=== PATIENT | male | born 1945 | race Caucasian/White ===

== ENCOUNTER → 2016-06-04 | Outpatient (CLI) | payer OTHER ==
[~2016-06-04] MED LIST: CAL PO; DRIS50002 PO; FILG30VL SC; FURO40TA2 PO; K-TA10TA2 PO; KEFL500C7 PO; MAG PO; MILK140C PO; MULT1TAB8 PO; MULTIVIT PO; NAPR250T2 PO; OXYC15TA76 PO; OXYC1SOL PO; PAIN325T OR; POTA1TAB14 PO; PRAZ1CAP PO; RANI1TAB6 PO; SERT-141 PO; VANC250C2 PO; VIT D 2000 PO; ZINC PO; ZOLO100T PO; centrum PO; milk thistle PO
--- NOTE | 2016-06-04 16:05 | REP ---
MAXILLOFACIAL CT WITHOUT CONTRAST: HISTORY: Chronic sinusitis. Minimal mucosal thickening is present in the left maxillary sinus. The remaining sinuses are clear. The osteomeatal units are patent. The middle and inferior nasal turbinates are partially paradoxical. There is minimal deviation of the nasal septum to the left anteriorly and to the right posteriorly. The cribriform plate and medial bautista of the orbits and optic canals are intact. The carotid canals form a segment of the posterolateral bautista of the sphenoid sinus. IMPRESSION: Sinus mucosal thickening as described above. Signed by Shashank Zapien MD 06/04/2016 04:50 P
== END ==
LOC: M RAD 14:54
PROVIDERS: ATTEND Otolaryngology
DX: J32.4 Chronic pansinusitis (principal); J34.89 Other specified disorders of nose and nasal sinuses

== ENCOUNTER → 2016-06-05 | Outpatient (REF) | payer OTHER ==
[2016-06-05 16:18] LABS: INR 1.37; MEAN CORPUSCULAR HEMOGLOBIN 36.9 pg (27.0-33.0); MEAN CORPUSCULAR HGB CONC 33.2 g/dl (32.0-36.5); MEAN CORPUSCULAR VOLUME 111.1 fl (80.0-96.0); RED CELL DISTRIBUTION WIDTH 20.1 % (11.5-14.5); WHITE BLOOD COUNT 2.5 K/mm3 (4.0-10.0)
[2016-06-05 16:30] LABS: ALBUMIN 2.9 GM/DL (3.2-5.2); ALBUMIN/GLOBULIN RATIO 0.64 (1.00-1.93); BILIRUBIN,TOTAL 0.8 MG/DL (0.2-1.0); CALCIUM LEVEL 8.4 MG/DL (8.8-10.2); CREATININE FOR GFR 1.47 MG/DL (0.70-1.30); POTASSIUM SERUM 3.9 MEQ/L (3.5-5.1); TOTAL PROTEIN 7.4 GM/DL (6.4-8.2)
[2016-06-05 18:29] LABS: ANISOCYTOSIS 2+; BANDS 2 % (< 11); BASOPHILS 1 % (0-4)
[2016-06-08 11:18] LABS: PRETREATED FOLATE FOR RBCFOL 5.2 NG/ML
== END ==
LOC: M SFHCPLAZ 13:28
PROVIDERS: ATTEND Family Medicine
DX: D64.9 Anemia, unspecified (principal); I50.30 Unspecified diastolic (congestive) heart failure

== ENCOUNTER → 2016-06-13 | Outpatient (REF) | payer OTHER ==
[2016-06-13 11:59] LABS: INR 1.42
[2016-06-13 12:29] LABS: ALBUMIN 2.8 GM/DL (3.2-5.2); ALBUMIN/GLOBULIN RATIO 0.64 (1.00-1.93); BILIRUBIN,TOTAL 0.8 MG/DL (0.2-1.0); CALCIUM LEVEL 8.1 MG/DL (8.8-10.2); CREATININE FOR GFR 1.45 MG/DL (0.70-1.30); GLOMERULAR FILTRATION RATE 50.8 (>42); POTASSIUM SERUM 3.8 MEQ/L (3.5-5.1); TOTAL PROTEIN 7.2 GM/DL (6.4-8.2)
[2016-06-13 13:07] LABS: MEAN CORPUSCULAR HEMOGLOBIN 38.2 pg (27.0-33.0); MEAN CORPUSCULAR HGB CONC 34.3 g/dl (32.0-36.5); MEAN CORPUSCULAR VOLUME 111.4 fl (80.0-96.0); RED CELL DISTRIBUTION WIDTH 18.1 % (11.5-14.5); WHITE BLOOD COUNT 2.3 K/mm3 (4.0-10.0)
[2016-06-13 13:36] LABS: BANDS 3 % (< 11); BASOPHILS 2 % (0-4); NUCLEATED RED BLOOD CELL 1 % (0-0); POIKILOCYTOSIS 1+
[2016-06-15 11:21] LABS: PRETREATED FOLATE FOR RBCFOL 5.8 NG/ML
== END ==
LOC: M SFHCPLAZ 10:46
PROVIDERS: ATTEND Family Medicine
DX: I50.30 Unspecified diastolic (congestive) heart failure (principal); D64.9 Anemia, unspecified

== ENCOUNTER → 2016-06-19 | Outpatient (REF) | payer OTHER ==
[2016-06-19 13:50] LABS: DIFF SLIDE NUMBER 198; MEAN CORPUSCULAR HEMOGLOBIN 37.2 pg (27.0-33.0); MEAN CORPUSCULAR HGB CONC 32.4 g/dl (32.0-36.5); MEAN CORPUSCULAR VOLUME 114.8 fl (80.0-96.0); RED CELL DISTRIBUTION WIDTH 19.4 % (11.5-14.5); WHITE BLOOD COUNT 3.5 K/mm3 (4.0-10.0)
[2016-06-19 15:07] LABS: PLATELET COUNT, AUTOMATED 28 k/mm3 (150-450)
[2016-06-19 15:20] LABS: BANDS 2 % (< 11); EOSINOPHILS 1 % (0-5)
[2016-06-19 15:21] LABS: SPHEROCYTES 2+
== END ==
LOC: M SFHCPLAZ 10:59
PROVIDERS: ATTEND Family Medicine
DX: D64.9 Anemia, unspecified (principal)

== ENCOUNTER → 2016-06-26 | Outpatient (REF) | payer OTHER ==
[2016-06-26 13:56] LABS: INR 1.46
[2016-06-26 13:58] LABS: ALBUMIN 2.9 GM/DL (3.2-5.2); ALBUMIN/GLOBULIN RATIO 0.67 (1.00-1.93); BILIRUBIN,TOTAL 0.8 MG/DL (0.2-1.0); CALCIUM LEVEL 8.3 MG/DL (8.8-10.2); CREATININE FOR GFR 1.47 MG/DL (0.70-1.30); POTASSIUM SERUM 3.8 MEQ/L (3.5-5.1); TOTAL PROTEIN 7.2 GM/DL (6.4-8.2)
[2016-06-26 14:35] LABS: MEAN CORPUSCULAR HEMOGLOBIN 37.7 pg (27.0-33.0); MEAN CORPUSCULAR HGB CONC 33.4 g/dl (32.0-36.5); MEAN CORPUSCULAR VOLUME 112.9 fl (80.0-96.0); RED CELL DISTRIBUTION WIDTH 17.7 % (11.5-14.5); WHITE BLOOD COUNT 8.7 K/mm3 (4.0-10.0)
[2016-06-26 15:15] LABS: ANISOCYTOSIS 1+
[2016-06-29 10:30] LABS: PRETREATED FOLATE FOR RBCFOL 6.8 NG/ML
== END ==
LOC: M SFHCPLAZ 10:59
PROVIDERS: ATTEND Family Medicine
DX: D64.9 Anemia, unspecified (principal); I50.30 Unspecified diastolic (congestive) heart failure

== ENCOUNTER → 2016-07-03 | Outpatient (REF) | payer OTHER ==
[~2016-07-03] MED LIST changes: +SERT-138 PO
[2016-07-03 14:13] LABS: MEAN CORPUSCULAR HEMOGLOBIN 38.2 pg (27.0-33.0); MEAN CORPUSCULAR HGB CONC 33.3 g/dl (32.0-36.5); MEAN CORPUSCULAR VOLUME 114.9 fl (80.0-96.0); RED CELL DISTRIBUTION WIDTH 18.1 % (11.5-14.5); WHITE BLOOD COUNT 2.3 K/mm3 (4.0-10.0)
== END ==
LOC: M SFHCPLAZ 11:00
PROVIDERS: ATTEND Family Medicine
DX: D64.9 Anemia, unspecified (principal)

== ENCOUNTER 2016-07-04 11:26 | Outpatient (CLI) | payer OTHER ==
[2016-07-04 11:52] VITALS: BP 162/67
[2016-07-04] MEDS ORDERED: FUROSEMIDE 20 MG/2 ML VIAL (J1940) IV SCH (12:00)
== END 2016-07-04 18:25 | disposition home or self-care (01) ==
LOC: M OPCLI4PR 11:26 → M PED 11:28 → M OPCLI4PR 18:25
PROVIDERS: ATTEND Family Medicine
DX: D64.9 Anemia, unspecified (principal)
CPT/HCPCS: 36415; 36430; 86850; 86900; 86901; 86920; J1940; P9016

== ENCOUNTER → 2016-07-09 | Outpatient (CLI) | payer OTHER ==
[~2016-07-09] VITALS: Ht 177.8 cm; Wt 86.2 kg
[~2016-07-09] MED LIST changes: +LIDOCAINE 2% INJ 100 MG/5 ML SDV (FOR ANES.) As Ordered ONE; +NS 1,000 ML IV SCH; +PROPOFOL 200 MG/20 ML VIAL As Ordered ONE
--- NOTE | 2016-07-09 13:59 | ROOR ---
Patient Name: Ovidio Ott Procedure Date: 07/09/2016 1:38 PM Date of : 1945 Age: 71 Room: [facility] Gender: Male Note Status: Finalized Procedure: Upper GI endoscopy + Banding of Varices Indications: Iron deficiency anemia, Cirrhosis rule out esophageal varices, Follow-up of esophageal varices, For therapy of esophageal varices Providers: Shubham Monsivais MD Referring MD: Maged Negron MD Requesting Provider: Medicines: Monitored Anesthesia Care Complications: No immediate complications. Procedure: Pre-Anesthesia Assessment: - The heart rate, respiratory rate, oxygen saturations, blood pressure, adequacy of pulmonary ventilation, and response to care were monitored throughout the procedure. The Endoscope was introduced through the mouth, and advanced to the second part of duodenum. The upper GI endoscopy was accomplished without difficulty. The patient tolerated the procedure well. Findings: Grade III varices were found in the entire esophagus. They were large in size. Three bands were successfully placed with incomplete eradication of varices. Moderate portal hypertensive gastropathy was found in the entire examined stomach. The exam of the duodenum was otherwise normal. Impression: - Grade III esophageal varices. Incompletely eradicated. Banded. - Portal hypertensive gastropathy. - No specimens collected. - The examination was otherwise normal. Recommendation: - Patient has a contact number available for emergencies. The signs and symptoms of potential delayed complications were discussed with the patient. Return to normal activities tomorrow. Written discharge instructions were provided to the patient. - Discharge patient to home. - Continue present medications. - Return to referring physician. - Return to GI clinic in 2 months. - The findings and recommendations were discussed with the patient's family. Shubham Monsivais MD Shubham Monsivais MD 07/09/2016 1:59:31 PM This report has been signed electronically. Number of Addenda: 0 Note Initiated On: 07/09/2016 1:38 PM Estimated Blood Loss: Estimated blood loss: none.
--- NOTE | 2016-07-09 14:16 | ROOR ---
Patient Name: Ovidio Ott Procedure Date: 07/09/2016 1:37 PM Date of : 1945 Age: 71 Room: [facility] Gender: Male Note Status: Finalized Procedure: Colonoscopy to Cecum Indications: High risk colon cancer surveillance: Personal history of colon cancer Providers: Shubham Monsivais MD Referring MD: Maged Negron MD Requesting Provider: Medicines: Monitored Anesthesia Care Complications: No immediate complications. Procedure: Pre-Anesthesia Assessment: - The heart rate, respiratory rate, oxygen saturations, blood pressure, adequacy of pulmonary ventilation, and response to care were monitored throughout the procedure. The Colonoscope was introduced through the anus and advanced to the cecum, identified by appendiceal orifice and ileocecal valve. The colonoscopy was performed without difficulty. The patient tolerated the procedure well. The quality of the bowel preparation was excellent. Findings: The perianal and digital rectal examinations were normal. Non-bleeding internal hemorrhoids were found during retroflexion. The hemorrhoids were small and Grade I (internal hemorrhoids that do not prolapse). There was evidence of a prior end-to-end colo-colonic anastomosis at 25 cm proximal to the anus. This was patent and was characterized by healthy appearing mucosa. The exam was otherwise without abnormality on direct and retroflexion views. Impression: - Non-bleeding internal hemorrhoids. - Patent end-to-end colo-colonic anastomosis, characterized by healthy appearing mucosa. - The examination was otherwise normal on direct and retroflexion views. - No specimens collected. - The exam was otherwise normal to the cecum. Recommendation: - Patient has a contact number available for emergencies. The signs and symptoms of potential delayed complications were discussed with the patient. Return to normal activities tomorrow. Written discharge instructions were provided to the patient. - High fiber diet. - Discharge patient to home. - Continue present medications. - Repeat colonoscopy in 3 - 5 years for screening purposes. - Return to referring physician. - The findings and recommendations were discussed with the patient's family. Shubham Monsivais MD Shubham Monsivais MD 07/09/2016 2:16:23 PM This report has been signed electronically. Number of Addenda: 0 Note Initiated On: 07/09/2016 1:37 PM Estimated Blood Loss: Estimated blood loss: none.
[2016-07-09 14:45] VITALS: BP 147/67
== END | disposition home or self-care (01) ==
LOC: M OPP 12:07
PROVIDERS: ATTEND Internal Medicine Gastroenterology
DX: Z12.11 Encounter for screening for malignant neoplasm of colon (principal); K64.0 First degree hemorrhoids; Z98.0 Intestinal bypass and anastomosis status; Z85.038 Personal history of other malignant neoplasm of large intestine; D50.9 Iron deficiency anemia, unspecified; K76.6 Portal hypertension; K31.89 Other diseases of stomach and duodenum; K74.60 Unspecified cirrhosis of liver; I85.10 Secondary esophageal varices without bleeding; Z85.05 Personal history of malignant neoplasm of liver; F32.9 Major depressive disorder, single episode, unspecified; D69.6 Thrombocytopenia, unspecified; R12 Heartburn; G47.30 Sleep apnea, unspecified; K92.1 Melena; R06.83 Snoring; M19.90 Unspecified osteoarthritis, unspecified site; M54.2 Cervicalgia; Z79.891 Long term (current) use of opiate analgesic; Z79.899 Other long term (current) drug therapy; Z87.891 Personal history of nicotine dependence; Z08 Encounter for follow-up examination after completed treatment for malignant neoplasm

== ENCOUNTER → 2016-07-11 | Outpatient (REF) | payer OTHER ==
[~2016-07-11] MED LIST changes: -LIDOCAINE 2% INJ 100 MG/5 ML SDV (FOR ANES.) As Ordered ONE; -NS 1,000 ML IV SCH; -PROPOFOL 200 MG/20 ML VIAL As Ordered ONE
[2016-07-11 12:12] LABS: DIFF SLIDE NUMBER 194; MEAN CORPUSCULAR HEMOGLOBIN 36.8 pg (27.0-33.0); MEAN CORPUSCULAR VOLUME 108.1 fl (80.0-96.0); WHITE BLOOD COUNT 4.7 K/mm3 (4.0-10.0)
[2016-07-11 12:16] LABS: PLATELET COUNT, AUTOMATED 30 k/mm3 (150-450)
[2016-07-11 12:37] LABS: ANISOCYTOSIS 2+
== END ==
LOC: M SFHCPLAZ 10:29
PROVIDERS: ATTEND Family Medicine
DX: D64.9 Anemia, unspecified (principal)

== ENCOUNTER 2016-07-12 12:08 | Outpatient (CLI) | payer OTHER ==
[~2016-07-12] VITALS: Ht 177.8 cm; Wt 86.2 kg
[2016-07-12] MEDS ORDERED: FUROSEMIDE 20 MG/2 ML VIAL (J1940) IV ONE (13:00)
== END 2016-07-12 17:20 | disposition home or self-care (01) ==
LOC: M INFU 12:08
PROVIDERS: ATTEND Physician Assistant Medical
DX: D70.9 Neutropenia, unspecified (principal); D64.9 Anemia, unspecified; K72.90 Hepatic failure, unspecified without coma; M19.90 Unspecified osteoarthritis, unspecified site; M54.2 Cervicalgia; Z79.899 Other long term (current) drug therapy; Z87.891 Personal history of nicotine dependence
CPT/HCPCS: 36415; 36430; 86850; 86900; 86901; 86920; J1940; P9016

== ENCOUNTER → 2016-08-21 | Outpatient (REF) | payer OTHER ==
[~2016-08-21] MED LIST changes: -SERT-141 PO; +SERT50TA PO
[2016-08-21 14:14] LABS: INR 1.45
[2016-08-21 14:22] LABS: DIFF SLIDE NUMBER 213; MEAN CORPUSCULAR HEMOGLOBIN 36.3 pg (27.0-33.0); MEAN CORPUSCULAR VOLUME 109.7 fl (80.0-96.0); RED CELL DISTRIBUTION WIDTH 19.8 % (11.5-14.5); WHITE BLOOD COUNT 8.7 K/mm3 (4.0-10.0)
[2016-08-21 14:24] LABS: ALBUMIN 2.9 GM/DL (3.2-5.2); ALBUMIN/GLOBULIN RATIO 0.67 (1.00-1.93); BILIRUBIN,TOTAL 0.8 MG/DL (0.2-1.0); CALCIUM LEVEL 8.1 MG/DL (8.8-10.2); CREATININE FOR GFR 1.5 MG/DL (0.70-1.30); FREE T4 0.62 NG/DL (0.76-1.46); GLOMERULAR FILTRATION RATE 48.8 (>42); MAGNESIUM LEVEL 1.8 MG/DL (1.8-2.4); PERCENT SATURATION 91.1 % (19.7-37.4); POTASSIUM SERUM 3.8 MEQ/L (3.5-5.1); TOTAL PROTEIN 7.2 GM/DL (6.4-8.2)
[2016-08-21 15:13] LABS: PLATELET COUNT, AUTOMATED 25 k/mm3 (150-450)
[2016-08-21 15:20] LABS: BANDS 3 % (< 11)
[2016-08-21 15:21] LABS: ANISOCYTOSIS 2+
== END ==
LOC: M SFHCPLAZ 11:00
PROVIDERS: ATTEND Family Medicine
DX: I50.30 Unspecified diastolic (congestive) heart failure (principal); D63.8 Anemia in other chronic diseases classified elsewhere

== ENCOUNTER → 2016-09-05 | Outpatient (REF) | payer OTHER ==
[2016-09-05 13:22] LABS: REASON FOR REVIEW COMPREHENSIVE REVIEW
[2016-09-05 13:56] LABS: INR 1.49
[2016-09-07 10:06] LABS: HEPATITIS B SURFACE ANTIBODY POSITIVE (POSITIVE)
== END ==
LOC: M LAB REF 12:47
PROVIDERS: ATTEND Internal Medicine Medical Oncology
DX: D69.6 Thrombocytopenia, unspecified (principal)

== ENCOUNTER 2016-10-05 13:03 | Inpatient (IN) | payer MEDICARE, OTHER ==
[~2016-10-05] VITALS: Ht 180.3 cm; Wt 92.2 kg
[~2016-10-05 13:03] MED LIST changes: +KEFL500C17 PO; -KEFL500C7 PO; -NAPR250T2 PO; +NAPR250T4 PO; -OXYC1SOL PO; +OXYC1SOL3 PO
[2016-10-05] MEDS ORDERED: NS 500 ML IV ONE (14:15)
[2016-10-05] MEDS ORDERED: MORPHINE 2 MG/ML 1ML SYRINGE IV PRN (14:15)
[2016-10-05] MEDS ORDERED: ONDANSETRON 4MG/2ML VIAL (J2405) IV ONE (14:15)
--- NOTE | 2016-10-05 14:37 | REP ---
CT ABDOMEN AND PELVIS: CT abdomen and pelvis performed. No IV contrast was administered. Sagittal and coronal reconstruction images are performed. Comparison made with prior study of 02/23/2016. There is diffuse interstitial fibrosis in the visualized lung bases which is unchanged. Liver is unchanged in configuration with scattered internal calcifications. Spleen is enlarged and there are multiple varices in the splenic hilum. Adrenals and pancreas are grossly unremarkable. Kidneys are grossly unremarkable except for a tiny intrarenal stone in the lower pole of the right kidney measuring about 2 mm in diameter. No ureteral stone is seen and there is no hydronephrosis. There is mild atherosclerotic calcification of the abdominal aorta without aneurysm. No definite adenopathy is seen. There is no free air. There is mild free fluid in the pelvis. There is diffuse dilatation of small and large bowel. This may represent generalized ileus. I do not see any definite abrupt zone of transition. No pelvic mass is seen. Urinary bladder is mildly distended and grossly unremarkable. There are degenerative changes of the spine. IMPRESSION: No free air. Diffuse large and small bowel dilatation may represent a generalized ileus. Mild free fluid in the pelvis. Splenomegaly with splenic varices. Tiny intrarenal stone right kidney. No hydronephrosis bilaterally. Signed by Aaron Bahena MD 10/05/2016 08:02 P
[2016-10-05 14:49] LABS: INR 1.61
[2016-10-05 14:53] LABS: ADD MANUAL DIFFER YES; DIFF SLIDE NUMBER 253; MEAN CORPUSCULAR HEMOGLOBIN 41.2 pg (27.0-33.0); MEAN CORPUSCULAR HGB CONC 35.4 g/dl (32.0-36.5); MEAN CORPUSCULAR VOLUME 116.5 fl (80.0-96.0); WHITE BLOOD COUNT 9.9 K/mm3 (4.0-10.0)
[2016-10-05 14:58] LABS: ALBUMIN 2.8 GM/DL (3.2-5.2); ALBUMIN/GLOBULIN RATIO 0.64 (1.00-1.93); BILIRUBIN,DIRECT 0.4 MG/DL (0.0-0.2); BILIRUBIN,TOTAL 1.2 MG/DL (0.2-1.0); CALCIUM LEVEL 8.3 MG/DL (8.8-10.2); CREATININE FOR GFR 1.47 MG/DL (0.70-1.30); POTASSIUM SERUM 3.4 MEQ/L (3.5-5.1); TOTAL PROTEIN 7.2 GM/DL (6.4-8.2)
[2016-10-05 15:17] LABS: PLATELET COUNT, AUTOMATED 28 k/mm3 (150-450)
[2016-10-05] MEDS ORDERED: HYDROmorphone HCL 1 MG/ML SYRINGE (J1170) IV ONE (15:30)
[2016-10-05 15:37] LABS: BANDS 2 % (< 11)
[2016-10-05 15:38] LABS: ANISOCYTOSIS 1+
[2016-10-05] MEDS ORDERED: FLEET OIL RETENTION ENEMA PR PRN (16:45)
[2016-10-05] MEDS ORDERED: PERCOCET 5MG/325MG TAB PO PRN (16:45)
[2016-10-05] MEDS ORDERED: ACETAMINOPHEN TAB 650MG DOSE (2X325MG) PO PRN (16:45)
[2016-10-05] MEDS ORDERED: RANI150T PO (16:52)
[2016-10-05] MEDS ORDERED: SERT-155 PO (16:52)
[2016-10-05] MEDS ORDERED: VITMTA PO (16:52)
[2016-10-05] MEDS ORDERED: MILK140C2 PO (16:52)
[2016-10-05] MEDS ORDERED: DRIS50002 PO (16:52)
[2016-10-05] MEDS ORDERED: OXYC-517 PO (16:52)
[2016-10-05] MEDS ORDERED: LASI40TA PO (16:53)
--- NOTE | 2016-10-05 18:02 | HPE ---
DATE OF ADMISSION: 10/05/2016 PRIMARY CARE PROVIDER: Dr. 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 The patient stated his last bowel movement was 10/01/2016. Since then, he did not have any stool production, and he has been experiencing worsening abdominal pain. He describes the pain as sharp, mainly in the right abdomen with radiation to the left side. He was also noted to have persistent nausea and significant decreased oral intake. On 10/02/2016, the patient started having a temperature of 101.5, the temperature lasting for 1-2 days. Denies any chills. Denies any recent medication changes. Denies any recent lifestyle modifications. When the patient arrived in the emergency room, imaging studies were done. The patient was found to have diffuse large and small bowel dilatation and the hospitalist team was called for admission with a surgery consult. ALLERGIES: No known drug allergies. PAST MEDICAL HISTORY: End-stage liver disease secondary to alcoholic cirrhosis. Hepatocellular carcinoma, status post partial hepatectomy. Pancytopenia. Colon cancer, status post colectomy. History of Clostridium difficile colitis. Grade 2 esophageal varices in 2013. Portal hypertension. History of MRSA cellulitis. History of esophageal reflux disease. Rosacea. Osteoarthritis. PTSD. PAST SURGICAL HISTORY: Cholecystectomy. Colectomy. Partial hepatectomy. Status post embolization and radiation. HOME MEDICATIONS: - Neupogen 300 mcg subcutaneously twice weekly on Saturday and Saturday - Lasix 40 mg by mouth twice a day - multivitamin one tablet by mouth daily - oxycodone 5 mg by mouth every 6 hours as needed - ranitidine one tablet by mouth twice a day as needed for heartburn - sertraline 100 mg by mouth nightly - vitamin D 50,000 units by mouth weekly on Mondays SOCIAL HISTORY: The patient quit smoking since 30 years ago. The patient's last drink was approximately 13-15 years ago. Denied any recreational drug use. The patient is a FULL CODE. REVIEW OF SYSTEMS: GENERAL: The patient had fever previously, no chills. HEENT: No vision change. No auditory changes. CARDIOVASCULAR: No chest pain. No palpitations. RESPIRATORY: No shortness of breath, no cough, no sputum production. GASTROINTESTINAL: Worsening abdominal pain around the right side, radiating to the left abdomen. Pain is sharp, persistent. Last bowel movement was approximately 4-5 days ago. The patient also complains of nausea causing very limited oral intake. MUSCULOSKELETAL: Denies any muscle pain or joint pain. NEUROLOGICAL: No numbness, no tingling. OBJECTIVE: VITAL SIGNS: Temperature 97.5, pulse is 70, respirations 18, blood pressure is 146/66, pulse oximetry is 97% in room air. LABORATORY DATA: WBC 9.9, hemoglobin 9.2, hematocrit 25.9, platelet count is 28. Sodium is 139, potassium is 3.4, chloride 104, carbon dioxide 27, BUN 27, creatinine 1.47, GFR is 50, fasting glucose 114, calcium is 8.3, total bilirubin is 1.2, direct bilirubin is 0.4, AST 42, ALT 30, alkaline phosphatase 116, ammonia level is 21, total protein 7.2, albumin 2.8, amylase 50, lipase 165. PT is 19.2, INR is 1.61. CT of the abdomen and pelvis without contrast showed no free air. Diffuse large and small bowel dilatation, may represent generalized ileus. Mild free fluid in the pelvis. Splenomegaly with splenic varices. Tiny intrarenal stone of the right kidney. No hydronephrosis. ASSESSMENT AND PLAN: 1. Acute worsening abdominal pain. Imaging studies show the patient may have ileus. Surgery is consulted, patient is admitted. Due to the patient's extensive medial history, the patient will initially be admitted to the progressive care unit (PCU). The patient may be downgraded if the patient is stable. At this moment, the patient will be nothing by mouth. Will start a trial of mineral oil enema. The patient had a recent colonoscopy on 07/09/[address] Monsivais. Result showed nonbleeding internal hemorrhoids. There was no significant abnormalities detected. Will continue with conservative medical management. 2. End-stage liver disease secondary to alcoholic cirrhosis. 3. Hepatocellular carcinoma, status post partial hepatectomy. 4. Colon cancer, status post colectomy. 5. Grade 2 esophageal varices. No sign of active bleeding. Continue to monitor hemoglobin and hematocrit. 6. Portal Hypertension. 7. History of MRSA cellulitis. 8. Gastroesophageal reflux disease. 9. Osteoarthritis. 10. Post-traumatic stress disorder. 11. Pancytopenia with severe thrombocytopenia. Today, the patient presented with platelets of 28. The patient's previous platelet count has been reviewed. The patient's platelet count usually runs between 25-40s. Will continue to monitor. 12. Deep vein thrombosis (DVT) prophylaxis. Due to severe thrombocytopenia, no anticoagulation agent will be given, and the patient will be on thromboembolism deterrents (TEDs), sequential compression device. MTDD
[2016-10-05 18:25] VITALS: BP 153/69
[2016-10-05] MEDS: NS 1,000 ML IV SCH (18:36)
[2016-10-05] MEDS ORDERED: MORPHINE 2 MG/ML 1ML SYRINGE IV ONE (18:45)
[2016-10-05 20:03] VITALS: BP 138/65
[2016-10-05] MEDS: MORPHINE 2 MG/ML 1ML SYRINGE IV PRN (22:29)
[2016-10-06] VITALS (7 sets, daily range): BP systolic 129–158; BP diastolic 62–72
[2016-10-06 05:39] LABS: CALCIUM LEVEL 7.9 MG/DL (8.8-10.2); CREATININE FOR GFR 1.4 MG/DL (0.70-1.30); GLOMERULAR FILTRATION RATE 52.9 (>42); POTASSIUM SERUM 3.9 MEQ/L (3.5-5.1)
[2016-10-06 05:40] LABS: MEAN CORPUSCULAR HEMOGLOBIN 40.8 pg (27.0-33.0); MEAN CORPUSCULAR HGB CONC 34.6 g/dl (32.0-36.5); MEAN CORPUSCULAR VOLUME 118.1 fl (80.0-96.0); RED CELL DISTRIBUTION WIDTH 16.5 % (11.5-14.5); WHITE BLOOD COUNT 6.5 K/mm3 (4.0-10.0)
[2016-10-06] MEDS: NS 1,000 ML IV SCH ×2 (05:52→19:45)
[2016-10-06] MEDS: MORPHINE 2 MG/ML 1ML SYRINGE IV PRN ×2 (07:43→21:07)
[2016-10-06] MEDS ORDERED: SERTRALINE HCL 50 MG TAB PO SCH (09:00)
[2016-10-06] MEDS: ALVIMOPAN 12 MG CAPSULE (ENTEREG) PO SCH ×2 (14:56→21:07)
--- NOTE | 2016-10-06 17:21 | ECGEPIP ---
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 Electronically Signed On 10-06-2016 17:21:17 EDT by El Sahu
[2016-10-06] MEDS: OMEPRAZOLE 20 MG CAP PO SCH (17:44)
[2016-10-06] MEDS: SERTRALINE HCL 50 MG TAB PO SCH (21:07)
[2016-10-06] MEDS: traZODone 100 MG TAB PO SCH (21:07)
--- NOTE | 2016-10-07 01:33 | IPNPDOC ---
Subjective Date Seen The patient was seen on 10/06/16. Subjective Chief Complaint/HPI The patient is a 71-year-old male admitted with a reason for visit of ILEUS. Events since last encounter He complains of abdominal discomfort, improved with medication. He has experienced flatus, with some relief of abdominal discomfort, but no BM. Constitutional: Denies: Chills, Fever, Fatigue Skin: Denies: Rash Pulmonary: Denies: Dyspnea, Cough Cardiovascular: Denies: Chest Pain, Palpitations Gastrointestinal: Reports: Abdominal Pain, Denies: Nausea, Vomiting, Diarrhea, Constipation Hematologic: Denies: Bruising, Bleeding Excessively Neurological: Denies: Incoordination, Confusion Psych: Reports: Mood Normal Objective Physical Examination General Exam: Positive: Alert Eye Exam: Positive: Conjunctiva & lids normal Neck Exam: Positive: Supple, Negative: JVD Chest Exam: Positive: Clear to auscultation, Normal air movement Heart Exam: Positive: Rate Normal Telemetry: Positive: No significant arrhythmia Abdomen Exam: Positive: BS Hypoactive, Soft, Negative: Tenderness Skin Exam: Positive: Nl turgor and temperature Assessment /Plan Problems (1) Ileus Status: Acute Problem Text: Transitioned to clear fluids. He has passed flatus, but no BM. Encouraged ambulation. (2) Thrombocytopenia Status: Chronic Problem Text: Chronic severe thrombocytopenia. Will monitor for bleeding, avoid heparin. (3) End stage liver disease Status: Chronic Problem Text: Secondary to alcohol abuse; history of liver and colon cancer. With esophageal varices and portal hypertension. He follows with Dr. Monsivais as an outpatient. (4) CKD (chronic kidney disease), stage II Status: Chronic Problem Text: Will monitor renal function. Plan/VTE VTE Prophylaxis Ordered?: Yes VS, I&O, 24H, Fishbone Vital Signs/I&O Vital Signs Date Time Temp Pulse Resp B/P (MAP) Pulse Ox O2 Delivery O2 Flow Rate FiO2 10/06/16 22:00 99.4 74 18 138/65 (89) 92 Room Air 10/06/16 04:00 2.0 I&O- Last 24 Hours up to 6 AM 10/07/16 06:00 Intake Total 1340 ml Output Total 850 ml Balance 490 ml Laboratory Data 24H LABS Laboratory Tests 2 10/06/16 04:51: Anion Gap 9, Glomerular Filtration Rate 52.9, Blood Urea Nitrogen 27H, Creatinine 1.40H, Sodium Level 142, Potassium Level 3.9, Chloride Level 106, Carbon Dioxide Level 27, Calcium Level 7.9L CBC/BMP Laboratory Tests 10/06/16 04:51 Red Blood Count 2.26 L, Mean Corpuscular Volume 118.1 H, Mean Corpuscular Hemoglobin 40.8 H, Mean Corpuscular Hemoglobin Concent 34.6, Red Cell Distribution Width 16.5 H, Calcium Level 7.9 L LANRE NG DO October 07, 2016 01:33
[2016-10-07 06:00] VITALS: BP 119/58
[2016-10-07] MEDS: NS 1,000 ML IV SCH ×2 (06:25→18:44)
[2016-10-07 06:29] LABS: MEAN CORPUSCULAR HEMOGLOBIN 40.4 pg (27.0-33.0); MEAN CORPUSCULAR HGB CONC 34.5 g/dl (32.0-36.5); MEAN CORPUSCULAR VOLUME 117.1 fl (80.0-96.0); RED CELL DISTRIBUTION WIDTH 16.9 % (11.5-14.5); WHITE BLOOD COUNT 5.8 K/mm3 (4.0-10.0)
[2016-10-07 06:35] LABS: CALCIUM LEVEL 7.8 MG/DL (8.8-10.2); CREATININE FOR GFR 1.32 MG/DL (0.70-1.30); GLOMERULAR FILTRATION RATE 56.6 (>42); POTASSIUM SERUM 3.5 MEQ/L (3.5-5.1)
[2016-10-07] MEDS: ALVIMOPAN 12 MG CAPSULE (ENTEREG) PO SCH ×2 (08:48→21:23)
[2016-10-07] MEDS: OMEPRAZOLE 20 MG CAP PO SCH (08:48)
--- NOTE | 2016-10-07 11:12 | IPNPDOC ---
Subjective General Date/Time Seen The patient was seen on 10/07/16 at 11:04. Subject Chief Complaint/History The patient is a 71-year-old male admitted with a reason for visit of ILEUS. Reports passing flatus spontaneously now but no BMs yet. Feels mildly improved Tolerates clears wants to try solid foods Denies nausea, abdominal discomfort Current Medications Current Medications Current Medications Acetaminophen (Tylenol Tab) 650 mg Q4HP PRN PO MILD PAIN OR FEVER; Start at 16:45; Stop 11/04/16 at 16:44 Alvimopan (Entereg) 12 mg BID PO Last administered on 10/07/16 08:48; Start at 09:00; Stop 10/11/16 at 08:59 Home Med (Med Rec Complete!) ASDIRECTED XX ; Start 10/05/16 at 17:00; Stop 05/12 at 17:00; Status DC Mineral Oil (Fleet Oil Retention Enema) 1 enema DAILYPRN PRN WI CONSTIPATION Last administered on 10/05/16 21:47; Start 10/05/16 at 16:45; Stop 11/04/16 at 16:44 Morphine Sulfate (Morphine Sulfate Inj) 2 mg Q15M PRN IV MODERATE/SEVERE PAIN ( PS 5-10) Last administered on 10/05/16 14:18; Start 10/05/16 at 14:15; Stop at 17:07; Status DC Morphine Sulfate (Morphine Sulfate Inj) 2 mg Q2HP PRN IV BREAKTHROUGH PAIN Last administered on 10/06/16 21:07; Start 10/05/16 at 18:45; Stop 10/12/16 at 18:44 Omeprazole (PriLOSEC) 20 mg DAILY PO Last administered on 10/07/16 08:48; Start 10/06/16 at 09:00; Stop 11/05/16 at 08:59 Oxycodone/ Acetaminophen (Percocet 5mg/ 325mg Tablet) 1 tab Q4HP PRN PO MODERATE PAIN (PS 5-7) Last administered on 10/07/16 08:48; Start 10/05/16 at 16:45; Stop 10/12/16 at 16:44 Sertraline HCl (Zoloft) 50 mg DAILY PO ; Start 10/06/16 at 09:00; Stop 11/05/16 at 08:59; Status Cancel Sertraline HCl (Zoloft) 50 mg QHS PO Last administered on 10/06/16 21:07; Start 10/06/16 at 21:00; Stop 11/05/16 at 20:59 Sodium Chloride 1,000 ml @ 80 mls/hr [id number] IV Last administered on 06:25; Start 10/05/16 at 16:32; Stop 11/04/16 at 16:31 Trazodone HCl (Desyrel) 100 mg QHS PO Last administered on 10/06/16 21:07; Start 10/06/16 at 21:00; Stop 11/05/16 at 20:59 Allergies Coded Allergies: No Known Drug Allergy (Verified Allergy, Unknown, 07/02/16) Objective Physical Examination Examination GENERAL APPEARANCE: Sitting up on a chair, appears comfortable ABDOMEN: Abdomen is round, less distended but still moderately prominent. Hypoactive bowel sounds. Nontender on palpation EXTREMITIES: no edema noted. Vital Signs Vital Signs Date Time Temp Pulse Resp B/P (MAP) Pulse Ox O2 Delivery O2 Flow Rate FiO2 10/07/16 09:18 16 10/07/16 06:00 97.8 64 119/58 (78) 92 Room Air 10/06/16 04:00 2.0 I&Os I&O- Last 24 Hours up to 6 AM 10/07/16 06:00 Intake Total 2537 ml Output Total 1050 ml Balance 1487 ml Laboratory Data Labs 24H Laboratory Tests 2 10/07/16 05:55: Anion Gap 6L, Glomerular Filtration Rate 56.6, Blood Urea Nitrogen 22H, Creatinine 1.32H, Sodium Level 142, Potassium Level 3.5, Chloride Level 109H, Carbon Dioxide Level 27, Calcium Level 7.8L CBC/BMP Laboratory Tests 10/07/16 05:55 Red Blood Count 2.17 L, Mean Corpuscular Volume 117.1 H, Mean Corpuscular Hemoglobin 40.4 H, Mean Corpuscular Hemoglobin Concent 34.5, Red Cell Distribution Width 16.9 H, Calcium Level 7.8 L Impression Ileo colonic ileus I think he is getting better slowly. His abdomen is getting less distended. Will try him on some soft solid food. If not able to tolerate food, would recommend doing gastrograffin enema tomorrow to rule out distal obstruction; though I do not expect any as he has had a recent colonoscopy without any problem Plan / VTE VTE Prophylaxis Ordered?: KO Sosa MD October 07, 2016 11:12
[2016-10-07 14:00] VITALS: BP 146/71
[2016-10-07] MEDS: MORPHINE 2 MG/ML 1ML SYRINGE IV PRN (16:55)
[2016-10-07] MEDS ORDERED: NAPROXEN 250 MG TAB PO ONE (18:30)
[2016-10-07] MEDS: SERTRALINE HCL 50 MG TAB PO SCH (21:23)
[2016-10-07] MEDS: traZODone 100 MG TAB PO SCH (21:24)
--- NOTE | 2016-10-07 21:58 | IPNPDOC ---
Subjective Date Seen The patient was seen on 10/07/16. Subjective Chief Complaint/HPI The patient is a 71-year-old male admitted with a reason for visit of ILEUS. Events since last encounter He admits to flatus, but no BM yet. He still has some abdominal discomfort, though less than yesterday. He tolerated clear liquids, and is interested in eating. Constitutional: Denies: Chills, Fever ENT: Denies: Head Aches Skin: Denies: Rash Pulmonary: Denies: Dyspnea, Cough Cardiovascular: Denies: Chest Pain Gastrointestinal: Reports: Nausea (occasionally), Abdominal Pain, Denies: Vomiting, Diarrhea, Constipation Genitourinary: Denies: Dysuria Objective Physical Examination General Exam: Positive: Alert, Cooperative, No Acute Distress Eye Exam: Positive: Conjunctiva & lids normal Neck Exam: Positive: Supple, Negative: JVD Chest Exam: Positive: Clear to auscultation, Normal air movement Heart Exam: Positive: Rate Normal Telemetry: Positive: No significant arrhythmia Abdomen Exam: Positive: BS Hypoactive, Soft, Negative: Tenderness Extremity Exam: Negative: Edema Skin Exam: Positive: Nl turgor and temperature Assessment /Plan Problems (1) Ileus Status: Acute Problem Text: 10/07 -- Advancing diet as per Dr. Yuen. Flatus, but still no BM. More comfortable than yesterday. Though I didn't appreciate abdominal distention yesterday, upon seeing him today, I think he had some and it improved. He seems to be improving. Transitioned to clear fluids. He has passed flatus, but no BM. Encouraged ambulation. (2) Thrombocytopenia Status: Chronic Problem Text: Chronic severe thrombocytopenia. Will monitor for bleeding, avoid heparin. (3) End stage liver disease Status: Chronic Problem Text: Secondary to alcohol abuse; history of liver and colon cancer. With esophageal varices and portal hypertension. He follows with Dr. Monsivais as an outpatient. (4) CKD (chronic kidney disease), stage II Status: Chronic Problem Text: Will monitor renal function. Plan/VTE VTE Prophylaxis Ordered?: Yes VS, I&O, 24H, Fishbone Vital Signs/I&O Vital Signs Date Time Temp Pulse Resp B/P (MAP) Pulse Ox O2 Delivery O2 Flow Rate FiO2 10/07/16 17:05 18 10/07/16 14:00 98.5 65 146/71 (96) 94 Room Air 10/06/16 04:00 2.0 I&O- Last 24 Hours up to 6 AM 10/07/16 05:59 Intake Total 2777 ml Output Total 850 ml Balance 1927 ml Laboratory Data 24H LABS Laboratory Tests 2 10/07/16 05:55: Anion Gap 6L, Glomerular Filtration Rate 56.6, Blood Urea Nitrogen 22H, Creatinine 1.32H, Sodium Level 142, Potassium Level 3.5, Chloride Level 109H, Carbon Dioxide Level 27, Calcium Level 7.8L CBC/BMP Laboratory Tests 10/07/16 05:55 Red Blood Count 2.17 L, Mean Corpuscular Volume 117.1 H, Mean Corpuscular Hemoglobin 40.4 H, Mean Corpuscular Hemoglobin Concent 34.5, Red Cell Distribution Width 16.9 H, Calcium Level 7.8 L LANRE NG DO October 07, 2016 21:58
[2016-10-07 22:00] VITALS: BP 128/62
[2016-10-08] MEDS: FILGRASTIM 300 MCG/0.5 ML SYRINGE (J1442) SC SCH (00:06)
[2016-10-08 06:00] VITALS: BP 120/56
[2016-10-08] MEDS: NS 1,000 ML IV SCH ×2 (06:39→18:19)
[2016-10-08 06:47] LABS: MEAN CORPUSCULAR HEMOGLOBIN 40.3 pg (27.0-33.0); MEAN CORPUSCULAR HGB CONC 34.1 g/dl (32.0-36.5); MEAN CORPUSCULAR VOLUME 118.1 fl (80.0-96.0); RED CELL DISTRIBUTION WIDTH 16.9 % (11.5-14.5); WHITE BLOOD COUNT 18.4 K/mm3 (4.0-10.0)
[2016-10-08 06:59] LABS: CALCIUM LEVEL 7.5 MG/DL (8.8-10.2); CREATININE FOR GFR 1.29 MG/DL (0.70-1.30); GLOMERULAR FILTRATION RATE 58.1 (>42); POTASSIUM SERUM 3.4 MEQ/L (3.5-5.1)
[2016-10-08] MEDS: OMEPRAZOLE 20 MG CAP PO SCH (10:19)
[2016-10-08] MEDS: ALVIMOPAN 12 MG CAPSULE (ENTEREG) PO SCH ×2 (10:19→22:14)
[2016-10-08] MEDS: oxyCODONE 5MG TAB PO PRN ×2 (10:26→16:26)
--- NOTE | 2016-10-08 12:26 | IPNPDOC ---
Subjective Date Seen The patient was seen on 10/08/16. Subjective Chief Complaint/HPI The patient is a 71-year-old male admitted with a reason for visit of ILEUS. Events since last encounter Patient has been advancing his diet, and ate half a ham sandwich today. However , he states that he had significant abdominal pain with doing so. He continues to not pass any stool and is feeling bloated. His pain is a 6 out of 10. Intensity varies throughout the day. He denies any nausea or vomiting. He notes some passage of gas occasionally, which improves his symptoms. He denies any passage of blood, fevers, chills, or sweats. Constitutional: Denies: Chills, Fever, Malaise Skin: Denies: Rash Pulmonary: Denies: Dyspnea, Cough Cardiovascular: Denies: Chest Pain, Palpitations Gastrointestinal: Reports: Abdominal Pain, Constipation, Denies: Nausea, Vomiting, Diarrhea Genitourinary: Denies: Dysuria, Frequency Other systems 10 point review systems otherwise negative Objective Physical Examination General Exam: Positive: Alert, Cooperative, No Acute Distress Eye Exam: Positive: Conjunctiva & lids normal Neck Exam: Positive: Supple, Negative: JVD Chest Exam: Positive: Clear to auscultation, Normal air movement Heart Exam: Positive: Rate Normal Telemetry: Positive: No significant arrhythmia Abdomen Exam: Positive: BS Hyperactive, Soft, Tenderness (mild diffuse tenderness without guarding or rebound) Extremity Exam: Negative: Edema Skin Exam: Positive: Nl turgor and temperature Psych Exam: Positive: Mental status NL, Mood NL Assessment /Plan Problems (1) Ileus Status: Acute Problem Text: 10/08 Advancing diet as per Dr. Yuen. Flatus, but still no BM. Did not tolerate advancement of diet today and he is quite distended with hyperactive bowel sounds. -Nothing by mouth for procedure -Small bowel follow-through -Follow up surgery recommendations; will likely need to back off on his diet (2) Thrombocytopenia Status: Chronic Problem Text: Chronic, stable, severe thrombocytopenia. No signs or symptoms of active bleeding. Avoid heparin. (3) End stage liver disease Status: Chronic Problem Text: Secondary to alcohol abuse; history of liver and colon cancer. With esophageal varices and portal hypertension. He follows with Dr. Monsivais as an outpatient. (4) CKD (chronic kidney disease), stage II Status: Chronic Problem Text: Creatinine has been stable during hospitalization. Avoiding nephrotoxic agents. Plan/VTE VTE Prophylaxis Ordered?: Yes VTE Exclusion Pharmacological: Bleeding Risk Plan Small bowel follow-through; will likely need to reduce patient back to clears, however will follow-up surgery recommendations VS, I&O, 24H, Fishbone Vital Signs/I&O Vital Signs Date Time Temp Pulse Resp B/P (MAP) Pulse Ox O2 Delivery O2 Flow Rate FiO2 10/08/16 11:20 18 10/08/16 06:00 97.7 60 120/56 (77) 94 Room Air 10/06/16 04:00 2.0 I&O- Last 24 Hours up to 6 AM 10/08/16 06:00 Intake Total 2580 ml Output Total 1000 ml Balance 1580 ml Laboratory Data 24H LABS Laboratory Tests 2 10/08/16 06:27: Anion Gap 8, Glomerular Filtration Rate 58.1, Blood Urea Nitrogen 20H, Creatinine 1.29, Sodium Level 143, Potassium Level 3.4L, Chloride Level 111H, Carbon Dioxide Level 24, Calcium Level 7.5L CBC/BMP Laboratory Tests 10/08/16 06:27 Red Blood Count 2.11 L, Mean Corpuscular Volume 118.1 H, Mean Corpuscular Hemoglobin 40.3 H, Mean Corpuscular Hemoglobin Concent 34.1, Red Cell Distribution Width 16.9 H, Calcium Level 7.5 L SOURAV BACON MD October 08, 2016 12:26
[2016-10-08 14:00] VITALS: BP 131/63
[2016-10-08] MEDS ORDERED: BISACODYL 10 MG SUPP PR PRN (15:45)
[2016-10-08] MEDS: MORPHINE 2 MG/ML 1ML SYRINGE IV PRN (18:20)
[2016-10-08] MEDS: ONDANSETRON 4MG/2ML VIAL (J2405) IV PRN (21:23)
[2016-10-08 22:00] VITALS: BP 149/67
[2016-10-08] MEDS: SERTRALINE HCL 50 MG TAB PO SCH (22:14)
[2016-10-08] MEDS: traZODone 100 MG TAB PO SCH (22:14)
[2016-10-09 06:00] VITALS: BP 153/72
[2016-10-09 08:00] LABS: ANION GAP 7 MEQ/L (8-16); BLOOD UREA NITROGEN 19 MG/DL (7-18); CALCIUM LEVEL 7.6 MG/DL (8.8-10.2); CARBON DIOXIDE LEVEL 24 MEQ/L (21-32); CHLORIDE LEVEL 112 MEQ/L (98-107); CREATININE FOR GFR 1.24 MG/DL (0.70-1.30); GLOMERULAR FILTRATION RATE > 60.0 (>42); GLUCOSE, FASTING 110 MG/DL (83-110); POTASSIUM SERUM 3.6 MEQ/L (3.5-5.1); SODIUM LEVEL 143 MEQ/L (136-145)
[2016-10-09] MEDS: NS 1,000 ML IV SCH ×2 (08:02→20:51)
[2016-10-09 08:32] LABS: MEAN CORPUSCULAR HEMOGLOBIN 39.7 pg (27.0-33.0); MEAN CORPUSCULAR HGB CONC 33.6 g/dl (32.0-36.5); MEAN CORPUSCULAR VOLUME 118.2 fl (80.0-96.0); RED CELL DISTRIBUTION WIDTH 16.8 % (11.5-14.5); WHITE BLOOD COUNT 20.2 K/mm3 (4.0-10.0)
[2016-10-09] MEDS: SUCRALFATE SUSP 1GM/10ML UD PO SCH ×2 (09:00→20:51)
--- NOTE | 2016-10-09 09:40 | IPNPDOC ---
Subjective Date Seen The patient was seen on 10/09/16. Subjective Chief Complaint/HPI The patient is a 71-year-old male admitted with a reason for visit of ILEUS. Events since last encounter Overnight, white count has increased again. Patient reports new watery diarrhea , although this was after administration of Dulcolax suppositories. He indicates that his pain is improved after having the diarrhea. He denies any fevers, cough, or urinary frequency. He is upset that a cause has not been found for his abdominal discomfort. His pain today is 4 out of 10. Constitutional: Denies: Chills, Fever, Malaise Pulmonary: Denies: Dyspnea, Cough Cardiovascular: Denies: Chest Pain, Palpitations, Orthopnea Gastrointestinal: Reports: Abdominal Pain, Diarrhea, Denies: Nausea, Vomiting, Constipation, Melena Genitourinary: Denies: Dysuria Other systems 10 point review systems otherwise negative Objective Physical Examination General Exam: Positive: Alert, Cooperative, No Acute Distress Eye Exam: Positive: Conjunctiva & lids normal Neck Exam: Positive: Supple, Negative: JVD Chest Exam: Positive: Clear to auscultation, Normal air movement Heart Exam: Positive: Rate Normal Telemetry: Positive: No significant arrhythmia Abdomen Exam: Positive: BS Hyperactive, Soft, Negative: Tenderness Extremity Exam: Negative: Edema Skin Exam: Positive: Nl turgor and temperature Psych Exam: Positive: Mental status NL, Mood NL Assessment /Plan Problems (1) Ileus Status: Acute Problem Text: 10/09 Diet reduced yesterday evening due to pain with eating. Leukocytosis again today. Flatus, but still no BM. Did not tolerate advancement of diet today and he is quite distended with hyperactive bowel sounds. Although diarrheal stools may be simply due to rectal suppositories, will check for C. difficile given rising white count. Was initially concerned with labs, however patient's exam today has improved, and his pain has also improved. -Nothing by mouth for procedure -Small bowel follow-through -Follow up surgery recommendations -Follow up small bowel follow-through, barium enema (2) Thrombocytopenia Status: Chronic Problem Text: Chronic, stable, severe thrombocytopenia. No signs or symptoms of active bleeding. Avoid heparin. (3) End stage liver disease Status: Chronic Problem Text: Secondary to alcohol abuse; history of liver and colon cancer. With esophageal varices and portal hypertension. He follows with Dr. Monsivais as an outpatient. (4) CKD (chronic kidney disease), stage II Status: Chronic Problem Text: Creatinine has been stable during hospitalization. Avoiding nephrotoxic agents. Plan/VTE VTE Prophylaxis Ordered?: Yes VTE Exclusion Pharmacological: Bleeding Risk Plan Pending pain resolved and tolerating diet VS, I&O, 24H, Fishbone Vital Signs/I&O Vital Signs Date Time Temp Pulse Resp B/P (MAP) Pulse Ox O2 Delivery O2 Flow Rate FiO2 10/09/16 06:00 99.0 79 16 153/72 (99) 95 Room Air 10/06/16 04:00 2.0 I&O- Last 24 Hours up to 6 AM 10/09/16 06:00 Intake Total 1800 ml Output Total 1350 ml Balance 450 ml Laboratory Data 24H LABS Laboratory Tests 2 10/09/16 07:01: Anion Gap 7L, Glomerular Filtration Rate > 60.0, Blood Urea Nitrogen 19H, Creatinine 1.24, Sodium Level 143, Potassium Level 3.6, Chloride Level 112H, Carbon Dioxide Level 24, Calcium Level 7.6L CBC/BMP Laboratory Tests 10/09/16 07:01 Red Blood Count 1.99 L, Mean Corpuscular Volume 118.2 H, Mean Corpuscular Hemoglobin 39.7 H, Mean Corpuscular Hemoglobin Concent 33.6, Red Cell Distribution Width 16.8 H, Calcium Level 7.6 L SOURAV BACON MD October 09, 2016 09:40
[2016-10-09] MEDS ORDERED: LIQUID POLIBAR PLUS 105% w/v 1900ML BTL As Ordered ONE (11:42)
[2016-10-09] MEDS: ALVIMOPAN 12 MG CAPSULE (ENTEREG) PO SCH ×2 (13:58→20:50)
[2016-10-09] MEDS: metroNIDAZOLE (FLAGYL) 500 MG TAB PO SCH ×2 (13:58→20:51)
[2016-10-09] MEDS: OMEPRAZOLE 20 MG CAP PO SCH (13:58)
[2016-10-09] MEDS: oxyCODONE 5MG TAB PO PRN ×2 (13:58→18:00)
[2016-10-09 14:00] VITALS: BP 150/77
[2016-10-09] MEDS: SERTRALINE HCL 50 MG TAB PO SCH (20:51)
[2016-10-09] MEDS: traZODone 100 MG TAB PO SCH (20:52)
[2016-10-09] MEDS: ONDANSETRON 4MG/2ML VIAL (J2405) IV PRN (21:09)
[2016-10-09 22:00] VITALS: BP 144/63
[2016-10-10] MEDS: metroNIDAZOLE (FLAGYL) 500 MG TAB PO SCH ×3 (06:28→22:25)
[2016-10-10 06:57] LABS: MEAN CORPUSCULAR HEMOGLOBIN 40.6 pg (27.0-33.0); MEAN CORPUSCULAR VOLUME 119.4 fl (80.0-96.0); RED CELL DISTRIBUTION WIDTH 16.8 % (11.5-14.5); WHITE BLOOD COUNT 7.7 K/mm3 (4.0-10.0)
[2016-10-10 07:12] LABS: CALCIUM LEVEL 7.8 MG/DL (8.8-10.2); CREATININE FOR GFR 1.33 MG/DL (0.70-1.30); GLOMERULAR FILTRATION RATE 56.1 (>42); POTASSIUM SERUM 3.6 MEQ/L (3.5-5.1)
--- NOTE | 2016-10-10 08:43 | REP ---
BARIUM ENEMA, SINGLE CONTRAST: The procedure was performed under the direct supervision of Dr. Jiang. The images were reviewed with Dr. Jiang. The population health manager film shows no organomegaly or pathological masses. There are surgical clips noted in the left abdomen as well as bowel sutures in the mid pelvis. There is an ileus pattern with dilated loops of small and large intestine. Liquid barium was instilled into the colon in retrograde flow. There is free flow of contrast to the ascending colon. The anastomosis is seen and there is no evidence of obstruction. The remainder of the colon is grossly normal. IMPRESSION: There is a patent anastomosis without evidence of obstruction. The population health manager film demonstrates an ileus pattern with dilated loops of small and large intestine. 2 minutes of fluoroscopy time was utilized for this procedure. Reviewed by ADELINE Crowley 10/10/2016 03:47 PEdited and Signed by Harjit Jiang MD 10/10/2016 03:56 P
[2016-10-10] MEDS: SUCRALFATE SUSP 1GM/10ML UD PO SCH ×2 (09:31→22:24)
[2016-10-10] MEDS: OMEPRAZOLE 20 MG CAP PO SCH (09:31)
[2016-10-10] MEDS: NS 1,000 ML IV SCH ×2 (09:31→22:26)
[2016-10-10] MEDS: ALVIMOPAN 12 MG CAPSULE (ENTEREG) PO SCH ×2 (09:31→22:25)
--- NOTE | 2016-10-10 12:28 | IPNPDOC ---
Subjective Date Seen The patient was seen on 10/10/16. Subjective Chief Complaint/HPI The patient is a 71-year-old male admitted with a reason for visit of ILEUS. Events since last encounter Failed attempt at advancing diet. no flatus, increased abdominal distention. Mild nausea. no vomiting. Constitutional: Denies: Chills, Fever, Night Sweats Pulmonary: Denies: Dyspnea, Cough Cardiovascular: Denies: Chest Pain, Palpitations, Orthopnea, Paroxysmal Noc. Dyspnea, Lt Headedness Gastrointestinal: Reports: Nausea, Abdominal Pain, Constipation Psych: Reports: Mood Normal, Denies: Depression, Memory Issues Objective Physical Examination General Exam: Positive: Alert, Cooperative, No Acute Distress Eye Exam: Positive: Conjunctiva & lids normal Neck Exam: Positive: Supple, Negative: JVD Chest Exam: Positive: Clear to auscultation, Normal air movement Heart Exam: Positive: Rate Normal Abdomen Exam: Positive: BS Hyperactive, Soft, Negative: Tenderness Extremity Exam: Negative: Edema Skin Exam: Positive: Nl turgor and temperature Psych Exam: Positive: Mental status NL, Mood NL Assessment /Plan Problems (1) Ileus Status: Acute Problem Text: 10/10/2016: place NGT to low intermittent suction. Re-evaluate in am. 10/09 Diet reduced yesterday evening due to pain with eating. Leukocytosis again today. Flatus, but still no BM. Did not tolerate advancement of diet today and he is quite distended with hyperactive bowel sounds. Although diarrheal stools may be simply due to rectal suppositories, will check for C. difficile given rising white count. Was initially concerned with labs, however patient's exam today has improved, and his pain has also improved. -Nothing by mouth for procedure -Small bowel follow-through -Follow up surgery recommendations -Follow up small bowel follow-through, barium enema (2) Thrombocytopenia Status: Chronic Problem Text: Chronic, stable, severe thrombocytopenia. No signs or symptoms of active bleeding. Avoid heparin. (3) End stage liver disease Status: Chronic Problem Text: Secondary to alcohol abuse; history of liver and colon cancer. With esophageal varices and portal hypertension. He follows with Dr. Monsivais as an outpatient. (4) CKD (chronic kidney disease), stage II Status: Chronic Problem Text: Creatinine has been stable during hospitalization. Avoiding nephrotoxic agents. (5) Anemia Status: Acute Problem Text: hemoglobin 7.5. trending down since admission. Plan/VTE VTE Prophylaxis Ordered?: Yes VTE Exclusion Pharmacological: Bleeding Risk Plan Attending note: I saw and evaluated the patient, and agree with plan of care as discussed and documented by Sparkle Warren. Will attempt bowel care to see if this helps resolve. Generally not consistent with ileus, as patient has hyperactive bowel sounds. NG to decompress with bowel rest. Unfortunately, upper GI was not done first, and was not able to be done after barium enema due to residual barium in the bowel. Patient is quite upset about this, however indicated that if he is not resolving we can repeat this at a future date. Jan Bacon MD VS, I&O, 24H, Fishbone Vital Signs/I&O Vital Signs Date Time Temp Pulse Resp B/P (MAP) Pulse Ox O2 Delivery O2 Flow Rate FiO2 10/09/16 22:00 99.7 86 19 144/63 (90) 94 Room Air 10/06/16 04:00 2.0 I&O- Last 24 Hours up to 6 AM 10/10/16 06:00 Intake Total 1800 ml Balance 1800 ml Laboratory Data 24H LABS Laboratory Tests 2 10/10/16 06:29: Anion Gap 7L, Glomerular Filtration Rate 56.1, Blood Urea Nitrogen 18, Creatinine 1.33H, Sodium Level 143, Potassium Level 3.6, Chloride Level 112H, Carbon Dioxide Level 24, Calcium Level 7.8L CBC/BMP Laboratory Tests 10/10/16 06:29 Red Blood Count 1.86 L, Mean Corpuscular Volume 119.4 H, Mean Corpuscular Hemoglobin 40.6 H, Mean Corpuscular Hemoglobin Concent 34.0, Red Cell Distribution Width 16.8 H, Calcium Level 7.8 L Daniela Warren October 10, 2016 12:28 JAN BACON MD October 12, 2016 13:07
--- NOTE | 2016-10-10 13:28 | REP ---
Clinical: Abdominal pain and anemia. Technique: Single supine view of the abdomen and pelvis. Findings: Barium essentially fills the colon consistent with recent barium enema. There is no obvious bowel obstruction. Impression: Barium filled colon secondary to recent barium enema. Findings preclude performing upper GI and small bowel follow-through. Signed by Denilson Perkins MD 10/10/2016 01:19 P
--- NOTE | 2016-10-10 16:15 | REP ---
Portable chest: Single view. History: NG tube placement Comparison study: January 27, 2016. Findings: Nasogastric tube has been passed and is seen entering the left upper quadrant of the abdomen. Mild cardiac enlargement is observed. Pulmonary vasculature is not increased. Impression: Mild cardiomegaly. NG tube enters left upper quadrant of the abdomen. Signed by Harjit Jiang MD 10/10/2016 05:10 P
--- NOTE | 2016-10-10 16:19 | REP ---
KUB: Portable. Single view. History: Check NG tube placement. Findings: A nasogastric tube has been passed and is seen entering the left upper quadrant in the fundus of the stomach. There is barium retained within the colon. Impression: NG tube in the upper stomach. Signed by Harjit Jiang MD 10/10/2016 05:10 P
[2016-10-10 22:00] VITALS: BP 128/55
[2016-10-10] MEDS: traZODone 100 MG TAB PO SCH (22:25)
[2016-10-10] MEDS: SERTRALINE HCL 50 MG TAB PO SCH (22:25)
[2016-10-10] MEDS: FILGRASTIM 300 MCG/0.5 ML SYRINGE (J1442) SC SCH (22:25)
[2016-10-11] MEDS: metroNIDAZOLE (FLAGYL) 500 MG TAB PO SCH ×3 (06:48→21:49)
[2016-10-11 06:56] LABS: MEAN CORPUSCULAR HEMOGLOBIN 40.8 pg (27.0-33.0); MEAN CORPUSCULAR HGB CONC 33.8 g/dl (32.0-36.5); MEAN CORPUSCULAR VOLUME 120.6 fl (80.0-96.0); RED CELL DISTRIBUTION WIDTH 16.2 % (11.5-14.5); WHITE BLOOD COUNT 26.6 K/mm3 (4.0-10.0)
[2016-10-11 07:08] LABS: CALCIUM LEVEL 7.7 MG/DL (8.8-10.2); CREATININE FOR GFR 1.34 MG/DL (0.70-1.30); GLOMERULAR FILTRATION RATE 55.6 (>42); POTASSIUM SERUM 3.4 MEQ/L (3.5-5.1)
[2016-10-11] MEDS: OMEPRAZOLE 20 MG CAP PO SCH (10:23)
[2016-10-11] MEDS: NS 1,000 ML IV SCH ×2 (10:23→23:10)
[2016-10-11] MEDS: SUCRALFATE SUSP 1GM/10ML UD PO SCH ×2 (10:23→21:49)
[2016-10-11] MEDS: oxyCODONE 5MG TAB PO PRN ×2 (10:24→18:25)
[2016-10-11] MEDS: LACTULOSE 20 GM/30 ML SYRUP UD NG SCH ×3 (11:55→23:10)
--- NOTE | 2016-10-11 12:01 | IPNPDOC ---
Subjective Date Seen The patient was seen on 10/11/16. Subjective Chief Complaint/HPI The patient is a 71-year-old male admitted with a reason for visit of ILEUS. Events since last encounter Improvement with NGT placement. Softer abdomen, less pain. + flatus. No BM. General: Denies: ROS Unobtainable, Chills, Night Sweats, Fatigue, Malaise, Normal Appetite, Other Symptoms Cardiovascular: Denies: Chest Pain, Palpitations, Orthopnea, Paroxysmal Noc. Dyspnea, Lt Headedness Gastrointestinal: Reports: Constipation, Other Symptoms (NGT) Genitourinary: Denies: Dysuria, Frequency, Incontinence, Retention Psych: Reports: Mood Normal, Denies: Depression, Memory Issues Objective Physical Examination General Exam: Positive: Alert, Cooperative, No Acute Distress Eye Exam: Positive: Conjunctiva & lids normal Neck Exam: Positive: Supple, Negative: JVD Chest Exam: Positive: Clear to auscultation, Normal air movement Heart Exam: Positive: Rate Normal Abdomen Exam: Positive: Normal bowel sounds, Soft, Other (NGT: bilious drainage in NGT), Negative: Tenderness Extremity Exam: Negative: Edema Skin Exam: Positive: Nl turgor and temperature Psych Exam: Positive: Mental status NL, Mood NL Assessment /Plan Problems (1) Ileus Status: Acute Problem Text: 10/10/2016: place NGT to low intermittent suction. Re-evaluate in am. 10/09 Diet reduced yesterday evening due to pain with eating. Leukocytosis again today. Flatus, but still no BM. Did not tolerate advancement of diet today and he is quite distended with hyperactive bowel sounds. Although diarrheal stools may be simply due to rectal suppositories, will check for C. difficile given rising white count. Was initially concerned with labs, however patient's exam today has improved, and his pain has also improved. -Nothing by mouth for procedure -Small bowel follow-through -Follow up surgery recommendations -Follow up small bowel follow-through, barium enema (2) Thrombocytopenia Status: Chronic Problem Text: Chronic, stable, severe thrombocytopenia. No signs or symptoms of active bleeding. Avoid heparin. (3) End stage liver disease Status: Chronic Problem Text: Secondary to alcohol abuse; history of liver and colon cancer. With esophageal varices and portal hypertension. He follows with Dr. Monsivais as an outpatient. (4) CKD (chronic kidney disease), stage II Status: Chronic Problem Text: Creatinine has been stable during hospitalization. Avoiding nephrotoxic agents. (5) Anemia Status: Acute Problem Text: hemoglobin 7.5. trending down since admission. Plan/VTE VTE Prophylaxis Ordered?: Yes VTE Exclusion Pharmacological: Bleeding Risk VS, I&O, 24H, Fishbone Vital Signs/I&O Vital Signs Date Time Temp Pulse Resp B/P (MAP) Pulse Ox O2 Delivery O2 Flow Rate FiO2 10/11/16 10:54 16 10/10/16 22:00 99.8 78 128/55 (79) 91 Room Air 10/06/16 04:00 2.0 I&O- Last 24 Hours up to 6 AM 10/11/16 06:00 Intake Total 628 ml Output Total 900 ml Balance -272 ml Laboratory Data 24H LABS Laboratory Tests 2 10/11/16 06:25: Anion Gap 10, Glomerular Filtration Rate 55.6, Blood Urea Nitrogen 21H, Creatinine 1.34H, Sodium Level 143, Potassium Level 3.4L, Chloride Level 110H, Carbon Dioxide Level 23, Calcium Level 7.7L CBC/BMP Laboratory Tests 10/10/16 17:51 10/11/16 06:25 Red Blood Count 2.04 L, Mean Corpuscular Volume 120.6 H, Mean Corpuscular Hemoglobin 40.8 H, Mean Corpuscular Hemoglobin Concent 33.8, Red Cell Distribution Width 16.2 H, Calcium Level 7.7 L Daniela WarrenP October 11, 2016 12:01
[2016-10-11] MEDS: KCL 10MEQ IN 100ML SWI (KRUN) 10 MEQ in APPROPRIATE DILUENT 1 EA IV SCH ×4 (13:02→14:35)
[2016-10-11 14:00] VITALS: BP 130/63
[2016-10-11] MEDS: traZODone 100 MG TAB PO SCH (21:49)
[2016-10-11] MEDS: SERTRALINE HCL 50 MG TAB PO SCH (21:50)
[2016-10-11 22:00] VITALS: BP 141/76
[2016-10-12] MEDS: LACTULOSE 20 GM/30 ML SYRUP UD NG SCH ×4 (05:43→23:18)
[2016-10-12] MEDS: metroNIDAZOLE (FLAGYL) 500 MG TAB PO SCH ×3 (05:43→21:47)
[2016-10-12 06:00] VITALS: BP 145/74
[2016-10-12 06:57] LABS: MEAN CORPUSCULAR HEMOGLOBIN 39.5 pg (27.0-33.0); MEAN CORPUSCULAR HGB CONC 32.8 g/dl (32.0-36.5); MEAN CORPUSCULAR VOLUME 120.3 fl (80.0-96.0); RED CELL DISTRIBUTION WIDTH 16.1 % (11.5-14.5); WHITE BLOOD COUNT 16.4 K/mm3 (4.0-10.0)
[2016-10-12 07:03] LABS: CALCIUM LEVEL 7.9 MG/DL (8.8-10.2); CREATININE FOR GFR 1.31 MG/DL (0.70-1.30); GLOMERULAR FILTRATION RATE 57.1 (>42); POTASSIUM SERUM 3.8 MEQ/L (3.5-5.1)
[2016-10-12] MEDS: OMEPRAZOLE 20 MG CAP PO SCH (09:47)
[2016-10-12] MEDS: SUCRALFATE SUSP 1GM/10ML UD PO SCH ×2 (09:47→21:46)
--- NOTE | 2016-10-12 10:40 | IPNPDOC ---
Subjective Date Seen The patient was seen on 10/12/16. Subjective Chief Complaint/HPI The patient is a 71-year-old male admitted with a reason for visit of ILEUS. Events since last encounter Patient states that he feels somewhat better since yesterday. However, continues to have moderate abdominal pain. He is also quite bloated today. He notes that he was able to have several stools after first receiving lactulose, however now isn't passing much. He is not currently passing flatus. He denies any fevers, chills, sweats. He is concerned about a possible parasitic infection , as he reports travel to [place]. Constitutional: Denies: Chills, Fever, Malaise Skin: Denies: Rash Pulmonary: Denies: Dyspnea, Cough Cardiovascular: Denies: Chest Pain, Palpitations Gastrointestinal: Reports: Abdominal Pain, Denies: Nausea, Vomiting, Diarrhea, Constipation Genitourinary: Denies: Dysuria Other systems 10 point review systems otherwise negative Objective Physical Examination General Exam: Positive: Alert, Cooperative, No Acute Distress Eye Exam: Positive: Conjunctiva & lids normal Neck Exam: Positive: Supple, Negative: JVD Chest Exam: Positive: Clear to auscultation, Normal air movement Heart Exam: Positive: Rate Normal Abdomen Exam: Positive: BS Hyperactive, Soft, Tenderness (mild left upper quadrant tenderness without guarding or rebound), Other (NG tube suction off) Extremity Exam: Negative: Edema Skin Exam: Positive: Nl turgor and temperature Psych Exam: Positive: Mental status NL, Mood NL Assessment /Plan Problems (1) Ileus Status: Acute Problem Text: 10/12: Patient's symptoms more consistent with partial SBO and not ileus as previously diagnosed. He continues to be somewhat distended, and is tympanic on exam. Patient receives Neupogen on Wednesdays and Saturdays, which significantly elevates his white count. He reports no fevers. Surgery is following. KUB repeated today, which shows significant dilation of the small bowel without air-fluid levels and possibly stool or blockage within the descending colon. -Nothing by mouth for procedure -Small bowel follow-through -Follow up surgery recommendations (2) Thrombocytopenia Status: Chronic Problem Text: Chronic, stable, severe thrombocytopenia. No signs or symptoms of active bleeding. Avoid heparin. (3) End stage liver disease Status: Chronic Problem Text: Secondary to alcohol abuse; history of liver and colon cancer. With esophageal varices and portal hypertension. He follows with Dr. Monsivais as an outpatient. (4) CKD (chronic kidney disease), stage II Status: Chronic Problem Text: Creatinine has been stable during hospitalization. Avoiding nephrotoxic agents. (5) Anemia Status: Acute Problem Text: hemoglobin 7.4. trending down since admission. No black stools or current signs or symptoms of bleeding. -FOBT Plan/VTE VTE Prophylaxis Ordered?: Yes VTE Exclusion Pharmacological: Bleeding Risk Disposition Pending resolution of partial SBO VS, I&O, 24H, Fishbone Vital Signs/I&O Vital Signs Date Time Temp Pulse Resp B/P (MAP) Pulse Ox O2 Delivery O2 Flow Rate FiO2 10/12/16 06:00 96.2 75 12 145/74 (97) 96 Room Air 10/06/16 04:00 2.0 I&O- Last 24 Hours up to 6 AM 10/12/16 06:00 Intake Total 1920 ml Output Total 250 ml Balance 1670 ml Laboratory Data 24H LABS Laboratory Tests 2 10/12/16 06:21: Anion Gap 5L, Glomerular Filtration Rate 57.1, Blood Urea Nitrogen 22H, Creatinine 1.31H, Sodium Level 144, Potassium Level 3.8, Chloride Level 112H, Carbon Dioxide Level 27, Calcium Level 7.9L CBC/BMP Laboratory Tests 10/12/16 06:21 Red Blood Count 1.88 L, Mean Corpuscular Volume 120.3 H, Mean Corpuscular Hemoglobin 39.5 H, Mean Corpuscular Hemoglobin Concent 32.8, Red Cell Distribution Width 16.1 H, Calcium Level 7.9 L Microbiology Microbiology 10/12/16 Clostridium difficile (PCR) - Final, Complete SOURAV BACON MD October 12, 2016 10:40
[2016-10-12] MEDS: NS 1,000 ML IV SCH ×2 (12:43→23:18)
--- NOTE | 2016-10-12 13:02 | REP ---
Clinical: Abdominal distension and constipation. Technique: Two supine views of the abdomen and pelvis. Findings: Bowel gas pattern is essentially nonspecific and without evidence for obstruction although mild ileus cannot be excluded. Residual barium contrast from prior enema in the rectosigmoid is appreciated. Nasogastric tube identified in seemingly satisfactory position. Evidence for prior cholecystectomy. Skeletal structures intact. Impression: Small amount of residual barium in the rectosigmoid. Relatively nonspecific bowel gas pattern although mild ileus cannot be excluded. Signed by Denilson Perkins MD 10/12/2016 12:53 P
[2016-10-12] MEDS ORDERED: E-Z-GAS II EFFERVESCENT PACKET (SODIUM BICARB./CITRIC ACID/SIMETHICONE) As Ordered ONE (13:43)
[2016-10-12] MEDS ORDERED: E-Z-PAQUE 96% w/w SUSP 176GM BTL As Ordered ONE ×2 (13:43→14:14)
[2016-10-12] MEDS ORDERED: E-Z-HD 98% w/w 340GM SUSP BTL As Ordered ONE (13:44)
--- NOTE | 2016-10-12 16:30 | REP ---
Upper GI, small bowel follow-through study: History: Abdominal distension. Partial small bowel obstruction. Fluoroscopy time for this exam is 34 seconds. Comparison is made with recent abdominal radiographs and CT study as well as barium enema. Findings: KUB today shows NG tube in place and a few loops of air-filled small bowel in the central abdomen. There is some persistent barium in the distal left colon. No colonic dilation. There are mild tertiary contractions to the esophagus. No hiatal hernia is seen. The stomach displays normal rugal folds and a normal mucosal pattern. Pylorus is smooth. Duodenal bulb was fully distensible. C-loop is not widened. Ligament of Treitz is normal in appearance. The jejunal and ileal loops show no evidence of obstructive lesion or point of transition. The distal ileum is opacified at 80 minutes. Spot radiographs show no small-bowel abnormal finding. The cecum is somewhat mobile in the right mid abdomen. Impression: No obstructive lesion seen. Signed by Harjit Jiang MD 10/15/2016 08:33 A
[2016-10-12 16:48] VITALS: BP 150/67
[2016-10-12] MEDS: traZODone 100 MG TAB PO SCH (21:46)
[2016-10-12] MEDS: SERTRALINE HCL 50 MG TAB PO SCH (21:47)
[2016-10-12 22:00] VITALS: BP 158/77
[2016-10-13] MEDS: LACTULOSE 20 GM/30 ML SYRUP UD NG SCH ×5 (05:27→21:56)
[2016-10-13] MEDS: metroNIDAZOLE (FLAGYL) 500 MG TAB PO SCH ×3 (05:27→21:53)
[2016-10-13 06:00] VITALS: BP 112/71
[2016-10-13 09:02] VITALS: BP 140/60
[2016-10-13] MEDS: SUCRALFATE SUSP 1GM/10ML UD PO SCH ×2 (09:14→21:53)
[2016-10-13] MEDS: OMEPRAZOLE 20 MG CAP PO SCH (09:15)
[2016-10-13] MEDS: NS 1,000 ML IV SCH (12:02)
[2016-10-13 13:45] VITALS: BP 132/58
--- NOTE | 2016-10-13 16:48 | IPNPDOC ---
Subjective Date Seen The patient was seen on 10/13/16. Subjective Chief Complaint/HPI The patient is a 71-year-old male admitted with a reason for visit of ILEUS. Objective Physical Examination General Exam: Positive: Alert, Cooperative, No Acute Distress Eye Exam: Positive: Conjunctiva & lids normal Neck Exam: Positive: Supple, Negative: JVD Chest Exam: Positive: Clear to auscultation, Normal air movement Heart Exam: Positive: Rate Normal Abdomen Exam: Positive: BS Hyperactive, Soft, Negative: Tenderness Extremity Exam: Positive: Edema (1-2 mm B PT) Skin Exam: Positive: Nl turgor and temperature Psych Exam: Positive: Mental status NL, Mood NL Assessment /Plan Problems (1) Anemia Status: Chronic Response to Treatment: Worse Problem Text: transfusion-dependent 2 ESLD/CKD/GI loss (10/12 HO +) 10/12 down to 7.3!, not tx nor rechecked-check now (2) SBO (small bowel obstruction) Status: Acute Response to Treatment: Improving Problem Text: favor 2 adhesion 2 previous hepatectomy vs colectomy 10/13 NGT removed/advanced to clears by [facility] 10/12 UGISBFT s obstruction, WBC down to 16.4 (10/11 26.6) (3) Thrombocytopenia Status: Chronic Problem Text: 10/13 at baseline 31K Chronic, stable, severe thrombocytopenia. No signs or symptoms of active bleeding (4) End stage liver disease Status: Chronic Problem Text: no s/s encephalopathy lactulose prn 2 soft BMs qd (5) CKD (chronic kidney disease) stage 3, GFR 30-59 ml/min Status: Chronic Response to Treatment: Stable Problem Text: at baseline cr 1.2-1.3 (6) Diastolic CHF, chronic Status: Chronic Problem Text: HD fur 40 BID 10/13 fur IV x 1 2 mild decomp Plan/VTE VTE Prophylaxis Ordered?: Yes VTE Exclusion Pharmacological: Bleeding Risk VS, I&O, 24H, Fishbone Vital Signs/I&O Vital Signs Date Time Temp Pulse Resp B/P (MAP) Pulse Ox O2 Delivery O2 Flow Rate FiO2 10/13/16 13:45 98.5 66 18 132/58 (82) 95 Room Air I&O- Last 24 Hours up to 6 AM 10/13/16 05:59 Intake Total 457 ml Output Total 0 ml Balance 457 ml Laboratory Data Microbiology Microbiology 10/12/16 Stool Occult Blood (GERBER) - Final, Complete 10/12/16 Clostridium difficile (PCR) - Final, Complete Maged Negron M.D. October 13, 2016 16:48
[2016-10-13 17:37] LABS: ADD MANUAL DIFFER YES; DIFF SLIDE NUMBER 155; MEAN CORPUSCULAR HEMOGLOBIN 39.8 pg (27.0-33.0); MEAN CORPUSCULAR HGB CONC 33.2 g/dl (32.0-36.5); MEAN CORPUSCULAR VOLUME 119.9 fl (80.0-96.0); RED CELL DISTRIBUTION WIDTH 15.9 % (11.5-14.5); WHITE BLOOD COUNT 8.5 K/mm3 (4.0-10.0)
[2016-10-13 17:38] LABS: PLATELET COUNT, AUTOMATED 32 k/mm3 (150-450)
[2016-10-13] MEDS ORDERED: FUROSEMIDE 20 MG/2 ML VIAL (J1940) IV ONE (18:00)
[2016-10-13 18:02] LABS: BANDS 5 % (< 11)
[2016-10-13 18:05] LABS: SCHISTOCYTES 1+; TEAR DROP CELLS 2+
[2016-10-13 18:07] LABS: TOXIC VACUOLATION 1+
[2016-10-13] MEDS: traZODone 100 MG TAB PO SCH (21:53)
[2016-10-13] MEDS: SERTRALINE HCL 50 MG TAB PO SCH (21:53)
[2016-10-13 22:00] VITALS: BP 144/72
[2016-10-14] MEDS: NS 1,000 ML IV SCH (00:03)
[2016-10-14] MEDS: metroNIDAZOLE (FLAGYL) 500 MG TAB PO SCH ×3 (05:06→21:05)
[2016-10-14 06:00] VITALS: BP 136/76
[2016-10-14 06:43] LABS: ADD MANUAL DIFFER YES; DIFF SLIDE NUMBER 78; MEAN CORPUSCULAR HEMOGLOBIN 40.6 pg (27.0-33.0); MEAN CORPUSCULAR HGB CONC 33.5 g/dl (32.0-36.5); MEAN CORPUSCULAR VOLUME 121.3 fl (80.0-96.0); RED CELL DISTRIBUTION WIDTH 15.9 % (11.5-14.5)
[2016-10-14 06:50] LABS: PLATELET COUNT, AUTOMATED 28 k/mm3 (150-450)
[2016-10-14 06:58] LABS: ALBUMIN 2.3 GM/DL (3.2-5.2); ALBUMIN/GLOBULIN RATIO 0.62 (1.00-1.93); BILIRUBIN,TOTAL 0.8 MG/DL (0.2-1.0); CALCIUM LEVEL 7.3 MG/DL (8.8-10.2); CREATININE FOR GFR 1.27 MG/DL (0.70-1.30); GLOMERULAR FILTRATION RATE 59.2 (>42); MAGNESIUM LEVEL 1.6 MG/DL (1.8-2.4); POTASSIUM SERUM 3.5 MEQ/L (3.5-5.1)
[2016-10-14 08:26] LABS: ANISOCYTOSIS 2+; BANDS 6 % (< 11); HYPOCHROMASIA 1+
[2016-10-14 08:27] LABS: POIKILOCYTOSIS 1+; SCHISTOCYTES 1+
[2016-10-14] MEDS: MAGNESIUM OXIDE 400 MG TAB (MAG-OX) PO SCH ×2 (09:00→21:05)
[2016-10-14] MEDS: POTASSIUM CHLORIDE 10 MEQ SR TABLET PO SCH ×2 (09:00→21:05)
[2016-10-14] MEDS: OMEPRAZOLE 20 MG CAP PO SCH (10:06)
[2016-10-14] MEDS: SUCRALFATE SUSP 1GM/10ML UD PO SCH ×2 (10:06→21:04)
[2016-10-14] MEDS: LACTULOSE 20 GM/30 ML SYRUP UD NG SCH ×2 (12:00→17:48)
--- NOTE | 2016-10-14 13:28 | IPNPDOC ---
Subjective Date Seen The patient was seen on 10/14/16. Subjective Chief Complaint/HPI The patient is a 71-year-old male admitted with a reason for visit of ILEUS. Objective Physical Examination General Exam: Positive: Alert, Cooperative, No Acute Distress Eye Exam: Positive: Conjunctiva & lids normal Neck Exam: Positive: Supple, Negative: JVD Chest Exam: Positive: Clear to auscultation, Normal air movement Heart Exam: Positive: Rate Normal Abdomen Exam: Positive: BS Hyperactive, Soft, Negative: Tenderness Extremity Exam: Positive: Edema (1-2 mm B PT) Skin Exam: Positive: Nl turgor and temperature Psych Exam: Positive: Mental status NL, Mood NL Assessment /Plan Problems (1) Anemia Status: Chronic Response to Treatment: Worse Problem Text: transfusion-dependent 2 ESLD/CKD/GI loss (10/12 HO +) 10/14 7.8, but dilutionally low-plan tx if <8 p diuresis (2) SBO (small bowel obstruction) Status: Acute Response to Treatment: Improving Problem Text: vs ileus 10/05 CT AP c dilated small and large bowel s transition zone and 3W precedent diarrhea -probable adhesion 2 previous hepatectomy vs colectomy h/o hepatoma (09/[address] liver) and colon cancer (06/2016 normal colonoscopy-[facility]) 10/14 tolerating regular diet 10/13 NGT removed/advanced to clears by [facility] 10/12 UGISBFT s obstruction, WBC down to 16.4 (10/11 26.6) (3) Thrombocytopenia Status: Chronic Problem Text: 10/13 at baseline 31K Chronic, stable, severe thrombocytopenia. No signs or symptoms of active bleeding (4) End stage liver disease Status: Chronic Problem Text: no s/s encephalopathy lactulose prn 2 soft BMs qd (5) CKD (chronic kidney disease) stage 3, GFR 30-59 ml/min Status: Chronic Response to Treatment: Stable Problem Text: at baseline cr 1.2-1.3 (6) Diastolic CHF, chronic Status: Chronic Problem Text: HD fur 40 BID 10/14 fur 40 IV BID 10/13 fur 20 IV x 1 2 mild decomp s effect Plan/VTE VTE Prophylaxis Ordered?: Yes VTE Exclusion Pharmacological: Bleeding Risk Disposition dc 10/16 vs 10/17 VS, I&O, 24H, Fishbone Vital Signs/I&O Vital Signs Date Time Temp Pulse Resp B/P (MAP) Pulse Ox O2 Delivery O2 Flow Rate FiO2 10/14/16 06:00 98.7 63 18 136/76 (96) 94 Room Air I&O- Last 24 Hours up to 6 AM 10/14/16 05:59 Intake Total 3051 ml Output Total 250 ml Balance 2801 ml Laboratory Data 24H LABS Laboratory Tests 2 10/13/16 17:28: Neutrophils 46, Band Neutrophils 5, Lymphocytes (Manual) 7L, Monocytes (Manual) 33H, Metamyelocytes 4H, Myelocytes 5H, Toxic Vacuolation 1+, Platelet Estimate MARKED DECREASE, Tear Drop Cells 2+, Schistocytes 1+ 10/14/16 05:43: Neutrophils 41, Band Neutrophils 6, Lymphocytes (Manual) 36, Monocytes (Manual) 2, Metamyelocytes 5H, Myelocytes 6H, Platelet Estimate MARKED DECREASE, Schistocytes 1+, Atypical Lymphocytes 4, Hypochromasia 1+, Poikilocytosis 1+, Anisocytosis 2+, Microcytosis , Macrocytosis 2+, Anion Gap 10, Glomerular Filtration Rate 59.2, Blood Urea Nitrogen 16, Creatinine 1.27, Sodium Level 145 , Potassium Level 3.5, Chloride Level 111H, Carbon Dioxide Level 24, Calcium Level 7.3L, Aspartate Amino Transf (AST/SGOT) 34, Alanine Aminotransferase (ALT/ SGPT) 23, Alkaline Phosphatase 108, Total Bilirubin 0.8, Total Protein 6.0L, Albumin 2.3L, Magnesium Level 1.6L, Albumin/Globulin Ratio 0.62L CBC/BMP Laboratory Tests 10/13/16 17:28 Red Blood Count 2.06 L, Mean Corpuscular Volume 119.9 H, Mean Corpuscular Hemoglobin 39.8 H, Mean Corpuscular Hemoglobin Concent 33.2, Red Cell Distribution Width 15.9 H 10/14/16 05:43 Red Blood Count 1.91 L, Mean Corpuscular Volume 121.3 H, Mean Corpuscular Hemoglobin 40.6 H, Mean Corpuscular Hemoglobin Concent 33.5, Red Cell Distribution Width 15.9 H, Calcium Level 7.3 L, Aspartate Amino Transf (AST/SGOT ) 34, Alanine Aminotransferase (ALT/SGPT) 23, Alkaline Phosphatase 108, Total Bilirubin 0.8, Total Protein 6.0 L, Albumin 2.3 L Microbiology Microbiology 5/19/17 Stool Occult Blood (GERBER) - Final, Complete 10/12/16 Clostridium difficile (PCR) - Final, Complete Maged Negron M.D. October 14, 2016 13:28
[2016-10-14 14:00] VITALS: BP 146/68
[2016-10-14] MEDS: FUROSEMIDE 40 MG/4 ML VIAL (J1940) IV SCH ×2 (15:20→21:05)
[2016-10-14] MEDS: SERTRALINE HCL 50 MG TAB PO SCH (21:04)
[2016-10-14] MEDS: traZODone 100 MG TAB PO SCH (21:05)
[2016-10-14 22:00] VITALS: BP 134/69
[2016-10-14] MEDS: FILGRASTIM 300 MCG/0.5 ML SYRINGE (J1442) SC SCH (22:06)
[2016-10-15] MEDS: LACTULOSE 20 GM/30 ML SYRUP UD NG SCH ×4 (05:17→16:58)
[2016-10-15] MEDS: metroNIDAZOLE (FLAGYL) 500 MG TAB PO SCH (05:17)
[2016-10-15 06:00] VITALS: BP 134/63
[2016-10-15 06:52] LABS: ADD MANUAL DIFFER YES; DIFF SLIDE NUMBER 57; MEAN CORPUSCULAR HGB CONC 33.4 g/dl (32.0-36.5); MEAN CORPUSCULAR VOLUME 119.5 fl (80.0-96.0)
[2016-10-15 06:53] LABS: PLATELET COUNT, AUTOMATED 28 k/mm3 (150-450)
[2016-10-15 06:59] LABS: ALBUMIN 2.4 GM/DL (3.2-5.2); ALBUMIN/GLOBULIN RATIO 0.63 (1.00-1.93); CALCIUM LEVEL 7.4 MG/DL (8.8-10.2); CREATININE FOR GFR 1.34 MG/DL (0.70-1.30); GLOMERULAR FILTRATION RATE 55.6 (>42); MAGNESIUM LEVEL 1.3 MG/DL (1.8-2.4); POTASSIUM SERUM 3.1 MEQ/L (3.5-5.1); TOTAL PROTEIN 6.2 GM/DL (6.4-8.2)
[2016-10-15 07:30] LABS: BANDS 4 % (< 11)
[2016-10-15] MEDS: OMEPRAZOLE 20 MG CAP PO SCH (09:12)
[2016-10-15] MEDS: SUCRALFATE SUSP 1GM/10ML UD PO SCH ×2 (09:12→20:00)
[2016-10-15] MEDS: MAGNESIUM OXIDE 400 MG TAB (MAG-OX) PO SCH ×2 (09:12→20:00)
--- NOTE | 2016-10-15 09:49 | IPNPDOC ---
Subjective Date Seen The patient was seen on 10/15/16. Subjective Chief Complaint/HPI The patient is a 71-year-old male admitted with a reason for visit of ILEUS. Events since last encounter Pt this morning reports feeling like he has heartburn in his stomach. He denies pain, bloating. + BM this AM, had a good breakfast without N/V. He reports that he doesn't plan on leaving the hospital until this discomfort is completely resolved. General: Reports: Fatigue (only feels fatigued after walking a few laps around the floor) Constitutional: Denies: Chills, Fever ENT: Denies: Head Aches Pulmonary: Denies: Dyspnea, Cough Cardiovascular: Denies: Chest Pain, Palpitations Gastrointestinal: Denies: Nausea, Vomiting, Diarrhea, Constipation Neurological: Denies: Weakness Psych: Reports: Mood Normal Objective Physical Examination General Exam: Positive: Alert, Cooperative, No Acute Distress Eye Exam: Positive: Conjunctiva & lids normal Neck Exam: Positive: Supple, Negative: JVD Chest Exam: Positive: Clear to auscultation, Normal air movement Heart Exam: Positive: Rate Normal Abdomen Exam: Positive: Normal bowel sounds, Soft, Negative: Tenderness (non tender throughtout) Extremity Exam: Positive: Edema (1 mm pitting edema RLE, none LLE) Skin Exam: Positive: Nl turgor and temperature Psych Exam: Positive: Mental status NL, Mood NL Assessment /Plan Problems (1) SBO (small bowel obstruction) Status: Acute Response to Treatment: Improving Problem Text: h/o hepatoma (09/[address] liver) and colon cancer (06/2016 normal colonoscopy-[facility]). Probable P SBO secondary to adhesions from prior hepatectomy or colectomy. Sometimes now resolving. Tolerating regular diet, passing stools. Continues to have some distention, and mild discomfort. He is concerned that he may become obstructed again. Indicated that if he is tolerating a diet without significant pain with eating passing stools, will plan on discharge tomorrow. - Stop Flagyl -Continue regular diet (2) Thrombocytopenia Status: Chronic Problem Text: Chronic, stable, severe thrombocytopenia. No signs or symptoms of active bleeding (3) End stage liver disease Status: Chronic Problem Text: no signs or symptoms of encephalopathy (4) CKD (chronic kidney disease) stage 3, GFR 30-59 ml/min Status: Chronic Response to Treatment: Stable Problem Text: at baseline cr 1.2-1.3 (5) Diastolic CHF, chronic Status: Chronic Problem Text: Patient now on home Lasix 40 mg po BID, appears to be compensated. (6) Anemia Status: Chronic Response to Treatment: Worse Problem Text: 10/15 -ESLD/CKD/GI loss (10/12 HO +). Hgb remains at 7.8 despite diuresis, will plan to transfuse 1 unit of pRBCs today. -Patient consented for 2 units packed red blood cells (7) Leukocytosis Status: Acute Problem Specific Plan: Monitor Clinically Problem Text: Patient is on Neupogen Wednesdays and Saturdays. White blood cells increased to high 20s after these injections. Plan/VTE VTE Prophylaxis Ordered?: Yes VTE Exclusion Pharmacological: Bleeding Risk Plan Attending note: I saw and evaluated the patient, and agree with the plan of care as discussed and documented by Marsha Nickerson. Flagyl stopped. PSBO seems to be resolving, however patient is still mildly distended today. Throughout patient's course, patient has had HYPERactive bowel sounds, thus excluding ileus. He has had risk factors for partial small bowel obstruction. If tolerating diet, passing stools , and abdominal pain continuing to resolve, we'll plan on discharge tomorrow. Sourav Pickett MD VS, I&O, 24H, [facility] Vital Signs/I&O Vital Signs Date Time Temp Pulse Resp B/P (MAP) Pulse Ox O2 Delivery O2 Flow Rate FiO2 10/15/16 06:00 98.7 68 18 134/63 (86) 94 Room Air I&O- Last 24 Hours up to 6 AM 10/15/16 05:59 Intake Total 2760 ml Output Total 2625 ml Balance 135 ml Laboratory Data 24H LABS Laboratory Tests 2 10/15/16 06:05: Neutrophils 74, Band Neutrophils 4, Lymphocytes (Manual) 5L, Monocytes (Manual) 15H, Myelocytes 1H, Atypical Lymphocytes 1, Platelet Estimate MARKED DECREASE, Macrocytosis 3+, Anion Gap 7L, Glomerular Filtration Rate 55.6, Blood Urea Nitrogen 15, Creatinine 1.34H, Sodium Level 144, Potassium Level 3.1L, Chloride Level 108H, Carbon Dioxide Level 29, Calcium Level 7.4L, Aspartate Amino Transf (AST/SGOT) 39H, Alanine Aminotransferase (ALT/SGPT) 25, Alkaline Phosphatase 114 , Total Bilirubin 1.0, Total Protein 6.2L, Albumin 2.4L, Magnesium Level 1.3L, Albumin/Globulin Ratio 0.63L CBC/BMP Laboratory Tests 10/15/16 06:05 Red Blood Count 1.96 L, Mean Corpuscular Volume 119.5 H, Mean Corpuscular Hemoglobin 40.0 H, Mean Corpuscular Hemoglobin Concent 33.4, Red Cell Distribution Width 16.0 H, Calcium Level 7.4 L, Aspartate Amino Transf (AST/SGOT ) 39 H, Alanine Aminotransferase (ALT/SGPT) 25, Alkaline Phosphatase 114, Total Bilirubin 1.0, Total Protein 6.2 L, Albumin 2.4 L Microbiology Microbiology 10/12/16 Stool Occult Blood (GERBER) - Final, Complete 10/12/16 Clostridium difficile (PCR) - Final, Complete MARSHA NICKERSON PA-C October 15, 2016 09:49 SOURAV PICKETT MD October 15, 2016 17:09
[2016-10-15] MEDS ORDERED: POTASSIUM CHLORIDE 10 MEQ SR TABLET PO ONE (10:00)
[2016-10-15] MEDS: FUROSEMIDE 40 MG TAB PO SCH ×2 (11:37→16:58)
[2016-10-15 14:00] VITALS: BP 128/61
[2016-10-15] MEDS: traZODone 100 MG TAB PO SCH (20:00)
[2016-10-15] MEDS: SERTRALINE HCL 50 MG TAB PO SCH (20:00)
[2016-10-15 22:00] VITALS: BP 152/63
[2016-10-16 06:00] VITALS: BP 142/75
[2016-10-16 07:06] LABS: ALBUMIN 2.3 GM/DL (3.2-5.2); ALBUMIN/GLOBULIN RATIO 0.62 (1.00-1.93); ALKALINE PHOSPHATASE 146 U/L (45-117); ALT/SGPT 23 U/L (12-78); ANION GAP 7 MEQ/L (8-16); AST/SGOT 34 U/L (15-37); BILIRUBIN,TOTAL 1.4 MG/DL (0.2-1.0); BLOOD UREA NITROGEN 13 MG/DL (7-18); CALCIUM LEVEL 7.1 MG/DL (8.8-10.2); CARBON DIOXIDE LEVEL 28 MEQ/L (21-32); CHLORIDE LEVEL 108 MEQ/L (98-107); CREATININE FOR GFR 1.21 MG/DL (0.70-1.30); GLOMERULAR FILTRATION RATE > 60.0 (>42); GLUCOSE, FASTING 94 MG/DL (83-110); SODIUM LEVEL 143 MEQ/L (136-145)
[2016-10-16 07:09] LABS: ADD MANUAL DIFFER YES; DIFF SLIDE NUMBER 53; MEAN CORPUSCULAR HEMOGLOBIN 38.2 pg (27.0-33.0); MEAN CORPUSCULAR HGB CONC 34.3 g/dl (32.0-36.5); MEAN CORPUSCULAR VOLUME 111.5 fl (80.0-96.0); RED CELL DISTRIBUTION WIDTH 21.3 % (11.5-14.5); WHITE BLOOD COUNT 14.6 K/mm3 (4.0-10.0)
[2016-10-16 07:16] LABS: PLATELET COUNT, AUTOMATED 29 k/mm3 (150-450)
[2016-10-16 07:50] LABS: ANISOCYTOSIS 2+; BANDS 1 % (< 11)
[2016-10-16] MEDS: OMEPRAZOLE 20 MG CAP PO SCH (08:42)
[2016-10-16] MEDS: FUROSEMIDE 40 MG TAB PO SCH ×2 (08:42→17:19)
[2016-10-16] MEDS: MAGNESIUM OXIDE 400 MG TAB (MAG-OX) PO SCH (08:42)
[2016-10-16] MEDS: SUCRALFATE SUSP 1GM/10ML UD PO SCH ×2 (08:42→20:21)
--- NOTE | 2016-10-16 08:58 | IPNPDOC ---
Subjective Date Seen The patient was seen on 10/16/16. Subjective Chief Complaint/HPI The patient is a 71-year-old male admitted with a reason for visit of ILEUS. Events since last encounter Still feels bloated and a little crampy. Having loose BMs. Lactulose held yesterday. No n/v. Constitutional: Denies: Chills, Fever Pulmonary: Denies: Dyspnea, Cough Cardiovascular: Denies: Chest Pain, Palpitations Gastrointestinal: Reports: Abdominal Pain, Diarrhea, Denies: Nausea, Vomiting, Constipation Genitourinary: Denies: Dysuria Objective Physical Examination General Exam: Positive: Alert, Cooperative, No Acute Distress Eye Exam: Positive: Conjunctiva & lids normal Neck Exam: Positive: Supple Chest Exam: Positive: Clear to auscultation, Normal air movement, Other (few bibasilar insp creps) Heart Exam: Positive: Rate Normal, Negative: Murmurs Abdomen Exam: Positive: Normal bowel sounds, Soft, Other (protuberant), Negative: Tenderness Extremity Exam: Positive: Edema (1 mm pitting edema RLE, none LLE) Psych Exam: Positive: Mental status NL Assessment /Plan Problems (1) SBO (small bowel obstruction) Status: Acute Response to Treatment: Improving Problem Text: 10/16 - SBO resolved. Tolerating regular diet, passing stools. Continues to have some distention, and mild discomfort. Having diarrhea now. Lactulose held yesterday. Check C. diff h/o hepatoma (09/[address] liver) and colon cancer (06/2016 normal colonoscopy-[facility]). Probable P SBO secondary to adhesions from prior hepatectomy or colectomy. - Stopped Flagyl 10/15 (2) Anemia Status: Chronic Response to Treatment: Worse Problem Text: 10/16 Anemia secondary to ESLD/CKD/GI loss (Hem positive stool ) Hgb improved s/p 2 unist PRBC yesterday. Hgb = 9 Monitor trend (3) Hypokalemia Status: Acute Problem Text: 10/16 -give further potassium po (4) Hypomagnesemia Status: Acute Problem Text: xtop oral mag due to diarrhea. Give Mag run x 1 (5) Thrombocytopenia Status: Chronic Problem Text: Chronic, stable, severe thrombocytopenia. (6) End stage liver disease Status: Chronic Problem Text: no signs or symptoms of encephalopathy - lactulose held secondary to loose BMs (7) CKD (chronic kidney disease) stage 3, GFR 30-59 ml/min Status: Chronic Response to Treatment: Stable Problem Text: at baseline cr 1.2-1.3 (8) Diastolic CHF, chronic Status: Chronic Problem Text: Patient now on home Lasix 40 mg po BID, appears to be compensated. (9) Leukocytosis Status: Acute Problem Specific Plan: Monitor Clinically Problem Text: Patient is on Neupogen Wednesdays and Saturdays. White blood cells increased to high 20s after these injections. Plan/VTE VTE Prophylaxis Ordered?: Yes (TEDS/ SCDs) VTE Exclusion Pharmacological: Bleeding Risk Disposition D/C home 10/17 if GI symptoms improve VS, I&O, 24H, Fishbone Vital Signs/I&O Vital Signs Date Time Temp Pulse Resp B/P (MAP) Pulse Ox O2 Delivery O2 Flow Rate FiO2 10/16/16 06:00 97.8 65 14 142/75 (97) 96 Room Air I&O- Last 24 Hours up to 6 AM 10/16/16 06:00 Intake Total 1440 ml Output Total 900 ml Balance 540 ml Laboratory Data 24H LABS Laboratory Tests 2 10/16/16 06:31: Neutrophils 84H, Band Neutrophils 1, Lymphocytes (Manual) 4L, Monocytes (Manual ) 5, Metamyelocytes 5H, Myelocytes 1H, Platelet Estimate MARKED DECREASE, Anisocytosis 2+, Macrocytosis 3+, Anion Gap 7L, Glomerular Filtration Rate > 60.0, Blood Urea Nitrogen 13, Creatinine 1.21, Sodium Level 143, Potassium Level 3.0L, Chloride Level 108H, Carbon Dioxide Level 28, Calcium Level 7.1L, Aspartate Amino Transf (AST/SGOT) 34, Alanine Aminotransferase (ALT/SGPT) 23, Alkaline Phosphatase 146H, Total Bilirubin 1.4H, Total Protein 6.0L, Albumin 2.3L, Albumin/Globulin Ratio 0.62L CBC/BMP Laboratory Tests 10/16/16 06:31 Red Blood Count 2.36 L, Mean Corpuscular Volume 111.5 #H, Mean Corpuscular Hemoglobin 38.2 H, Mean Corpuscular Hemoglobin Concent 34.3, Red Cell Distribution Width 21.3 H, Calcium Level 7.1 L, Aspartate Amino Transf (AST/SGOT ) 34, Alanine Aminotransferase (ALT/SGPT) 23, Alkaline Phosphatase 146 H, Total Bilirubin 1.4 H, Total Protein 6.0 L, Albumin 2.3 L Microbiology Microbiology 10/12/16 Stool Occult Blood (GERBER) - Final, Complete 10/12/16 Clostridium difficile (PCR) - Final, Complete OLGA KELLY PA-C October 16, 2016 08:58
[2016-10-16] MEDS ORDERED: MAG SULF 1GM/100ML (MAG RUN) 1 GM in APPROPRIATE DILUENT 1 EA IV ONE (09:00)
[2016-10-16] MEDS: POTASSIUM CHLORIDE 10 MEQ SR TABLET PO SCH ×2 (09:51→13:14)
[2016-10-16 14:00] VITALS: BP 125/64
[2016-10-16] MEDS: traZODone 100 MG TAB PO SCH (20:21)
[2016-10-16] MEDS: SERTRALINE HCL 50 MG TAB PO SCH (20:21)
[2016-10-16 22:00] VITALS: BP 145/74
[2016-10-17 06:00] VITALS: BP 147/72
[2016-10-17] MEDS: LACTULOSE 20 GM/30 ML SYRUP UD PO SCH ×2 (06:00→12:00)
[2016-10-17 07:07] LABS: ADD MANUAL DIFFER YES; DIFF SLIDE NUMBER 33; MEAN CORPUSCULAR HEMOGLOBIN 37.8 pg (27.0-33.0); MEAN CORPUSCULAR HGB CONC 33.5 g/dl (32.0-36.5); MEAN CORPUSCULAR VOLUME 112.8 fl (80.0-96.0); RED CELL DISTRIBUTION WIDTH 21.4 % (11.5-14.5); WHITE BLOOD COUNT 6.2 K/mm3 (4.0-10.0)
[2016-10-17 07:09] LABS: PLATELET COUNT, AUTOMATED 27 k/mm3 (150-450)
[2016-10-17 07:33] LABS: ALBUMIN 2.3 GM/DL (3.2-5.2); ALBUMIN/GLOBULIN RATIO 0.56 (1.00-1.93); ALKALINE PHOSPHATASE 147 U/L (45-117); ALT/SGPT 24 U/L (12-78); ANION GAP 4 MEQ/L (8-16); AST/SGOT 36 U/L (15-37); BLOOD UREA NITROGEN 13 MG/DL (7-18); CALCIUM LEVEL 7.2 MG/DL (8.8-10.2); CARBON DIOXIDE LEVEL 31 MEQ/L (21-32); CHLORIDE LEVEL 109 MEQ/L (98-107); CREATININE FOR GFR 1.25 MG/DL (0.70-1.30); GLOMERULAR FILTRATION RATE > 60.0 (>42); GLUCOSE, FASTING 87 MG/DL (83-110); MAGNESIUM LEVEL 1.6 MG/DL (1.8-2.4); POTASSIUM SERUM 3.4 MEQ/L (3.5-5.1); SODIUM LEVEL 144 MEQ/L (136-145); TOTAL PROTEIN 6.4 GM/DL (6.4-8.2)
[2016-10-17 07:37] LABS: BANDS 1 % (< 11)
[2016-10-17 07:41] LABS: ANISOCYTOSIS 2+
[2016-10-17] MEDS ORDERED: MAG SULF 1GM/100ML (MAG RUN) 1 GM in APPROPRIATE DILUENT 1 EA IV ONE (08:00)
[2016-10-17] MEDS ORDERED: POTA10CA PO (08:27)
[2016-10-17] MEDS ORDERED: TRAZ10TA PO (08:27)
[2016-10-17] MEDS ORDERED: LACT10SO3 PO (08:27)
[2016-10-17] MEDS ORDERED: SUCR10SS PO (08:27)
[2016-10-17] MEDS: SUCRALFATE SUSP 1GM/10ML UD PO SCH (08:27)
[2016-10-17] MEDS: FUROSEMIDE 40 MG TAB PO SCH (08:28)
[2016-10-17] MEDS: OMEPRAZOLE 20 MG CAP PO SCH (08:28)
[2016-10-17] MEDS ORDERED: POTASSIUM CHLORIDE 10 MEQ SR TABLET PO SCH (09:00)
--- NOTE | 2016-10-17 15:57 | DSES ---
DATE OF ADMISSION: 10/05/2016 DATE OF DISCHARGE: 10/17/2016 BRIEF HISTORY AND PHYSICAL: The patient is a 71-year-old patient of Dr. Aldridge who presented to the hospital with decreased stool production. Last bowel movement was four days prior. He had developed abdominal pain that was progressively worsening and nausea with significantly decreased oral intake. PAST MEDICAL HISTORY: Significant for: 1. End-stage liver disease secondary to alcoholic cirrhosis. 2. Hepatocellular carcinoma status post partial hepatectomy. 3. Pancytopenia. 4. Colon cancer status post colectomy. 5. History of Clostridium (C) difficile colitis. 6. Grade 2 esophageal varices. 7. Portal hypertension. 8. History of methicillin-resistant Staphylococcus aureus (MRSA) cellulitis. 9. History of esophageal reflux disease. 10. Rosacea. 11. Osteoarthritis. 12. Posttraumatic stress disorder (PTSD). PERTINENT LABORATORY DATA ON ADMISSION: Sodium 139, potassium 3.4, BUN 27, creatinine 1.47, glucose 114, AST and ALT were normal with an ammonia level of 21, amylase and lipase were normal. CT of the abdomen and pelvis without contrast showed no free air, diffuse large small bowel dilation may represent generalized ileus, mild free fluid in the pelvis, splenomegaly with splenic varices, tiny enterorenal stones. HOSPITAL COURSE: 1. The patient was admitted for what was determined to be a small bowel obstruction. Surgery was consulted. The patient was made nothing by mouth and his symptoms gradually improved. Diet has been slowly advanced and he is eating regular food and having loose stool at the time of his discharge. He is still a little bloated but without nausea or vomiting and only minimal abdominal cramping at times. Gastrointestinal (GI) panel was performed and it was negative. He was initially treated with Flagyl empirically because of his previous history of Clostridium (C) difficile but this has been stopped. He is not on any antibiotics. 2. Chronic anemia secondary to end-stage liver disease, chronic kidney disease and chronic GI blood loss with heme-positive stool on 10/12/2016. He did receive two units of packed red blood cells. Hemoglobin improved, drifted down slightly at the time of discharge to 8.6, and will need to be monitored further as an outpatient. He has had an esophagogastroduodenoscopy (EGD) and colonoscopy on 07/09/[address] Monsivais. The colonoscopy showed nonbleeding internal hemorrhoids, patent colonic anastomosis, otherwise normal. EGD showed grade 3 varices in the entire esophagus, large in size, three bands were placed with incomplete eradication of the varices, moderate portal hypertension, gastropathy was found in the entire examined stomach, the duodenum was normal. There was a recommendation that he followup with Dr. Monsivais in two months according to that report. I will defer to Dr. Negron as to whether that occurred. He was not re-scoped during this hospitalization. 3. Hypokalemia. He is on chronic Lasix and came in with some hypokalemia. He has been given oral potassium. Also, he is hypomagnesemic and was given oral magnesium and then switched to IV magnesium. He will remain on oral potassium as an outpatient. He will need his electrolytes followed up. 4. Thrombocytopenia. This is chronic and his platelets run around 27. 5. End-stage liver disease without signs of encephalopathy. His lactulose has been held due to loose bowel movements (BMs). He will need that restarted once his bowel movements return to baseline. 6. Chronic kidney disease. Baseline creatinine is around 1.2 to 1.3 and has remained stable. 7. Chronic diastolic congestive heart failure. He remains on his home dose of Lasix 40 mg twice a day and appears fairly compensated. 8. Leukocytosis. This was felt to be related in part to his Neupogen which he receives on Wednesdays and Saturdays. DISPOSITION: He is stable for discharge home. Followup with Dr. Negron next week. Followup with [facility] per his office. Diet regular. Activity as tolerated. MEDICATIONS: - lactulose 15 mL every six hours - potassium 40 mEq twice a day - sucralfate 1 gram twice a day - trazodone 100 mg at bedtime - Neupogen twice a week - furosemide 40 mg twice a day - multivitamin daily - ranitidine one tablet twice a day as needed for heartburn - sertraline 150 mg at bedtime - milk thistle 140 mg twice a day - vitamin D 50,000 international units weekly Oxycodone was listed on his home medication list. He has not gotten any here and probably should not get narcotics in light of his recent small bowel obstruction. DISCHARGE DIAGNOSES: 1. Small bowel obstruction. 2. Acute on chronic anemia. 3. History of grade 3 esophageal varices. 4. Hypokalemia. 5. Hypomagnesemia. 6. Thrombocytopenia. 7. End-stage liver disease. 8. Chronic kidney disease. 9. Diastolic congestive heart failure. 10. Leukocytosis.
== END 2016-10-17 16:30 | disposition home or self-care (01) | DRG 389 ==
LOC: M ED 14:21 → M ED INP 16:32 → M PCU 18:19 → M MS5PR 10-06 18:00
PROVIDERS: ADMIT Internal Medicine; ATTEND Family Medicine
PROC: 30233N1 Transfusion of Nonautologous Red Blood Cells into Peripheral Vein, Percutaneous Approach (ICD-10-PCS; principal; 2016-10-15)
DX: K56.7 Ileus, unspecified (principal); D61.818 Other pancytopenia; K76.6 Portal hypertension; I50.32 Chronic diastolic (congestive) heart failure; I85.10 Secondary esophageal varices without bleeding; K72.90 Hepatic failure, unspecified without coma; F43.10 Post-traumatic stress disorder, unspecified; K70.30 Alcoholic cirrhosis of liver without ascites; M19.90 Unspecified osteoarthritis, unspecified site; K21.9 Gastro-esophageal reflux disease without esophagitis; Z85.038 Personal history of other malignant neoplasm of large intestine; N18.3 Chronic kidney disease, stage 3 (moderate); D69.6 Thrombocytopenia, unspecified; E87.6 Hypokalemia; E83.42 Hypomagnesemia; D72.829 Elevated white blood cell count, unspecified; Z79.899 Other long term (current) drug therapy; L71.9 Rosacea, unspecified; Z87.891 Personal history of nicotine dependence

== ENCOUNTER → 2016-10-24 | Outpatient (REF) | payer OTHER ==
[~2016-10-24] MED LIST changes: +FURO40TA2; -KEFL500C17 PO; +KEFL500C7 PO; +LACT20EL PO; +LASI40TA PO; +MILK140C2 PO; +NAPR250T2 PO; -NAPR250T4 PO; +OXYC-517; +OXYC-517 PO; +OXYC1SOL PO; -OXYC1SOL3 PO; +POTA10CA PO; +RANI150T PO; +SERT-155 PO; +SUCR10SS PO; +TRAZ10TA PO; +VITMTA PO
[2016-10-24 12:24] LABS: ALBUMIN 2.8 GM/DL (3.2-5.2); ALBUMIN/GLOBULIN RATIO 0.6 (1.00-1.93); BILIRUBIN,TOTAL 1.2 MG/DL (0.2-1.0); CALCIUM LEVEL 8.4 MG/DL (8.8-10.2); CREATININE FOR GFR 1.39 MG/DL (0.70-1.30); GLOMERULAR FILTRATION RATE 53.3 (>42); MAGNESIUM LEVEL 1.9 MG/DL (1.8-2.4); PERCENT SATURATION 39.7 % (19.7-37.4); POTASSIUM SERUM 3.9 MEQ/L (3.5-5.1); TOTAL PROTEIN 7.5 GM/DL (6.4-8.2)
[2016-10-24 12:26] LABS: DIFF SLIDE NUMBER 177; MEAN CORPUSCULAR HEMOGLOBIN 38.1 pg (27.0-33.0); MEAN CORPUSCULAR HGB CONC 33.5 g/dl (32.0-36.5); MEAN CORPUSCULAR VOLUME 113.7 fl (80.0-96.0); RED CELL DISTRIBUTION WIDTH 18.6 % (11.5-14.5); WHITE BLOOD COUNT 6.1 K/mm3 (4.0-10.0)
[2016-10-24 12:30] LABS: PLATELET COUNT, AUTOMATED 38 k/mm3 (150-450)
[2016-10-24 13:41] LABS: ANISOCYTOSIS 2+; BANDS 1 % (< 11); EOSINOPHILS 1 % (0-5)
== END ==
LOC: M SFHCPLAZ 10:49
PROVIDERS: ATTEND Physician Assistant Medical
DX: E87.6 Hypokalemia (principal); D63.8 Anemia in other chronic diseases classified elsewhere; E83.42 Hypomagnesemia

== ENCOUNTER 2016-10-29 19:39 | Emergency (ER) | payer MEDICARE, OTHER ==
[~2016-10-29] VITALS: Ht 180.3 cm; Wt 81.6 kg
[~2016-10-29 19:39] MED LIST changes: -FURO40TA2; -OXYC-517
[2016-10-29] MEDS ORDERED: OXYC-517 (19:49)
[2016-10-29] MEDS ORDERED: FURO40TA2 (19:49)
[2016-10-29 19:58] VITALS: BP 141/65
--- NOTE | 2016-10-29 21:41 | ED PDOC ---
Post-Departure Follow-Up The patient left prior to my evalution. COY SOSA MD Oct 29, 2016 21:41
== END 2016-10-29 22:47 | disposition left against medical advice (07) ==
LOC: M ED 19:39
DX: Z53.29 Procedure and treatment not carried out because of patient's decision for other reasons (principal)

== ENCOUNTER → 2016-11-09 | Outpatient (REF) | payer OTHER ==
[~2016-11-09] MED LIST changes: +FURO40TA2; +OXYC-517
[2016-11-09 14:11] LABS: DIFF SLIDE NUMBER 190; MEAN CORPUSCULAR HEMOGLOBIN 37.4 pg (27.0-33.0); MEAN CORPUSCULAR HGB CONC 33.8 g/dl (32.0-36.5); MEAN CORPUSCULAR VOLUME 110.5 fl (80.0-96.0); WHITE BLOOD COUNT 4.5 K/mm3 (4.0-10.0)
[2016-11-09 14:18] LABS: PLATELET COUNT, AUTOMATED 31 k/mm3 (150-450)
[2016-11-09 14:19] LABS: ANION GAP 4 MEQ/L (8-16); BLOOD UREA NITROGEN 14 MG/DL (7-18); CALCIUM LEVEL 7.8 MG/DL (8.8-10.2); CARBON DIOXIDE LEVEL 32 MEQ/L (21-32); CHLORIDE LEVEL 104 MEQ/L (98-107); CREATININE FOR GFR 1.16 MG/DL (0.70-1.30); GLOMERULAR FILTRATION RATE > 60.0 (>42); GLUCOSE, FASTING 95 MG/DL (83-110); MAGNESIUM LEVEL 1.6 MG/DL (1.8-2.4); SODIUM LEVEL 140 MEQ/L (136-145)
[2016-11-09 16:01] LABS: ANISOCYTOSIS 2+
== END ==
LOC: M SFHCPLAZ 11:07
PROVIDERS: ATTEND Physician Assistant Medical
DX: D69.6 Thrombocytopenia, unspecified (principal); N18.2 Chronic kidney disease, stage 2 (mild)

== ENCOUNTER → 2016-11-20 | Outpatient (REF) | payer OTHER ==
[~2016-11-20] MED LIST changes: +BENT10CA PO; +CALC600T21 PO; +FLOR250C PO; +LOPR1TAB6 PO
[2016-11-20 18:55] LABS: CALCIUM LEVEL 7.9 MG/DL (8.8-10.2); CREATININE FOR GFR 1.52 MG/DL (0.70-1.30); GLOMERULAR FILTRATION RATE 48.1 (>42); PERCENT SATURATION 96.9 % (19.7-37.4); POTASSIUM SERUM 3.8 MEQ/L (3.5-5.1)
[2016-11-20 21:06] LABS: DIFF SLIDE NUMBER 282; MEAN CORPUSCULAR HEMOGLOBIN 36.8 pg (27.0-33.0); MEAN CORPUSCULAR HGB CONC 32.4 g/dl (32.0-36.5); MEAN CORPUSCULAR VOLUME 113.4 fl (80.0-96.0); RED CELL DISTRIBUTION WIDTH 21.1 % (11.5-14.5); WHITE BLOOD COUNT 2.9 K/mm3 (4.0-10.0)
[2016-11-20 21:17] LABS: PLATELET COUNT, AUTOMATED 36 k/mm3 (150-450)
[2016-11-20 21:46] LABS: BASOPHILS 1 % (0-4); EOSINOPHILS 1 % (0-5)
[2016-11-20 21:52] LABS: BLAST CELLS 2 % (0-0)
[2016-11-20 21:53] LABS: GIANT PLATELETS 1+
[2016-11-20 21:55] LABS: ANISOCYTOSIS 3+
== END ==
LOC: M SFHCPLAZ 15:28
PROVIDERS: ATTEND Physician Assistant Medical
DX: I85.10 Secondary esophageal varices without bleeding (principal); D69.6 Thrombocytopenia, unspecified; N18.2 Chronic kidney disease, stage 2 (mild)

== ENCOUNTER 2016-11-22 20:24 | Emergency (ER) | payer MEDICARE, OTHER ==
[~2016-11-22] VITALS: Ht 180.3 cm; Wt 75.9 kg
[~2016-11-22 20:24] MED LIST changes: -BENT10CA PO; -CALC600T21 PO; -FLOR250C PO; +KEFL500C17 PO; -KEFL500C7 PO; +LACT10SO3 PO; -LACT20EL PO; -LOPR1TAB6 PO; -NAPR250T2 PO; +NAPR250T4 PO; -OXYC1SOL PO; +OXYC1SOL3 PO
[2016-11-22] MEDS ORDERED: LOPR1TAB6 PO (20:48)
[2016-11-22] MEDS ORDERED: BENT10CA PO (20:55)
[2016-11-22] MEDS ORDERED: FILG30VL SC (20:55)
[2016-11-22] MEDS ORDERED: CALC600T60 PO (20:55)
[2016-11-22] MEDS ORDERED: FLOR250C PO (20:55)
[2016-11-22 22:54] LABS: ADD MANUAL DIFFER YES; DIFF SLIDE NUMBER 288; MEAN CORPUSCULAR HEMOGLOBIN 35.8 pg (27.0-33.0); MEAN CORPUSCULAR HGB CONC 32.5 g/dl (32.0-36.5); MEAN CORPUSCULAR VOLUME 110.3 fl (80.0-96.0); RED CELL DISTRIBUTION WIDTH 21.3 % (11.5-14.5); WHITE BLOOD COUNT 10.4 K/mm3 (4.0-10.0)
[2016-11-22 22:59] LABS: CALCIUM LEVEL 8.3 MG/DL (8.8-10.2); CREATININE FOR GFR 1.53 MG/DL (0.70-1.30); GLOMERULAR FILTRATION RATE 47.7 (>42); POTASSIUM SERUM 4.4 MEQ/L (3.5-5.1)
[2016-11-22 23:36] LABS: PLATELET COUNT, AUTOMATED 33 k/mm3 (150-450)
[2016-11-22 23:39] LABS: ANISOCYTOSIS 1+
[2016-11-23] MEDS ORDERED: NS 1,000 ML IV ONE (00:30)
[2016-11-23 03:37] VITALS: BP 133/60
== END 2016-11-23 04:27 | disposition home or self-care (01) ==
LOC: M ED 20:24
DX: E86.9 Volume depletion, unspecified (principal); R19.7 Diarrhea, unspecified; I48.91 Unspecified atrial fibrillation; I12.9 Hypertensive chronic kidney disease with stage 1 through stage 4 chronic kidney disease, or unspecified chronic kidney disease; K21.9 Gastro-esophageal reflux disease without esophagitis; F32.9 Major depressive disorder, single episode, unspecified; N18.2 Chronic kidney disease, stage 2 (mild); K70.30 Alcoholic cirrhosis of liver without ascites; Z85.038 Personal history of other malignant neoplasm of large intestine; Z90.49 Acquired absence of other specified parts of digestive tract; Z90.89 Acquired absence of other organs; Z79.899 Other long term (current) drug therapy

== ENCOUNTER 2016-11-23 12:23 | Outpatient (CLI) | payer OTHER ==
[~2016-11-23 12:23] MED LIST changes: +BENT10CA PO; +CALC600T60 PO; +FLOR250C PO; +LOPR1TAB6 PO
[2016-11-23] MEDS ORDERED: FUROSEMIDE 20 MG/2 ML VIAL (J1940) IV ONE (14:30)
[2016-11-23] MEDS ORDERED: diphenhydrAMINE 25 MG CAP PO ONE (14:30)
[2016-11-23] MEDS ORDERED: ACETAMINOPHEN 500 MG TAB PO ONE (14:30)
== END 2016-11-23 20:15 | disposition home or self-care (01) ==
LOC: M LAB 12:23 → M MS5PR 12:23 → M LAB 20:15
PROVIDERS: ATTEND Physician Assistant Medical
DX: I85.11 Secondary esophageal varices with bleeding (principal); D63.8 Anemia in other chronic diseases classified elsewhere
CPT/HCPCS: 36415; 86850; 86900; 86901; 86920; J1940; P9016

== ENCOUNTER → 2016-11-29 | Outpatient (REF) | payer OTHER ==
[~2016-11-29] MED LIST changes: +KLOR20PO12 PO; +MILK300C PO; +VITA200016 PO
[2016-11-29 20:06] LABS: ADD MANUAL DIFFER YES; DIFF SLIDE NUMBER 292; MEAN CORPUSCULAR HEMOGLOBIN 35.8 pg (27.0-33.0); MEAN CORPUSCULAR HGB CONC 33.3 g/dl (32.0-36.5); MEAN CORPUSCULAR VOLUME 107.4 fl (80.0-96.0); RED CELL DISTRIBUTION WIDTH 21.5 % (11.5-14.5); WHITE BLOOD COUNT 17.6 K/mm3 (4.0-10.0)
[2016-11-29 22:19] LABS: PLATELET COUNT, AUTOMATED 45 k/mm3 (150-450)
[2016-11-29 22:21] LABS: BANDS 17 % (< 11); EOSINOPHILS 1 % (0-5)
[2016-11-29 22:22] LABS: ANISOCYTOSIS 3+
[2016-11-29 22:23] LABS: OVALOCYTES 1+; POIKILOCYTOSIS 1+
== END ==
LOC: M SFHCPLAZ 15:52
PROVIDERS: ATTEND Physician Assistant Medical
DX: D70.9 Neutropenia, unspecified (principal); I48.0 Paroxysmal atrial fibrillation; D63.8 Anemia in other chronic diseases classified elsewhere; Z86.19 Personal history of other infectious and parasitic diseases

== ENCOUNTER → 2016-12-17 | Outpatient (CLI) | payer OTHER ==
[2016-12-17 18:38] LABS: ADD MANUAL DIFFER YES; DIFF SLIDE NUMBER 326; MEAN CORPUSCULAR HEMOGLOBIN 36.7 pg (27.0-33.0); MEAN CORPUSCULAR HGB CONC 33.4 g/dl (32.0-36.5); RED CELL DISTRIBUTION WIDTH 21.7 % (11.5-14.5); WHITE BLOOD COUNT 2.4 K/mm3 (4.0-10.0)
[2016-12-17 18:42] LABS: PLATELET COUNT, AUTOMATED 47 k/mm3 (150-450)
[2016-12-17 22:48] LABS: BANDS 1 % (< 11); BASOPHILS 1 % (0-4)
[2016-12-17 22:49] LABS: ANISOCYTOSIS 2+
[2016-12-17 22:50] LABS: GIANT PLATELETS 1+
== END ==
LOC: M LAB 16:59
PROVIDERS: ATTEND Physician Assistant Medical
DX: A04.7 Enterocolitis due to Clostridium difficile (principal); D63.8 Anemia in other chronic diseases classified elsewhere

== ENCOUNTER → 2016-12-20 | Outpatient (CLI) | payer OTHER ==
[~2016-12-20] MED LIST changes: +ACETAMINOPHEN 500 MG TAB As Ordered ONE; +ACETAMINOPHEN 500 MG TAB PO SCH; +FUROSEMIDE 20 MG/2 ML VIAL (J1940) As Ordered ONE; +FUROSEMIDE 20 MG/2 ML VIAL (J1940) IV SCH; +diphenhydrAMINE 25 MG CAP As Ordered ONE; +diphenhydrAMINE 25 MG CAP PO SCH
== END ==
LOC: M INFU 07:51
PROVIDERS: ATTEND Physician Assistant Medical
DX: D64.9 Anemia, unspecified (principal)
CPT/HCPCS: 36430; J1940; P9016

== ENCOUNTER → 2016-12-31 | Outpatient (REF) | payer OTHER ==
[~2016-12-31] MED LIST changes: -ACETAMINOPHEN 500 MG TAB As Ordered ONE; -ACETAMINOPHEN 500 MG TAB PO SCH; -FUROSEMIDE 20 MG/2 ML VIAL (J1940) As Ordered ONE; -FUROSEMIDE 20 MG/2 ML VIAL (J1940) IV SCH; -diphenhydrAMINE 25 MG CAP As Ordered ONE; -diphenhydrAMINE 25 MG CAP PO SCH
[2016-12-31 19:28] LABS: ADD MANUAL DIFFER YES; DIFF SLIDE NUMBER 305; MEAN CORPUSCULAR HEMOGLOBIN 35.7 pg (27.0-33.0); MEAN CORPUSCULAR HGB CONC 33.1 g/dl (32.0-36.5); MEAN CORPUSCULAR VOLUME 107.8 fl (80.0-96.0); RED CELL DISTRIBUTION WIDTH 22.7 % (11.5-14.5)
[2016-12-31 19:29] LABS: PLATELET COUNT, AUTOMATED 30 k/mm3 (150-450)
[2016-12-31 21:19] LABS: BANDS 2 % (< 11)
[2016-12-31 21:22] LABS: ANISOCYTOSIS 3+; SCHISTOCYTES 1+
== END ==
LOC: M SFHCPLAZ 16:11
PROVIDERS: ATTEND Physician Assistant Medical
DX: N18.2 Chronic kidney disease, stage 2 (mild) (principal); D63.8 Anemia in other chronic diseases classified elsewhere

== ENCOUNTER 2017-01-01 15:09 | Outpatient (CLI) | payer OTHER ==
[~2017-01-01] VITALS: Ht 180.3 cm; Wt 77.3 kg
[~2017-01-01 15:09] MED LIST changes: -KLOR20PO12 PO; -MILK300C PO; -VITA200016 PO
[2017-01-01] MEDS ORDERED: ACETAMINOPHEN 325 MG TAB PO ONE (16:15)
[2017-01-01] MEDS ORDERED: diphenhydrAMINE 25 MG CAP PO ONE (16:15)
[2017-01-01] MEDS ORDERED: FUROSEMIDE 20 MG/2 ML VIAL (J1940) IV ONE (18:00)
[2017-01-01 18:17] VITALS: BP 129/63
== END 2017-01-02 02:36 | disposition home or self-care (01) ==
LOC: M OPCLI4PV 15:09 → M MSPAV 15:13 → M MS4PR 23:17 → M OPCLI4PV 01-02 02:36
PROVIDERS: ATTEND Physician Assistant Medical
DX: D64.9 Anemia, unspecified (principal); Z79.899 Other long term (current) drug therapy
CPT/HCPCS: 36415; 36430; 86850; 86900; 86901; 86920; J1940; P9016

== ENCOUNTER → 2017-01-25 | Outpatient (REF) | payer OTHER ==
[~2017-01-25] MED LIST changes: +KLOR20PO12 PO; +MILK300C PO; +VITA200016 PO
[2017-01-25 12:59] LABS: INR 1.71
[2017-01-25 13:15] LABS: ALBUMIN/GLOBULIN RATIO 0.36 (1.00-1.93); BILIRUBIN,TOTAL 1.2 MG/DL (0.2-1.0); CALCIUM LEVEL 7.6 MG/DL (8.8-10.2); CREATININE FOR GFR 1.72 MG/DL (0.70-1.30); GLOMERULAR FILTRATION RATE 41.7 (>42); TOTAL PROTEIN 7.5 GM/DL (6.4-8.2)
[2017-01-25 14:02] LABS: MEAN CORPUSCULAR HEMOGLOBIN 36.5 pg (27.0-33.0); MEAN CORPUSCULAR HGB CONC 34.3 g/dl (32.0-36.5); MEAN CORPUSCULAR VOLUME 106.3 fl (80.0-96.0); RED CELL DISTRIBUTION WIDTH 23.3 % (11.5-14.5); WHITE BLOOD COUNT 8.1 K/mm3 (4.0-10.0)
[2017-01-25 15:30] LABS: BANDS 9 % (< 11); EOSINOPHILS 1 % (0-5)
[2017-01-25 15:31] LABS: ANISOCYTOSIS 1+
== END ==
LOC: M SFHCPLAZ 10:12
PROVIDERS: ATTEND Family Medicine
DX: D69.59 Other secondary thrombocytopenia (principal)

== ENCOUNTER 2017-01-27 22:32 | Inpatient (IN) | payer MEDICARE, OTHER ==
[~2017-01-27] VITALS: Ht 180.3 cm; Wt 79.1 kg
[~2017-01-27 22:32] MED LIST changes: -KLOR20PO12 PO; -MILK300C PO; -VITA200016 PO
[2017-01-27] MEDS ORDERED: VITA200016 PO (22:51)
[2017-01-27] MEDS ORDERED: milk thistle PO (22:51)
[2017-01-27] MEDS ORDERED: KLOR20PO12 PO (22:51)
[2017-01-27] MEDS ORDERED: ONDANSETRON 4MG/2ML VIAL (J2405) IV ONE (23:30)
[2017-01-27] MEDS ORDERED: NS 500 ML IV ONE (23:30)
[2017-01-27 23:45] LABS: ADD MANUAL DIFFER YES; DIFF SLIDE NUMBER 189; MEAN CORPUSCULAR HEMOGLOBIN 36.3 pg (27.0-33.0); MEAN CORPUSCULAR HGB CONC 34.3 g/dl (32.0-36.5); MEAN CORPUSCULAR VOLUME 105.8 fl (80.0-96.0); RED CELL DISTRIBUTION WIDTH 23.1 % (11.5-14.5); WHITE BLOOD COUNT 17.6 K/mm3 (4.0-10.0)
[2017-01-27 23:49] LABS: PLATELET COUNT, AUTOMATED 53 k/mm3 (150-450)
[2017-01-27 23:51] LABS: ALBUMIN 2.4 GM/DL (3.2-5.2); ALBUMIN/GLOBULIN RATIO 0.39 (1.00-1.93); ALKALINE PHOSPHATASE 239 U/L (45-117); ALT/SGPT 59 U/L (12-78); ANION GAP 9 MEQ/L (8-16); AST/SGOT 89 U/L (15-37); BILIRUBIN,DIRECT 0.9 MG/DL (0.0-0.2); BILIRUBIN,TOTAL 1.9 MG/DL (0.2-1.0); BLOOD UREA NITROGEN 28 MG/DL (7-18); CALCIUM LEVEL 8.2 MG/DL (8.8-10.2); CARBON DIOXIDE LEVEL 28 MEQ/L (21-32); CHLORIDE LEVEL 97 MEQ/L (98-107); CREATININE FOR GFR 1.87 MG/DL (0.70-1.30); GLOMERULAR FILTRATION RATE 37.9 (>42); GLUCOSE, FASTING 126 MG/DL (83-110); POTASSIUM SERUM 3.2 MEQ/L (3.5-5.1); SODIUM LEVEL 134 MEQ/L (136-145); TOTAL PROTEIN 8.5 GM/DL (6.4-8.2)
[2017-01-28] MEDS ORDERED: VANC250C2 PO (00:18)
[2017-01-28 00:21] LABS: AMYLASE 69 U/L (25-115)
[2017-01-28] MEDS ORDERED: GASTROGRAFIN SOLUTION 30ML (Q9963) PO ONE ×3 (00:30→12:45)
[2017-01-28 01:18] LABS: ANISOCYTOSIS 2+
--- NOTE | 2017-01-28 01:20 | REPUSA ---
CLINICAL HISTORY: Abdominal pain. TECHNIQUE: Realtime sonographic images were obtained in multiple projections. COMMENTS: Chronic calcifications of the right hepatic lobe. Prior cholecystectomy. Unremarkable right kidney measuring 12 x 5.8 x 6.2 cm. IMPRESSION: Unremarkable study. Thank you for your kind referral of this patient.
--- NOTE | 2017-01-28 03:00 | REPUSA ---
CLINICAL HISTORY: Abdominal pain. TECHNIQUE: Multiple axial, sagittal and coronal CT images were obtained through the abdomen and pelvi s without administration of IV contrast material. Patient ingested oral contrast. COMMENTS: Comparison to prior exam performed on 10/05/2016. Cirrhotic liver. Moderate splenomegaly. Scattered probably calcified hepatic lesions with the largest measuring 2.3 cm and the right hepatic lobe. Diffuse thickening of the wall of the stomach. Findings are more prominent at the level of the gastri c fundus. Interval appearance of left periaortic/retrocrural lymphadenopathy measuring 7.3 cm. General appearance of the large perigastric lymph nodes surrounding the gastroesophageal junction. Mild thickening of the small bowel loops in the right lower quadrant. Mild prostatomegaly. Mild diffuse thickening of the wall of the bladder. The pancreas is of normal contour and attenuation characteristics. There is no evidence of adrenal ma ss. The kidneys are normal in size, shape and configuration. No renal or ureteral calculi are identified. There is no hydroureter or hydronephrosis. There is no evidence for appendicitis. There is no evidence of intrinsic or extrinsic bladder mass. Diffuse bilateral basilar interstitial pulmonary thickening. There are no pleural effusions. The bony structures are free of lytic or blastic lesions. Multilevel degenerative changes are seen in volving the thoracolumbar spine. Scattered calcifications are seen involving the aorta and major branches compatible with atherosclero sis. IMPRESSION: Increased thickening over the stomach which has a masslike appearance at the level of the fundus. Thi s is suspicious for neoplastic pathology. Interval appearance of perigastric/retrocrural lymphadenopathy. Unchanged calcified hepatic lesions. Unchanged liver cirrhosis. Again is noted splenomegaly. Thank you for your kind referral of this patient.
[2017-01-28] MEDS: NS 1,000 ML IV SCH ×2 (03:56→17:42)
[2017-01-28] MEDS ORDERED: POTASSIUM CHLORIDE 10 MEQ SR TABLET PO STA (04:17)
[2017-01-28] MEDS ORDERED: MIRALAX *UNIT DOSE* 17GM PACKET PO STA (04:19)
[2017-01-28] MEDS ORDERED: chlorproMAZINE INJ 50MG/2ML AMP (J3230) IV STA (04:22)
--- NOTE | 2017-01-28 04:24 | HPEPDOC ---
General Date of Admission Jan 28, 2017 at 03:56 Chief Complaint The patient is a 71-year-old male Presented to the ER with complaints of epigastric pain and persistant hiccups. History of Present Illness Patient is a 71 year old male with a PMHx of Cirrhosis (2/ EtOH), Hepatocellular CA (Dx: 12/2016, s/p Partial hepatectomy), Colon CA (Dx: 06/1995; s /p colectomy), Pancytopenia (on Neuopogen), Multiple episodes of C. diff (on Vanco PO), History of varicies and portal hypertensive gastropathy (EGD 06/[address] Monsivais), PTSD and GERD. Patient presented to the ER with complaints of epigastric pain, continuous, 8/10 , pressure like pian, non-radiating, alleviated with oxycodone, and no aggravating factors. He noticed that this pain has been worsening since Saturday. He has had a poor oral intake since that point. He notes that he has persistant hiccups, has been nauseous and vomited >6x (mostly food, no blood). He has noted that he had a fever at home on Saturday of 101.2F, but nothing since then. He denies any chills. He notes some lower chest pain described as the same nature as his abdominal pain. He notes that he is chronically short of breath, no cough, no palpitations. He denies any diarrhea or dysuria. He notes that he has been constipated for the last few days, but is still able to pass gas. Home Medications Scheduled (Sertraline HCl) 50 Mg Tab, 150 MG PO QHS, (Reported) Filgrastim (Neupogen) 300 Mcg/0.5 Ml Soln, 300 MCG SC 2x/week, (Reported) 300MCG Furosemide (Lasix) 40 Mg Tab, 40 MG PO BID, (Reported) Potassium Chloride (Klor-Con) 20 Meq Pow, 40 MEQ PO BID, (Reported) Vancomycin Hcl (Vancomycin HCl) 250 Mg Cap, 250 MG PO Q3D, (Reported) Vitamin D (Vitamin D) 2,000 Unit Cap, 2,000 UNIT PO BID, (Reported) [milk thistle] , 1 TAB PO DAILY, (Reported) Allergies Coded Allergies: No Known Drug Allergy (Verified Allergy, Unknown, 07/02/16) Past Medical History Medical History Cirrhosis (06/28 EtOH), Hepatocellular CA (Dx: 12/2016, s/p Partial hepatectomy), Colon CA (Dx: 06/1995; s/p colectomy), Pancytopenia (on Neuopogen), Multiple episodes of C. diff (on Vanco PO), History of varicies and portal hypertensive gastropathy (EGD 06/[address] Monsivais), PTSD and GERD Surgical History Cholecystectomy Colectomy Partial hepatectomy Embolization and ablation of liver CA (06/2007) Family History - Non-contributory Social History - Denies the use of illicit drugs; Quit drinking alcohol; Quit smoking 30 years prior, smoker of 30 years at 3 ppd - Denies recent travel or sick contacts - Lives with - Occupation; Retired [employer] Review of Symptoms Other systems 10 point review of systems complete; all negative otherwise stated in HPI Vital Signs - Vitals: BP 134/58, HR 92, RR 18, Sat 98%RA, Temp 99.7F - General: Lying in bed, No acute distress, Speaking in full sentences, AAOx3 - HEENT: NC, AT, PERRLA, EOMI - CVS: RRR, +S1S2 - Lungs: Fair air entry bilaterally, Clear to auscultation, No wheezing / rales / rhonchi - Abdomen: Soft, Non-distended, Non-tender, Hypoactive bowel sounds - Extremities: No lower extremity edema, No calf tenderness - Neuro: No focal motor or sensory deficit - Skin: No visible rashes Laboratory Data Labs 24H Laboratory Tests 2 01/27/17 23:16: Neutrophils 47, Lymphocytes (Manual) 6L, Monocytes (Manual) 41H, Myelocytes 5H, Atypical Lymphocytes 1, Platelet Estimate MARKED DECREASE, Anisocytosis 2+, Macrocytosis 2+, Anion Gap 9, Glomerular Filtration Rate 37.9L, Calcium Level 8.2L, Aspartate Amino Transf (AST/SGOT) 89H, Alanine Aminotransferase (ALT/SGPT ) 59, Alkaline Phosphatase 239H, Total Bilirubin 1.9#H, Direct Bilirubin 0.9H, Ammonia 16, Total Creatine Kinase 70, Creatine Kinase MB 1.0, Creatine Kinase MB Relative Index 1.42, Troponin I < 0.02, Total Protein 8.5H, Albumin 2.4L, Albumin/Globulin Ratio 0.39L, Amylase Level 69, Lipase 153 01/28/17 00:23: Lactic Acid Level 2.4*H 01/28/17 04:05: CBC/BMP Laboratory Tests 01/27/17 23:16 Red Blood Count 2.50 L, Mean Corpuscular Volume 105.8 H, Mean Corpuscular Hemoglobin 36.3 H, Mean Corpuscular Hemoglobin Concent 34.3, Red Cell Distribution Width 23.1 H Plan / VTE VTE Prophylaxis Ordered?: Yes Plan Plan Worsening abdominal pain and failure to thrive - possibly 2/2 gastric mass - Presented with worsening pain for last few days, epigastric region, notes nausea / vomiting and hiccups - Physical without any epigastric tenderness - WBC elevated, however has received Neupogon on 01/26/17 - Mild lactic acidosis - CT abdomen / pelvis: increased thickening over the stomach, mass-like appearance at the level of the fundus., suspicious for neoplasm - s/p 1 Liter of NS in ER - Will require further evaluation of stomach with possible biopsy - Will c/w liquid diet for now and IV fluid hydration - Will give single dose of Chlorpromazine IV for hiccups History of pancytopenia - Leukocytosis, Macrocytic anemia, Thrombocytopenia - Elevated WBC likely 2/2 Neupogen - Despite 1 episode of fever, review of systems does not delineate any source of infection - Will check urinalysis, urine culture, blood cultures - Hold off on antibiotics at this time Acute on Chronic kidney disease - likely 2/2 poor oral intake - Baseline Cr of 1.1-1.3 - Currently Cr of 1.87 - Will check urine electrolytes and urinalysis - c/w IV fluid hydration Hypokalemia - Will supplement via PO and IV Lactic acidosis - Will f/u repeat level in AM - c/w IV fluid hydration Constipation - Will give stool softeners (Docusate and Miralax) to induce bowel movement 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 diff - Recently diagnosed on 10/2016 - Currently on Vancomycin PO every three days - Last dose on 9/5/17 History of varicies and portal hypertensive gastropathy - EGD 06/[address] Monsivais PTSD - c/w Sertraline Vitamin D deficiency - c/w Vitamin D supplementation GERD - Will start Protonix IV DVT prophylaxis - Will start SCDs TRUPTI CATALAN MD Jan 28, 2017 04:24
[2017-01-28 04:43] LABS: INR 2.13
[2017-01-28 05:30] VITALS: BP 148/70
[2017-01-28] MEDS ORDERED: chlorproMAZINE INJ 50MG/2ML AMP (J3230) IV ONE (06:00)
[2017-01-28] MEDS: KCL 10MEQ IN 100ML SWI (KRUN) 10 MEQ in APPROPRIATE DILUENT 1 EA IV SCH ×4 (06:06→08:03)
[2017-01-28] MEDS ORDERED: oxyCODONE 5MG TAB PO ONE (06:30)
[2017-01-28 07:35] VITALS: BP 116/60
[2017-01-28] MEDS: SENOKOT S TAB PO SCH ×2 (08:03→22:20)
[2017-01-28] MEDS: PANTOPRAZOLE 40MG INJ (PROTONIX) (C9113) IV SCH (08:03)
[2017-01-28] MEDS: SERTRALINE 100 MG TAB PO SCH (08:03)
[2017-01-28] MEDS: VITAMIN D 1,000 INTERNATIONAL UNITS TABLET PO SCH ×2 (08:03→22:20)
[2017-01-28] MEDS ORDERED: MILK300C PO (08:08)
--- NOTE | 2017-01-28 09:20 | REP ---
Clinical: Chest pain. Technique: PA and lateral. Comparison: 10/10/2016. Findings: Mediastinum and cardiac silhouette are within normal limits. Lung cha demonstrate chronic interstitial changes and superimposed bibasilar atelectasis cannot be excluded including small effusion. No pneumothorax. Skeletal structures stable. Impression: Diffuse chronic interstitial changes. Cannot exclude superimposed basilar atelectasis and small pleural effusion. Signed by Denilson Perkins MD 01/28/2017 09:12 A
--- NOTE | 2017-01-28 09:50 | IPNPDOC ---
Subjective Date Seen The patient was seen on 01/28/17. Subjective Chief Complaint/HPI The patient is a 71-year-old male admitted with a reason for visit of Gastric Neoplasm. Events since last encounter Pt states he is feeling a little better today with less abd pain. Denies any N/ V. Denies CP, SOB. Currently afebrile but did have temp of 101.1 at 4:54 am. Pulmonary: Denies: Dyspnea Cardiovascular: Denies: Chest Pain Gastrointestinal: Reports: Abdominal Pain, Denies: Nausea, Vomiting Objective Physical Examination General Exam: Positive: Alert, No Acute Distress Neck Exam: Positive: Supple, Negative: JVD Chest Exam: Positive: Clear to auscultation Heart Exam: Positive: Rate Normal, Regular Rhythm Abdomen Exam: Positive: Normal bowel sounds, Soft, Negative: Tenderness Extremity Exam: Negative: Edema Assessment /Plan Problems (1) Gastric neoplasm Status: Chronic Problem Specific Plan: Monitor Clinically, Repeat Labs Problem Text: 01/28 - Abd CT: "Increased thickening over the stomach which has a masslike appearance at the level of the fundus. This is suspicious for neoplastic pathology. Interval appearance of perigastric/retrocrural lymphadenopathy. Unchanged calcified hepatic lesions. Unchanged liver cirrhosis. Again is noted splenomegaly." Getting IVF. WBC 17.6 yesterday. Today's AM labs pending. (2) Pancytopenia Permanent Comment: Longstanding problem with Neupogen support of neutropenia. Abnormal BM biopsy from [facility] done November 2014 (see eCW chart) Chronic thrombocytopenia and anemia also Last Edited By: Amaury Jack M.D. on Feb 10, 2016 11:28 Status: Chronic Problem Specific Plan: Monitor Clinically, Repeat Labs Problem Text: 01/28 - Getting IVF. WBC 17.6 yesterday. Today's AM labs pending. Blood and urine cx pending. (3) Hypokalemia Status: Acute Problem Specific Plan: Monitor Clinically, Repeat Labs Problem Text: 01/28 - K was low last night. Supplement given. AM labs pending. (4) Lactic acidosis Status: Acute Problem Specific Plan: Monitor Clinically Problem Text: 01/28 - LA 1.6. (5) Hepatocellular carcinoma Status: Chronic Problem Specific Plan: Monitor Clinically Problem Text: S/P hepatectomy. (6) Portal hypertensive gastropathy Status: Chronic Problem Specific Plan: Monitor Clinically Problem Text: Follows with Dr Monsivais. (7) Cirrhosis Status: Chronic Problem Specific Plan: Monitor Clinically (8) Clostridium difficile colitis Status: Chronic Problem Specific Plan: Monitor Clinically Problem Text: H/O multiple episodes Cdiff. Has been on PO Vanco q3 days with last dose reportedly 01/29. (9) CKD (chronic kidney disease) Status: Chronic Problem Specific Plan: Monitor Clinically Problem Text: 01/28 - IVF. AM labs pending. Plan/VTE VTE Prophylaxis Ordered?: Yes (TEDs, SCDs) VS, I&O, 24H, Fishbone Vital Signs/I&O Vital Signs Date Time Temp Pulse Resp B/P (MAP) Pulse Ox O2 Delivery O2 Flow Rate FiO2 01/28/17 07:35 99.0 94 18 116/60 (78) 93 Room Air I&O- Last 24 Hours up to 6 AM 01/28/17 06:00 Intake Total 1740 ml Output Total 450 ml Balance 1290 ml Laboratory Data 24H LABS Laboratory Tests 2 01/27/17 23:16: Neutrophils 47, Lymphocytes (Manual) 6L, Monocytes (Manual) 41H, Myelocytes 5H, Atypical Lymphocytes 1, Platelet Estimate MARKED DECREASE, Anisocytosis 2+, Macrocytosis 2+, Anion Gap 9, Glomerular Filtration Rate 37.9L, Calcium Level 8.2L, Aspartate Amino Transf (AST/SGOT) 89H, Alanine Aminotransferase (ALT/SGPT ) 59, Alkaline Phosphatase 239H, Total Bilirubin 1.9#H, Direct Bilirubin 0.9H, Ammonia 16, Total Creatine Kinase 70, Creatine Kinase MB 1.0, Creatine Kinase MB Relative Index 1.42, Troponin I < 0.02, Total Protein 8.5H, Albumin 2.4L, Albumin/Globulin Ratio 0.39L, Amylase Level 69, Lipase 153 01/28/17 00:23: Lactic Acid Level 2.4*H 01/28/17 04:05: Urine Appearance HAZY, Urine Color SENG, Urine pH 5.0, Urine Specific Carroll 1.017, Urine Protein 2+H, Urine Glucose (UA) NEGATIVE, Urine Ketones NEGATIVE, Urine Urobilinogen 0.2, Urine Bilirubin NEGATIVE, Urine Leukocyte Esterase NEGATIVE, Urine Blood 2+H, Urine Nitrite NEGATIVE, Urine WBC (Auto) 3, Urine RBC (Auto) 3, Urine Hyaline Casts (Auto) 8, Urine Bacteria (Auto) NEGATIVE, Urine Squamous Epithelial Cells 0, Urine Granular Casts (Auto) 4, Urine Mucus ( Auto) SMALL, Urine Sperm (Auto) , Urine Random Osmolality 549, Urine Random Creatinine 143.0, Urine Random Sodium 31 01/28/17 04:19: Prothrombin Time 24.6H, Prothromb Time International Ratio 2.13, Activated Partial Thromboplast Time 44.7H 01/28/17 04:28: Lactic Acid Followup at 4 Hours 1.6 CBC/BMP Laboratory Tests 01/27/17 23:16 Red Blood Count 2.50 L, Mean Corpuscular Volume 105.8 H, Mean Corpuscular Hemoglobin 36.3 H, Mean Corpuscular Hemoglobin Concent 34.3, Red Cell Distribution Width 23.1 H Microbiology Microbiology 01/28/17 Blood Culture, Received Pending 01/28/17 Blood Culture, Received Pending 01/28/17 Urine Culture, Received Pending Jakob Odonnell RPA-Ari Jan 28, 2017 09:50
[2017-01-28 12:00] VITALS: BP 127/83
[2017-01-28] MEDS ORDERED: GASTROGRAFIN SOLUTION 30ML PO ONE (12:15)
[2017-01-28 13:10] LABS: ADD MANUAL DIFFER YES; DIFF SLIDE NUMBER 157; MEAN CORPUSCULAR HEMOGLOBIN 36.3 pg (27.0-33.0); MEAN CORPUSCULAR HGB CONC 34.8 g/dl (32.0-36.5); MEAN CORPUSCULAR VOLUME 104.3 fl (80.0-96.0); RED CELL DISTRIBUTION WIDTH 23.1 % (11.5-14.5); WHITE BLOOD COUNT 9.9 K/mm3 (4.0-10.0)
[2017-01-28 13:15] LABS: ALBUMIN 1.8 GM/DL (3.2-5.2); ALBUMIN/GLOBULIN RATIO 0.34 (1.00-1.93); BILIRUBIN,TOTAL 1.4 MG/DL (0.2-1.0); CALCIUM LEVEL 7.7 MG/DL (8.8-10.2); CREATININE FOR GFR 1.61 MG/DL (0.70-1.30); POTASSIUM SERUM 3.6 MEQ/L (3.5-5.1); TOTAL PROTEIN 7.1 GM/DL (6.4-8.2)
[2017-01-28 13:23] LABS: PLATELET COUNT, AUTOMATED 35 k/mm3 (150-450)
[2017-01-28 15:52] LABS: ANISOCYTOSIS 3+
[2017-01-28 16:00] VITALS: BP 139/72
[2017-01-28] MEDS: oxyCODONE 5MG TAB PO PRN (16:12)
[2017-01-29 03:39] VITALS: BP 142/58
[2017-01-29] MEDS: NS 1,000 ML IV SCH ×2 (04:56→18:44)
[2017-01-29 05:50] LABS: INR 2.11
[2017-01-29 05:55] LABS: ADD MANUAL DIFFER YES; DIFF SLIDE NUMBER 87; MEAN CORPUSCULAR HEMOGLOBIN 34.6 pg (27.0-33.0); MEAN CORPUSCULAR HGB CONC 33.8 g/dl (32.0-36.5); MEAN CORPUSCULAR VOLUME 102.5 fl (80.0-96.0); RED CELL DISTRIBUTION WIDTH 23.3 % (11.5-14.5); WHITE BLOOD COUNT 10.4 K/mm3 (4.0-10.0)
[2017-01-29 06:01] LABS: ALBUMIN 1.8 GM/DL (3.2-5.2); ALBUMIN/GLOBULIN RATIO 0.38 (1.00-1.93); BILIRUBIN,TOTAL 1.7 MG/DL (0.2-1.0); CALCIUM LEVEL 7.7 MG/DL (8.8-10.2); CREATININE FOR GFR 1.54 MG/DL (0.70-1.30); GLOMERULAR FILTRATION RATE 47.4 (>42); MAGNESIUM LEVEL 1.7 MG/DL (1.8-2.4); POTASSIUM SERUM 3.5 MEQ/L (3.5-5.1); TOTAL PROTEIN 6.5 GM/DL (6.4-8.2)
[2017-01-29 06:05] LABS: PLATELET COUNT, AUTOMATED 32 k/mm3 (150-450)
[2017-01-29] MEDS: oxyCODONE 5MG TAB PO PRN ×3 (06:43→20:00)
[2017-01-29 07:15] LABS: BANDS 9 % (< 11)
[2017-01-29 07:17] LABS: ANISOCYTOSIS 2+
[2017-01-29 07:35] VITALS: BP 141/73
--- NOTE | 2017-01-29 08:15 | IPNPDOC ---
Subjective Date Seen The patient was seen on 01/29/17. Subjective Chief Complaint/HPI The patient is a 71-year-old male admitted with a reason for visit of Gastric Neoplasm. Events since last encounter Pt states he feels about the same. Some nausea and abd discomfort. Denies F/C , CP, SOB. Constitutional: Denies: Chills, Fever Pulmonary: Denies: Dyspnea Cardiovascular: Denies: Chest Pain Gastrointestinal: Reports: Nausea, Abdominal Pain Objective Physical Examination General Exam: Positive: Alert, No Acute Distress Neck Exam: Positive: Supple, Negative: JVD Chest Exam: Positive: Clear to auscultation Heart Exam: Positive: Rate Normal, Regular Rhythm Abdomen Exam: Positive: Normal bowel sounds, Soft, Negative: Tenderness Extremity Exam: Negative: Edema Assessment /Plan Problems (1) Gastric neoplasm Status: Chronic Problem Specific Plan: Monitor Clinically, Repeat Labs Problem Text: 01/29 - WBC 10.4. IVF. Blood cx no growth after 24 hrs. Urine cx neg. Discuss with attending. Consider GI and/or surgery consultation. 01/28 - Abd CT: "Increased thickening over the stomach which has a masslike appearance at the level of the fundus. This is suspicious for neoplastic pathology. Interval appearance of perigastric/retrocrural lymphadenopathy. Unchanged calcified hepatic lesions. Unchanged liver cirrhosis. Again is noted splenomegaly." Getting IVF. WBC 17.6 yesterday. Today's AM labs pending. (2) Pancytopenia Permanent Comment: Longstanding problem with Neupogen support of neutropenia. Abnormal BM biopsy from [facility] done November 2014 (see eCW chart) Chronic thrombocytopenia and anemia also Last Edited By: Amaury Jack M.D. on Feb 10, 2016 11:28 Status: Chronic Problem Specific Plan: Monitor Clinically, Repeat Labs Problem Text: 01/29 - WBC 10.4. IVF. Blood cx no growth after 24 hrs. Urine cx neg. 01/28 - Getting IVF. WBC 17.6 yesterday. Today's AM labs pending. Blood and urine cx pending. (3) Anemia Status: Acute Problem Text: 01/29 - Received 2 units PRBCs yesterday. (4) Hypokalemia Status: Acute Problem Specific Plan: Monitor Clinically, Repeat Labs Problem Text: 01/29 - K 3.5. Monitor. 01/28 - K was low last night. Supplement given. AM labs pending. (5) Lactic acidosis Status: Acute Problem Specific Plan: Monitor Clinically Problem Text: 01/28 - LA 1.6. (6) Hepatocellular carcinoma Status: Chronic Problem Specific Plan: Monitor Clinically Problem Text: S/P hepatectomy. (7) Portal hypertensive gastropathy Status: Chronic Problem Specific Plan: Monitor Clinically Problem Text: Follows with Dr Monsivais. (8) Cirrhosis Status: Chronic Problem Specific Plan: Monitor Clinically (9) Clostridium difficile colitis Status: Chronic Problem Specific Plan: Monitor Clinically Problem Text: H/O multiple episodes Cdiff. Has been on PO Vanco q3 days with last dose reportedly 01/29. (10) CKD (chronic kidney disease) Status: Chronic Problem Specific Plan: Monitor Clinically Problem Text: 01/29 - Creat 1.54 (1.61 yesterday and 1.87 day before). 01/28 - IVF. AM labs pending. Plan/VTE VTE Prophylaxis Ordered?: Yes (TEDs, SCDs) Plan Family Medicine Attending Note: I saw and examined Mr. Ott, discussed with SOHAN Sawyer. Agree with their note as documented. We consulted Dr. Monsivais today. He did an EGD on the patient only 7 months ago. We'll await his recommendations and evaluation for Mr. Ott current symptoms and conditions. 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) VS, I&O, 24H, Fishbone Vital Signs/I&O Vital Signs Date Time Temp Pulse Resp B/P (MAP) Pulse Ox O2 Delivery O2 Flow Rate FiO2 01/29/17 07:17 18 01/29/17 03:39 99.4 85 142/58 (86) 95 Room Air I&O- Last 24 Hours up to 6 AM 01/29/17 06:00 Intake Total 3990 ml Output Total 1125 ml Balance 2865 ml Laboratory Data 24H LABS Laboratory Tests 2 01/28/17 12:52: Neutrophils 47, Lymphocytes (Manual) 3L, Monocytes (Manual) 20H, Metamyelocytes 4H, Myelocytes 6H, Promyelocytes 20H, Platelet Estimate MARKED DECREASE, Anisocytosis 3+, Macrocytosis 2+, Tear Drop Cells , Anion Gap 8, Glomerular Filtration Rate 45.0, Blood Urea Nitrogen 30H, Creatinine 1.61H, Sodium Level 136, Potassium Level 3.6, Chloride Level 101, Carbon Dioxide Level 27, Calcium Level 7.7L, Aspartate Amino Transf (AST/SGOT) 78H, Alanine Aminotransferase (ALT /SGPT) 54, Alkaline Phosphatase 174H, Total Bilirubin 1.4H, Total Protein 7.1, Albumin 1.8#L, Albumin/Globulin Ratio 0.34L 01/29/17 05:00: Neutrophils 60, Lymphocytes (Manual) 4L, Monocytes (Manual) 25H, Metamyelocytes 2H, Platelet Estimate MARKED DECREASE, Anisocytosis 2+, Macrocytosis 2+, Anion Gap 8, Glomerular Filtration Rate 47.4, Blood Urea Nitrogen 28H, Creatinine 1.54H, Sodium Level 138, Potassium Level 3.5, Chloride Level 103, Carbon Dioxide Level 27, Calcium Level 7.7L, Aspartate Amino Transf (AST/SGOT) 74H, Alanine Aminotransferase (ALT/SGPT) 51, Alkaline Phosphatase 165H, Total Bilirubin 1.7H, Total Protein 6.5, Albumin 1.8L, Albumin/Globulin Ratio 0.38L, Band Neutrophils 9, Prothrombin Time 24.4H, Prothromb Time International Ratio 2.11, Activated Partial Thromboplast Time 42.2H, Magnesium Level 1.7L CBC/BMP Laboratory Tests 01/28/17 12:52 Red Blood Count 2.04 L, Mean Corpuscular Volume 104.3 H, Mean Corpuscular Hemoglobin 36.3 H, Mean Corpuscular Hemoglobin Concent 34.8, Red Cell Distribution Width 23.1 H, Calcium Level 7.7 L, Aspartate Amino Transf (AST/SGOT ) 78 H, Alanine Aminotransferase (ALT/SGPT) 54, Alkaline Phosphatase 174 H, Total Bilirubin 1.4 H, Total Protein 7.1, Albumin 1.8 #L 01/29/17 05:00 Red Blood Count 2.52 L, Mean Corpuscular Volume 102.5 H, Mean Corpuscular Hemoglobin 34.6 H, Mean Corpuscular Hemoglobin Concent 33.8, Red Cell Distribution Width 23.3 H, Calcium Level 7.7 L, Aspartate Amino Transf (AST/SGOT ) 74 H, Alanine Aminotransferase (ALT/SGPT) 51, Alkaline Phosphatase 165 H, Total Bilirubin 1.7 H, Total Protein 6.5, Albumin 1.8 L Microbiology Microbiology 01/28/17 Blood Culture - Preliminary, Resulted No growth after 24 hours . All specim... 01/28/17 Blood Culture - Preliminary, Resulted No growth after 24 hours . All specim... 01/28/17 Urine Culture - Final, Complete Jakob Odonnell Jan 29, 2017 08:14 Pieter Paz MD Jan 30, 2017 22:53
[2017-01-29] MEDS ORDERED: VANCOMYCIN ORAL SOL 250MG/5ML ORAL SYRINGE PO ONE (09:00)
[2017-01-29] MEDS: VITAMIN D 1,000 INTERNATIONAL UNITS TABLET PO SCH ×2 (09:15→19:59)
[2017-01-29] MEDS: PANTOPRAZOLE 40MG INJ (PROTONIX) (C9113) IV SCH (09:15)
[2017-01-29] MEDS: SERTRALINE 100 MG TAB PO SCH (09:16)
[2017-01-29] MEDS: SENOKOT S TAB PO SCH ×2 (09:16→20:00)
[2017-01-29] MEDS: MIRALAX *UNIT DOSE* 17GM PACKET PO SCH (09:16)
[2017-01-29 12:00] VITALS: BP 140/70
[2017-01-29 16:00] VITALS: BP 149/78
--- NOTE | 2017-01-29 17:44 | REP ---
Clinical: Neck pain. Technique: AP, lateral, bilateral oblique, flexion/extension, swimmer's and open mouth views of the cervical spine. Findings: There is no evidence for acute fracture / compression injury or subluxation. Early advanced degenerative disc osteophyte complex at the C5-6, C6-7 levels include an endplate sclerosis, marginal spurring and disc space narrowing as well as hypertrophic changes to the facet joint noted on oblique views. Open-mouth view demonstrates normal C1-C2 articulation and odontoid process. Spinous processes are intact. Prevertebral soft tissues normal. Impression: Early advanced degenerative disc osteophyte complex at the C5-6 and C6-7 levels. No acute fracture / compression injury or subluxation. Signed by Denilson Perkins MD 01/29/2017 05:36 P
[2017-01-29 19:28] VITALS: BP 150/76
--- NOTE | 2017-01-29 20:49 | ECGEPIP ---
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
[2017-01-30] VITALS (11 sets, daily range): BP systolic 104–142; BP diastolic 68–82
[2017-01-30] MEDS: oxyCODONE 5MG TAB PO PRN (05:15)
[2017-01-30] MEDS: NS 1,000 ML IV SCH (05:15)
[2017-01-30 06:39] LABS: ADD MANUAL DIFFER YES; DIFF SLIDE NUMBER 68; MEAN CORPUSCULAR HEMOGLOBIN 35.4 pg (27.0-33.0); MEAN CORPUSCULAR HGB CONC 34.7 g/dl (32.0-36.5); RED CELL DISTRIBUTION WIDTH 22.4 % (11.5-14.5); WHITE BLOOD COUNT 9.2 K/mm3 (4.0-10.0)
[2017-01-30 06:40] LABS: PLATELET COUNT, AUTOMATED 27 k/mm3 (150-450)
[2017-01-30 06:44] LABS: INR 2.09
[2017-01-30 07:02] LABS: ALBUMIN 1.7 GM/DL (3.2-5.2); ALBUMIN/GLOBULIN RATIO 0.33 (1.00-1.93); CREATININE FOR GFR 1.3 MG/DL (0.70-1.30); GLOMERULAR FILTRATION RATE 57.6 (>42); MAGNESIUM LEVEL 1.6 MG/DL (1.8-2.4); POTASSIUM SERUM 3.3 MEQ/L (3.5-5.1); TOTAL PROTEIN 6.8 GM/DL (6.4-8.2)
--- NOTE | 2017-01-30 08:32 | IPNPDOC ---
Subjective Date Seen The patient was seen on 01/30/17. Subjective Chief Complaint/HPI The patient is a 71-year-old male admitted with a reason for visit of Gastric Neoplasm. Events since last encounter Pt states he feels about the same. Still with some abd discomfort. Denies CP, SOB. Constitutional: Denies: Chills, Fever Pulmonary: Denies: Dyspnea Cardiovascular: Denies: Chest Pain Gastrointestinal: Reports: Abdominal Pain Objective Physical Examination General Exam: Positive: Alert, No Acute Distress Neck Exam: Positive: Supple, Negative: JVD Chest Exam: Positive: Clear to auscultation Heart Exam: Positive: Rate Normal, Regular Rhythm Abdomen Exam: Positive: Normal bowel sounds, Soft, Negative: Tenderness Extremity Exam: Negative: Edema Assessment /Plan Problems (1) Gastric neoplasm Status: Chronic Problem Specific Plan: Monitor Clinically, Repeat Labs Problem Text: 01/30 - Dr Monsivais consulted. Plans on endoscopy. WBC 9.2 IVF. Blood cx no growth after 48 hrs. 01/29 - WBC 10.4. IVF. Blood cx no growth after 24 hrs. Urine cx neg. Discuss with attending. Consider GI and/or surgery consultation. 01/28 - Abd CT: "Increased thickening over the stomach which has a masslike appearance at the level of the fundus. This is suspicious for neoplastic pathology. Interval appearance of perigastric/retrocrural lymphadenopathy. Unchanged calcified hepatic lesions. Unchanged liver cirrhosis. Again is noted splenomegaly." Getting IVF. WBC 17.6 yesterday. Today's AM labs pending. (2) Pancytopenia Permanent Comment: Longstanding problem with Neupogen support of neutropenia. Abnormal BM biopsy from [facility] done November 2014 (see eCW chart) Chronic thrombocytopenia and anemia also Last Edited By: Amaury Jack M.D. on Feb 10, 2016 11:28 Status: Chronic Problem Specific Plan: Monitor Clinically, Repeat Labs Problem Text: 01/30 - WBC 9.2 IVF. Blood cx no growth after 48 hrs. Urine cx neg. 01/29 - WBC 10.4. IVF. Blood cx no growth after 24 hrs. Urine cx neg. 01/28 - Getting IVF. WBC 17.6 yesterday. Today's AM labs pending. Blood and urine cx pending. (3) Anemia Status: Acute Problem Text: 01/30 - Hgb 8.8. Stable. Received 2 units PRBCs 01/28. 01/29 - Received 2 units PRBCs yesterday. (4) Hypokalemia Status: Resolved Problem Specific Plan: Monitor Clinically, Repeat Labs Problem Text: 01/30 - K 3.3. Give supplemental K. 01/29 - K 3.5. Monitor. 01/28 - K was low last night. Supplement given. AM labs pending. (5) Lactic acidosis Status: Acute Problem Specific Plan: Monitor Clinically Problem Text: 01/28 - LA 1.6. (6) Hepatocellular carcinoma Status: Chronic Problem Specific Plan: Monitor Clinically Problem Text: S/P hepatectomy. (7) Portal hypertensive gastropathy Status: Chronic Problem Specific Plan: Monitor Clinically Problem Text: Follows with Dr Monsivais. (8) Cirrhosis Status: Chronic Problem Specific Plan: Monitor Clinically (9) Clostridium difficile colitis Status: Chronic Problem Specific Plan: Monitor Clinically Problem Text: H/O multiple episodes Cdiff. Has been on PO Vanco q3 days with last dose reportedly 01/29. (10) CKD (chronic kidney disease) Status: Chronic Problem Specific Plan: Monitor Clinically Problem Text: 01/30 - Creat 1.30. 01/29 - Creat 1.54 (1.61 yesterday and 1.87 day before). 01/28 - IVF. AM labs pending. Plan/VTE VTE Prophylaxis Ordered?: Yes (TEDs, SCDs) Plan Family Medicine Attending Note: I saw and examined Mr. Ott, discussed with SOHAN Sawyer. Agree with their note as documented. After Benitez saw the patient I was called by nursing staff reporting a rapid heart rate is high as 230. I came to the floor to evaluate him and found him to be in atrial flutter. I believe this started because his metoprolol had been held this morning in anticipation of endoscopy this afternoon. I spoke with Dr. Flynn of the anesthesia department and let her know what was going on. I said I would work to control his heart rate so he could get this and discuss operative evaluation and he really needs. She agrees if we could control his heart rate and keep him asymptomatic with stable vitals the procedure should be able to go forward. I gave him 5 mg IV metoprolol a total of 3 times. Additionally I gave him 2 separate doses of 25 mg of oral metoprolol. This controlled his heart rate to about 130s and systolic pressure was 117 when he was sent down to the endoscopy suite. Shortly after I received a call from Dr. Mckeon of anesthesia who reported that his systolic pressure was in the 90s now that he was down in the endoscopy suite. He requested we canceled the procedure until his heart rate and blood pressure could be better controlled. I consulted Dr. Sahu for assistance in managing his heart rate and blood pressure. He suggested loading with digoxin (0.25 mg IV 2 one hour apart) and starting oral digoxin (0.125 mg by mouth daily) tomorrow. He plans on seeing the patient after this has happened. I spoke to Dr. Monsivais about the procedure that had been canceled. He reports to me that he is concerned about the possibility of recurrent cancer in this patient. This is after reviewing his CT scan and his note from the EGD done 7 months ago (in June 2016). His plan would be to do an endoscopy 7:30 AM on Saturday (2 days from now) in order to be able to get the information we intended to be able to get today. He will work on getting this procedure added to his schedule if I work on controlling his heart rate and blood pressure in that same time frame. 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) VS, I&O, 24H, Fishbone Vital Signs/I&O Vital Signs Date Time Temp Pulse Resp B/P (MAP) Pulse Ox O2 Delivery O2 Flow Rate FiO2 01/30/17 05:45 18 01/30/17 04:36 98.1 96 131/72 (91) 95 Room Air I&O- Last 24 Hours up to 6 AM 01/30/17 06:00 Intake Total 2720 ml Output Total 1525 ml Balance 1195 ml Laboratory Data 24H LABS Laboratory Tests 2 01/30/17 06:18: Prothrombin Time 24.2H, Prothromb Time International Ratio 2.09, Activated Partial Thromboplast Time 44.5H, Anion Gap 8, Glomerular Filtration Rate 57.6, Blood Urea Nitrogen 27H, Creatinine 1.30, Sodium Level 138, Potassium Level 3.3L , Chloride Level 104, Carbon Dioxide Level 26, Calcium Level 8.0L, Aspartate Amino Transf (AST/SGOT) 68H, Alanine Aminotransferase (ALT/SGPT) 51, Alkaline Phosphatase 159H, Total Bilirubin 2.0H, Total Protein 6.8, Albumin 1.7L, Magnesium Level 1.6L, Albumin/Globulin Ratio 0.33L CBC/BMP Laboratory Tests 01/30/17 06:18 Red Blood Count 2.49 L, Mean Corpuscular Volume 102.0 H, Mean Corpuscular Hemoglobin 35.4 H, Mean Corpuscular Hemoglobin Concent 34.7, Red Cell Distribution Width 22.4 H, Calcium Level 8.0 L, Aspartate Amino Transf (AST/SGOT ) 68 H, Alanine Aminotransferase (ALT/SGPT) 51, Alkaline Phosphatase 159 H, Total Bilirubin 2.0 H, Total Protein 6.8, Albumin 1.7 L Microbiology Microbiology 01/28/17 Blood Culture - Preliminary, Resulted No Growth after 48 hours. All Specime... 01/28/17 Blood Culture - Preliminary, Resulted No Growth after 48 hours. All Specime... 01/28/17 Urine Culture - Final, Complete Jakob Odonnell RPA-Ari Jan 30, 2017 08:32 Pieter Paz MD Feb 01, 2017 22:29
[2017-01-30 08:35] LABS: ANISOCYTOSIS 2+; BANDS 8 % (< 11); POLYCHROMASIA 1+
[2017-01-30] MEDS: SENOKOT S TAB PO SCH ×2 (08:46→22:26)
[2017-01-30] MEDS: VITAMIN D 1,000 INTERNATIONAL UNITS TABLET PO SCH ×2 (08:48→22:26)
[2017-01-30] MEDS: PANTOPRAZOLE 40MG INJ (PROTONIX) (C9113) IV SCH (08:48)
[2017-01-30] MEDS ORDERED: METOPROLOL TART 25 MG TABLET PO SCH (09:00)
[2017-01-30] MEDS ORDERED: MAG SULF 1GM/100ML (MAG RUN) 1 GM in APPROPRIATE DILUENT 1 EA IV ONE (09:00)
[2017-01-30] MEDS: POTASSIUM CHLORIDE 10 MEQ SR TABLET PO ONE ×2 (09:00→15:44)
[2017-01-30] MEDS ORDERED: METOPROLOL 5 MG/5 ML VIAL IV STA ×3 (10:07→12:13)
[2017-01-30] MEDS ORDERED: METOPROLOL 5 MG/5 ML VIAL As Ordered ONE (10:09)
[2017-01-30] MEDS ORDERED: METOPROLOL TART 25 MG TABLET As Ordered ONE (10:09)
[2017-01-30] MEDS ORDERED: METOPROLOL TART 25 MG TABLET PO ONE (12:15)
[2017-01-30] MEDS: SERTRALINE 100 MG TAB PO SCH (15:44)
[2017-01-30] MEDS: MIRALAX *UNIT DOSE* 17GM PACKET PO SCH (15:45)
[2017-01-30] MEDS ORDERED: DIGOXIN INJ 0.5 MG/2 ML AMP (J1160) IV ONE ×2 (17:45→18:45)
[2017-01-30] MEDS: KCL 10MEQ IN 100ML SWI (KRUN) 10 MEQ in APPROPRIATE DILUENT 1 EA IV SCH ×4 (18:10→20:02)
--- NOTE | 2017-01-30 18:27 | ECGEPIP ---
Stationary ECG Study [facility] Test Date: 2017-01-30 Pat Name: LEE ANN BABCOCK Department: Room: L5396-31 Gender: M Medical Practice Assistant: PAUL : 1945 Requested By: Pieter Gerber Order Number: [id number] Reading MD: Jeremias Osman Measurements Intervals [place] Rate: 140 P: [place]: 0 QRS: 54 QRSD: 98 T: -58 QT: 304 QTc: 464 Interpretive Statements Atrial flutter with 2:1 atrial to ventricular conduction Nonspecific repolarization abnormalities Compared to prior tracing of 01/27/2017, atrial flutter is new But repolarization abnormalities are essentially stable Electronically Signed On 01-30-2017 18:27:24 EDT by Jeremias Osman
[2017-01-30] MEDS: SOTALOL HCL 80 MG TAB PO SCH (22:26)
[2017-01-31 00:15] VITALS: BP 126/74
[2017-01-31] MEDS: NS 1,000 ML IV SCH ×2 (03:00→06:56)
[2017-01-31 04:55] VITALS: BP 128/63
[2017-01-31 05:50] LABS: ADD MANUAL DIFFER YES; DIFF SLIDE NUMBER 44; MEAN CORPUSCULAR HEMOGLOBIN 36.6 pg (27.0-33.0); MEAN CORPUSCULAR HGB CONC 34.7 g/dl (32.0-36.5); MEAN CORPUSCULAR VOLUME 105.5 fl (80.0-96.0); PLATELET COUNT, AUTOMATED 26 k/mm3 (150-450); RED CELL DISTRIBUTION WIDTH 22.8 % (11.5-14.5); WHITE BLOOD COUNT 7.9 K/mm3 (4.0-10.0)
[2017-01-31 05:55] LABS: INR 2.09
[2017-01-31 06:24] LABS: ALBUMIN 1.6 GM/DL (3.2-5.2); ALBUMIN/GLOBULIN RATIO 0.33 (1.00-1.93); BILIRUBIN,TOTAL 1.8 MG/DL (0.2-1.0); CREATININE FOR GFR 1.34 MG/DL (0.70-1.30); GLOMERULAR FILTRATION RATE 55.6 (>42); MAGNESIUM LEVEL 1.6 MG/DL (1.8-2.4); POTASSIUM SERUM 3.5 MEQ/L (3.5-5.1); TOTAL PROTEIN 6.4 GM/DL (6.4-8.2)
[2017-01-31 06:29] LABS: ANISOCYTOSIS 1+
[2017-01-31 08:00] VITALS: BP 148/69
[2017-01-31] MEDS: SENOKOT S TAB PO SCH ×2 (08:27→20:37)
[2017-01-31] MEDS: PANTOPRAZOLE 40MG INJ (PROTONIX) (C9113) IV SCH (08:27)
[2017-01-31] MEDS: SERTRALINE 100 MG TAB PO SCH ×2 (08:27→20:36)
[2017-01-31] MEDS: MIRALAX *UNIT DOSE* 17GM PACKET PO SCH (08:27)
[2017-01-31] MEDS: VITAMIN D 1,000 INTERNATIONAL UNITS TABLET PO SCH ×2 (08:27→20:33)
[2017-01-31] MEDS: oxyCODONE 5MG TAB PO PRN ×2 (08:28→14:28)
[2017-01-31] MEDS: SOTALOL HCL 80 MG TAB PO SCH ×2 (08:28→20:33)
[2017-01-31] MEDS ORDERED: DIGOXIN 0.125 MG TAB PO SCH (09:00)
[2017-01-31] MEDS ORDERED: MAG SULF 1GM/100ML (MAG RUN) 1 GM in APPROPRIATE DILUENT 1 EA IV ONE (09:00)
--- NOTE | 2017-01-31 09:06 | IPNPDOC ---
Subjective Date Seen The patient was seen on 01/31/17. Subjective Chief Complaint/HPI The patient is a 71-year-old male admitted with a reason for visit of Gastric Neoplasm. Events since last encounter Pt still with some abd discomfort and nausea. Denies CP, Palp, SOB. Constitutional: Denies: Chills, Fever Pulmonary: Denies: Dyspnea Cardiovascular: Denies: Chest Pain Gastrointestinal: Reports: Nausea, Abdominal Pain Objective Physical Examination General Exam: Positive: Alert, No Acute Distress Neck Exam: Positive: Supple, Negative: JVD Chest Exam: Positive: Clear to auscultation Heart Exam: Positive: Rate Normal, Regular Rhythm Abdomen Exam: Positive: Normal bowel sounds, Soft, Negative: Tenderness Extremity Exam: Negative: Edema Assessment /Plan Problems (1) Gastric neoplasm Status: Chronic Problem Specific Plan: Monitor Clinically, Repeat Labs Problem Text: 01/30 - Dr Monsivasi consulted. Plans on endoscopy. Plans were for endoscopy yesterday but this was postponed due to pt having low BP. Dr Monsivais plans on scoping tomorrow am. WBC 7.9 IVF. Blood cx no growth after 72 hrs. 01/30 - Dr Monsivais consulted. Plans on endoscopy. WBC 9.2 IVF. Blood cx no growth after 48 hrs. 01/29 - WBC 10.4. IVF. Blood cx no growth after 24 hrs. Urine cx neg. Discuss with attending. Consider GI and/or surgery consultation. 01/28 - Abd CT: "Increased thickening over the stomach which has a masslike appearance at the level of the fundus. This is suspicious for neoplastic pathology. Interval appearance of perigastric/retrocrural lymphadenopathy. Unchanged calcified hepatic lesions. Unchanged liver cirrhosis. Again is noted splenomegaly." Getting IVF. WBC 17.6 yesterday. Today's AM labs pending. (2) Hepatocellular carcinoma Status: Chronic Problem Specific Plan: Monitor Clinically Problem Text: S/P hepatectomy. Dr Monsivais consulted. (3) Atrial flutter Status: Acute Problem Specific Plan: Consult Specialist, Monitor Clinically Problem Text: 01/31 - Pt in SR. Tachycardic yesterday requiring multiple doses of IV Lopressor and started on PO Lopressor. Dig given. Cardiology consulted. Lopressor stopped and Betapace started. (4) Cirrhosis Status: Chronic Problem Specific Plan: Monitor Clinically Problem Text: Dr Monsivais consulted. (5) Portal hypertensive gastropathy Status: Chronic Problem Specific Plan: Monitor Clinically Problem Text: Follows with Dr Monsivais. (6) Pancytopenia Permanent Comment: Longstanding problem with Neupogen support of neutropenia. Abnormal BM biopsy from [facility] done November 2014 (see eCW chart) Chronic thrombocytopenia and anemia also Last Edited By: Amaury Jack M.D. on Feb 10, 2016 11:28 Status: Chronic Problem Specific Plan: Monitor Clinically, Repeat Labs Problem Text: WBC 7.9 IVF. Blood cx no growth after 72 hrs. Plts 26. Continue to monitor. 01/30 - WBC 9.2 IVF. Blood cx no growth after 48 hrs. Urine cx neg. 01/29 - WBC 10.4. IVF. Blood cx no growth after 24 hrs. Urine cx neg. 01/28 - Getting IVF. WBC 17.6 yesterday. Today's AM labs pending. Blood and urine cx pending. (7) Anemia Status: Acute Problem Text: 01/31 - Hgb 9.2. Stable. Received 2 units PRBCs 01/28. 01/30 - Hgb 8.8. Stable. Received 2 units PRBCs 01/28. 01/29 - Received 2 units PRBCs yesterday. (8) Hypokalemia Status: Resolved Problem Specific Plan: Monitor Clinically, Repeat Labs Problem Text: 01/31 - K 3.5. 01/30 - K 3.3. Give supplemental K. 01/29 - K 3.5. Monitor. 01/28 - K was low last night. Supplement given. AM labs pending. (9) Lactic acidosis Status: Resolved Problem Specific Plan: Monitor Clinically Problem Text: 01/28 - LA 1.6. (10) Clostridium difficile colitis Status: Chronic Problem Specific Plan: Monitor Clinically Problem Text: H/O multiple episodes Cdiff. Has been on PO Vanco q3 days with last dose 01/29. (11) CKD (chronic kidney disease) Status: Chronic Problem Specific Plan: Monitor Clinically Problem Text: 01/31 - Creat 1.34. 01/30 - Creat 1.30. 01/29 - Creat 1.54 (1.61 yesterday and 1.87 day before). 01/28 - IVF. AM labs pending. (12) Hypomagnesemia Problem Specific Plan: Monitor Clinically, Repeat Labs Problem Text: 01/31 - Mag 1.6. Give mag run. Plan/VTE VTE Prophylaxis Ordered?: Yes (TEDs, SCDs) Plan Family Medicine Attending Note: I saw and examined Mr. Ott, discussed with SOHAN Sawyer. Agree with their note as documented. Doctor Luis Alberto was able to get the patient to convert back to sinus rhythm using sotalol. I appreciate his help and input. The patient should be stable for his endoscopy tomorrow. 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) VS, I&O, 24H, Fishbone Vital Signs/I&O Vital Signs Date Time Temp Pulse Resp B/P (MAP) Pulse Ox O2 Delivery O2 Flow Rate FiO2 01/31/17 08:28 18 01/31/17 08:00 97.6 74 148/69 (95) 93 Room Air I&O- Last 24 Hours up to 6 AM 01/31/17 05:59 Intake Total 2380 ml Output Total 650 ml Balance 1730 ml Laboratory Data 24H LABS Laboratory Tests 2 01/31/17 05:18: Neutrophils 65, Lymphocytes (Manual) 9L, Monocytes (Manual) 22H, Myelocytes 4H, Platelet Estimate MARKED DECREASE, Anisocytosis 1+, Macrocytosis 3+, Prothrombin Time 24.2H, Prothromb Time International Ratio 2.09, Activated Partial Thromboplast Time 43.6H, Anion Gap 9, Glomerular Filtration Rate 55.6, Blood Urea Nitrogen 34H, Creatinine 1.34H, Sodium Level 141, Potassium Level 3.5 , Chloride Level 107, Carbon Dioxide Level 25, Calcium Level 8.0L, Aspartate Amino Transf (AST/SGOT) 59H, Alanine Aminotransferase (ALT/SGPT) 47, Alkaline Phosphatase 145H, Total Bilirubin 1.8H, Total Protein 6.4, Albumin 1.6L, Magnesium Level 1.6L, Albumin/Globulin Ratio 0.33L CBC/BMP Laboratory Tests 01/31/17 05:18 Red Blood Count 2.53 L, Mean Corpuscular Volume 105.5 H, Mean Corpuscular Hemoglobin 36.6 H, Mean Corpuscular Hemoglobin Concent 34.7, Red Cell Distribution Width 22.8 H, Calcium Level 8.0 L, Aspartate Amino Transf (AST/SGOT ) 59 H, Alanine Aminotransferase (ALT/SGPT) 47, Alkaline Phosphatase 145 H, Total Bilirubin 1.8 H, Total Protein 6.4, Albumin 1.6 L Microbiology Microbiology 9/4/17 Blood Culture - Preliminary, Resulted No Growth after 72 hours. All specime... 01/28/17 Blood Culture - Preliminary, Resulted No Growth after 72 hours. All specime... 01/28/17 Urine Culture - Final, Complete Jakob Odonnell Jan 31, 2017 09:06 Pieter Paz MD Feb 01, 2017 23:33
[2017-01-31] MEDS ORDERED: POTASSIUM CHLORIDE 10 MEQ SR TABLET PO ONE (10:00)
[2017-01-31] MEDS: MORPHINE 4 MG/ML 1ML SYRINGE IV PRN ×2 (11:11→23:43)
[2017-01-31 12:00] VITALS: BP 136/70
--- NOTE | 2017-01-31 12:06 | CR.PDOC ---
[facility] Consultation Consultation DATE OF CONSULTATION: Jan 30, 2017 Cardiology Consultation PRIMARY CARE PROVIDER: Ryan. JANICE Sanders and Nayeli Hough Consulting Physician: Dr. Pieter Paz Stove Fitter: Dr. El Sahu, Cardiology Reason for Consultation: New onset Atrial Flutter with RVR HISTORY OF PRESENT ILLNESS: 71-year-old male with past medical history of end- stage liver disease with esophageal varices and portal hypertension, also history of hepatic and the colon cancer status post partial hepatectomy and colectomy with primary anastomosis, and nuclear stress test done in 2011 and it was normal with some artifact, presented with epigastric pain, lower chest pain and was found to have a gastric mass that was suspicious for malignancy on CT of abdomen and pelvis on this admission and we have been consulted due to new onset of atrial flutter with rapid ventricular rate. Patient appears to be a fair historian, however he admits to having visual hallucination for the past few weeks. Patient presented to the emergency room with complaint of epigastric pain which was pressure-like, nonradiating. Patient also had nausea, and nonbloody, nonbilious emesis for at least 6 times of mostly food content and continuous hiccups. Patient also noted a fever of 101.2 F last Saturday at home, also was febrile in the hospital. Patient also noticed some lower chest pain however that has been going on for years and not worse with exertion. He also has worsening shortness of breath for about a year that is worse with exertion. Admits to lightheadedness and fall for the past month immediately after standing up from seated position. He did hit his back and head about two weeks ago. He also reported swelling in the lower extremities intermittently last one was about 2 weeks ago and it was resolved before coming into the hospital. He has been treated for C diff colitis diarrhea for the past 3 months. And currently has constipation. Denies hematochezia and melena in stool. Currently, doesnt tolerate regular diet due to nausea, and hiccups. Furosemide was on hold on admission, per patient it was started due to his end stage liver disease with cirrhosis. Patient also had hypokalemia on admission. Cardiac markers were negative on admission. Initial EKG showed sinus rhythm with ST-T wave abnormality. However, a repeat EKG on 01/30/2017 showed atrial flutter with RVR at a rate of 140. Patient did feel racing heart beat when this started. Patient initially received 3 doses of Lopressor 5 mg IV for 3 times, also metoprolol tartrate 25 mg PO for 2 doses. Patient also received 2 doses of digoxin 0.25 mg IV. And when cardiology was consulted, Dr. Sahu started patient on Sotalol 80 mg by mouth twice a day last night. In addition, about a month ago, patients metoprolol tartrate 25 mg half tablet twice a day was stopped by primary care provider on 2016 due to frequent falls. Patient had 2 units of PRBC transfusion on 01/01/2017, and another 2 units of PRBC during this admission. Patient had 14 units of PRBC transfusion total of this year. Cardiac history: Patient had treadmill stress with nuclear stress test on 09/13/2011 and 2011. Negative study. Showed no stress inducible angina. Electrocardiographically positive for myocardial ischemia via the least specific criterion of >= 1.[address] depression. A partially reversible mild sized inferior/ inferolateral myocardial perfusion, however, quantitative perfusion analysis did not show any reversibility. Was thought to be secondary to artifact. Cardiac Risk Factors: Male age 45 or greater. Smoking prior stopped 30 years ago - 3 pack per day for 15 years. Positive for CKD stage 3A Negative for high cholesterol, hypertension, obesity, symptomatic carotid disease, diabetes, family history of premature coronary artery disease. Admits to regular caffeine consumption. ALLERGIES: Denies Home Medications: Please see below. PAST MEDICAL HISTORY: 1. 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 2. Pancytopenia due to severe liver disease. 3. GERD. 4. History of colon cancer, status post colectomy in 1994. 5. Chronically elevated ammonia without encephalopathy 6. History of tobacco use 7. History of recurrent C. difficile colitis 8. History of MRSA cellulitis 9. 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 Esophageal varices also portal hypertension status post clips 11. PTSD 10. Chronic kidney disease stage 3A PAST SURGICAL HISTORY: 1. Cholecystectomy in 2006 2. EGD in 2016 with clips 3. Colectomy for colon cancer 1994, last colonoscopy in 2016 4. Partial hepatectomy due to hepatocellular carcinoma 2006, and embolization and radiofrequency ablation for liver for recurrence of hepatocellular carcinoma 2007 5. Bone marrow biopsy in 2014 SOCIAL HISTORY: Marital status: Lives with his has one dog Tobacco use: denies, quit 30 years ago, used to smoke 3 ppd for 15 years ETOH: quit 30 years ago Illicit drug use: denies FAMILY HISTORY: Denies premature CAD REVIEW OF SYSTEMS: CONSTITUTIONAL: Admits weight loss about 40 pounds in one year, Denies fever/chill, recent traveling, sick contact. HEENT: Admits to visual hallucination, Denies changes with vision, smell, hearing, taste, trouble swallowing. CARDIOVASCULAR: Admits to chronic SOB, racing heart beat, intermittent swelling in lower extremity, Denies chest pain, palpitation. RESPIRATORY: Admits to SOB, Denies wheezing, cough, sputum production, blood in sputum. GASTROINTESTINAL: Admits to epigastric pain, constipation, nausea, vomiting, hiccups. Denies diarrhea, blood in stool. GENITOURINARY: Denies urinary urgency, incontinence, burning on urination, blood in urine. SKIN: Denies rash, ulceration, lumps or bumps, discoloration on skin. MUSCULOSKELETAL: Denies any joint pain. ENDOCRINE: Denies any polydipsia, plyurea, heat or cold intolerance. HEMATOLOGIC/LYMPHATIC: Denies ease of bruising, bleeding anywhere, night sweats. NEUROLOGICAL: Denies weakness on one side of body, any change of sensations. PSYCHIATRIC: Admits to depression, anxiety, Denies suicidal and homicidal ideations. Admits visual hallucination. PHYSICAL EXAMINATION: VITAL SIGNS: Temperature 97.6, pulse 74, respiration 18, blood pressure 148/69, oxygen saturation 93% on room air, total input yesterday was 1814, total output was 725 with a balance of +1150 ML. Weight today is 77.8 kg yesterday was 75 kg. Patients weight on admission was 72.7 kg. Since admission 4 days ago, patient had a cumulative fluid balance +7.5 L. GENERAL APPEARANCE: Thin looking elderly male, NAD, AAOx3, laying comfortably in bed with head elevated at 45 angle HEENT: NCAT, EOMI, MM, Neck supple, no neck lymphadenopathy. No JVD CARDIOVASCULAR: RRR, with occasional ectopic beats, 2/6 systolic heart murmur, no R/G. PMI nondisplaced at left mid fifth intercostal space. LUNGS: CTAB, no W/R/R. ABDOMEN: +BS, Soft, None tender, None distended, No peritoneal signs, No palpable mass, No ecchymosis. MUSCULOSKELETAL: Muscle strength 5/5 in b/l upper and lower extremities. EXTREMITIES: Trace pitting lower extremity edema. Pulses were intact bilaterally. NEUROLOGICAL: CN 2 through 12 intact, no focal neurological deficit. PSYCHIATRIC: Normal affect. LABORATORY DATA: See below. Most significant: WBC 9.7, hemoglobin 9.2, hematocrit was 26.6 with MCV of 105 and the platelet count of only 26 it has been worse since admission. Sodium 141, potassium 3.5, chloride 107, bicarbonate 25, anion Gap of 9. BUN 34, creatinine 1.34, GFR 55.6 with fasting glucose 102. Magnesium 1.6. MICROBIOLOGY: Blood culture shows no growth after 3 days 2. Urine culture shows no growth. IMAGING: CT of abdomen and pelvis with by mouth contrast only on 01/27/2017: Increased thickening over her stomach, which has a masslike appearance at level. Fundus suspicious for neoplastic pathology. Splenomegaly. Ultrasound of abdomen on 01/27/2017 showed: Unremarkable study. PA lateral two-view chest x-ray on 01/28/2017 showed: Diffuse chronic interstitial changes, cannot exclude superimposed basilar atelectasis and a small pleural effusion. EKG on 01/30/2017 at 21:18 shows SR, left atrial enlargement, nonspecific ST-T wave abnormalities EKG on 01/30/2017 shows atrial flutter with 2-1 atrial to ventricular conduction. With a ventricular rate of 140. EKG on 01/27/2017 shows sinus rhythm with ST-T wave abnormality. ASSESSMENT/ Plan: 71-year-old male with past medical history of end-stage liver disease with esophageal varices and portal hypertension, also history of hepatic and the colon cancer, newly found gastric mass presented with: New-onset of atrial flutter with RVR - Likely secondary to underlying illness vs structural heart disease vs fluid overload - Appears to be RRR on examination, EKG has been ordered to confirm - Continue Sotalol 80 mg by mouth twice a day - Discontinue digoxin - No anticoagulation due to low platelet and the elevated INR - Echocardiogram has been ordered to assess structural heart disease Abnormal EKG with left atrial enlargement - Follow Echocardiogram result. Hypokalemia - Replete to 4 Hypomagnesemia - Repleted DVT prophylaxis: ROME and sequential only due to low platelet and the INR above 2 Fluid, electrolytes, nutrition: NS 80mlh, Replete potassium to 4, Clear liquid diet, Thank you for your consultation, please feel free to contact for any questions! Patient has been discussed with attending, Dr. Dr. Sahu. Vital Signs/I&O Vital Signs Date Time Temp Pulse Resp B/P (MAP) Pulse Ox O2 Delivery O2 Flow Rate FiO2 01/31/17 08:58 18 01/31/17 08:00 97.6 74 148/69 (95) 93 Room Air I&O- Last 24 Hours up to 6 AM 01/31/17 05:59 Intake Total 2380 ml Output Total 650 ml Balance 1730 ml Laboratory Data Labs 24H Laboratory Tests 2 01/31/17 05:18: Neutrophils 65, Lymphocytes (Manual) 9L, Monocytes (Manual) 22H, Myelocytes 4H, Platelet Estimate MARKED DECREASE, Anisocytosis 1+, Macrocytosis 3+, Prothrombin Time 24.2H, Prothromb Time International Ratio 2.09, Activated Partial Thromboplast Time 43.6H, Anion Gap 9, Glomerular Filtration Rate 55.6, Blood Urea Nitrogen 34H, Creatinine 1.34H, Sodium Level 141, Potassium Level 3.5 , Chloride Level 107, Carbon Dioxide Level 25, Calcium Level 8.0L, Aspartate Amino Transf (AST/SGOT) 59H, Alanine Aminotransferase (ALT/SGPT) 47, Alkaline Phosphatase 145H, Total Bilirubin 1.8H, Total Protein 6.4, Albumin 1.6L, Magnesium Level 1.6L, Albumin/Globulin Ratio 0.33L CBC/BMP Laboratory Tests 01/31/17 05:18 Red Blood Count 2.53 L, Mean Corpuscular Volume 105.5 H, Mean Corpuscular Hemoglobin 36.6 H, Mean Corpuscular Hemoglobin Concent 34.7, Red Cell Distribution Width 22.8 H, Calcium Level 8.0 L, Aspartate Amino Transf (AST/SGOT ) 59 H, Alanine Aminotransferase (ALT/SGPT) 47, Alkaline Phosphatase 145 H, Total Bilirubin 1.8 H, Total Protein 6.4, Albumin 1.6 L Microbiology Microbiology 01/28/17 Blood Culture - Preliminary, Resulted No Growth after 72 hours. All specime... 01/28/17 Blood Culture - Preliminary, Resulted No Growth after 72 hours. All specime... 01/28/17 Urine Culture - Final, Complete Allergies Coded Allergies: No Known Drug Allergy (Verified Allergy, Unknown, 07/02/16) Home Medications Scheduled (Sertraline HCl) 50 Mg Tab, 150 MG PO QHS, (Reported) Filgrastim (Neupogen) 300 Mcg/0.5 Ml Soln, 300 MCG SC 2XW, (Reported) Furosemide (Lasix) 40 Mg Tab, 40 MG PO BID, (Reported) Potassium Chloride (Klor-Con) 20 Meq Pow, 40 MEQ PO BID, (Reported) Silybum Marianum (Milk Thistle) 300 Mg Cap, 300 MG PO QHS, (Reported) Vancomycin Hcl (Vancomycin HCl) 250 Mg Cap, 250 MG PO Q3D, (Reported) Vitamin D (Vitamin D) 2,000 Unit Cap, 2,000 UNIT PO BID, (Reported) Attending Note 01/31/17 3:05 PM Hx, P/E, A/P and ECGs reviewed with Dr. Torres. Patient seen and a examined by Dr. Sahu too. Agree with Dr. Torres's Hx, P/E, assessment and plan. GME ATTESTATION GME ATTESTATION My preceptor for this patient encounter was physically present in the building during the encounter and was fully available. As needed, all aspects of the patient interview, examination, medical decision making process, and medical care plan development were reviewed and approved by the preceptor. Preceptor is aware and concurs with the plan as stated in the body of this note and will attest to such by his/her cosignature. SILAS TORRES DO Jan 31, 2017 10:33 El Sahu Jan 31, 2017 15:07
[2017-01-31] MEDS: ONDANSETRON 4 MG TAB (S0181) PO PRN (12:23)
--- NOTE | 2017-01-31 13:06 | CR ---
DATE OF CONSULTATION: 01/29/2017 This is a 71-year-old white male, date of is 1945, who was admitted on 01/28/2017 for evaluation of multiple medical problems including known cirrhosis and a previous diagnosis of hepatocellular carcinoma with a partial hepatectomy 9 years ago. The patient also has a known history of colon cancer in 1995 with colectomy. He has pancytopenia secondary to his cirrhosis and has apparently had multiple bouts of Clostridium difficile. He has a known history of esophageal varices and hypertensive portal gastropathy. Last endoscopy was June 2016. He presents with epigastric pain, pressure, and inability to swallow foods or liquids. He has lost approximately 40 pounds over the last year. Pain has gotten worse over the last week. No apparent fevers, night sweats, shaking chills. He also describes hiccups. The patient has no nausea or vomiting. PAST MEDICAL HISTORY: Positive as above. PAST SURGICAL HISTORY: 1. Cholecystectomy. 2. Colectomy. 3. Partial hepatectomy 9 years ago. 4. Embolization and ablation of liver cancer in June 2007. ALLERGIES: No known declared allergies. MEDICATIONS: Include: - Neupogen - Lasix - vitamin D FAMILY HISTORY: Noncontributory. SOCIAL HISTORY: The patient quit smoking 30 years ago. OCCUPATION: Retired [employer]. REVIEW OF SYSTEMS: Noncontributory. PHYSICAL EXAMINATION: Vital signs: Stable. General: He is a well-developed, well-nourished white male in no acute distress, appears stated age. Skin: No cyanosis, ecchymosis, petechiae or jaundice. Chest is clear to auscultation. Cardiovascular exam showed regular rhythm. No murmurs or gallops. No physiological split S1, S2. Abdomen: Soft, nontender. No masses, guarding, rebound, hepatosplenomegaly. Bowel sounds positive. Extremities: No cyanosis, clubbing, edema. LABORATORY STUDIES ON ADMISSION: Shows a white count of 17,600, hemoglobin and hematocrit 9.1, 26.5, platelets 53,000. The patient's coag show INR of 2. Chemistry was essentially normal. Liver functions only minimally elevated. Alkaline phosphatase was normal. Imaging studies performed includes an abdominal CT on 01/27/2017 which shows increased thickening of the stomach which was though to be mass-like appearance at the level of the fundus which was felt to be suspicious for neoplastic pathology. He also appears to have interval periods of perigastric and retrocrural lymphadenopathy. ANALYSIS: Involuntary weight loss. Normal CT, question of mass in the cardia of the stomach, hiccups and difficulty in swallowing food. PLAN: Set the patient up an upper endoscopy for further evaluation of the x-ray findings and weight loss.
[2017-01-31] MEDS: KCL 40MEQ in NS 1000ML 1,000 ML IV SCH (14:21)
[2017-01-31 15:37] VITALS: BP 134/76
[2017-01-31 20:00] VITALS: BP 155/71
--- NOTE | 2017-01-31 21:09 | ECGEPIP ---
Stationary ECG Study [facility] Test Date: 2017-01-30 Pat Name: LEE ANN BABCOCK Department: Room: [place] [address] Gender: M [employer]: : 1945 Requested By: Aly Callejas Order Number: [id number] Reading MD: Jeremias Osman Measurements Intervals [place] Rate: 94 P: 42 WA: 159 QRS: 42 QRSD: 104 T: 12 QT: 361 QTc: 452 Interpretive Statements Normal sinus rhythm Left atrial enlargement Nonspecific T wave abnormality Compared to prior tracing of 01/30/2017, atrial flutter has resolved Electronically Signed On 01-31-2017 21:09:21 EDT by Jeremias Osman
--- NOTE | 2017-01-31 21:20 | ECGEPIP ---
Stationary ECG Study [facility] Test Date: 2017-01-31 Pat Name: LEE ANN BABCOCK Department: Room: [place] [address] Gender: M Knocker Off: : 1945 Requested By: SILAS TORRES Order Number: [id number] Reading MD: Jeremias Osman Measurements Intervals [place] Rate: 79 P: 26 PA: 155 QRS: 41 QRSD: 105 T: 19 QT: 402 QTc: 462 Interpretive Statements Normal sinus rhythm Left atrial enlargement Low QRS complex voltage in the limb leads Nonspecific T wave abnormality No significant change when compared to prior tracing of 01/30/2017 Electronically Signed On 01-31-2017 21:20:25 EDT by Jeremias Osman
[2017-02-01] VITALS: BP 175/83
[2017-02-01 04:00] VITALS: BP 156/83
[2017-02-01 06:06] LABS: INR 2.13
[2017-02-01 06:07] LABS: ADD MANUAL DIFFER YES; DIFF SLIDE NUMBER 16; MEAN CORPUSCULAR HEMOGLOBIN 35.9 pg (27.0-33.0); MEAN CORPUSCULAR HGB CONC 34.3 g/dl (32.0-36.5); MEAN CORPUSCULAR VOLUME 104.7 fl (80.0-96.0); WHITE BLOOD COUNT 20.5 K/mm3 (4.0-10.0)
[2017-02-01 06:19] LABS: PLATELET COUNT, AUTOMATED 37 k/mm3 (150-450)
[2017-02-01 06:26] LABS: ALBUMIN 1.7 GM/DL (3.2-5.2); ALBUMIN/GLOBULIN RATIO 0.32 (1.00-1.93); BILIRUBIN,TOTAL 2.7 MG/DL (0.2-1.0); CALCIUM LEVEL 8.9 MG/DL (8.8-10.2); CREATININE FOR GFR 1.3 MG/DL (0.70-1.30); GLOMERULAR FILTRATION RATE 57.6 (>42); MAGNESIUM LEVEL 1.8 MG/DL (1.8-2.4); POTASSIUM SERUM 4.1 MEQ/L (3.5-5.1)
[2017-02-01 07:09] LABS: BANDS 13 % (< 11)
[2017-02-01 07:10] LABS: ANISOCYTOSIS 3+
[2017-02-01 07:12] LABS: TOXIC GRANULATION 1+; TOXIC VACUOLATION 1+
[2017-02-01] MEDS ORDERED: ONDANSETRON 4MG/2ML VIAL (J2405) As Ordered ONE (07:23)
--- NOTE | 2017-02-01 07:55 | ROOR ---
Patient Name: Ovidio Ott Procedure Date: 02/01/2017 7:28 AM Date of : 1945 Age: 71 Room: [facility] Gender: Male Note Status: Finalized Procedure: Upper GI endoscopy Indications: Dysphagia, Abnormal CT of the GI tract Providers: Shubham Monsivais MD Referring MD: Maged Negron MD Requesting Provider: Medicines: Monitored Anesthesia Care Complications: No immediate complications. Procedure: Pre-Anesthesia Assessment: - The heart rate, respiratory rate, oxygen saturations, blood pressure, adequacy of pulmonary ventilation, and response to care were monitored throughout the procedure. The Endoscope was introduced through the mouth, and advanced to the second part of duodenum. The upper GI endoscopy was accomplished without difficulty. The patient tolerated the procedure well. Findings: The Z-line was regular and was found 35 cm from the incisors. The exam of the esophagus was otherwise normal. Extrinsic compression on the stomach was found at the gastroesophageal junction, in the cardia and in the gastric fundus. The exam was otherwise without abnormality. The exam of the duodenum was otherwise normal. Impression: - Z-line regular, 35 cm from the incisors. - Extrinsic compression in the gastroesophageal junction, in the cardia and in the gastric fundus. - The examination was otherwise normal. - No specimens collected. - The examination was otherwise normal. Recommendation: - Patient has a contact number available for emergencies. The signs and symptoms of potential delayed complications were discussed with the patient. Return to normal activities tomorrow. Written discharge instructions were provided to the patient. - [facility]. - Continue present medications. - Full liquid diet. - The findings and recommendations were discussed with the patient, their spouse and their primary physician. Shubham Monsivais MD Shubham Monsivais MD 02/01/2017 7:54:59 AM This report has been signed electronically. Number of Addenda: 0 Note Initiated On: 02/01/2017 7:28 AM Estimated Blood Loss: Estimated blood loss: none.
[2017-02-01] MEDS ORDERED: PROPOFOL 200 MG/20 ML VIAL As Ordered ONE (08:33)
[2017-02-01] MEDS ORDERED: LIDOCAINE 2% INJ 100 MG/5 ML SDV (FOR ANES.) As Ordered ONE (08:33)
[2017-02-01 08:53] VITALS: BP 132/73
[2017-02-01] MEDS: VITAMIN D 1,000 INTERNATIONAL UNITS TABLET PO SCH ×2 (09:00→20:21)
[2017-02-01] MEDS: SENOKOT S TAB PO SCH ×2 (09:00→20:20)
[2017-02-01] MEDS: MIRALAX *UNIT DOSE* 17GM PACKET PO SCH (09:00)
[2017-02-01] MEDS: ONDANSETRON 4 MG TAB (S0181) PO PRN ×2 (09:36→20:22)
[2017-02-01] MEDS: SOTALOL HCL 80 MG TAB PO SCH ×2 (09:37→20:20)
[2017-02-01] MEDS: KCL 40MEQ in NS 1000ML 1,000 ML IV SCH (09:37)
[2017-02-01] MEDS: PANTOPRAZOLE 40MG INJ (PROTONIX) (C9113) IV SCH (09:38)
[2017-02-01 12:00] VITALS: BP 148/82
--- NOTE | 2017-02-01 12:07 | IPNPDOC ---
Subjective Date Seen The patient was seen on 02/01/17. Subjective Chief Complaint/HPI The patient is a 71-year-old male admitted with a reason for visit of Gastric Neoplasm. Events since last encounter patietn underwent EGD this am - he is awake but groggy. reports some nausea. No BM since prior to admission 1 week ago Constitutional: Denies: Chills, Fever Pulmonary: Denies: Dyspnea, Cough Cardiovascular: Denies: Chest Pain, Palpitations Gastrointestinal: Reports: Nausea, Constipation, Denies: Vomiting, Abdominal Pain, Diarrhea Objective Physical Examination General Exam: Positive: No Acute Distress, Negative: Alert (awakens and answers questions, but is groggy currently (Had EGD this am)) Chest Exam: Positive: Clear to auscultation Heart Exam: Positive: Rate Normal, Regular Rhythm Abdomen Exam: Positive: Normal bowel sounds, Soft, Tenderness (mild epigastric tenderness without guard or rebound) Extremity Exam: Negative: Edema Assessment /Plan Problems (1) Leukocytosis Status: Acute Problem Text: 02/01 WBC = 20 today - afebrile - D/W attending further wkup. Was on oral Vanco up until 01/29 for recurrent C. diff - No BM x 1 week so doubt C. Diff Has mild epigastric tenderness currently Get abd series and U/C (2) Gastric neoplasm Status: Chronic Problem Specific Plan: Monitor Clinically, Repeat Labs Problem Text: 02/01 - s/p EGD this am with extrinsic mass at GE junction will need to discuss options with patient and once patient wakes up more from EGD 01/30 - Dr Monsivais consulted. Plans on endoscopy. Plans were for endoscopy yesterday but this was postponed due to pt having low BP. Dr Monsivais plans on scoping tomorrow am. WBC 7.9 IVF. Blood cx no growth after 72 hrs. 01/30 - Dr Monsivais consulted. Plans on endoscopy. WBC 9.2 IVF. Blood cx no growth after 48 hrs. 01/29 - WBC 10.4. IVF. Blood cx no growth after 24 hrs. Urine cx neg. Discuss with attending. Consider GI and/or surgery consultation. 01/28 - Abd CT: "Increased thickening over the stomach which has a masslike appearance at the level of the fundus. This is suspicious for neoplastic pathology. Interval appearance of perigastric/retrocrural lymphadenopathy. Unchanged calcified hepatic lesions. Unchanged liver cirrhosis. Again is noted splenomegaly." Getting IVF. WBC 17.6 yesterday. Today's AM labs pending. (3) Pancytopenia Permanent Comment: Longstanding problem with Neupogen support of neutropenia. Abnormal BM biopsy from [facility] done November 2014 (see eCW chart) Chronic thrombocytopenia and anemia also Last Edited By: Amaury Jack M.D. on Feb 10, 2016 11:28 Status: Chronic Problem Specific Plan: Monitor Clinically, Repeat Labs Problem Text: WBC 7.9 IVF. Blood cx no growth after 72 hrs. Plts 26. Continue to monitor. 01/30 - WBC 9.2 IVF. Blood cx no growth after 48 hrs. Urine cx neg. 01/29 - WBC 10.4. IVF. Blood cx no growth after 24 hrs. Urine cx neg. 01/28 - Getting IVF. WBC 17.6 yesterday. Today's AM labs pending. Blood and urine cx pending. (4) Anemia Status: Acute Problem Text: 01/31 - Hgb 9.2. Stable. Received 2 units PRBCs 01/28. 01/30 - Hgb 8.8. Stable. Received 2 units PRBCs 01/28. 01/29 - Received 2 units PRBCs yesterday. (5) Hypokalemia Status: Resolved Problem Specific Plan: Monitor Clinically, Repeat Labs Problem Text: 01/31 - K 3.5. 01/30 - K 3.3. Give supplemental K. 01/29 - K 3.5. Monitor. 01/28 - K was low last night. Supplement given. AM labs pending. (6) Lactic acidosis Status: Resolved Problem Specific Plan: Monitor Clinically Problem Text: 01/28 - LA 1.6. (7) Hepatocellular carcinoma Status: Chronic Problem Specific Plan: Monitor Clinically Problem Text: S/P hepatectomy. Dr Monsivais consulted. (8) Portal hypertensive gastropathy Status: Chronic Problem Specific Plan: Monitor Clinically Problem Text: Follows with Dr Monsivais. (9) Cirrhosis Status: Chronic Problem Specific Plan: Monitor Clinically Problem Text: Dr Monsivais consulted. (10) Clostridium difficile colitis Status: Chronic Problem Specific Plan: Monitor Clinically Problem Text: H/O multiple episodes Cdiff. Has been on PO Vanco q3 days with last dose 01/29. (11) CKD (chronic kidney disease) Status: Chronic Problem Specific Plan: Monitor Clinically Problem Text: 01/31 - Creat 1.34. /6 - Creat 1.30. 9/ - Creat 1.54 (1.61 yesterday and 1.87 day before). 01/28 - IVF. AM labs pending. (12) Hypomagnesemia Problem Specific Plan: Monitor Clinically, Repeat Labs Problem Text: 01/31 - Mag 1.6. Give mag run. (13) Atrial flutter Status: Acute Problem Specific Plan: Consult Specialist, Monitor Clinically Problem Text: 02/01 - NSR last 24 hours 01/31 - Pt in SR. Tachycardic yesterday requiring multiple doses of IV Lopressor and started on PO Lopressor. Dig given. Cardiology consulted. Lopressor stopped and Betapace started. Plan/VTE VTE Prophylaxis Ordered?: Yes (TEDs, SCDs) Plan Family Medicine Attending Note: I saw and examined Mr. Ott, discussed with SOHAN Dickey. Agree with their note as documented. I spoke with Dr. Monsivais directly about the results of the EGD, then I spent a significant amount of time with the patient, his and step daughter to explain the issues to him. The EGD confirmed the existence of a mass near the GE junction, however, as was the case in the 06/2016 EGD it has not broken through the gastric mucosa and therefore can't be biopsied. Dr. Monsivais laid out several good reasons he can't/shouldn't have a blind transgastric biopsy. First, we don' t know they aren't varices. Second his platelets are very low (UP to 37k today) . Third he is completely auto-anticoagulated with a PT around 24. Lastly, he isn 't sure he would get any sort of a good/quality control representative sample if her were to blindly bx. His suggestion is go to go a tertiary care center where they can consider doing U/S guided endoscopic biopsy. I discussed three options with the patient: palliative care, consideration of consulting a general surgeon here for open bx here, or referral to a tertiary care center for further investigation. He states that he "isn't ready to quit just yet," and reports that he already has a relationship with a hepatology department in [facility]. He would like to consult with them for further investigation. This seems reasonable to me. Our goal now needs to be to get him stabilized so he can be discharged for an out-patient visit with them. 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) VS, I&O, 24H, Fishbone Vital Signs/I&O Vital Signs Date Time Temp Pulse Resp B/P (MAP) Pulse Ox O2 Delivery O2 Flow Rate FiO2 02/01/17 09:37 87 132/73 02/01/17 09:00 93 Nasal Cannula 2.0 02/01/17 08:53 98.2 16 I&O- Last 24 Hours up to 6 AM 02/01/17 05:59 Intake Total 3120 ml Output Total 400 ml Balance 2720 ml Laboratory Data 24H LABS Laboratory Tests 2 02/01/17 05:46: Neutrophils 69, Band Neutrophils 13H, Lymphocytes (Manual) 1L, Monocytes (Manual ) 3, Metamyelocytes 7H, Myelocytes 7H, Toxic Granulation 1+, Toxic Vacuolation 1 +, Platelet Estimate MARKED DECREASE, Anisocytosis 3+, Macrocytosis 3+, Prothrombin Time 24.6H, Prothromb Time International Ratio 2.13, Activated Partial Thromboplast Time 39.0H, Anion Gap 10, Glomerular Filtration Rate 57.6, Blood Urea Nitrogen 41H, Creatinine 1.30, Sodium Level 144, Potassium Level 4.1 , Chloride Level 111H, Carbon Dioxide Level 23, Calcium Level 8.9, Aspartate Amino Transf (AST/SGOT) 64H, Alanine Aminotransferase (ALT/SGPT) 50, Alkaline Phosphatase 154H, Total Bilirubin 2.7H, Total Protein 7.0, Albumin 1.7L, Magnesium Level 1.8, Albumin/Globulin Ratio 0.32L CBC/BMP Laboratory Tests 02/01/17 05:46 Red Blood Count 2.77 L, Mean Corpuscular Volume 104.7 H, Mean Corpuscular Hemoglobin 35.9 H, Mean Corpuscular Hemoglobin Concent 34.3, Red Cell Distribution Width 22.0 H, Calcium Level 8.9, Aspartate Amino Transf (AST/SGOT) 64 H, Alanine Aminotransferase (ALT/SGPT) 50, Alkaline Phosphatase 154 H, Total Bilirubin 2.7 H, Total Protein 7.0, Albumin 1.7 L Microbiology Microbiology 01/28/17 Blood Culture - Preliminary, Resulted No Growth after 72 hours. All specime... 01/28/17 Blood Culture - Preliminary, Resulted No Growth after 72 hours. All specime... 01/28/17 Urine Culture - Final, Complete OLGA KELLY PA-C Feb 01, 2017 12:07 Pieter Paz MD Feb 01, 2017 23:59
--- NOTE | 2017-02-01 13:02 | REP ---
Clinical: Leukocytosis with abdominal and epigastric pain. Technique: Upright view of the chest with supine and upright views of the abdomen and pelvis. Findings: Frontal upright view of the chest demonstrates diffuse chronic changes and cardiomegaly with superimposed left lower lobe consolidation and possible small bilateral effusions. The bowel gas pattern demonstrates distended air-filled loops of small and large bowel suggesting ileus, but early obstruction cannot be excluded. Skeletal structures demonstrate stable degenerative changes. Impression: 1. Left lower lobe consolidation and small pleural effusions. 2. Bowel gas pattern suggests ileus although early obstruction cannot be excluded. Signed by Denilson Perkins MD 02/01/2017 12:53 P
[2017-02-01 16:00] VITALS: BP 147/80
--- NOTE | 2017-02-01 16:50 | ECGEPIP ---
Stationary ECG Study [facility] Test Date: 2017-02-01 Pat Name: LEE ANN BABCOCK Department: Room: B5445-77 Gender: M Summer Sessions Director: EVERARDO : 1945 Requested By: El Sahu Order Number: [id number] Reading MD: Jeremias Osman Measurements Intervals [place] Rate: 79 P: 44 MO: 155 QRS: 66 QRSD: 108 T: -7 QT: 406 QTc: 466 Interpretive Statements Normal sinus rhythm Left atrial enlargement Low QRS complex voltage in the limb leads Nonspecific T wave abnormality No significant change when compared to prior tracing of 01/31/2017 Electronically Signed On 02-01-2017 16:49:52 EDT by Jeremias Osman
[2017-02-01] MEDS: NS 1,000 ML IV SCH (17:30)
[2017-02-01 19:57] VITALS: BP 120/56
[2017-02-01] MEDS: SERTRALINE 100 MG TAB PO SCH (20:21)
[2017-02-02] VITALS (7 sets, daily range): BP systolic 119–182; BP diastolic 59–81
[2017-02-02] MEDS: MORPHINE 4 MG/ML 1ML SYRINGE IV PRN (04:53)
[2017-02-02 05:50] LABS: ADD MANUAL DIFFER YES; DIFF SLIDE NUMBER 11; MEAN CORPUSCULAR HEMOGLOBIN 35.9 pg (27.0-33.0); MEAN CORPUSCULAR HGB CONC 33.8 g/dl (32.0-36.5); MEAN CORPUSCULAR VOLUME 106.3 fl (80.0-96.0); RED CELL DISTRIBUTION WIDTH 22.3 % (11.5-14.5); WHITE BLOOD COUNT 29.6 K/mm3 (4.0-10.0)
[2017-02-02 05:57] LABS: PLATELET COUNT, AUTOMATED 43 k/mm3 (150-450)
[2017-02-02 06:11] LABS: ALBUMIN 1.8 GM/DL (3.2-5.2); ALBUMIN/GLOBULIN RATIO 0.36 (1.00-1.93); ALKALINE PHOSPHATASE 163 U/L (45-117); ALT/SGPT 46 U/L (12-78); ANION GAP 7 MEQ/L (8-16); AST/SGOT 60 U/L (15-37); BILIRUBIN,TOTAL 2.4 MG/DL (0.2-1.0); BLOOD UREA NITROGEN 51 MG/DL (7-18); CALCIUM LEVEL 9.2 MG/DL (8.8-10.2); CARBON DIOXIDE LEVEL 25 MEQ/L (21-32); CHLORIDE LEVEL 111 MEQ/L (98-107); GLOMERULAR FILTRATION RATE 48.8 (>42); GLUCOSE, FASTING 119 MG/DL (83-110); MAGNESIUM LEVEL 2.3 MG/DL (1.8-2.4); POTASSIUM SERUM 4.1 MEQ/L (3.5-5.1); SODIUM LEVEL 143 MEQ/L (136-145); TOTAL PROTEIN 6.8 GM/DL (6.4-8.2)
[2017-02-02 07:40] LABS: BANDS 5 % (< 11)
[2017-02-02 07:42] LABS: ANISOCYTOSIS 2+
[2017-02-02] MEDS: VITAMIN D 1,000 INTERNATIONAL UNITS TABLET PO SCH ×2 (09:09→21:21)
[2017-02-02] MEDS: SENOKOT S TAB PO SCH ×2 (09:09→21:21)
[2017-02-02] MEDS: SOTALOL HCL 80 MG TAB PO SCH ×2 (09:09→21:21)
[2017-02-02] MEDS: PANTOPRAZOLE 40MG INJ (PROTONIX) (C9113) IV SCH (09:09)
[2017-02-02] MEDS: MIRALAX *UNIT DOSE* 17GM PACKET PO SCH (09:09)
[2017-02-02] MEDS: ONDANSETRON 4 MG TAB (S0181) PO PRN (09:11)
--- NOTE | 2017-02-02 12:05 | IPN ---
DATE: 02/02/2017 Ovidio is having persisting nausea. EGD result was reviewed. He is not having hematemesis. He had a significant leukocytosis from recent Neupogen, could be reactive from presumed gastric neoplasm as well. He has upper abdominal pain and nausea. PHYSICAL EXAMINATION: 139/75, pulse 60, respiratory rate 18, 97% oxygen saturation. Retching frequently. No jugular venous distention (JVD). Lungs clear. Heart without murmur. Abdomen soft, tender epigastric area. No peripheral edema. LABS: White count is 29 (recent Neupogen), platelets are 43, electrolytes are unchanged, creatinine is 1.5. IMPRESSION: 1. Presumed gastric neoplasm. Reviewed the EGD. He has extrinsic compression from presumed mass. Plan at this point would be to stabilize the patient and then his outpatient provider refer to [facility] for endoscopic ultrasound. 2. Pancytopenia. Recent Neupogen leaving leukocytosis. Hemoglobin is stable. 3. Recent partial liver resection for hepatocellular carcinoma. 4. History of recurrent C. diff. He is weaning off his vancomycin. 5. Chronic kidney disease. Keep an eye on this with daily lab work. PLAN: To stabilize the patient and when he is no longer having GI symptoms he can be discharged so he can get prompt outpatient referral.
--- NOTE | 2017-02-02 15:02 | ECHO ---
DATE OF SERVICE: 02/01/2017 REFERRING PROVIDER: Dr. Kim Aquino PATIENT LOCATION: Room 3230 REASON FOR ECHOCARDIOGRAM: Cardiac arrhythmias. 2D MEASUREMENTS: IVS: 1.4 cm LV: 4.9 cm LVPW: 1.3 cm LA: 4.7 cm Aorta: 3.8 cm DOPPLER MEASUREMENTS: Mitral E: 0.78 Mitral A: 0.70 with a ratio of more than 1.0 Maximum tricuspid valve velocity: 2.0 m/s 2D COMMENTS: 1. Mildly increased left ventricular wall thickness with normal left ventricular size and a normal global left ventricular systolic junction. The estimated global left ventricular systolic ejection function is 65-70%. 2. Mildly enlarged left atrium. Normal right and the right ventricle. 3. The atrial septum appeared to be normal without evidence of defect or shunt. 4. Mildly enlarged aortic root at 3.8 cm. 5. Trace pericardial effusion, no evidence of cardiac tamponade. 6. Minimal calcified aortic valve with normal leaflet excursion. Mildly calcified mitral annulus with normal anterior mitral valve leaflet motion. Normal tricuspid valve and pulmonic valve. The proximal pulmonary artery branches were not well visualized. 7. The inferior vena cava was not visualized. DOPPLER: It detects trace aortic regurgitation, trace mitral regurgitation, and trace tricuspid regurgitation. The calculated pulmonary artery systolic pressure was normal. Abnormal relaxation pattern was noted across the mitral valve annulus consistent with a pseudo-normal pattern, left ventricular end-diastolic pressure might be elevated. IMPRESSION: 1. Normal global left ventricular systolic function with mild concentric left ventricular hypertrophy. There are some features of left ventricular diastolic dysfunction, grade 2. 2. Aortic valve sclerosis with trace aortic regurgitation, but trivial aortic stenosis. The peak velocity across the aortic valve was 1.9 m/s. 3. Mitral annulus calcification with trace mitral regurgitation and mildly enlarged left atrium. The dilated left atrium is most likely related to underlying left ventricular diastolic dysfunction because there was no significant mitral regurgitation. 4. Trace tricuspid regurgitation with a normal calculated pulmonary artery systolic pressure. 5. Trace pericardial effusion was noted. No evidence of cardiac tamponade. [facility]
[2017-02-02] MEDS: NS 1,000 ML IV SCH (17:07)
[2017-02-02] MEDS: SERTRALINE 100 MG TAB PO SCH (21:21)
[2017-02-03] VITALS: BP 127/58
[2017-02-03] MEDS: ONDANSETRON 4 MG TAB (S0181) PO PRN (00:22)
[2017-02-03 04:00] VITALS: BP 106/52
[2017-02-03 05:09] LABS: ADD MANUAL DIFFER YES; DIFF SLIDE NUMBER 12; MEAN CORPUSCULAR HEMOGLOBIN 34.8 pg (27.0-33.0); MEAN CORPUSCULAR VOLUME 105.4 fl (80.0-96.0); RED CELL DISTRIBUTION WIDTH 22.4 % (11.5-14.5)
[2017-02-03 05:15] LABS: PLATELET COUNT, AUTOMATED 38 k/mm3 (150-450); WHITE BLOOD COUNT 34.1 K/mm3 (4.0-10.0)
[2017-02-03 05:23] LABS: ALBUMIN 1.7 GM/DL (3.2-5.2); ALBUMIN/GLOBULIN RATIO 0.31 (1.00-1.93); BILIRUBIN,TOTAL 2.9 MG/DL (0.2-1.0); CALCIUM LEVEL 9.9 MG/DL (8.8-10.2); CREATININE FOR GFR 1.79 MG/DL (0.70-1.30); GLOMERULAR FILTRATION RATE 39.8 (>42); MAGNESIUM LEVEL 2.2 MG/DL (1.8-2.4); POTASSIUM SERUM 4.3 MEQ/L (3.5-5.1); TOTAL PROTEIN 7.2 GM/DL (6.4-8.2)
[2017-02-03] MEDS: ONDANSETRON 4MG/2ML VIAL (J2405) IV PRN ×3 (06:12→18:07)
[2017-02-03 06:26] LABS: BANDS 7 % (< 11)
[2017-02-03 06:28] LABS: ANISOCYTOSIS 2+
[2017-02-03 07:50] VITALS: BP 122/70
[2017-02-03] MEDS: VITAMIN D 1,000 INTERNATIONAL UNITS TABLET PO SCH ×2 (09:00→20:49)
[2017-02-03] MEDS: SENOKOT S TAB PO SCH ×2 (09:00→20:48)
[2017-02-03] MEDS: MIRALAX *UNIT DOSE* 17GM PACKET PO SCH (09:00)
--- NOTE | 2017-02-03 09:04 | ECGEPIP ---
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
--- NOTE | 2017-02-03 09:14 | ECGEPIP ---
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
[2017-02-03] MEDS: PANTOPRAZOLE 40MG INJ (PROTONIX) (C9113) IV SCH (11:17)
[2017-02-03] MEDS: KCL 20MEQ IN 0.45NS 1000ML 1,000 ML IV SCH ×2 (11:17→19:41)
[2017-02-03 12:00] VITALS: BP 131/80
--- NOTE | 2017-02-03 12:48 | IPN ---
DATE: 02/03/2017 Ovidio is seen in the progressive care unit (PCU). I met with his daughter and discussed the case with his daughter and his friend, Faby Johansen, and discussed the case with him and them (with his consent). He is not any better than yesterday. He has an abdominal "fullness" that prevents him from eating. He has repetitive retching. He does not have any real abdominal pain but it is repeatedly retching. To summarize, he was admitted for the abnormal liver function tests then repetitive vomiting. CT scan of the abdomen and pelvis with oral but not IV contrast on admission showed cirrhosis, splenomegaly, scattered calcific hepatic lesions, and a right hepatic lobe. Compared to CT scan from 10/05/2016, there had been the interval appearance of left periaortic retrocrural lymphadenopathy measuring 7.3 cm, large perigastric lymph nodes surrounding the gastroesophageal (GE) junction, increased thickening over the stomach with a mass-like appearance to the level of the fundus suspicious for neoplastic pathology. He underwent esophagogastroduodenoscopy (EGD) by his tractor expert, Dr. Monsivais, on 02/01/2017. Extrinsic compression of the stomach found at the GE junction in the cardia and gastric fundus. No intraluminal mass was seen. The patient is thrombocytopenic. No blind biopsy was performed. PHYSICAL EXAMINATION: VITAL SIGNS: Blood pressure 122/70, pulse 77, respiratory rate 20, 96% oxygen saturation on two liters, temperature 96.5 degrees. GENERAL APPEARANCE: Chronically ill-appearing, lying in bed, repetitively retching but not vomiting more than small amounts. He looks pale and fatigued. LUNGS: Clear. HEART: Regular rate and rhythm. ABDOMEN: Soft, nontender, upper abdominal fullness appreciated. EXTREMITIES: No peripheral edema. LABORATORY DATA: White count 34,000 (received Neupogen earlier in the week), hemoglobin 9.9, and platelets 38,000. INR 2.1 (not on anticoagulants). Sodium is up to 150, BUN 65, creatinine 1.8, glucose 112, bilirubin is up to 2.9, alkaline phosphatase 158, AST 74. Blood cultures are negative. Urine culture is negative. IMPRESSION: 1. Suspicious of gastric neoplasm with adenopathy leading to gastric esophageal compression, preventing the patient from eating. His oral intake has been poor. He is now hypernatremic and exhibiting acute kidney injury. We will deal with this by changing his IVs to half-normal saline with some potassium at a rate of 125 mL/hour to re-hydrate and address the acute kidney injury and the hypernatremia. Definitive treatment depends upon better appreciation of the extent of the mass and obtaining a biopsy. To this end, we discussed transfer to a center that can perform endoscopic ultrasound. I initially had suggested [facility] but the patient has a preexisting relationship with Dr. Ru Sapp at [facility] ([address] [address] with an office number of [phone]). We will try to contact Dr. Sapp today. Family is requesting transfer to his care. They understand it is Saturday and we might have to wait for the transfer until the work week but I will make an initial telephone call today on their behalf. At this point, I do not think the patient should have an nasogastric (NG) tube passed through an esophagus that has bleeding varices and he is not a good candidate for a percutaneous endoscopic gastrostomy (PEG) tube here either. 2. Pancytopenia. Recent Neupogen has led to leukocytosis but thrombocytopenia is chronic and stable. 3. Hepatocellular carcinoma with history of cirrhosis and hepatic failure. His liver function tests are up from the baseline. His international normalized ratio (INR) is chronically elevated. He has, in the past, not shown evidence of hepatic encephalopathy despite elevated ammonia levels. 4. History of recurrent Clostridium (C) difficile colitis. He was on vancomycin on a weaning schedule and this was recently discontinued. He is not having any diarrheal stools and we need to keep an eye out on this. 5. Acute kidney injury superimposed on stage III chronic kidney disease. I increased his hydration. Recheck laboratories tomorrow. 6. History of hepatocellular carcinoma status post left lateral sigmoidectomy by Dr. Sapp 12/31 with embolization, radiofrequency ablation by hepatic artery due to recurrent hepatocellular carcinoma 10/01. 7. History of atrial fibrillation. He is currently in sinus rhythm. He had an echocardiogram on admission. Left atrium was dilated at 47 mm, left ventricular ejection fraction was 65% to 70%, mitral annular calcification, trace mitral regurgitation, diastolic dysfunction right ventricle noted, trace pericardial effusion. A telephone call has been put in to Dr. Sapp's office.
[2017-02-03] MEDS ORDERED: PHYTONADIONE 10MG/ML INJECTION (J3430) SC ONE (13:00)
[2017-02-03] MEDS: SOTALOL HCL 80 MG TAB PO SCH ×2 (13:14→20:44)
--- NOTE | 2017-02-03 13:15 | IPN ---
DATE: 02/03/2017 A telephone call was placed to Dr. Ru Sapp MD, covering physician. I spoke with Dr. Moore (spelling unclear - did not have a good cell phone connection during the conversion) who was the surgical oncology fellow at [facility]. The case was discussed at length. He will inquire as to how to proceed with transfer to [facility]. He suggested that we try to address the coagulopathy present with a trial of some vitamin K, recognizing that if it is just cirrhosis it will not be vitamin K responsive but due to his poor oral intake, he might have some component of vitamin K deficiency, so I think this is reasonable. They would like him to receive some fresh frozen plasma on the day of transfer, if possible, in order to make his coagulopathy more amenable to pending biopsy. Dr. Negron, who is his primary physician, will be picking up his case in the morning. We will discuss this. Appreciate the extended conversation with Dr. Moore and his assistance with this case.
[2017-02-03 15:35] VITALS: BP 122/78
[2017-02-03] MEDS: SERTRALINE 100 MG TAB PO SCH (20:50)
[2017-02-03 22:00] VITALS: BP 142/80
[2017-02-04] VITALS (18 sets, daily range): BP systolic 88–126; BP diastolic 51–88
[2017-02-04] MEDS: KCL 20MEQ IN 0.45NS 1000ML 1,000 ML IV SCH (02:54)
[2017-02-04] MEDS ORDERED: METOCLOPRAMIDE 10 MG TAB PO SCH (06:00)
[2017-02-04 06:48] LABS: INR 2.56
[2017-02-04 07:02] LABS: ALBUMIN 1.6 GM/DL (3.2-5.2); ALBUMIN/GLOBULIN RATIO 0.29 (1.00-1.93); BILIRUBIN,TOTAL 3.4 MG/DL (0.2-1.0); CALCIUM LEVEL 9.4 MG/DL (8.8-10.2); CREATININE FOR GFR 2.01 MG/DL (0.70-1.30); GLOMERULAR FILTRATION RATE 34.8 (>42); MAGNESIUM LEVEL 2.3 MG/DL (1.8-2.4); TOTAL PROTEIN 7.1 GM/DL (6.4-8.2)
[2017-02-04 07:07] LABS: ADD MANUAL DIFFER YES; DIFF SLIDE NUMBER 17; MEAN CORPUSCULAR HEMOGLOBIN 35.1 pg (27.0-33.0); MEAN CORPUSCULAR VOLUME 109.9 fl (80.0-96.0); RED CELL DISTRIBUTION WIDTH 23.8 % (11.5-14.5)
[2017-02-04 07:09] LABS: PLATELET COUNT, AUTOMATED 45 k/mm3 (150-450); WHITE BLOOD COUNT 50.4 K/mm3 (4.0-10.0)
[2017-02-04] MEDS ORDERED: LACTULOSE 20 GM/30 ML SYRUP UD PO PRN (08:30)
--- NOTE | 2017-02-04 08:55 | IPNPDOC ---
Subjective Date Seen The patient was seen on 02/04/17. Subjective Chief Complaint/HPI The patient is a 71-year-old male admitted with a reason for visit of Gastric Neoplasm. Events since last encounter Patient found at bedside, slumped over, non-verbal, drooling, confused. per nursing staff, this is patient's baseline since admission. patient awaiting transfer to [facility]. Patient previously took Lactulose at home , yet was inconsistent due to diarrhea. Has been afebrile. WBC elevated today. Has hx of taking Neupogen twice per week as an outpatient. Last dose is unknown. General: Reports: ROS Unobtainable Constitutional: Denies: Fever Objective Physical Examination General Exam: Positive: No Acute Distress, Negative: Alert (minimally verbal, mumbling, groaning, ) Neck Exam: Positive: Supple, Negative: JVD Chest Exam: Positive: Clear to auscultation Heart Exam: Positive: Rate Normal, Regular Rhythm Abdomen Exam: Positive: Normal bowel sounds, Soft, Tenderness (mild epigastric tenderness without guard or rebound) Extremity Exam: Negative: Edema Assessment /Plan Problems (1) Pseudoaneurysm of aorta Problem Text: 02/04 case d/w Dr. Hill-consult placed 02/04/17 aortic US: Pseudoaneurysm at the diaphragmatic hiatus anterior to the aorta measuring 8.0 x 6.7 x 7.4 cm. Mycotic aneurysm is a possibility. (2) Coagulopathy Status: Chronic Problem Text: 2 ESLD 02/01 PT, PTT 39 plan FFP if active bleeding or pre-op 02/04 vitamin K 10 SC x 1 given (3) Respiratory failure Status: Acute Problem Text: 02/04 DNR/DNI secured from , currently on CPAP per Dr. Muñoz (4) Hypoglycemia Status: Acute Problem Text: 02/04 600 BG 42-resolved c [id number] 2 sepsis (5) Sepsis Status: Acute Problem Text: D1 vanco/Zosyn-RD concern for mesenteric ischemia 2 pseudoaneurysm compression 02/04/2017: WBC to 50K (01/31 7.9), LA 5.1 Sudden hypoxia with MS changes. RAT team called and patient transferred to ICU. Central line ordered and placed by Dr. Felipe Andersen with consent from patient's partner. 02/04 BCX x 1 02/04 UCX x 1 01/28 BCX x 2 NG . (6) Gastric neoplasm Status: Chronic Problem Specific Plan: Monitor Clinically, Repeat Labs Problem Text: 02/04/17: plan is tissue sampling through [facility]. Platelets are low, will need 2 units FFP just prior to transfer. 01/30 - Dr Monsivais consulted. Plans on endoscopy. Plans were for endoscopy yesterday but this was postponed due to pt having low BP. Dr Monsivais plans on scoping tomorrow am. WBC 7.9 IVF. Blood cx no growth after 72 hrs. 01/30 - Dr Monsivais consulted. Plans on endoscopy. WBC 9.2 IVF. Blood cx no growth after 48 hrs. 01/29 - WBC 10.4. IVF. Blood cx no growth after 24 hrs. Urine cx neg. Discuss with attending. Consider GI and/or surgery consultation. 01/28 - Abd CT: "Increased thickening over the stomach which has a masslike appearance at the level of the fundus. This is suspicious for neoplastic pathology. Interval appearance of perigastric/retrocrural lymphadenopathy. Unchanged calcified hepatic lesions. Unchanged liver cirrhosis. Again is noted splenomegaly." Getting IVF. WBC 17.6 yesterday. Today's AM labs pending. (7) Hepatocellular carcinoma Status: Chronic Problem Specific Plan: Monitor Clinically Problem Text: ? hepatic encephalopathy. Added on Lactulose, Rifaximin. Eval ammonia level. LFTs rising. Bilirubin 3.4 today with climbing AST OF 98 S/P hepatectomy. Dr Monsivais consulted. (8) Atrial flutter Status: Acute Problem Specific Plan: Consult Specialist, Monitor Clinically Problem Text: 01/31 - Pt in SR. Tachycardic yesterday requiring multiple doses of IV Lopressor and started on PO Lopressor. Dig given. Cardiology consulted. Lopressor stopped and Betapace started. (9) Portal hypertensive gastropathy Status: Chronic Problem Specific Plan: Monitor Clinically Problem Text: Follows with Dr Monsivais. (10) Pancytopenia Permanent Comment: Longstanding problem with Neupogen support of neutropenia. Abnormal BM biopsy from [facility] done November 2014 (see eCW chart) Chronic thrombocytopenia and anemia also Last Edited By: Amaury Jack M.D. on Feb 10, 2016 11:28 Status: Chronic Problem Specific Plan: Monitor Clinically, Repeat Labs Problem Text: 02/04/17: WBC 50,000, platelets 23 WBC 7.9 IVF. Blood cx no growth after 72 hrs. Plts 26. Continue to monitor. 01/30 - WBC 9.2 IVF. Blood cx no growth after 48 hrs. Urine cx neg. 01/29 - WBC 10.4. IVF. Blood cx no growth after 24 hrs. Urine cx neg. 01/28 - Getting IVF. WBC 17.6 yesterday. Today's AM labs pending. Blood and urine cx pending. (11) Anemia Status: Acute Problem Text: 01/31 - Hgb 9.2. Stable. Received 2 units PRBCs 01/28. 01/30 - Hgb 8.8. Stable. Received 2 units PRBCs 01/28. 01/29 - Received 2 units PRBCs yesterday. (12) Clostridium difficile colitis Status: Chronic Problem Specific Plan: Monitor Clinically Problem Text: H/O multiple episodes Cdiff. Has been on PO Vanco q3 days with last dose 01/29. (13) CKD (chronic kidney disease) Status: Chronic Problem Specific Plan: Monitor Clinically Problem Text: at least partially 2 psuedoaneurysm 02/04/17: PREET with Cr 2.0. 01/31 - Creat 1.34. 01/30 - Creat 1.30. 01/29 - Creat 1.54 (1.61 yesterday and 1.87 day before). 01/28 - IVF. AM labs pending. (14) Hypomagnesemia Problem Specific Plan: Monitor Clinically, Repeat Labs Problem Text: 02/04/17: mag stable at 2.3 01/31 - Mag 1.6. Give mag run. Plan/VTE VTE Prophylaxis Ordered?: No (TEDs, SCDs) VTE Exclusion Pharmacological: Bleeding Risk (INR 2.56. Teds and SCDs ordered. ) VS, I&O, 24H, Fishbone Vital Signs/I&O Vital Signs Date Time Temp Pulse Resp B/P (MAP) Pulse Ox O2 Delivery O2 Flow Rate FiO2 02/04/17 06:00 96.6 111 20 111/66 (81) 93 Nasal Cannula 2.0 I&O- Last 24 Hours up to 6 AM 02/04/17 06:00 Intake Total 2880 ml Output Total 500 ml Balance 2380 ml Laboratory Data 24H LABS Laboratory Tests 2 02/04/17 06:00: Neutrophils 90H, Lymphocytes (Manual) 2L, Monocytes (Manual) 8, Platelet Estimate MARKED DECREASE, Macrocytosis 2+, Prothrombin Time 28.6H, Prothromb Time International Ratio 2.56, Anion Gap 12, Glomerular Filtration Rate 34.8L, Blood Urea Nitrogen 65H, Creatinine 2.01H, Sodium Level 148H, Potassium Level 4.0, Chloride Level 115H, Carbon Dioxide Level 21, Calcium Level 9.4, Aspartate Amino Transf (AST/SGOT) 98H, Alanine Aminotransferase (ALT/SGPT) 59, Alkaline Phosphatase 192H, Total Bilirubin 3.4H, Total Protein 7.1, Albumin 1.6L, Magnesium Level 2.3, Albumin/Globulin Ratio 0.29L CBC/BMP Laboratory Tests 02/04/17 06:00 Red Blood Count 2.85 L, Mean Corpuscular Volume 109.9 H, Mean Corpuscular Hemoglobin 35.1 H, Mean Corpuscular Hemoglobin Concent 32.0, Red Cell Distribution Width 23.8 H, Calcium Level 9.4, Aspartate Amino Transf (AST/SGOT) 98 H, Alanine Aminotransferase (ALT/SGPT) 59, Alkaline Phosphatase 192 H, Total Bilirubin 3.4 H, Total Protein 7.1, Albumin 1.6 L Microbiology Microbiology 01/28/17 Blood Culture - Final, Complete NO GROWTH AFTER 5 DAYS 01/28/17 Blood Culture - Final, Complete NO GROWTH AFTER 5 DAYS 01/28/17 Urine Culture - Final, Complete Daniela Warren Feb 04, 2017 08:55 Maged Negron M.D. Feb 04, 2017 14:12
[2017-02-04] MEDS: SOTALOL HCL 80 MG TAB PO SCH ×2 (09:00→21:00)
[2017-02-04] MEDS ORDERED: rifAXIMin 550 MG TAB (XIFAXAN) PO SCH (09:00)
[2017-02-04 09:25] LABS: ABG HCO3 19.1 MEQ/L (22.0-26.0); ABG PARTIAL PRESSURE CO2 40.6 mmHg (35.0-45.0); ABG PARTIAL PRESSURE O2 66.4 mmHg (75.0-100.0); ABG STANDARD HCO3 18.6 MEQ/L (22.0-26.0); ABG TOTAL CO2 20.4 MEQ/L (23.0-31.0); ABG pH (ARTERIAL) 7.291 UNITS (7.350-7.450)
[2017-02-04] MEDS ORDERED: METOCLOPRAMIDE INJ 10MG/2ML VIAL (J2765) IV PRN (09:45)
--- NOTE | 2017-02-04 09:58 | RO ---
DATE OF PROCEDURE: 02/04/2017 PREOPERATIVE DIAGNOSIS: POSTOPERATIVE DIAGNOSIS: PROCEDURE: This is for a central venous catheter placement. INDICATION: Hemodynamic monitoring and intravenous (IV) access. PHYSICIAN PERFORMING PROCEDURE: Felipe Andersen DO SUBPOENA SERVER: none ANESTHESIA: topical 1% lidocaine DESCRIPTION OF PROCEDURE: Procedure note: A time-out was completed verifying correct patient, procedure, site, position, and special equipment. The patient was placed in a dependent position, appropriate for central line placement based on the vein to be cannulated. The patient's right shoulder was prepped and draped in a sterile fashion. 1% lidocaine was used to anesthetize the surrounding skin area. A triple-lumen Cordis catheter was introduced into the right subclavian vein using Seldinger technique. The catheter was threaded smoothly over the guidewire, and appropriate blood return was obtained. Each lumen of the catheter was evacuated of air and flushed with sterile saline. The catheter was then sutured in place to the skin at the 15 cm remi. A sterile dressing was applied. Perfusion to the extremity distal to the point of the catheter insertion was checked and found be adequate. Estimated blood loss minimal. The patient tolerated the procedure well. No complications. Portable chest x-ray was ordered. It will be reviewed to be sure of the placement of the tip of the catheter and to make sure that there is no pneumothorax or any other complications. BARBARA
[2017-02-04] MEDS ORDERED: NS 1,000 ML IV SCH (10:00)
[2017-02-04] MEDS ORDERED: VANCOMYCIN HCL 1,000 MG, VIAL MATE ADAPTER 1 EACH in D5W 250 ML IV ONE (10:00)
--- NOTE | 2017-02-04 10:13 | REP ---
Clinical: Central line placement. Comparison: 02/01/2017. Findings: Right subclavian catheter with tip in the SVC. Mediastinum and cardiac silhouette are stable. Lung cha demonstrate diffuse bilateral infiltrates and pleural effusions (right greater than left). Findings have increased from prior examination. No pneumothorax. Skeletal structures stable. Impression: 1. Central line with tip in the SVC. No pneumothorax. 2. Bibasilar infiltrates and pleural effusions have increased from prior examination. Signed by Denilson Perkins MD 02/04/2017 10:04 A
[2017-02-04] MEDS: PIPERACILLIN/TAZOBACTAM SOD 3.375 GM in D5W MINI-BAG PLUS 50 ML IV SCH ×3 (10:42→20:47)
[2017-02-04] MEDS: PANTOPRAZOLE 40MG INJ (PROTONIX) (C9113) IV SCH (10:42)
--- NOTE | 2017-02-04 10:42 | REP ---
Clinical: Leukocytosis. Technique: Portable supine view of the abdomen and pelvis. Findings: Bowel gas pattern is nonspecific and contrast from recent CT examination is appreciated throughout the colon. No organomegaly. Small intrarenal calculi cannot be excluded. Skeletal structures demonstrate age-related degenerative changes. Postsurgical changes in the pelvis including surgical sutures and sarah. Impression: Nonspecific bowel gas pattern. Possible nephrolithiasis. Signed by Denilson Perkins MD 02/04/2017 10:33 A
[2017-02-04] MEDS ORDERED: NS 500 ML IV ONE (11:15)
--- NOTE | 2017-02-04 11:42 | PHACANCOPD ---
PHARMACY VANCOMYCIN DOSING Pt Demographics Demographics Patient Age:71 , Weight:79.100 , Gender: male Adjusted Body Weight Date: 02/04/17, Adjusted Body Weight: Kg Events Past 24 Hours Events Past 24 Hours: YES: Change in CrCl, Fever, Elevation in WBC, NO: Dialysis, Diuretic Therapy, Pending Diagnostics, Pending Procedures, Other Vancomycin Vancomycin Target Ranges: 15-20 mcg/ml Vancomycin Load Y/N: Yes Load Dose Date Time Vancomycin Load Dose: 1G Date: 02/04/17 Time: 1000 Vancomycin Dose Date: 02/04/17. Current Vancomycin Dose: [1G Q24H@22] Intermittent Dosing?: No Labs Labs Vital Signs Label Value Date Time Patient Temperature 97.0 degrees F 02/03/17 2200 Temperature Source Temporal 02/03/17 2200 Patient Temperature 96.6 degrees F 02/04/17 0600 Temperature Source Temporal 02/04/17 0600 Item Value Date Time White Blood Count 34.1 K/mm3 *H 02/03/17 0423 White Blood Count 50.4 K/mm3 *H 02/04/17 0600 Creatinine 1.50 MG/DL H 02/02/17 0500 Creatinine 1.79 MG/DL H 02/03/17 0423 Creatinine 2.01 MG/DL H 02/04/17 0600 Micro Microbiology 02/04/17 Blood Culture, Received Pending 01/28/17 Blood Culture - Final, Complete NO GROWTH AFTER 5 DAYS 01/28/17 Blood Culture - Final, Complete NO GROWTH AFTER 5 DAYS 02/04/17 Urine Culture, Received Pending 01/28/17 Urine Culture - Final, Complete Creatinine Clearance Date:02/04/17. Creatinine Clearance: [34.861]. Assessment and Plan Maintaining Current Dose?: Yes Reason for dose change: Other Pharmacist Note Pharmacist Note Date: 02/04/17. Pharmacist note: Patient is a 71 year old male who presented to the ED with complaints of epigastric pain on 01/27/17. Patient has a history significant for end stage liver disease, and hepatic and colon cancer. A CT of abdomen found a gastric mass suspicious for malignancy. Plan is to transfer patient to [facility]. This morning patient's wbc has risen significantly and patient is exhibiting signs of sepsis. He was started on Zosyn and Vancomycin for which pharmacy has been consulted. I gave him Vancomycin IV 1G at 1000 and then will start him on Vancomycin IV 1G q24h@22 to complete the partial LD. We will continue to monitor patient and adjust dose as deemed necessary. ANMNARIE CAPUTO PHARMACY Feb 04, 2017 11:42
[2017-02-04] MEDS ORDERED: DEXTROSE 50% 50 ML SYRINGE As Ordered ONE (11:43)
[2017-02-04] MEDS ORDERED: DEXTROSE 50% 50 ML SYRINGE IV STA (11:50)
[2017-02-04] MEDS: D5W/0.9% SODIUM CHLORIDE 1,000 ML IV SCH ×2 (11:51→20:18)
--- NOTE | 2017-02-04 12:24 | CR ---
DATE OF CONSULTATION: 02/04/2017 START TIME: 10:45. STOP TIME: 11:29. I was asked to attend Ovidio Ott here in the intensive care unit after his transfer from the regular medical-surgical floor. I have spoken at length with his primary service. Records have been reviewed. In essence, this is a 71-year-old gentleman with a history of hepatocellular carcinoma, status post partial hepatectomy. He was admitted on 01/28/2017 with epigastric pain and singultus. He has had intractable vomiting, felt to be on the basis of a new tumor. CT scan done on 01/28/2017 showed mass, appeared to be obstructing the gastric outlet. He was scheduled to be transferred to [facility] today to meet with his previous oncologist. This morning, however, he was found to be markedly hypoxic and confused. Saturation 78% on nasal cannula. He was not hypotensive prior to transfer. He was placed on high-flow oxygen. Saturation did improve into the 80s. His mental status remained diminished. Heart rate on arrival between 110 and 118 with a sinus mechanism. Blood pressure between 110 and 120 systolic. He had received the 500 mL saline bolus. He has begun to make some urine. Initial lactate 5.1. He is still receiving volume resuscitation, as his initial central venous pressure (CVP) was 5. His mental status remains diminished. and brother at the bedside. At this point, they request that he be a DO NOT RESUSCITATE (DNR) and DO NOT INTUBATE (DNI) status, and this will be honored. The medical orders for life-sustaining treatment (MOLST) form has been filled out. On examination, he is sedate but does arouse to voice. He does not generally follow commands. Pupils do react. Sclerae clear. No obvious jugular venous distention (JVD). Trachea is in the midline. Chest shows diminished but symmetric expansion. There are coarse inspiratory sounds at the bases, right much greater than left, with crackles and some rhonchi. No convincing rub. Cardiac examination: Is distant, mildly tachycardic but regular. Peripheral pulses are diminished. There is at least 2+ pitting lower extremity edema bilaterally. Abdomen: Is soft but quiet. Difficult to assess for tenderness in view of his mental status. There may be a fullness in the mid abdomen in the epigastric portion. Extremities: Show no cyanosis or clubbing. Neurologically, as outlined above. Most recent laboratories show 50.4, 90% segmented neutrophils, no bands. Hemoglobin 10.0, platelet count 45,000. Sodium 148, potassium of 4.0, chloride of 115, CO2 21, BUN 65, creatinine 2, lactic acid as outline above of 5.1, glucose only 42 this morning, albumin 1.6, ammonia elevated at 41. Blood gas done on an unknown oxygen flow is pH 7.291, PCO2 of 40.6, pO2 of 66.4, 87.9% saturation. INR 2.56. Chest x-ray as outline above. I reviewed his imaging of the abdomen from 01/28/2017 and compared it to a CT scan from September. There has been a significant change in the retroperitoneum and at the gastric outlet, but my concern is that there is a change in the vascular calcification of his aorta in the midst of that mixed density lesion. The most pressing problems requiring my presence at the bedside: Hypoxemic respiratory failure. Sepsis. Coagulopathy. Intraabdominal process concerning for malignancy versus vascular issue. At this point, we will honor the wishes for DNR and DNI, and the MOLST form has been filled out. We can try assisting him with continuous positive airway pressure (CPAP). He is receiving aggressive volume resuscitation. I am having them recheck his glucose. I have reviewed his CAT scan with Dr. Jiang from radiology, who shares my concerns regarding a vascular abnormality. We cannot give him intravenous (IV) contrast. He is not in the condition to undergo an MRI. We will try abdominal ultrasound and hopefully get some further information. He is on broad-spectrum antimicrobials, and I believe these are appropriate. His reflex lactate will be drawn in several hours. At this point, he remains critically ill. His prognosis is guarded at best, and there is a high likelihood that he will not survive this hospitalization. I left the bedside at 1129 hours. 44 minutes of critical care time delivered at the bedside, not including procedures.
[2017-02-04 13:08] LABS: ABG BASE EXCESS -7.7 (-2.0-2.0); ABG HCO3 18.8 MEQ/L (22.0-26.0); ABG PARTIAL PRESSURE CO2 42.6 mmHg (35.0-45.0); ABG PARTIAL PRESSURE O2 56.1 mmHg (75.0-100.0); ABG STANDARD HCO3 17.9 MEQ/L (22.0-26.0); ABG TOTAL CO2 20.1 MEQ/L (23.0-31.0); ABG pH (ARTERIAL) 7.262 UNITS (7.350-7.450)
--- NOTE | 2017-02-04 13:38 | REP ---
ABDOMINAL AORTIC SONOGRAPHY: HISTORY: Question leaking abdominal aortic aneurysm. FINDINGS: Scanning through the epigastric region demonstrates that the aorta measures 3.0 x 2.8 cm in AP x transverse dimension at the diaphragmatic hiatus. In the suprarenal aorta, there is a heterogeneous area anterior to the abdominal aorta measuring 8.0 x 6.7 x 7.4 cm. Arterial blood flow is seen apparently communicating with the aorta through this region compatible with pseudoaneurysm versus less likely saccular aneurysm. Scan quality is inhibited to some degree by the patient by the location of the lesion and the patient's inability to move her breath hold. At the level of the renal arteries the aorta measures 2.6 x 2.6 cm. The mid aortic dimensions are 2.9 x 2.3 cm. The distal aorta measures 1.9 x 2.0 cm. No distal aneurysm is seen. The right and left common iliac arteries are 1.3 and 1.0 cm in AP dimension respectively. IMPRESSION: Pseudoaneurysm at the diaphragmatic hiatus anterior to the aorta measuring 8.0 x 6.7 x 7.4 cm. Mycotic aneurysm is a possibility. Findings were telephoned to Dr. Muñoz at the time of the exam. Signed by Harjit Jiang MD 02/04/2017 03:53 P
[2017-02-04] MEDS ORDERED: ONDANSETRON 4MG/2ML VIAL (J2405) IV PRN (14:45)
[2017-02-04] MEDS ORDERED: PHYTONADIONE 10MG/ML INJECTION (J3430) SC ONE (15:00)
[2017-02-04] MEDS: MORPHINE 2 MG/ML 1ML SYRINGE IV PRN ×2 (17:00→21:28)
[2017-02-04] MEDS ORDERED: ISOVUE-370 76% 100ML VIAL (Q9967) As Ordered ONE (17:19)
--- NOTE | 2017-02-04 19:12 | REP ---
Clinical: Aortic pseudoaneurysm. Technique: Findings: The bilateral lung cha demonstrate chronic COPD and emphysematous changes as well as scattered age-related interstitial changes and bronchiectasis. Superimposed acute alveolar infiltrates as well as near complete consolidation of the right and left lower lobe as well as portion of the right middle lobe with air bronchograms and small pleural effusions are identified and compatible with multifocal pneumonia. No pneumothorax. The trachea through main bronchi appear patent bilaterally. Evaluation of the mediastinum demonstrates atherosclerotic changes to the thoracic aorta and coronary arteries. The heart is upper limits of normal in size. There is no pericardial effusion. No obvious adenopathy is appreciated. The thyroid gland is unremarkable. The surrounding musculoskeletal structures demonstrate age-related degenerative changes without focal osseous abnormality. Limited evaluation of the upper abdomen demonstrates the presumed large upper abdominal aortic pseudoaneurysm which is incompletely evaluated on current examination (refer to CT of the abdomen and pelvis for complete report). The liver has a somewhat macrolobulated appearance with rim calcified structures which may represent chronic cysts. Mild splenomegaly cannot be excluded. Infiltration through the visualized mesentery and retroperitoneum is concerning for the possibility of pseudoaneurysm leak. Nodules/masses in the left upper quadrant may reflect adenopathy. Impression: 1. Large areas of consolidation/collapse involving the right lower lobe and left lower lobe and to a lesser extent the right middle lobe with scattered subtle air space infiltrates and small pleural effusions. Findings are most compatible with multifocal pneumonia. 2. Chronic COPD and emphysematous changes with scattered interstitial disease and bronchiectasis. 3. Atherosclerotic changes to the thoracic aorta and coronary arteries without evidence for thoracic aortic aneurysm or dissection. 4. Significant findings involving the upper abdomen including abdominal aortic pseudoaneurysm are completely evaluated within the abdomen CT obtained in conjunction with chest examination. Signed by Denilson Perkins MD 02/04/2017 07:04 P
[2017-02-04] MEDS ORDERED: GLUCOSE 4 GM CHEW TABLET PO PRN (20:15)
[2017-02-04] MEDS ORDERED: GLUCAGON FOR INJ 1 MG VIAL (J1610) SC PRN (20:15)
[2017-02-04] MEDS: DEXTROSE 50% 50 ML SYRINGE IV PRN (20:41)
[2017-02-04] MEDS: SERTRALINE 100 MG TAB PO SCH (21:00)
[2017-02-04] MEDS: VANCOMYCIN HCL 1,000 MG, VIAL MATE ADAPTER 1 EACH in D5W 250 ML IV SCH (22:09)
[2017-02-04] MEDS ORDERED: LORazepam 2 MG/ML VIAL (J2060) IV PRN (23:00)
[2017-02-05] VITALS (19 sets, daily range): BP systolic 80–113; BP diastolic 35–58; O2SAT 90–98
[2017-02-05] MEDS: DEXTROSE 50% 50 ML SYRINGE IV PRN (00:03)
[2017-02-05] MEDS ORDERED: D10W/0.45% SODIUM CHLORIDE 1,000 ML IV SCH ×2 (00:30→06:15)
[2017-02-05] MEDS: PIPERACILLIN/TAZOBACTAM SOD 3.375 GM in D5W MINI-BAG PLUS 50 ML IV SCH ×3 (02:40→17:52)
[2017-02-05 05:33] LABS: ADD MANUAL DIFFER YES; ALBUMIN 1.5 GM/DL (3.2-5.2); ALBUMIN/GLOBULIN RATIO 0.33 (1.00-1.93); BILIRUBIN,TOTAL 2.8 MG/DL (0.2-1.0); CALCIUM LEVEL 8.4 MG/DL (8.8-10.2); CREATININE FOR GFR 2.74 MG/DL (0.70-1.30); DIFF SLIDE NUMBER 75; GLOMERULAR FILTRATION RATE 24.4 (>42); MEAN CORPUSCULAR HEMOGLOBIN 36.2 pg (27.0-33.0); MEAN CORPUSCULAR HGB CONC 31.7 g/dl (32.0-36.5); MEAN CORPUSCULAR VOLUME 114.1 fl (80.0-96.0); POTASSIUM SERUM 4.1 MEQ/L (3.5-5.1); RED CELL DISTRIBUTION WIDTH 24.1 % (11.5-14.5)
[2017-02-05 05:34] LABS: INR 2.92
[2017-02-05 06:02] LABS: PLATELET COUNT, AUTOMATED 37 k/mm3 (150-450); WHITE BLOOD COUNT 98.6 K/mm3 (4.0-10.0)
[2017-02-05 06:14] LABS: ANISOCYTOSIS 3+; BANDS 12 % (< 11); HYPOCHROMASIA 2+; NUCLEATED RED BLOOD CELL 1 % (0-0)
[2017-02-05 06:15] LABS: BURR CELLS 2+
[2017-02-05 07:12] LABS: ABG BASE EXCESS -11.3 (-2.0-2.0); ABG HCO3 16.5 MEQ/L (22.0-26.0); ABG PARTIAL PRESSURE CO2 46.2 mmHg (35.0-45.0); ABG PARTIAL PRESSURE O2 99.9 mmHg (75.0-100.0); ABG STANDARD HCO3 15.4 MEQ/L (22.0-26.0)
[2017-02-05 07:15] LABS: ABG pH (ARTERIAL) 7.172 UNITS (7.350-7.450)
[2017-02-05] MEDS ORDERED: SODIUM BICARBONATE 8.4% INJ 50 ML SYRINGE IV STA (07:23)
[2017-02-05] MEDS ORDERED: ISOVUE-300 61% 50ML VIAL (Q9967) As Ordered ONE (07:33)
[2017-02-05] MEDS ORDERED: HEPARIN 1,000 UNITS/ML 10ML VIAL (FOR RADIOLOGY& DIALYSIS ONLY) As Ordered ONE (07:33)
--- NOTE | 2017-02-05 07:40 | IPNPDOC ---
Subjective Date Seen The patient was seen on 02/05/17. Subjective Chief Complaint/HPI The patient is a 71-year-old male admitted with a reason for visit of Gastric Neoplasm. Events since last encounter + for pseudoaneurysm. Plan for Dr. Hill to take patient for surgical correction this am. Called this am for c/o unresponsive, with anemia. ABG obtained, full report unavailable. verbal from nurse: critical value of pH of 7.12. Patient received aggressive fluid resuscitation yesterday needing D10 NS due to significant hypoglycemia. CVP improved to most recent value of 11. Brother at bedside. Agreeable to intubation for procedure. General: Reports: ROS Unobtainable Objective Physical Examination General Exam: Positive: No Acute Distress, Negative: Alert (non-verbal resting, mildly tachpenic. CPAP in place. ) Eye Exam: Positive: PERRLA ENT Exam: Positive: Mucous membr. moist/pink Neck Exam: Positive: Supple, Negative: JVD Chest Exam: Positive: Clear to auscultation Heart Exam: Positive: Rate Normal, Regular Rhythm Telemetry: Positive: No significant arrhythmia Abdomen Exam: Positive: Soft Extremity Exam: Negative: Edema Skin Exam: Positive: Nl turgor and temperature Neuro Exam: Positive: Other (grimaces and groans to sternal rub. non-verbal. Does not open eyes. ) Psych Exam: Positive: Other (see neuro exam. ) Assessment /Plan Problems (1) Paroxysmal atrial fibrillation Status: Acute Problem Text: 02/05 1830 SR to AF c RVR 130-150-no improvement c dig 0.25 IV x 2; then converted for ~1 min c metoprolol 5 IV x 2, will repeat on sotalol 80 BID (2) Pseudoaneurysm of aorta Problem Text: 02/05 s/p intravascular aneurysm coiling by Dr. Hill-unable to visualize celiac trunk-? compromised 02/04 case d/w Dr. Hill-consult placed 02/04/17 aortic US: Pseudoaneurysm at the diaphragmatic hiatus anterior to the aorta measuring 8.0 x 6.7 x 7.4 cm. Mycotic aneurysm is a possibility. (3) Coagulopathy Status: Chronic Problem Text: 2 ESLD 02/01 PT, PTT 39 plan FFP if active bleeding or pre-op 02/04 vitamin K 10 SC x 1 given (4) Respiratory failure Status: Acute Problem Text: 02/04 DNR/DNI secured from , currently on CPAP per Dr. Muñoz (5) Hypoglycemia Status: Acute Problem Text: 02/05/17: D10NS @100 cc per hour. Glucose stable overnight. 02/04 600 BG 42-resolved c [id number] 2 sepsis (6) Sepsis Status: Acute Problem Text: D2 vanco/Zosyn-RD. mesenteric ischemia 2 pseudoaneurysm compression and B PN concern for mesenteric ischemia 2 pseudoaneurysm compression 02/05 99K (N73/B12) 02/04/2017: WBC to 50K (01/31 7.9), LA 5.1 Sudden hypoxia with MS changes. RAT team called and patient transferred to ICU. Central line ordered and placed by Dr. Felipe Andersen with consent from patient's partner. 02/05 SCX P 02/04 BCX x NG 02/04 UCX x 1 01/28 BCX x 2 NG . (7) Pancytopenia Permanent Comment: Longstanding problem with Neupogen support of neutropenia. Abnormal BM biopsy from [facility] done November 2014 (see eCW chart) Chronic thrombocytopenia and anemia also Last Edited By: Amaury Jack M.D. on Feb 10, 2016 11:28 Status: Chronic Problem Specific Plan: Monitor Clinically, Repeat Labs Problem Text: 02/04/17: WBC 50,000, platelets 23 WBC 7.9 IVF. Blood cx no growth after 72 hrs. Plts 26. Continue to monitor. 01/30 - WBC 9.2 IVF. Blood cx no growth after 48 hrs. Urine cx neg. / - WBC 10.4. IVF. Blood cx no growth after 24 hrs. Urine cx neg. /4 - Getting IVF. WBC 17.6 yesterday. Today's AM labs pending. Blood and urine cx pending. (8) Multifocal pneumonia Problem Text: c respiratory failure on MV per CC 02/05/17: CT angio of chest confirms significant pneumonia rx as per sepsis (9) Anemia Status: Acute Problem Text: 01/31 - Hgb 9.2. Stable. Received 2 units PRBCs 01/28. / - Hgb 8.8. Stable. Received 2 units PRBCs 01/28. / - Received 2 units PRBCs yesterday. (10) CKD (chronic kidney disease) Status: Chronic Problem Specific Plan: Monitor Clinically Problem Text: 02/05/17: Cr. 2/74 today. at least partially 2 psuedoaneurysm 02/04/17: PREET with Cr 2.0. 9/7 - Creat 1.34. 9/6 - Creat 1.30. /5 - Creat 1.54 (1.61 yesterday and 1.87 day before). 01/28 - IVF. AM labs pending. (11) Clostridium difficile colitis Status: Chronic Problem Specific Plan: Monitor Clinically Problem Text: H/O multiple episodes Cdiff. Has been on PO Vanco q3 days with last dose 01/29. (12) PREET (acute kidney injury) Status: Acute Response to Treatment: Stable Problem Text: stable lytes baseline cr 1.2 (13) Atrial fibrillation Plan/VTE VTE Prophylaxis Ordered?: No (TEDs, SCDs) VTE Exclusion Pharmacological: Bleeding Risk (INR 2.56. Teds and SCDs ordered. ) Plan/Urinary Catheter Reason for insertion/continuin: Critical Pt monitoring VS, I&O, [facility] Vital Signs/I&O Vital Signs Date Time Temp Pulse Resp B/P (MAP) Pulse Ox O2 Delivery O2 Flow Rate FiO2 02/05/17 06:00 89 90/54 (66) 97 02/05/17 04:00 97.2 30 NIPPV (BIPAP/CPAP) 100 02/04/17 11:00 2.0 I&O- Last 24 Hours up to 6 AM 02/05/17 05:59 Intake Total 2540 ml Output Total 825 ml Balance 1715 ml Laboratory Data 24H LABS Laboratory Tests 2 02/04/17 09:08: Ammonia 41H 02/04/17 09:09: Blood Gas Bicarbonate Standard 18.6L, Arterial Blood pH 7.291L, Arterial Blood Partial Pressure CO2 40.6, Arterial Blood Partial Pressure O2 66.4L, Arterial Blood Total CO2 20.4L, Arterial Blood HCO3 19.1L, Arterial Blood Base Excess - 7.0L, Arterial Blood Oxygen Saturation 87.9L 02/04/17 09:49: Lactic Acid Level 5.1*H 02/04/17 09:55: Urine Appearance HAZY, Urine Color YELLOW, Urine pH 5.0, Urine Specific [place] 1.015, Urine Protein NEGATIVE, Urine Glucose (UA) NEGATIVE, Urine Ketones NEGATIVE, Urine Urobilinogen 0.2, Urine Bilirubin NEGATIVE, Urine Leukocyte Esterase NEGATIVE, Urine Blood 2+H, Urine Nitrite NEGATIVE, Urine WBC (Auto) 2, Urine RBC (Auto) 5H, Urine Hyaline Casts (Auto) 0, Urine Bacteria (Auto) NEGATIVE, Urine Squamous Epithelial Cells 0, Urine Mucus (Auto) SMALL, Urine Sperm (Auto) 02/04/17 11:41: Bedside Glucose (Misc Panel) 33*L 02/04/17 12:17: Bedside Glucose (Misc Panel) 116H 02/04/17 12:20: Blood Gas Bicarbonate Standard 17.9L, Arterial Blood pH 7.262L, Arterial Blood Partial Pressure CO2 42.6, Arterial Blood Partial Pressure O2 56.1L, Arterial Blood Total CO2 20.1L, Arterial Blood HCO3 18.8L, Arterial Blood Base Excess - 7.7L, Arterial Blood Oxygen Saturation 79.7L 02/04/17 14:06: Urine Appearance CLOUDYH, Urine Color SENG, Urine pH 5.0, Urine Specific [place] 1.014, Urine Protein 1+H, Urine Glucose (UA) NEGATIVE, Urine Ketones NEGATIVE, Urine Urobilinogen 0.2, Urine Bilirubin NEGATIVE, Urine Leukocyte Esterase NEGATIVE, Urine Blood 2+H, Urine Nitrite NEGATIVE, Urine WBC (Auto) 4H , Urine RBC (Auto) 2, Urine Hyaline Casts (Auto) 1, Urine Bacteria (Auto) 1+H, Urine Squamous Epithelial Cells 2, Urine Mucus (Auto) SMALL, Urine Sperm (Auto) , Lactic Acid Followup at 4 Hours 5.9*H 02/04/17 19:32: Bedside Glucose (Misc Panel) 68L 02/04/17 20:39: Bedside Glucose (Misc Panel) 56L 02/04/17 21:03: Bedside Glucose (Misc Panel) 85 02/04/17 23:16: Bedside Glucose (Misc Panel) 63L 02/04/17 23:59: Bedside Glucose (Misc Panel) 56L 02/05/17 00:34: Bedside Glucose (Misc Panel) 105 02/05/17 02:38: Bedside Glucose (Misc Panel) 140H 02/05/17 05:03: Neutrophils 73, Band Neutrophils 12H, Lymphocytes (Manual) 1L, Monocytes (Manual ) 3, Metamyelocytes 6H, Myelocytes 5H, Nucleated Red Blood Cells 1H, Platelet Estimate MARKED DECREASE, Hypochromasia 2+, Anisocytosis 3+, Macrocytosis 3+, [place] Cells 2+, Prothrombin Time 31.8H, Prothromb Time International Ratio 2.92, Activated Partial Thromboplast Time 45.9H, Anion Gap 13, Glomerular Filtration Rate 24.4L, Blood Urea Nitrogen 77H, Creatinine 2.74H, Sodium Level 150H, Potassium Level 4.1, Chloride Level 116H, Carbon Dioxide Level 21, Calcium Level 8.4L, Aspartate Amino Transf (AST/SGOT) 954H, Alanine Aminotransferase ( ALT/SGPT) 347H, Alkaline Phosphatase 136H, Total Bilirubin 2.8H, Total Protein 6.0L, Albumin 1.5L, Albumin/Globulin Ratio 0.33L 02/05/17 06:55: Blood Gas Bicarbonate Standard 15.4L, Arterial Blood pH 7.172*L, Arterial Blood Partial Pressure CO2 46.2H, Arterial Blood Partial Pressure O2 99.9, Arterial Blood Total CO2 18.0L, Arterial Blood HCO3 16.5L, Arterial Blood Base Excess - 11.3L, Arterial Blood Oxygen Saturation 95.6 CBC/BMP Laboratory Tests 02/05/17 05:03 Red Blood Count 2.19 L, Mean Corpuscular Volume 114.1 H, Mean Corpuscular Hemoglobin 36.2 H, Mean Corpuscular Hemoglobin Concent 31.7 L, Red Cell Distribution Width 24.1 H, Calcium Level 8.4 L, Aspartate Amino Transf (AST/SGOT ) 954 H, Alanine Aminotransferase (ALT/SGPT) 347 H, Alkaline Phosphatase 136 H, Total Bilirubin 2.8 H, Total Protein 6.0 L, Albumin 1.5 L Microbiology Microbiology 02/04/17 Blood Culture, Received Pending 01/28/17 Blood Culture - Final, Complete NO GROWTH AFTER 5 DAYS 01/28/17 Blood Culture - Final, Complete NO GROWTH AFTER 5 DAYS 02/04/17 Urine Culture, Received Pending 01/28/17 Urine Culture - Final, Complete Daniela Warren Feb 05, 2017 07:39 Maged Negron M.D. Feb 05, 2017 21:57
[2017-02-05] MEDS ORDERED: fentaNYL 100 MCG/2 ML INJECTION (J3010) As Ordered ONE (07:42)
[2017-02-05 08:30] LABS: MAGNESIUM LEVEL 2.3 MG/DL (1.8-2.4)
[2017-02-05] MEDS ORDERED: THROMBIN SOLN 5,000 UNITS VIAL As Ordered ONE (08:57)
[2017-02-05] MEDS: SOTALOL HCL 80 MG TAB PO SCH ×2 (09:00→20:03)
[2017-02-05] MEDS ORDERED: THROMBIN SOLN 20,000 UNITS KIT XX ONE (09:15)
[2017-02-05] MEDS ORDERED: MIDAZOLAM INJ 2 MG/2 ML VIAL (J2250) As Ordered ONE (11:05)
[2017-02-05] MEDS: PROPOFOL 1,000 MG in APPROPRIATE DILUENT 1 EA IV SCH (12:00)
[2017-02-05] MEDS: IPRATROPIUM 0.5MG/ALBUTEROL 2.5MG INH SOL UD 3ML (DUONEB)(J7620) NEB SCH ×4 (12:00→23:16)
[2017-02-05 12:35] LABS: ABG PARTIAL PRESSURE CO2 42.6 mmHg (35.0-45.0); ABG PARTIAL PRESSURE O2 103.3 mmHg (75.0-100.0); ABG STANDARD HCO3 16.3 MEQ/L (22.0-26.0); ABG TOTAL CO2 18.3 MEQ/L (23.0-31.0)
--- NOTE | 2017-02-05 12:36 | REP ---
Clinical: Respiratory failure. Comparison: 02/04/2017 and 09:46 a.m. Findings: Endotracheal tube approximately 3 cm above the mk. Nasogastric tube courses below left hemidiaphragm. Right subclavian catheter with tip in the SVC. Stable cardiomegaly with bilateral lower lobe opacities. Findings suggest pulmonary interstitial edema with bibasilar atelectasis and pleural effusions. No pneumothorax. Skeletal structures intact. Impression: 1. Endotracheal tube and nasogastric tube in satisfactory position. 2. Findings compatible with CHF including bibasilar atelectasis and pleural effusions. Signed by Denilson Perkins MD 02/05/2017 12:27 P
[2017-02-05] MEDS: PANTOPRAZOLE 40MG INJ (PROTONIX) (C9113) IV SCH (12:38)
[2017-02-05 12:40] LABS: ABG pH (ARTERIAL) 7.219 UNITS (7.350-7.450)
--- NOTE | 2017-02-05 12:55 | CCN ---
DATE: 02/05/2017 START TIME: 1118 hours STOP TIME: 1209 hours I attended Mr. Ott on his arrival from the interventional radiology suite. I have discussed this case at length with Dr. Hill. He is now status intravascular coiling of his aneurysm. Intraoperatively required about 1300 mL of Crystalloid. He was on Carlos-Synephrine for a short time. Blood loss was felt to be minimal. In speaking with Dr. Hill, his celiac artery was not able to be well visualized and the concern is that this was compromised by his aneurysm. There is some optimism regarding as to whether or not he has sufficient collaterals. Currently, he is medically paralyzed and sedated. Endotracheal tube is in place. Ventilatory adjustments were made by myself. Heart rate between 95 and 101 with a sinus mechanism. Respiratory rate 20 via the ventilator. Blood pressure 120 systolic via A line. On examination, he is sedate. Pupils do react. Trachea is in the midline. Chest is fairly clear anteriorly. Diminished at the bases. No focal wheeze or rhonchus. No rubs. Cardiac examination is distant but regular. I do believe there are faintly palpable dorsalis pedis pulses but femorals bilateral are bounding. Abdomen is soft. I do not hear significant bowel sounds. No convincing organomegaly. Extremities again show his persistent edema but no cyanosis or clubbing. Neurologically, he is sedate. Repeat laboratories are all pending. This morning, previous to going to his procedure, his white blood cell count was up to 98.6, 73% segmented neutrophils, 12% bands. Hemoglobin 7.9 and platelet count 73,000. Sodium 150, potassium 4.1, chloride 116, CO2 of 21, BUN 77, creatinine up to 2.74, glucose 150. Blood gas this morning prior to intubation showed a pH of 7.172, PCO2 of 46.2, and PAO2 of 99%. This was on a CPAP of 10 and 100% FiO2. The most pressing problems requiring my immediate presence at the bedside are: 1. Respiratory failure requiring mechanical ventilation. 2. Metabolic acidosis, multifactorial. 3. Sepsis with elevated lactate but no hypotension. 4. Renal failure, progressive. 5. Pneumonia versus atelectasis. 6. Aortic aneurysm with vascular compromise. At this point, we await his arterial blood gas. We will continue his current IV hydration. I am in agreement with his current antimicrobials. Ulcer and deep vein thrombosis (DVT) prophylaxis remain in place. I have now spoken with his primary service as well. It is my understanding that his do not resuscitate regarding resuscitation remains in place and that he had just rescinded intubation portion of that for several days surrounding his procedure. We will reconfirm that with the family. Only time will tell regarding the patency of his abdominal vasculature. We will continue antibiotics as outlined above. Likely tomorrow we will begin TPN. At this point his prognosis remains guarded at best and there is a very high likelihood that he may not survive this hospitalization. We await the upcoming blood work. I left the bedside at 1209 hours. 51 minutes of critical care time delivered at the bedside, not including procedures.
[2017-02-05 13:42] LABS: ALBUMIN 1.3 GM/DL (3.2-5.2); ALBUMIN/GLOBULIN RATIO 0.31 (1.00-1.93); ALKALINE PHOSPHATASE 143 U/L (45-117); ALT/SGPT 372 U/L (12-78); ANION GAP 15 MEQ/L (8-16); AST/SGOT 1013 U/L (15-37); BILIRUBIN,TOTAL 3.7 MG/DL (0.2-1.0); BLOOD UREA NITROGEN 80 MG/DL (7-18); CALCIUM LEVEL 7.8 MG/DL (8.8-10.2); CARBON DIOXIDE LEVEL 19 MEQ/L (21-32); CHLORIDE LEVEL 118 MEQ/L (98-107); CHOLESTEROL LEVEL < 50 MG/DL (< 200); CREATININE FOR GFR 2.73 MG/DL (0.70-1.30); GLOMERULAR FILTRATION RATE 24.5 (>42); GLUCOSE, FASTING 156 MG/DL (83-110); PHOSPHORUS LEVEL 7.5 MG/DL (2.5-4.9); POTASSIUM SERUM 4.3 MEQ/L (3.5-5.1); SODIUM LEVEL 152 MEQ/L (136-145); TOTAL PROTEIN 5.5 GM/DL (6.4-8.2); TRIGLYCERIDES LEVEL 51 MG/DL (<150)
[2017-02-05] MEDS: D5W/0.45% SODIUM CHLORIDE 1,000 ML IV SCH ×2 (14:56→20:02)
[2017-02-05] MEDS ORDERED: DEXTROSE 50% 50 ML SYRINGE IV PRN (15:30)
[2017-02-05] MEDS ORDERED: GLUCAGON FOR INJ 1 MG VIAL (J1610) SC PRN (15:30)
[2017-02-05] MEDS ORDERED: GLUCOSE 4 GM CHEW TABLET PO PRN (15:30)
[2017-02-05] MEDS: HumaLOG INSULIN (NovoLOG) PER UNIT SC SCH (17:52)
[2017-02-05 18:01] LABS: ABG BASE EXCESS -7.8 (-2.0-2.0); ABG HCO3 18.7 MEQ/L (22.0-26.0); ABG PARTIAL PRESSURE O2 81.2 mmHg (75.0-100.0); ABG TOTAL CO2 20.1 MEQ/L (23.0-31.0); ABG pH (ARTERIAL) 7.257 UNITS (7.350-7.450)
[2017-02-05] MEDS ORDERED: DIGOXIN INJ 0.5 MG/2 ML AMP (J1160) IV STA (18:44)
[2017-02-05] MEDS: MIDAZOLAM INJ 2 MG/2 ML VIAL (J2250) IV PRN (18:59)
[2017-02-05] MEDS ORDERED: DIGOXIN INJ 0.5 MG/2 ML AMP (J1160) IV ONE (19:15)
[2017-02-05] MEDS: SERTRALINE 100 MG TAB PO SCH (20:03)
[2017-02-05] MEDS ORDERED: METOPROLOL 5 MG/5 ML VIAL IV STA ×4 (20:30→22:19)
[2017-02-05] MEDS: VANCOMYCIN HCL 1,000 MG, VIAL MATE ADAPTER 1 EACH in D5W 250 ML IV SCH (21:42)
[2017-02-06] VITALS (30 sets, daily range): BP systolic 93–164; BP diastolic 40–80; O2SAT 96–97
[2017-02-06] MEDS: PIPERACILLIN/TAZOBACTAM SOD 3.375 GM in D5W MINI-BAG PLUS 50 ML IV SCH ×4 (00:11→17:05)
[2017-02-06] MEDS: HumaLOG INSULIN (NovoLOG) PER UNIT SC SCH ×4 (00:12→17:23)
[2017-02-06] MEDS: D5W/0.45% SODIUM CHLORIDE 1,000 ML IV SCH ×5 (00:12→20:17)
[2017-02-06] MEDS: MIDAZOLAM INJ 2 MG/2 ML VIAL (J2250) IV PRN ×2 (00:34→23:09)
[2017-02-06] MEDS ORDERED: METOPROLOL 5 MG/5 ML VIAL IV STA (01:02)
[2017-02-06] MEDS: IPRATROPIUM 0.5MG/ALBUTEROL 2.5MG INH SOL UD 3ML (DUONEB)(J7620) NEB SCH ×6 (03:34→23:33)
[2017-02-06 05:19] LABS: ABG BASE EXCESS -7.5 (-2.0-2.0); ABG HCO3 17.6 MEQ/L (22.0-26.0); ABG PARTIAL PRESSURE CO2 33.9 mmHg (35.0-45.0); ABG PARTIAL PRESSURE O2 77.6 mmHg (75.0-100.0); ABG STANDARD HCO3 18.2 MEQ/L (22.0-26.0); ABG TOTAL CO2 18.6 MEQ/L (23.0-31.0); ABG pH (ARTERIAL) 7.332 UNITS (7.350-7.450)
[2017-02-06 05:21] LABS: ADD MANUAL DIFFER YES; DIFF SLIDE NUMBER 43; MEAN CORPUSCULAR HEMOGLOBIN 33.8 pg (27.0-33.0); MEAN CORPUSCULAR HGB CONC 33.8 g/dl (32.0-36.5); RED CELL DISTRIBUTION WIDTH 25.1 % (11.5-14.5)
[2017-02-06 05:27] LABS: PLATELET COUNT, AUTOMATED 11 k/mm3 (150-450); WHITE BLOOD COUNT 68.9 K/mm3 (4.0-10.0)
[2017-02-06 05:31] LABS: INR 4.59
[2017-02-06 05:46] LABS: ALBUMIN 1.2 GM/DL (3.2-5.2); ALBUMIN/GLOBULIN RATIO 0.28 (1.00-1.93); BILIRUBIN,TOTAL 4.9 MG/DL (0.2-1.0); CALCIUM LEVEL 6.9 MG/DL (8.8-10.2); CREATININE FOR GFR 2.98 MG/DL (0.70-1.30); GLOMERULAR FILTRATION RATE 22.1 (>42); POTASSIUM SERUM 4.1 MEQ/L (3.5-5.1); TOTAL PROTEIN 5.5 GM/DL (6.4-8.2)
[2017-02-06 05:49] LABS: MAGNESIUM LEVEL 2.3 MG/DL (1.8-2.4)
[2017-02-06 05:59] LABS: DIGOXIN LEVEL 1.9 NG/ML (0.5-2.0)
[2017-02-06 06:12] LABS: BANDS 16 % (< 11); NUCLEATED RED BLOOD CELL 2 % (0-0)
[2017-02-06 06:14] LABS: POIKILOCYTOSIS 3+
[2017-02-06 06:15] LABS: ANISOCYTOSIS 3+
[2017-02-06 06:16] LABS: SCHISTOCYTES 2+
--- NOTE | 2017-02-06 08:16 | REP ---
Portable chest, 07:17 a.m., 02/06/2017, the patient semi upright, single AP view: Comparisons are the portable chest of 02/05/[address] of 02/04/2017. The endotracheal tube remains in satisfactory location with the tip above the mk at the level of the aortic arch. The nasogastric tube remains in satisfactory position with the tip in the abdominal left upper quadrant, unchanged. Bilateral infiltrates and pleural effusions are again identified, not significantly changed. Impression: No significant interval change. Signed by Aaron Solis MD 02/06/2017 08:08 A
[2017-02-06] MEDS: PROPOFOL 1,000 MG in APPROPRIATE DILUENT 1 EA IV SCH (09:06)
[2017-02-06] MEDS: SOTALOL HCL 80 MG TAB PO SCH ×2 (09:30→20:37)
[2017-02-06] MEDS: PANTOPRAZOLE 40MG INJ (PROTONIX) (C9113) IV SCH (09:30)
--- NOTE | 2017-02-06 10:27 | IPNPDOC ---
Subjective Date Seen The patient was seen on 02/06/17. Subjective Chief Complaint/HPI The patient is a 71-year-old male admitted with a reason for visit of Gastric Neoplasm. Events since last encounter Remains intubated. had episodes of Afib with RVR overnight. Converted with Lopressor x 4 doses and Digoxin x 2 doses. Urine output: 100-125 q 2 hrs. Jiang intact. General: Reports: ROS Unobtainable Objective Physical Examination General Exam: Positive: No Acute Distress, Negative: Alert (intubated. Appears comfortable. ) Eye Exam: Positive: PERRLA ENT Exam: Positive: Mucous membr. moist/pink Neck Exam: Positive: Supple, Negative: JVD Chest Exam: Positive: Clear to auscultation Heart Exam: Positive: Rate Normal, Regular Rhythm Telemetry: Positive: No significant arrhythmia Abdomen Exam: Positive: Soft Extremity Exam: Negative: Edema Skin Exam: Positive: Nl turgor and temperature Neuro Exam: Positive: Other (sedated and intubated. grimaces and groans to sternal rub. non-verbal. Does not open eyes. ) Psych Exam: Positive: Other (see neuro exam. ) Assessment /Plan Problems (1) Paroxysmal atrial fibrillation Status: Acute Problem Text: 02/06/17: NSR rate 90s. 02/05 1830 SR to AF c RVR 130-150-no improvement c dig 0.25 IV x 2; then converted for ~1 min c metoprolol 5 IV x 2, will repeat on sotalol 80 BID (2) Pseudoaneurysm of aorta Problem Text: 02/06/17: monitor. Dr. Hill, vascular following. 02/05 s/p intravascular aneurysm coiling by Dr. Hill-unable to visualize celiac trunk-? compromised 02/04 case d/w Dr. Hill-consult placed 02/04/17 aortic US: Pseudoaneurysm at the diaphragmatic hiatus anterior to the aorta measuring 8.0 x 6.7 x 7.4 cm. Mycotic aneurysm is a possibility. (3) Coagulopathy Status: Chronic Problem Text: INR 4.85 today: per Vascular, do not reverse to clot potential 2 ESLD 02/01 PT, PTT 39 plan FFP if active bleeding or pre-op 02/04 vitamin K 10 SC x 1 given (4) Respiratory failure Status: Acute Problem Text: 02/06/17: currently intubated. Family agreeable to intubation while progress is noted in condition. 02/04 DNR/DNI secured from , currently on CPAP per Dr. Muñoz (5) Hypoglycemia Status: Acute Problem Text: 02/06/17: plan on starting parenteral nutrition today via [employer]. 02/05/17: D10NS @100 cc per hour. Glucose stable overnight. 02/04 600 BG 42-resolved c [id number] 2 sepsis (6) Sepsis Status: Acute Problem Text: D2 vanco/Zosyn-RD. mesenteric ischemia 2 pseudoaneurysm compression and B PN concern for mesenteric ischemia 2 pseudoaneurysm compression 02/05 99K (N73/B12) 02/04/2017: WBC to 50K (01/31 7.9), LA 5.1 Sudden hypoxia with MS changes. RAT team called and patient transferred to ICU. Central line ordered and placed by Dr. Felipe Andersen with consent from patient's partner. 02/05 SCX P 02/04 BCX x NG 02/04 UCX x 1 01/28 BCX x 2 NG . (7) Pancytopenia Permanent Comment: Longstanding problem with Neupogen support of neutropenia. Abnormal BM biopsy from [facility] done November 2014 (see eCW chart) Chronic thrombocytopenia and anemia also Last Edited By: Amaury Jack M.D. on Feb 10, 2016 11:28 Status: Chronic Problem Specific Plan: Monitor Clinically, Repeat Labs Problem Text: 02/04/17: WBC 50,000, platelets 23 WBC 7.9 IVF. Blood cx no growth after 72 hrs. Plts 26. Continue to monitor. 01/30 - WBC 9.2 IVF. Blood cx no growth after 48 hrs. Urine cx neg. 01/29 - WBC 10.4. IVF. Blood cx no growth after 24 hrs. Urine cx neg. 01/28 - Getting IVF. WBC 17.6 yesterday. Today's AM labs pending. Blood and urine cx pending. (8) Multifocal pneumonia Problem Text: c respiratory failure on MV per CC 02/05/17: CT angio of chest confirms significant pneumonia rx as per sepsis (9) Anemia Status: Acute Problem Text: 01/31 - Hgb 9.2. Stable. Received 2 units PRBCs 01/28. 01/30 - Hgb 8.8. Stable. Received 2 units PRBCs 01/28. 01/29 - Received 2 units PRBCs yesterday. (10) CKD (chronic kidney disease) Status: Chronic Problem Specific Plan: Monitor Clinically Problem Text: 02/05/17: Cr. today. at least partially 2 psuedoaneurysm 02/04/17: PREET with Cr 2.0. 9/7 - Creat 1.34. 9/6 - Creat 1.30. /5 - Creat 1.54 (1.61 yesterday and 1.87 day before). 01/28 - IVF. AM labs pending. (11) Clostridium difficile colitis Status: Chronic Problem Specific Plan: Monitor Clinically Problem Text: H/O multiple episodes Cdiff. Has been on PO Vanco q3 days with last dose 01/29. (12) PREET (acute kidney injury) Status: Acute Response to Treatment: Stable Problem Text: stable lytes baseline cr 1.2 Plan/VTE VTE Prophylaxis Ordered?: No (TEDs, SCDs) VTE Exclusion Pharmacological: Bleeding Risk (INR 2.56. Teds and SCDs ordered. ) Plan/Urinary Catheter Reason for insertion/continuin: Critical Pt monitoring Plan Family Medicine Attending Note: I saw and examine Mr. Ott this afternoon; I discussed his care with ANGELIQUE Lindquist and I agree with her note as documented. Patient was tachycardic overnight and received metoprolol x2 and then converted to NSR. He again went into Afib with RVR this afternoon and so a cardizem drip was ordered and he will be titrated to a HR of <110. Family is asking if we can d/c TEDS (these were off yesterday), which I think is reasonable as he is autoanticoagulated and likelihood of forming a clot it low. (KES) VS, I&O, 24H, Fishbone Vital Signs/I&O Vital Signs Date Time Temp Pulse Resp B/P (MAP) Pulse Ox O2 Delivery O2 Flow Rate FiO2 02/06/17 09:30 99 138/76 02/06/17 09:01 97 Ventilator 80 02/06/17 09:01 4 02/06/17 08:00 98.6 02/04/17 11:00 2.0 I&O- Last 24 Hours up to 6 AM 02/06/17 05:59 Intake Total 4185 ml Output Total 1695 ml Balance 2490 ml Laboratory Data 24H LABS Laboratory Tests 2 02/05/17 11:57: Bedside Glucose (Misc Panel) 154H 02/05/17 12:22: Blood Gas Bicarbonate Standard 16.3L, Arterial Blood pH 7.219*L, Arterial Blood Partial Pressure CO2 42.6, Arterial Blood Partial Pressure O2 103.3H, Arterial Blood Total CO2 18.3L, Arterial Blood HCO3 17.0L, Arterial Blood Base Excess - 10.0L, Arterial Blood Oxygen Saturation 96.6 02/05/17 12:27: Lactic Acid Level 7.0*H 02/05/17 12:54: Anion Gap 15, Glomerular Filtration Rate 24.5L, Blood Urea Nitrogen 80H, Creatinine 2.73H, Sodium Level 152H, Potassium Level 4.3, Chloride Level 118H, Carbon Dioxide Level 19L, Calcium Level 7.8L, Phosphorus Level 7.5H, Aspartate Amino Transf (AST/SGOT) 1013H, Alanine Aminotransferase (ALT/SGPT) 372H, Lactate Dehydrogenase 1414H, Total Creatine Kinase 435H, Alkaline Phosphatase 143H, Total Bilirubin 3.7H, Triglycerides Level 51, Cholesterol Level < 50, Total Protein 5.5L, Albumin 1.3L, Albumin/Globulin Ratio 0.31L 02/05/17 16:42: Lactic Acid Followup at 4 Hours 5.6*H 02/05/17 17:44: Blood Gas Bicarbonate Standard 18.0L, Arterial Blood pH 7.257L, Arterial Blood Partial Pressure CO2 43.0, Arterial Blood Partial Pressure O2 81.2, Arterial Blood Total CO2 20.1L, Arterial Blood HCO3 18.7L, Arterial Blood Base Excess - 7.8L, Arterial Blood Oxygen Saturation 94.3L 02/05/17 17:50: Bedside Glucose (Misc Panel) 167H 02/05/17 23:45: Bedside Glucose (Misc Panel) 143H 02/06/17 05:05: Neutrophils 68, Band Neutrophils 16H, Lymphocytes (Manual) 4L, Monocytes (Manual ) 6, Metamyelocytes 6H, Nucleated Red Blood Cells 2H, Platelet Estimate MARKED DECREASE, Poikilocytosis 3+, Basophilic Stippling 1+, Anisocytosis 3+, Schistocytes 2+, Prothrombin Time 45.9H, Prothromb Time International Ratio 4.59 , Activated Partial Thromboplast Time 61.7H, Blood Gas Bicarbonate Standard 18.2L, Arterial Blood pH 7.332L, Arterial Blood Partial Pressure CO2 33.9L, Arterial Blood Partial Pressure O2 77.6, Arterial Blood Total CO2 18.6L, Arterial Blood HCO3 17.6L, Arterial Blood Base Excess -7.5L, Arterial Blood Oxygen Saturation 94.2L, Anion Gap 13, Glomerular Filtration Rate 22.1L, Blood Urea Nitrogen 82H, Creatinine 2.98H, Sodium Level 152H, Potassium Level 4.1, Chloride Level 119H, Carbon Dioxide Level 20L, Calcium Level 6.9L, Aspartate Amino Transf (AST/SGOT) 913H, Alanine Aminotransferase (ALT/SGPT) 377H, Alkaline Phosphatase 244H, Total Bilirubin 4.9H, Total Protein 5.5L, Albumin 1.2L, Magnesium Level 2.3, Troponin I 0.70H, Albumin/Globulin Ratio 0.28L, Digoxin Level 1.9 02/06/17 05:53: Bedside Glucose (Misc Panel) 88 02/06/17 08:19: Bedside Glucose (Misc Panel) 107 CBC/BMP Laboratory Tests 02/05/17 12:54 Calcium Level 7.8 L, Phosphorus Level 7.5 H, Aspartate Amino Transf (AST/SGOT) 1013 H, Alanine Aminotransferase (ALT/SGPT) 372 H, Lactate Dehydrogenase 1414 H , Total Creatine Kinase 435 H, Alkaline Phosphatase 143 H, Total Bilirubin 3.7 H , Triglycerides Level 51, Cholesterol Level < 50, Total Protein 5.5 L, Albumin 1.3 L 02/06/17 05:05 Calcium Level 6.9 L, Aspartate Amino Transf (AST/SGOT) 913 H, Alanine Aminotransferase (ALT/SGPT) 377 H, Alkaline Phosphatase 244 H, Total Bilirubin 4.9 H, Total Protein 5.5 L, Albumin 1.2 L, Red Blood Count 2.51 L, Mean Corpuscular Volume 100.0 #H, Mean Corpuscular Hemoglobin 33.8 H, Mean Corpuscular Hemoglobin Concent 33.8, Red Cell Distribution Width 25.1 H Microbiology Microbiology 02/04/17 Blood Culture - Preliminary, Resulted No Growth after 48 hours. All Specime... 01/28/17 Blood Culture - Final, Complete NO GROWTH AFTER 5 DAYS 01/28/17 Blood Culture - Final, Complete NO GROWTH AFTER 5 DAYS 02/05/17 Gram Stain - Final, Resulted 02/05/17 Sputum Culture, Resulted Pending 02/04/17 Urine Culture - Final, Complete 01/28/17 Urine Culture - Final, Complete Daniela Warren Feb 06, 2017 10:27 TRACI LUONG MD Feb 06, 2017 12:29
--- NOTE | 2017-02-06 10:46 | CCN ---
DATE OF VISIT: 02/06/2017 Start time: 0932 hours. Stop time: 1020 hours. I again attended Ovidio Ott here in the intensive care unit. He remains intubated, sedated, and mechanically ventilated. When sedation lightened, he does move all extremities. T-max overnight 98.6, blood pressure 93 to 138, not requiring vasopressors. Heart rate 80s to 90s this morning with a sinus mechanism. He had an episode of atrial fibrillation last evening with heart rates into the 160s. Respiratory rate generally in the 20s. Intake and output midnight to midnight 3820 mL in with 1595 mL out. Since midnight 1715 mL with 975 mL out. He is making reasonable urine. Last CVP measured at 8. Most recent laboratories show a sodium of 152, K of 4.1, chloride 119, CO2 20, BUN 82, creatinine 2.98, glucose 67, AST 913, ALT 377, alkaline phosphatase 244. Troponin borderline at 0.7, albumin 1.2. White blood cell count down to 68.9, 68% segs, 16% bands, hemoglobin 8.5, platelet count 11,000 this morning. Arterial blood gas obtained on PRVC rate of 20, tidal volume 500, PEEP of 5, FiO2 of 80% shows a pH of 7.332, pCO2 of 33.9 and a pO2 of 77.6, saturation 94.2%. Chest x-ray shows lines and tubes in good position. I do believe there are bilateral pleural effusions and some borderline vasculature. On exam, he is ill appearing. Lines and tubes are noted and the sites are benign in appearance. Pupils do react. Sclera clear. Trachea is in the midline. Chest shows symmetric expansion, fairly clear arterially. Diminished at the extreme bases with some faint opening crackles. Cardiac exam currently distant, but regular. Peripheral pulses diminished. Bounding femorals. There is at least 1+ pitting lower extremity edema bilaterally. Abdomen is soft. There are active bowel sounds. No obvious organomegaly. Extremities show no cyanosis or clubbing. Neurologically, although sedate, does move all extremities when sedation lightened. The most pressing problems requiring my presence at the bedside: 1. Hypoxemic respiratory failure requiring mechanical ventilatory support. 2. Metabolic acidosis, multifactorial. 3. Renal failure, not oliguric. 4. Anemia, multifactorial. 5. Thrombocytopenia. 6. Sepsis. 7. Atrial fibrillation. 8. Abdominal aortic aneurysm status post coiling. 9. Protein calorie malnutrition. At this point, in view of his metabolic derangement, I do not plan any significant ventilatory weaning today. I have spoken at length with Dr. Hill as well as with the daughter who is at the bedside. We will begin enteral feeds at a low rate. Hopefully, he can tolerate some of this, but as I do not see him meeting his nutritional goals in this fashion in the immediate future, we will begin TPN. We can make adjustment in his electrolytes with that as well. He remains coagulopathic and thrombocytopenic. Dr. Hill has requested that this not be corrected fully due to concern over his celiac artery. He is managing this. He had an episode of atrial fibrillation last evening and is now back on some of his home medications in the intravenous form and is in normal sinus rhythm this morning. Despite worsening of his creatinine, he is making some reasonable urine and we will monitor this closely. If this does drop off then we will clearly need to involve nephrology in his care as well. He is on ulcer prophylaxis. We will continue his current empiric antimicrobials. Overall, he remains quite critically ill. Prognosis still remains guarded at best. The patient was agreeable to mechanical ventilatory support for at least several days as long as he was making improvement and therefore, we will continue in this regard. I left the bedside at 1020 hours. 48 minutes of critical care time was delivered at the bedside, not including procedures.
[2017-02-06 10:54] LABS: MEAN CORPUSCULAR HEMOGLOBIN 33.2 pg (27.0-33.0); MEAN CORPUSCULAR HGB CONC 32.5 g/dl (32.0-36.5); MEAN CORPUSCULAR VOLUME 102.2 fl (80.0-96.0); RED CELL DISTRIBUTION WIDTH 26.2 % (11.5-14.5)
[2017-02-06 11:06] LABS: WHITE BLOOD COUNT 65.1 K/mm3 (4.0-10.0)
[2017-02-06 12:07] LABS: MEAN CORPUSCULAR HEMOGLOBIN 33.1 pg (27.0-33.0); MEAN CORPUSCULAR HGB CONC 33.1 g/dl (32.0-36.5); MEAN CORPUSCULAR VOLUME 99.9 fl (80.0-96.0); RED CELL DISTRIBUTION WIDTH 25.6 % (11.5-14.5)
[2017-02-06 12:08] LABS: WHITE BLOOD COUNT 64.9 K/mm3 (4.0-10.0)
[2017-02-06 12:09] LABS: INR 4.26
[2017-02-06] MEDS: diltiaZEM 125 MG in NS 100 ML IV SCH (12:48)
[2017-02-06] MEDS ORDERED: FAT EMULSION IV 20% 500 ML IV SCH (18:00)
[2017-02-06] MEDS ORDERED: [UNRECOGNIZED DRUG - OTHER] IV SCH ×8 (18:00)
[2017-02-06] MEDS ORDERED: SODIUM ACETATE IV SCH ×8 (18:00)
[2017-02-06] MEDS ORDERED: SODIUM CHLORIDE IV SCH ×8 (18:00)
[2017-02-06] MEDS: SERTRALINE 100 MG TAB PO SCH (20:37)
[2017-02-06 20:52] LABS: MEAN CORPUSCULAR HEMOGLOBIN 34.1 pg (27.0-33.0); MEAN CORPUSCULAR HGB CONC 33.5 g/dl (32.0-36.5); MEAN CORPUSCULAR VOLUME 101.8 fl (80.0-96.0); RED CELL DISTRIBUTION WIDTH 27.1 % (11.5-14.5)
[2017-02-06 20:58] LABS: INR 3.74
[2017-02-06 21:14] LABS: WHITE BLOOD COUNT 51.8 K/mm3 (4.0-10.0)
--- NOTE | 2017-02-06 21:21 | PHACANCOPD ---
PHARMACY VANCOMYCIN DOSING Pt Demographics Demographics Patient Age:71 , Weight:81.200 , Gender: male Adjusted Body Weight Date: 02/04/17, Adjusted Body Weight: Kg Events Past 24 Hours Events Past 24 Hours: NO: Dialysis, Diuretic Therapy, Change in CrCl, Fever, Elevation in WBC, Pending Diagnostics, Pending Procedures, Other Vancomycin Vancomycin Target Ranges: 15-20 mcg/ml Vancomycin Load Y/N: Yes Load Dose Date Time Vancomycin Load Dose: 1G Date: 02/04/17 Time: 1000 Vancomycin Dose Date: 02/04/17. Current Vancomycin Dose: [1G Q24H@22] Intermittent Dosing?: No Labs Labs Item Value Date Time White Blood Count 51.8 K/mm3 *H 02/06/172037 Creatinine 2.98 MG/DL H 02/06/17504 Blood Urea Nitrogen 82 MG/DL H 02/06/17 0505 Vancomycin Level Trough 19.3 UG/ML 02/06/172037 Vital Signs Label Value Date Time Patient Temperature 99.1 degrees F 02/06/17 1800 Temperature Source Temporal 02/06/17 1800 Micro Microbiology 02/04/17 Blood Culture - Preliminary, Resulted No Growth after 48 hours. All Specime... 01/28/17 Blood Culture - Final, Complete NO GROWTH AFTER 5 DAYS 01/28/17 Blood Culture - Final, Complete NO GROWTH AFTER 5 DAYS 02/05/17 Gram Stain - Final, Resulted 02/05/17 Sputum Culture, Resulted Pending 02/04/17 Urine Culture - Final, Complete 01/28/17 Urine Culture - Final, Complete Creatinine Clearance Date:02/06/17. Creatinine Clearance: [23.5]. Assessment and Plan Maintaining Current Dose?: Yes Reason for dose change: No Dose Change Pharmacist Note Pharmacist Note Date: 02/04/17. Pharmacist note: trough of 19.3 is within target range. Will continue current dosing. Will continue to monitor and make adjustments as needed. KRUNAL SANCHEZ PHARMACY Feb 06, 2017 21:21
[2017-02-06] MEDS: VANCOMYCIN HCL 1,000 MG, VIAL MATE ADAPTER 1 EACH in D5W 250 ML IV SCH (22:09)
--- NOTE | 2017-02-06 22:24 | IPNPDOC ---
Date Seen The patient was seen on 02/06/17. Progress Note SUBJECTIVE: Patient is intubated. OBJECTIVE PHYSICAL EXAMINATION: VITAL SIGNS: Please see below. GENERAL: Lying in bed intubated HEENT: Normal CARDIOVASCULAR: regular rate and rhythm. RESPIRATORY: Decreased breath sounds at the bases coarse breath sounds throughout the lung cha. ABDOMINAL: Soft with no palpable pulsatile masses EXTREMITIES: Well Perfused NEUROLOGICAL: No focal deficits PSYCHOLOGICAL: Unable to assess LABORATORY DATA: Please see below. MICROBIOLOGY: Please see below. DVT prophylaxis ordered?: Patient has an elevated INR and decreased platelets and is auto anticoagulated. 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 The pseudoaneurysm dissected the celiac artery free of the aorta and the celiac artery was originating off of the pseudoaneurysm and with coil embolization of the pseudo- aneurysm the celiac artery was no longer visualized angiographically. PROBLEMS: 1. 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 The patient is not a candidate for an open surgical repair and bypass of his celiac artery and this has been discussed in detail with the patient and his family. The patient will continue with conservative management and should there be a severe decline in his liver function a CT scan will be obtained at that point determine if there is any endovascular repair possibilities. The patient is not a candidate for a And surgical repair due to previous surgery for hepatomas as well as his critical condition and severe comorbidities. The patient will undergo only conservative management at this time. VS, I&O, 24H, Fishbone Vital Signs/I&O Vital Signs Date Time Temp Pulse Resp B/P (MAP) Pulse Ox O2 Delivery O2 Flow Rate FiO2 02/06/17 20:37 101 153/70 02/06/17 20:00 99.4 26 96 Ventilator 75 02/04/17 11:00 2.0 I&O- Last 24 Hours up to 6 AM 02/06/17 06:00 Intake Total 4485 ml Output Total 2095 ml Balance 2390 ml Laboratory Data 24H LABS Laboratory Tests 2 02/05/17 23:45: Bedside Glucose (Misc Panel) 143H 02/06/17 05:05: Neutrophils 68, Band Neutrophils 16H, Lymphocytes (Manual) 4L, Monocytes (Manual ) 6, Metamyelocytes 6H, Nucleated Red Blood Cells 2H, Platelet Estimate MARKED DECREASE, Poikilocytosis 3+, Basophilic Stippling 1+, Anisocytosis 3+, Schistocytes 2+, Prothrombin Time 45.9H, Prothromb Time International Ratio 4.59 , Activated Partial Thromboplast Time 61.7H, Blood Gas Bicarbonate Standard 18.2L, Arterial Blood pH 7.332L, Arterial Blood Partial Pressure CO2 33.9L, Arterial Blood Partial Pressure O2 77.6, Arterial Blood Total CO2 18.6L, Arterial Blood HCO3 17.6L, Arterial Blood Base Excess -7.5L, Arterial Blood Oxygen Saturation 94.2L, Anion Gap 13, Glomerular Filtration Rate 22.1L, Blood Urea Nitrogen 82H, Creatinine 2.98H, Sodium Level 152H, Potassium Level 4.1, Chloride Level 119H, Carbon Dioxide Level 20L, Calcium Level 6.9L, Aspartate Amino Transf (AST/SGOT) 913H, Alanine Aminotransferase (ALT/SGPT) 377H, Alkaline Phosphatase 244H, Total Bilirubin 4.9H, Total Protein 5.5L, Albumin 1.2L, Magnesium Level 2.3, Troponin I 0.70H, Albumin/Globulin Ratio 0.28L, Digoxin Level 1.9 02/06/17 05:53: Bedside Glucose (Misc Panel) 88 02/06/17 08:19: Bedside Glucose (Misc Panel) 107 02/06/17 10:21: Lactic Acid Level 3.8*H 02/06/17 11:36: Prothrombin Time 43.2H, Prothromb Time International Ratio 4.26 02/06/17 12:06: Bedside Glucose (Misc Panel) 117H 02/06/17 17:15: Bedside Glucose (Misc Panel) 106 02/06/17 20:38: Prothrombin Time 38.9H, Prothromb Time International Ratio 3.74, Vancomycin Level Trough 19.3 CBC/BMP Laboratory Tests 02/06/17 05:05 Red Blood Count 2.51 L, Mean Corpuscular Volume 100.0 #H, Mean Corpuscular Hemoglobin 33.8 H, Mean Corpuscular Hemoglobin Concent 33.8, Red Cell Distribution Width 25.1 H, Calcium Level 6.9 L, Aspartate Amino Transf (AST/SGOT ) 913 H, Alanine Aminotransferase (ALT/SGPT) 377 H, Alkaline Phosphatase 244 H, Total Bilirubin 4.9 H, Total Protein 5.5 L, Albumin 1.2 L 02/06/17 10:21 Red Blood Count 2.32 L, Mean Corpuscular Volume 102.2 H, Mean Corpuscular Hemoglobin 33.2 H, Mean Corpuscular Hemoglobin Concent 32.5, Red Cell Distribution Width 26.2 H 02/06/17 11:36 Red Blood Count 2.51 L, Mean Corpuscular Volume 99.9 H, Mean Corpuscular Hemoglobin 33.1 H, Mean Corpuscular Hemoglobin Concent 33.1, Red Cell Distribution Width 25.6 H 02/06/17 20:38 Red Blood Count 2.26 L, Mean Corpuscular Volume 101.8 H, Mean Corpuscular Hemoglobin 34.1 H, Mean Corpuscular Hemoglobin Concent 33.5, Red Cell Distribution Width 27.1 H Microbiology Microbiology 02/04/17 Blood Culture - Preliminary, Resulted No Growth after 48 hours. All Specime... 01/28/17 Blood Culture - Final, Complete NO GROWTH AFTER 5 DAYS 01/28/17 Blood Culture - Final, Complete NO GROWTH AFTER 5 DAYS 02/05/17 Gram Stain - Final, Resulted 02/05/17 Sputum Culture, Resulted Pending 02/04/17 Urine Culture - Final, Complete 01/28/17 Urine Culture - Final, Complete Ovidio Hill MD Feb 06, 2017 22:24
[2017-02-07] VITALS (29 sets, daily range): BP systolic 106–167; BP diastolic 47–84; O2SAT 95–96
[2017-02-07] MEDS: HumaLOG INSULIN (NovoLOG) PER UNIT SC SCH ×4 (00:17→17:44)
[2017-02-07] MEDS: PIPERACILLIN/TAZOBACTAM SOD 3.375 GM in D5W MINI-BAG PLUS 50 ML IV SCH ×4 (00:17→17:45)
[2017-02-07] MEDS: MIDAZOLAM INJ 2 MG/2 ML VIAL (J2250) IV PRN ×3 (02:10→12:32)
[2017-02-07] MEDS: IPRATROPIUM 0.5MG/ALBUTEROL 2.5MG INH SOL UD 3ML (DUONEB)(J7620) NEB SCH ×6 (03:17→23:26)
[2017-02-07] MEDS: PROPOFOL 1,000 MG in APPROPRIATE DILUENT 1 EA IV SCH (05:39)
[2017-02-07 05:41] LABS: INR 4.56
[2017-02-07 05:44] LABS: ADD MANUAL DIFFER YES; DIFF SLIDE NUMBER 35; MEAN CORPUSCULAR HEMOGLOBIN 33.5 pg (27.0-33.0); MEAN CORPUSCULAR VOLUME 101.4 fl (80.0-96.0); RED CELL DISTRIBUTION WIDTH 27.1 % (11.5-14.5)
[2017-02-07 05:48] LABS: PLATELET COUNT, AUTOMATED 9 k/mm3 (150-450); WHITE BLOOD COUNT 57.5 K/mm3 (4.0-10.0)
[2017-02-07 05:59] LABS: ALBUMIN 1.2 GM/DL (3.2-5.2); ALBUMIN/GLOBULIN RATIO 0.29 (1.00-1.93); CALCIUM LEVEL 7.7 MG/DL (8.8-10.2); CREATININE FOR GFR 2.65 MG/DL (0.70-1.30); GLOMERULAR FILTRATION RATE 25.3 (>42); POTASSIUM SERUM 3.4 MEQ/L (3.5-5.1); TOTAL PROTEIN 5.4 GM/DL (6.4-8.2)
[2017-02-07 06:01] LABS: ABG BASE EXCESS -4.5 (-2.0-2.0); ABG HCO3 19.4 MEQ/L (22.0-26.0); ABG PARTIAL PRESSURE CO2 31.1 mmHg (35.0-45.0); ABG PARTIAL PRESSURE O2 102.5 mmHg (75.0-100.0); ABG STANDARD HCO3 20.7 MEQ/L (22.0-26.0); ABG TOTAL CO2 20.4 MEQ/L (23.0-31.0); ABG pH (ARTERIAL) 7.414 UNITS (7.350-7.450)
[2017-02-07 06:25] LABS: BANDS 10 % (< 11)
[2017-02-07 06:31] LABS: ANISOCYTOSIS 3+; BURR CELLS 1+; POIKILOCYTOSIS 2+
[2017-02-07 06:32] LABS: SCHISTOCYTES 3+
[2017-02-07] MEDS: SOTALOL HCL 80 MG TAB PO SCH ×2 (08:32→21:02)
[2017-02-07] MEDS: PANTOPRAZOLE 40MG INJ (PROTONIX) (C9113) IV SCH (08:32)
--- NOTE | 2017-02-07 08:41 | REP ---
Portable chest x-ray: Semi-erect AP view. History: Respiratory failure. Comparison study February 06, 2017. Findings: Endotracheal tube is seen in good position. NG tube enters the left upper quadrant. EKG electrodes are seen. A right subclavian line terminates in the expected location of the superior vena cava. Pleural opacities are seen in the bases consistent with bilateral effusions as before. Mild cardiomegaly is observed. No new infiltrate is seen. Signed by Harjit Jiang MD 02/07/2017 10:15 A
[2017-02-07] MEDS ORDERED: CHLORHEXIDINE GLUCONATE 0.12 % 15ML UDC (PERIDEX ORAL RINSE) MT SCH (09:00)
--- NOTE | 2017-02-07 09:55 | IPNPDOC ---
Subjective Date Seen The patient was seen on 02/07/17. Subjective Chief Complaint/HPI The patient is a 71-year-old male admitted with a reason for visit of Gastric Neoplasm. Events since last encounter No change in mentation.Remains intubated. Management by Pulmonology. Eric brady dcd due to conversion to NSR. rate controlled. General: Reports: ROS Unobtainable Objective Physical Examination General Exam: Positive: No Acute Distress, Negative: Alert (intubated. Appears comfortable. ) Eye Exam: Positive: PERRLA ENT Exam: Positive: Mucous membr. moist/pink Neck Exam: Positive: Supple, Negative: JVD Chest Exam: Positive: Clear to auscultation Heart Exam: Positive: Rate Normal, Regular Rhythm Telemetry: Positive: No significant arrhythmia Abdomen Exam: Positive: Soft Extremity Exam: Negative: Edema Skin Exam: Positive: Nl turgor and temperature Neuro Exam: Positive: Other (sedated and intubated. grimaces and groans to sternal rub. non-verbal. Does not open eyes. ) Psych Exam: Positive: Other (see neuro exam. ) Assessment /Plan Problems (1) Anemia Status: Acute Problem Text: 02/07 hgb down to 7.2 c plt 9 c active bleeding; therefore, tx 2 apheresis units, FFP and then 2 units PRBCs-d/w Dr. Hill (2) Paroxysmal atrial fibrillation Status: Acute Problem Text: 02/07/17: Eric brady yesterday for AFib with RVR. Converted to sinus rhythm. monitor. 02/06/17: NSR rate 90s. 02/05 1830 SR to AF c RVR 130-150-no improvement c dig 0.25 IV x 2; then converted for ~1 min c metoprolol 5 IV x 2, will repeat on sotalol 80 BID (3) Pseudoaneurysm of aorta Problem Text: 02/06/17: monitor. Dr. Hill, vascular following. 02/05 s/p intravascular aneurysm coiling by Dr. Hill-unable to visualize celiac trunk-? compromised 02/04 case d/w Dr. Hill-consult placed 02/04/17 aortic US: Pseudoaneurysm at the diaphragmatic hiatus anterior to the aorta measuring 8.0 x 6.7 x 7.4 cm. Mycotic aneurysm is a possibility. (4) Coagulopathy Status: Chronic Problem Text: 2 ESLD 02/07 PT 46/PTT 63 02/04 vitamin K 10 SC x 1 given (5) Respiratory failure Status: Acute Problem Text: 02/07/17: remains intubated. [employer] involved in care. 02/06/17: currently intubated. Family agreeable to intubation while progress is noted in condition. 02/04 DNR/DNI secured from , currently on CPAP per Dr. Muñoz (6) Hypoglycemia Status: Resolved Problem Text: 02/06/17: plan on starting parenteral nutrition today via [employer]. 02/05/17: D10NS @100 cc per hour. Glucose stable overnight. 02/04 600 BG 42-resolved c [id number] 2 sepsis (7) Sepsis Status: Acute Problem Text: D3 anco/Zosyn-RD. mesenteric ischemia 2 pseudoaneurysm compression and B PN concern for mesenteric ischemia 2 pseudoaneurysm compression 02/07/17: WBC: 68,000 02/05 99K (N73/B12) 02/04/2017: WBC to 50K (01/31 7.9), LA 5.1 Sudden hypoxia with MS changes. RAT team called and patient transferred to ICU. Central line ordered and placed by Dr. Felipe Andersen with consent from patient's partner. 02/05 SCX P 02/04 BCX x NG 02/04 UCX x 1 01/28 BCX x 2 NG . (8) Pancytopenia Permanent Comment: Longstanding problem with Neupogen support of neutropenia. Abnormal BM biopsy from [facility] done November 2014 (see eCW chart) Chronic thrombocytopenia and anemia also Last Edited By: Amaury Jack M.D. on Feb 10, 2016 11:28 Status: Chronic Problem Specific Plan: Monitor Clinically, Repeat Labs Problem Text: 02/04/17: WBC 50,000, platelets 23 WBC 7.9 IVF. Blood cx no growth after 72 hrs. Plts 26. Continue to monitor. 01/30 - WBC 9.2 IVF. Blood cx no growth after 48 hrs. Urine cx neg. / - WBC 10.4. IVF. Blood cx no growth after 24 hrs. Urine cx neg. 9/4 - Getting IVF. WBC 17.6 yesterday. Today's AM labs pending. Blood and urine cx pending. (9) Multifocal pneumonia Problem Text: c respiratory failure on MV per CC 02/05/17: CT angio of chest confirms significant pneumonia rx as per sepsis (10) CKD (chronic kidney disease) Status: Chronic Problem Specific Plan: Monitor Clinically Problem Text: 02/05/17: Cr. 2/ today. at least partially 2 psuedoaneurysm 02/04/17: PREET with Cr 2.0. 9/7 - Creat 1.34. 9/6 - Creat 1.30. 9/5 - Creat 1.54 (1.61 yesterday and 1.87 day before). 01/28 - IVF. AM labs pending. (11) Clostridium difficile colitis Status: Chronic Problem Specific Plan: Monitor Clinically Problem Text: H/O multiple episodes Cdiff. Has been on PO Vanco q3 days with last dose 01/29. (12) PREET (acute kidney injury) Status: Acute Response to Treatment: Stable Problem Text: stable lytes baseline cr 1.2 Plan/VTE VTE Prophylaxis Ordered?: No (TEDs, SCDs) VTE Exclusion Pharmacological: Bleeding Risk (INR 2.56. Teds and SCDs ordered. ) Plan/Urinary Catheter Reason for insertion/continuin: Critical Pt monitoring VS, I&O, 24H, Fishbone Vital Signs/I&O Vital Signs Date Time Temp Pulse Resp B/P (MAP) Pulse Ox O2 Delivery O2 Flow Rate FiO2 02/07/17 08:32 104 132/80 02/07/17 07:55 31 94 60 02/07/17 04:00 100.0 Ventilator 02/04/17 11:00 2.0 I&O- Last 24 Hours up to 6 AM 02/07/17 05:59 Intake Total 4618 ml Output Total 3880 ml Balance 738 ml Laboratory Data 24H LABS Laboratory Tests 2 02/06/17 10:21: Lactic Acid Level 3.8*H 02/06/17 11:36: Prothrombin Time 43.2H, Prothromb Time International Ratio 4.26 02/06/17 12:06: Bedside Glucose (Misc Panel) 117H 02/06/17 17:15: Bedside Glucose (Misc Panel) 106 02/06/17 20:38: Prothrombin Time 38.9H, Prothromb Time International Ratio 3.74, Vancomycin Level Trough 19.3 02/06/17 23:47: Bedside Glucose (Misc Panel) 164H 02/07/17 05:18: Prothrombin Time 45.7H, Prothromb Time International Ratio 4.56, Activated Partial Thromboplast Time 63.2H 02/07/17 05:19: Neutrophils 69, Band Neutrophils 10, Lymphocytes (Manual) 4L, Monocytes (Manual ) 4, Metamyelocytes 6H, Myelocytes 7H, Platelet Estimate MARKED DECREASE, Poikilocytosis 2+, Anisocytosis 3+, [place] Cells 1+, Schistocytes 3+, Anion Gap 11 , Glomerular Filtration Rate 25.3L, Blood Urea Nitrogen 83H, Creatinine 2.65H, Sodium Level 152H, Potassium Level 3.4L, Chloride Level 118H, Carbon Dioxide Level 23, Calcium Level 7.7L, Aspartate Amino Transf (AST/SGOT) 670H, Alanine Aminotransferase (ALT/SGPT) 289H, Alkaline Phosphatase 643H, Total Bilirubin 6.0H, Total Protein 5.4L, Albumin 1.2L, Albumin/Globulin Ratio 0.29L 02/07/17 05:46: Blood Gas Bicarbonate Standard 20.7L, Arterial Blood pH 7.414, Arterial Blood Partial Pressure CO2 31.1L, Arterial Blood Partial Pressure O2 102.5H, Arterial Blood Total CO2 20.4L, Arterial Blood HCO3 19.4L, Arterial Blood Base Excess - 4.5L, Arterial Blood Oxygen Saturation 97.4 CBC/BMP Laboratory Tests 02/06/17 10:21 Red Blood Count 2.32 L, Mean Corpuscular Volume 102.2 H, Mean Corpuscular Hemoglobin 33.2 H, Mean Corpuscular Hemoglobin Concent 32.5, Red Cell Distribution Width 26.2 H 02/06/17 11:36 Red Blood Count 2.51 L, Mean Corpuscular Volume 99.9 H, Mean Corpuscular Hemoglobin 33.1 H, Mean Corpuscular Hemoglobin Concent 33.1, Red Cell Distribution Width 25.6 H 02/06/17 20:38 Red Blood Count 2.26 L, Mean Corpuscular Volume 101.8 H, Mean Corpuscular Hemoglobin 34.1 H, Mean Corpuscular Hemoglobin Concent 33.5, Red Cell Distribution Width 27.1 H 02/07/17 05:19 Red Blood Count 2.15 L, Mean Corpuscular Volume 101.4 H, Mean Corpuscular Hemoglobin 33.5 H, Mean Corpuscular Hemoglobin Concent 33.0, Red Cell Distribution Width 27.1 H, Calcium Level 7.7 L, Aspartate Amino Transf (AST/SGOT ) 670 H, Alanine Aminotransferase (ALT/SGPT) 289 H, Alkaline Phosphatase 643 H, Total Bilirubin 6.0 H, Total Protein 5.4 L, Albumin 1.2 L Microbiology Microbiology 02/04/17 Blood Culture - Preliminary, Resulted No Growth after 72 hours. All specime... 01/28/17 Blood Culture - Final, Complete NO GROWTH AFTER 5 DAYS 01/28/17 Blood Culture - Final, Complete NO GROWTH AFTER 5 DAYS 02/05/17 Gram Stain - Final, Complete 02/05/17 Sputum Culture - Final, Complete Enterobacter Cloacae Complex Yeast Like Organism 02/04/17 Urine Culture - Final, Complete 01/28/17 Urine Culture - Final, Complete Daniela Warren Feb 07, 2017 09:55 Maged Negron M.D. Feb 07, 2017 16:20
[2017-02-07] MEDS: CHLORHEXIDINE ORAL RINSE 0.12%/15ML 120ML BOTTLE MT SCH ×2 (10:02→21:03)
--- NOTE | 2017-02-07 10:21 | CCN ---
DATE: 02/07/2017 START TIME: 0837 hours STOP TIME: 09 hours I again attended Ovidio Ott here in the intensive care unit (ICU). He remains intubated, sedated and mechanically ventilated. Available records have been reviewed. Maximum temperature (t-max) overnight 100.0, heart rate generally in the 100s. He had bouts of atrial fibrillation yesterday that responded nicely to Cardizem and he has been able to be weaned off of the drip. Respiratory rate generally in the 20s to low 30s. His FiO2 is down to 60%. Input and output the last 24 hours, midnight to midnight, 5330 mL in with 3090 mL out. Last central venous pressure measured at 8 at midnight and repeat is pending this morning. Available laboratories show a white blood cell count of 57.5, 69% segmented neutrophils, 10% bands. Hemoglobin relatively unchanged at 7.2, platelet count 9000. Sodium of 152, potassium of 3.4, chloride 118, CO2 of 23, BUN 83, creatinine 2.65, glucose 123 this morning. Lactic acid yesterday was down to 3.8. Repeat this morning is pending. Total bilirubin mildly elevated from yesterday at 6.0. AST 670, ALT 289. Both of these are diminished. Alkaline phosphatase elevated today at 643. Albumin remains depressed at 1.2. Arterial blood gas obtained on a PRVC, rate of 20, tidal volume 500, FiO2 of 60% and a PEEP of 5 has a pH of 7.414, PCO2 of 31.1 and a PO2 of 102.5. Chest x-ray shows persistent bilateral effusions and plump vasculature. No other acute findings. PHYSICAL EXAMINATION: He is ill-appearing. He does over breathe the ventilator. No obvious accessory muscle use. Pupils do react. Sclerae are borderline icteric. Trachea is in the midline. Chest shows symmetric expansion, diminished breath sound intensity at the bases. There are dependent crackles. There are occasional rhonchi scattered that clear with suctioning. Cardiac examination is distant and generally regular. Peripheral pulses are diminished but are palpable peripherally. He has bounding femorals. Abdomen is soft. I do believe that there are bowel sounds, more notable in the left upper quadrant. No convincing organomegaly or masses. Extremities show no cyanosis or clubbing. His edema remains 2 to 3+. Neurologically, he is sedate but does move all extremities when stimulated. No new culture results available. He remains on TPN. He did not tolerate enteral feeds. The most pressing problems requiring my presence at the bedside are: 1. Respiratory failure requiring mechanical ventilatory support. 2. Abdominal aortic aneurysm, status post coiling. 3. Sepsis. 4. Thrombocytopenia. 5. Anemia. 6. Renal failure. 7. Hepatic insufficiency. 8. Coagulopathy. At this point, he still has a significantly high minute ventilation requirement. Given his overall metabolic picture, at this point I do not believe he would tolerate further weaning. He had received transfusion from the primary service several days ago and he may benefit from that again in view of his current hemoglobin, as if it drops any lower then we are going to significantly compromise his oxygen carrying capacity. I am in agreement with his current antimicrobials. We will continue his TPN for nutritional support. It may be worthwhile at some point to consider fluoroscopic placement of a feeding tube beyond his functional gastric outlet compromise so that we can use his gut. We will make this decision in the next several days. Coagulopathy is being managed by the primary service. I know the concern remains regarding the high potential for ischemic bowel in view of his celiac artery compromise. He is much less acidotic and we will continue his current level of supportive care. TPN formula has been altered in view of his electrolytes. Overall, he remains quite critically ill. His prognosis is guarded at best and there is a high likelihood that he may not survive this hospitalization. The patient initially did not want long-term mechanical ventilatory support, but my understanding at this point is that as long as he is making some progress then the family wishes to continue where we are ate. I left the bedside at 0926 hours. 44 minutes of critical care time was delivered at the bedside, not including procedures. BARBARA
[2017-02-07] MEDS: D5W/0.45% SODIUM CHLORIDE 1,000 ML IV SCH (11:26)
[2017-02-07] MEDS: diltiaZEM 125 MG in NS 100 ML IV SCH (11:46)
[2017-02-07] MEDS: SODIUM CHLORIDE 0.9% INJ 10 ML SYR IV SCH ×2 (14:00→21:08)
[2017-02-07] MEDS ORDERED: SODIUM CHLORIDE 0.9% INJ 10 ML SYR IV PRN (14:00)
[2017-02-07] MEDS: ACETAMINOPHEN 650 MG SUPP PR PRN ×2 (16:46→23:18)
[2017-02-07 16:58] LABS: INR 2.97
[2017-02-07 17:00] LABS: MEAN CORPUSCULAR HEMOGLOBIN 33.5 pg (27.0-33.0); MEAN CORPUSCULAR HGB CONC 33.4 g/dl (32.0-36.5); MEAN CORPUSCULAR VOLUME 100.3 fl (80.0-96.0); RED CELL DISTRIBUTION WIDTH 27.2 % (11.5-14.5)
[2017-02-07 17:01] LABS: WHITE BLOOD COUNT 61.6 K/mm3 (4.0-10.0)
[2017-02-07] MEDS ORDERED: SODIUM ACETATE IV SCH ×6 (18:00)
[2017-02-07] MEDS ORDERED: [UNRECOGNIZED DRUG - OTHER] IV SCH ×6 (18:00)
[2017-02-07] MEDS ORDERED: SODIUM CHLORIDE IV SCH ×6 (18:00)
[2017-02-07] MEDS ORDERED: FAT EMULSION IV 20% 500 ML IV SCH (18:00)
[2017-02-07] MEDS: SERTRALINE 100 MG TAB PO SCH (21:02)
[2017-02-07] MEDS: VANCOMYCIN HCL 1,000 MG, VIAL MATE ADAPTER 1 EACH in D5W 250 ML IV SCH (21:53)
[2017-02-08] VITALS (24 sets, daily range): BP systolic 115–157; BP diastolic 52–83
[2017-02-08] MEDS: HumaLOG INSULIN (NovoLOG) PER UNIT SC SCH ×5 (00:14→23:48)
[2017-02-08] MEDS: PIPERACILLIN/TAZOBACTAM SOD 3.375 GM in D5W MINI-BAG PLUS 50 ML IV SCH ×4 (02:36→21:03)
[2017-02-08] MEDS: IPRATROPIUM 0.5MG/ALBUTEROL 2.5MG INH SOL UD 3ML (DUONEB)(J7620) NEB SCH ×6 (03:19→23:28)
[2017-02-08 03:55] LABS: ADD MANUAL DIFFER YES; DIFF SLIDE NUMBER 124; MEAN CORPUSCULAR HEMOGLOBIN 31.6 pg (27.0-33.0); MEAN CORPUSCULAR HGB CONC 32.5 g/dl (32.0-36.5); MEAN CORPUSCULAR VOLUME 97.2 fl (80.0-96.0); RED CELL DISTRIBUTION WIDTH 25.5 % (11.5-14.5)
[2017-02-08 03:56] LABS: PLATELET COUNT, AUTOMATED 19 k/mm3 (150-450); WHITE BLOOD COUNT 54.2 K/mm3 (4.0-10.0)
[2017-02-08 03:59] LABS: INR 2.39
[2017-02-08 04:14] LABS: ALBUMIN 1.3 GM/DL (3.2-5.2); ALBUMIN/GLOBULIN RATIO 0.32 (1.00-1.93); BILIRUBIN,TOTAL 5.6 MG/DL (0.2-1.0); CREATININE FOR GFR 2.45 MG/DL (0.70-1.30); GLOMERULAR FILTRATION RATE 27.7 (>42); POTASSIUM SERUM 3.4 MEQ/L (3.5-5.1); TOTAL PROTEIN 5.4 GM/DL (6.4-8.2)
[2017-02-08 05:10] LABS: BANDS 4 % (< 11); NUCLEATED RED BLOOD CELL 1 % (0-0)
[2017-02-08] MEDS: D5W/0.45% SODIUM CHLORIDE 1,000 ML IV SCH ×3 (05:13→05:15)
[2017-02-08 05:14] LABS: ANISOCYTOSIS 2+; POIKILOCYTOSIS 2+; SCHISTOCYTES 2+
[2017-02-08] MEDS: PROPOFOL 1,000 MG in APPROPRIATE DILUENT 1 EA IV SCH ×2 (05:15→23:30)
[2017-02-08 05:52] LABS: ABG BASE EXCESS -1.8 (-2.0-2.0); ABG HCO3 23.1 MEQ/L (22.0-26.0); ABG PARTIAL PRESSURE CO2 40.2 mmHg (35.0-45.0); ABG PARTIAL PRESSURE O2 86.7 mmHg (75.0-100.0); ABG STANDARD HCO3 22.9 MEQ/L (22.0-26.0); ABG TOTAL CO2 24.4 MEQ/L (23.0-31.0); ABG pH (ARTERIAL) 7.378 UNITS (7.350-7.450)
[2017-02-08] MEDS: SODIUM CHLORIDE 0.9% INJ 10 ML SYR IV SCH ×3 (06:00→22:00)
[2017-02-08] MEDS ORDERED: DEXTROSE 50% 50 ML SYRINGE IV PRN (09:00)
--- NOTE | 2017-02-08 09:42 | REP ---
Clinical: Respiratory failure. Comparison: 02/07/2017. Findings: Endotracheal tube 4.0 centimeters above the mk. Nasogastric tube courses below left hemidiaphragm. Right subclavian catheter with tip in the SVC. Mediastinum and cardiac silhouette are otherwise stable. Bibasilar opacities consistent with consolidations with air bronchograms as well as moderate layering effusions are suggested. No pneumothorax. Impression: Continued evidence for bilateral lower lobe consolidations and pleural effusions. No significant change from prior examination. Signed by Denilson Perkins MD 02/08/2017 08:31 A
--- NOTE | 2017-02-08 09:43 | CCN ---
DATE OF SERVICE: 02/08/2017 Critical care time was 1 hour. This excludes all procedures. The patient had bloody secretions through his endotracheal tube overnight. Remains severely ill requiring mechanical ventilation and blood transfusions, significantly hypoalbuminemic. At bedside today, the patient despite not receiving any significant sedation is not responsive. There is no evidence of seizure activity. T-max was 101.5. Temperate now 98.3, sinus rhythm with a rate of 93, respiratory rate of 25, blood pressure 142/69, oxygen saturation is 93% on 60% FiO2. Ventilator settings, pressure regulated volume control (PRVC), tidal volume 500, respiratory rate of 20, FIO2 of 0.6 with a PEEP of 5. General: The patient is unarousable, opens eyes, has no tracking. Pupils are reactive. The left is more sluggish than the right but the left has a pupillary defect suggesting prior cataract surgery. There is no evidence of epistaxis at this point in time. There is minimal amount of heme in the mouth. No evidence of mucosal lesion. Tongue is midline. There is small amounts of blood in the endotracheal tube. Neck is supple. No tracheal deviation or mass. No lymph, no cervical, supraclavicular or axillary adenopathy. Sclera are edematous. Chest wall: There is a right subclavian line without surrounding erythema or exudate. Pulmonary: Fairly clear to auscultation with few scattered rhonchi. No wheeze. No prolongation of the expiratory phase. Abdomen is soft, does not appear be tender however, the patient is mostly unresponsive. No discernible hepatosplenomegaly although no deep palpation was performed due to his leaking abdominal aortic aneurysm. Hypoactive bowel sounds are present. The patient had a bowel movement this morning. Extremities: There is significant pitting edema in the lower extremities and in the arms. No cyanosis or clubbing. Musculoskeletal: Significant muscle wasting. No evidence of unilateral weakness. Neuro: No tremor. No asterixis. No myoclonus. However, the patient is having no purposeful movements and no significant arousals. No tracking. No eye contact. LABORATORY: Sodium is 141, potassium is 3.4, chloride is 117, bicarb of 25, BUN of 72, creatinine is 2.45 down from 2.68, albumin is 1.3, total bilirubin is 5.6, INR is 2.39 down from 4.0, hemoglobin is 7.2, hematocrit of 22.6 with a platelet count of 19. Pleural effusion at the right base. Cardiomegaly. Endotracheal tube is in good position approximately 4 cm above the mk. Right subclavian is in place with the tip of the catheter in the SVC. ASSESSMENT: 1. Acute hypoxic respiratory failure. Currently, oxygen requirements are too excessive for extubation and the patient has no neurologic recovery and has continued unresponsiveness despite no sedation. He is also having hemoptysis through the tube. Therefore he will remain intubated on mechanical ventilation. 2. Altered mental status encephalopathy. The patient is unresponsive despite not receiving any sedation over the past few days. We will perform a head CT this morning. He is at risk for intracranial hemorrhage and stroke. 3. Leaking abdominal aortic aneurysm (AAA). We will continue to monitor hemoglobin. Will perform a hemoglobin and hematocrit at noon today rather than waiting 8 hours due to his recent decrease. I am stopping his IV fluids as his anemia could also be dilutional. 4. Hemoptysis, mild in nature. Will continue to monitor. Likely from elevated INR and decreased platelets. 5. Renal failure, creatinine down to 2.45. The patient is making over 30 mL an hour of urine. He is net positive 783 over the past 24 hours, net positive 2 liters the day before that, net positive over 2 liters the day before that and 2.6 liters positive on the . 6. Liver injury with hyperbilirubinemia and elevated INR. INR is trending down, now down to 2.39. Total bilirubin is down to 5.6. Will continue to monitor and especially monitor for any signs of increased bleeding. 7. Thrombocytopenia. Will replace based on vascular surgeries recommendations. A trigger would be less than 10. 8. Leukocytosis on Zosyn. I do not find an indication for IV vancomycin. I have therefore discontinued this medication. He has a history of Clostridium difficile, was recently on oral vancomycin early January therefore will add back oral vancomycin and prophylaxis for Clostridium difficile. 9. Enterobacter in sputum covered with Zosyn. 10. History of hypoglycemia. As I am discontinuing his IV fluids because he is on TPN, I am is making his sliding scale insulin less aggressive to prevent hypoglycemia, therefore, he will not receive any insulin with a blood sugar less than 150. 11. Hypoalbuminemia severe, protein calorie malnourishment on TPN. Will start tube feeds as soon as gastric outlet obstruction is improved. 12. Prognosis extremely guarded. Has a high likelihood of . Will discuss prognosis with the patient's family at bedside today.
--- NOTE | 2017-02-08 10:12 | IPNPDOC ---
Subjective Date Seen The patient was seen on 02/08/17. Subjective Chief Complaint/HPI The patient is a 71-year-old male admitted with a reason for visit of Gastric Neoplasm. Events since last encounter Developed significant bleeding overnight from NGT. Received transfusion and platelets. Repeat labs pending at 1200 today. Patient not responding despite lack of sedation for over [address] head pending, ordered by Banding Machine Operator. General: Reports: ROS Unobtainable Objective Physical Examination General Exam: Positive: No Acute Distress, Negative: Alert (Intubated, no response to sternal rub) Eye Exam: Positive: Other Eye Symptoms (minimal pupillary reponse) ENT Exam: Positive: Other ENT (NGT with bloody residue. Clots suction from Oropharynx this am by nursing staff. ) Neck Exam: Positive: Supple, Negative: JVD Chest Exam: Positive: Clear to auscultation Heart Exam: Positive: Rate Normal, Regular Rhythm Telemetry: Positive: No significant arrhythmia, Sinus Abdomen Exam: Positive: Soft Extremity Exam: Positive: Edema (BLE) Skin Exam: Positive: Nl turgor and temperature Neuro Exam: Positive: Other (intubated w/o sedation. not responding to sternal rub) Psych Exam: Positive: Other (see neuro exam. ) Assessment /Plan Problems (1) Encephalopathy Status: Acute Problem Text: remains unresponsive despite no sedation h/o recurrent hepatic encephalopathy 02/04 NH3 41 (2) Sepsis Status: Acute Problem Text: D5 Zosyn-RD (02/08 vanco stopped p 5D) favor 2 mesenteric ischemia 2 pseudoaneurysm compression and B PN 02/08 WBC 56K, Tm 101.5 02/07 MN 02/04/2017: WBC to 50K (01/31 7.9), LA 5.1 Sudden hypoxia with MS changes. RAT team called and patient transferred to ICU. Central line ordered and placed by Dr. Felipe Andersen with consent from patient's partner. 02/05 SCX few E. cloacae 02/04 BCX x NG 02/04 UCX x 1 01/28 BCX x 2 NG . (3) Anemia Status: Acute Problem Text: 02/08 7.3, 10K, 27/49; therefore, tx 2u PRBCs 02/07 hgb down to 6.6 c plt 9 c active bleeding; therefore, tx 2 aperesis plt, 1 FFP and then 2 units PRBCs-d/w Dr. Hill 02/06 tx 2u PRBCs (4) Paroxysmal atrial fibrillation Status: Acute Problem Text: Continues SR on current regimen 02/07/17: Cardizem drip yesterday for AFib with RVR. Converted to sinus rhythm 02/06/17: NSR rate 90s. 02/05 1830 SR to AF c RVR 130-150-no improvement c dig 0.25 IV x 2; then converted for ~1 min c metoprolol 5 IV x 2, will repeat on sotalol 80 BID (5) Pseudoaneurysm of aorta Problem Text: 02/06/17: monitor. Dr. Hill, vascular following. 02/05 s/p intravascular aneurysm coiling by Dr. Hill-unable to visualize celiac trunk-? compromised 02/04 case d/w Dr. Hill-consult placed 02/04/17 aortic US: Pseudoaneurysm at the diaphragmatic hiatus anterior to the aorta measuring 8.0 x 6.7 x 7.4 cm. Mycotic aneurysm is a possibility. (6) Coagulopathy Status: Chronic Problem Text: 02/08/17: Received transfusion of platelet and blood due to active bleeding. 2 ESLD 02/07 PT 46/PTT 63 02/04 vitamin K 10 SC x 1 given (7) Respiratory failure Status: Acute Problem Text: remains on PRVC per Pulmonary 02/08 CT head NAD 02/04 DNR/DNI secured from , currently on CPAP per Dr. Muñoz (8) Pancytopenia Permanent Comment: Longstanding problem with Neupogen support of neutropenia. Abnormal BM biopsy from [facility] done November 2014 (see eCW chart) Chronic thrombocytopenia and anemia also Last Edited By: Amaury Jack M.D. on Feb 10, 2016 11:28 Status: Chronic Problem Specific Plan: Monitor Clinically, Repeat Labs Problem Text: 2 ESLD (9) Multifocal pneumonia Problem Text: c respiratory failure on MV per CC 02/05/17: CT angio of chest confirms significant pneumonia rx as per sepsis (10) Clostridium difficile colitis Status: Chronic Problem Specific Plan: Monitor Clinically Problem Text: + BM placed on po vancomycin by Banding Machine Operator for C. Diff prophylaxis. + BMs H/O multiple episodes Cdiff. Has been on PO Vanco q3 days with last dose 01/29. (11) PREET (acute kidney injury) Status: Acute Response to Treatment: Stable Problem Text: 02/08/17: stable at 2.5-stable lytes-IVF DCd due to + fluid balance- stable lytes baseline cr 1.2 (12) Malnutrition Status: Chronic Response to Treatment: Stable Problem Text: 02/07 TPN started Plan/VTE VTE Prophylaxis Ordered?: No (TEDs, SCDs) VTE Exclusion Pharmacological: Bleeding Risk (INR 2.56. Teds and SCDs ordered. ) Plan/Urinary Catheter Reason for insertion/continuin: Critical Pt monitoring Disposition Patients prognosis is poor. Patient is unlikely to survive hospitalization. VS, I&O, 24H, Fishbone Vital Signs/I&O Vital Signs Date Time Temp Pulse Resp B/P (MAP) Pulse Ox O2 Delivery O2 Flow Rate FiO2 02/08/17 08:00 98.3 93 25 142/69 (93) 93 Ventilator 60 140/64 (89) 02/04/17 11:00 2.0 I&O- Last 24 Hours up to 6 AM 02/08/17 06:00 Intake Total 5307.5 ml Output Total 3760 ml Balance 1547.5 ml Laboratory Data 24H LABS Laboratory Tests 2 02/07/17 11:36: Bedside Glucose (Misc Panel) 139H 02/07/17 16:38: Prothrombin Time 32.2H, Prothromb Time International Ratio 2.97 02/07/17 17:37: Bedside Glucose (Misc Panel) 130H 02/07/17 23:58: Bedside Glucose (Misc Panel) 149H 02/08/17 03:37: Neutrophils 52, Band Neutrophils 4, Lymphocytes (Manual) 2L, Monocytes (Manual) 16H, Metamyelocytes 2H, Myelocytes 24H, Nucleated Red Blood Cells 1H, Platelet Estimate MARKED DECREASE, Poikilocytosis 2+, Anisocytosis 2+, Macrocytosis 1+, Schistocytes 2+, Prothrombin Time 27.0H, Prothromb Time International Ratio 2.39 , Activated Partial Thromboplast Time 48.7H, Anion Gap 9, Glomerular Filtration Rate 27.7L, Blood Urea Nitrogen 72H, Creatinine 2.45H, Sodium Level 151H, Potassium Level 3.4L, Chloride Level 117H, Carbon Dioxide Level 25, Calcium Level 8.0L, Aspartate Amino Transf (AST/SGOT) 343H, Alanine Aminotransferase ( ALT/SGPT) 178H, Alkaline Phosphatase 481H, Total Bilirubin 5.6H, Total Protein 5.4L, Albumin 1.3L, Albumin/Globulin Ratio 0.32L 02/08/17 05:42: Blood Gas Bicarbonate Standard 22.9, Arterial Blood pH 7.378, Arterial Blood Partial Pressure CO2 40.2, Arterial Blood Partial Pressure O2 86.7, Arterial Blood Total CO2 24.4, Arterial Blood HCO3 23.1, Arterial Blood Base Excess -1.8 , Arterial Blood Oxygen Saturation 95.6 02/08/17 05:55: Bedside Glucose (Misc Panel) 145H CBC/BMP Laboratory Tests 02/07/17 16:38 Red Blood Count 1.96 L, Mean Corpuscular Volume 100.3 H, Mean Corpuscular Hemoglobin 33.5 H, Mean Corpuscular Hemoglobin Concent 33.4, Red Cell Distribution Width 27.2 H 02/08/17 03:37 Red Blood Count 2.26 L, Mean Corpuscular Volume 97.2 H, Mean Corpuscular Hemoglobin 31.6, Mean Corpuscular Hemoglobin Concent 32.5, Red Cell Distribution Width 25.5 H, Calcium Level 8.0 L, Aspartate Amino Transf (AST/SGOT ) 343 H, Alanine Aminotransferase (ALT/SGPT) 178 H, Alkaline Phosphatase 481 H, Total Bilirubin 5.6 H, Total Protein 5.4 L, Albumin 1.3 L Microbiology Microbiology 02/04/17 Blood Culture - Preliminary, Resulted No Growth after 72 hours. All specime... 02/05/17 Gram Stain - Final, Complete 02/05/17 Sputum Culture - Final, Complete Enterobacter Cloacae Complex Yeast Like Organism 02/04/17 Urine Culture - Final, Complete Daniela Warren Feb 08, 2017 10:12 Maged Negron M.D. Feb 08, 2017 14:25
[2017-02-08] MEDS: CHLORHEXIDINE ORAL RINSE 0.12%/15ML 120ML BOTTLE MT SCH ×2 (10:20→21:03)
[2017-02-08] MEDS: SOTALOL HCL 80 MG TAB PO SCH ×2 (10:21→21:03)
[2017-02-08] MEDS: PANTOPRAZOLE 40MG INJ (PROTONIX) (C9113) IV SCH (10:21)
--- NOTE | 2017-02-08 10:42 | REP ---
CT BRAIN WITHOUT CONTRAST: 02/08/2017. COMPARISON: CT 11/28/2006, MRI 12/26/2010. CLINICAL HISTORY: Altered mental status. FINDINGS: The lateral ventricles are midline, symmetric and their size proportionate to the diffuse atrophy. There are some heterogeneous white matter changes bilaterally suggesting chronic small vessel white matter ischemic disease. Basal ganglia symmetric. Bahena-white junction differentiation was maintained. The cortical stripe shows atrophy but no vascular territory infarct, hemorrhage, mass or mass effect. Brainstem was unremarkable. The cerebellum shows mild atrophy and is symmetric in appearance. The basal cisterns intact. Atherosclerotic calcifications of the carotid siphons are noted. Bilateral mastoid opacification near-complete on the right, fewer on the left with some aerated air cells present. Visualized sinuses were intact. The skull base and calvarium show no fracture or focal lesion. IMPRESSION: 1. Ventriculomegaly and some atrophy, age appropriate and in proportion. 2. No intracranial hemorrhage, acute infarct, mass, mass effect or edema. 3. Chronic small vessel white matter ischemic changes of aging and bilateral mastoiditis, right greater than left. Sinuses intact. Signed by Adi Walters MD 02/08/2017 03:51 P
[2017-02-08] MEDS: VANCOMYCIN ORAL SOL 250MG/5ML ORAL SYRINGE PO SCH ×3 (12:22→23:49)
[2017-02-08 13:01] LABS: INR 2.36
[2017-02-08 13:13] LABS: MEAN CORPUSCULAR HGB CONC 33.8 g/dl (32.0-36.5); MEAN CORPUSCULAR VOLUME 97.7 fl (80.0-96.0); RED CELL DISTRIBUTION WIDTH 25.5 % (11.5-14.5)
[2017-02-08 13:33] LABS: WHITE BLOOD COUNT 55.6 K/mm3 (4.0-10.0)
[2017-02-08] MEDS ORDERED: SODIUM ACETATE IV SCH ×8 (18:00)
[2017-02-08] MEDS ORDERED: SODIUM CHLORIDE IV SCH ×8 (18:00)
[2017-02-08] MEDS ORDERED: [UNRECOGNIZED DRUG - OTHER] IV SCH ×8 (18:00)
[2017-02-08] MEDS ORDERED: FAT EMULSION IV 20% 500 ML IV SCH (18:00)
[2017-02-08 20:23] LABS: MEAN CORPUSCULAR HEMOGLOBIN 33.2 pg (27.0-33.0); MEAN CORPUSCULAR HGB CONC 34.7 g/dl (32.0-36.5); MEAN CORPUSCULAR VOLUME 95.7 fl (80.0-96.0); RED CELL DISTRIBUTION WIDTH 24.5 % (11.5-14.5)
[2017-02-08 20:30] LABS: INR 2.31
[2017-02-08 20:32] LABS: WHITE BLOOD COUNT 49.5 K/mm3 (4.0-10.0)
[2017-02-08] MEDS ORDERED: FUROSEMIDE 40 MG/4 ML VIAL (J1940) IV ONE (21:00)
[2017-02-08] MEDS: SERTRALINE 100 MG TAB PO SCH (21:03)
[2017-02-09] VITALS (29 sets, daily range): BP systolic 123–190; BP diastolic 55–95
[2017-02-09] MEDS: PIPERACILLIN/TAZOBACTAM SOD 3.375 GM in D5W MINI-BAG PLUS 50 ML IV SCH ×4 (02:53→21:56)
[2017-02-09] MEDS: IPRATROPIUM 0.5MG/ALBUTEROL 2.5MG INH SOL UD 3ML (DUONEB)(J7620) NEB SCH ×6 (04:00→23:55)
[2017-02-09] MEDS: VANCOMYCIN ORAL SOL 250MG/5ML ORAL SYRINGE PO SCH ×3 (05:23→18:11)
[2017-02-09] MEDS: SODIUM CHLORIDE 0.9% INJ 10 ML SYR IV SCH ×3 (05:24→22:00)
[2017-02-09 05:44] LABS: INR 2.25
[2017-02-09] MEDS: HumaLOG INSULIN (NovoLOG) PER UNIT SC SCH ×3 (06:00→18:00)
[2017-02-09 06:26] LABS: ALBUMIN 1.2 GM/DL (3.2-5.2); ALBUMIN/GLOBULIN RATIO 0.26 (1.00-1.93); BILIRUBIN,TOTAL 6.1 MG/DL (0.2-1.0); CALCIUM LEVEL 8.5 MG/DL (8.8-10.2); CREATININE FOR GFR 2.22 MG/DL (0.70-1.30); GLOMERULAR FILTRATION RATE 31.1 (>42); MAGNESIUM LEVEL 1.7 MG/DL (1.8-2.4); PHOSPHORUS LEVEL 3.8 MG/DL (2.5-4.9); POTASSIUM SERUM 3.8 MEQ/L (3.5-5.1); TOTAL PROTEIN 5.8 GM/DL (6.4-8.2)
[2017-02-09 06:27] LABS: ABG BASE EXCESS 0.4 (-2.0-2.0); ABG HCO3 23.9 MEQ/L (22.0-26.0); ABG PARTIAL PRESSURE CO2 33.8 mmHg (35.0-45.0); ABG PARTIAL PRESSURE O2 122.4 mmHg (75.0-100.0); ABG STANDARD HCO3 24.9 MEQ/L (22.0-26.0); ABG TOTAL CO2 24.9 MEQ/L (23.0-31.0); ABG pH (ARTERIAL) 7.467 UNITS (7.350-7.450)
[2017-02-09 06:29] LABS: ADD MANUAL DIFFER YES; DIFF SLIDE NUMBER 18; MEAN CORPUSCULAR HEMOGLOBIN 32.5 pg (27.0-33.0); MEAN CORPUSCULAR HGB CONC 33.9 g/dl (32.0-36.5); RED CELL DISTRIBUTION WIDTH 22.8 % (11.5-14.5)
[2017-02-09] MEDS ORDERED: LACTULOSE 20 GM/30 ML SYRUP UD PO ONE (06:30)
[2017-02-09 06:32] LABS: WHITE BLOOD COUNT 42.6 K/mm3 (4.0-10.0)
[2017-02-09 06:33] LABS: PLATELET COUNT, AUTOMATED 6 k/mm3 (150-450)
[2017-02-09 07:14] LABS: ANISOCYTOSIS 1+; BANDS 8 % (< 11)
[2017-02-09 07:15] LABS: POIKILOCYTOSIS 1+
[2017-02-09] MEDS: NS 0.45% 1,000 ML IV SCH (07:49)
--- NOTE | 2017-02-09 07:49 | REP ---
Clinical: Respiratory failure. Comparison: 02/08/2017 at 06:50 a.m. Findings: Endotracheal tube is approximately 3 cm above the mk. Mediastinum and cardiac silhouette are stable. Bilateral mid to lower lobe opacities are unchanged and compatible with consolidations with air bronchograms, scattered atelectasis and pleural effusions. No pneumothorax. Impression: Continued bibasilar opacities consistent with consolidations and layering effusions. Signed by Denilson Perkins MD 02/09/2017 07:41 A
--- NOTE | 2017-02-09 08:20 | CCN ---
DATE OF SERVICE: 02/09/2017 CRITICAL CARE TIME: 1 hour, this excludes all procedures. The patient had no evidence of hemorrhage on CT imaging and continues to have hyperammonemia, likely cause of metabolic encephalopathy. I gave lactulose this morning. Yesterday, the patient had continued anemia. Therefore, 2 units of blood were given. He continues to remain thrombocytopenic this morning with a platelet count of 6. Due to his ongoing anemia and potential for blood loss, I ordered a platelet pack this morning. At bedside this morning, the patient is having increased movements; however, no purposeful movements. He does not respond to commands. Does not track or open his eyes spontaneously during my exam. He is more hypernatremic this morning after stopping IV fluids yesterday. He remains on total parenteral nutrition (TPN). He continues to be net positive from an in and out standpoint over the past few days despite giving Lasix with the transfusion yesterday. The patient has had three bowel movements in the past 24 hours. Physical Examination: Temperature is 99.8, pulse is 81, respiratory rate of 28, blood pressure 143/81, with an oxygen saturation of 95% on 0.50 FIO2. General: The patient is encephalopathic and has not received sedation for a number of days. Moving extremities without evidence of seizure activity. HEENT: Sclerae are icteric. Pupils are approximately 4 mm and reactive. Mucous membranes are moist. Tongue is midline. There is less blood out of both the endotracheal tube and the OG tube. Neck is supple. No tracheal deviation or mass. Lymphs: No supraclavicular, cervical or axillary adenopathy. Cardiac: Tachycardiac, S1, S2, without audible murmur, rub or gallop. No elevated jugular venous pulse (JVP). There is significant systemic edema, left greater than right, both in the arm and the leg. There is dependence sacral edema. Pulmonary: Decreased breath sounds at the bases, otherwise clear to auscultation. Without rales, rhonchi or wheezes. Abdomen is scaphoid, soft, nontender, nondistended. I do not palpate any hepatomegaly; however, I am not performing deep palpation due to his recent triple A. Extremities: No cyanosis or clubbing. Edema as mentioned above. Skin is pale, slightly jaundiced. No rashes. He does have minimal discoloration to his sacral area without any open decubitus. Neurologic: As mentioned above. No tremor. No myoclonus. Nonpurposeful movements are present. He has no posturing. Musculoskeletal: Significant muscle wasting. No obvious joint effusion or fracture. LABORATORY EVALUATION: Shows sodium 157, potassium 3.8, chloride 121, CO2 20, bicarb 25, BUN of 76, creatinine of 2.22, glucose 104, magnesium 1.7, albumin 1.2. Finger stick blood glucoses have ranged 104-126. Hemoglobin this morning is 9.2 after 2 units yesterday, hematocrit of 27.1, and platelet count is down to 6. White blood cell count is 42.6, which is down from 55. Chest x-ray shows endotracheal tube is in good position and shows bilateral pleural effusions likely from volume overload. ASSESSMENT AND PLAN: 1. Respiratory failure likely secondary to pulmonary edema. Will attempt diuresis today after the administration of albumin to promote intravascular volume. Will consider extubation when the patient's oxygen requirements have decreased and neurologic status is improved. 2. Encephalopathy and hyperammonemia. Given lactulose this morning. Noncontrast head CT does not show any acute pathology. 3. Hypoalbuminemia. Giving albumin today to help with diuresis. Will start tube feeds today as he has had multiple bowel movements. Hopefully, his gastric outlet obstruction from the abdominal aneurysm has improved. 4. Thrombocytopenia due to the low platelet count and his history of bleeding. I have given a platelet pack this morning. 5. Pulmonary edema. Treatment as mentioned above. 6. Anemia. No indication for transfusion at this point in time due to recurrent need for transfusion and potential life-threatening bleed. He will have repeat CBC at noon. 7. Renal failure. Creatinine has actually decreased, BUN is increasing. I believe the uremia is more from blood loss in the upper GI tract rather than a sign of dehydration. 8. Hypomagnesemia. Will adjust in TPN. 9. Hypernatremia. I have started a low rate of 1/4 normal saline at 50 mL an hour in order to prevent any further change in the sodium. I have adjusted his TPN. My ultimate goal is to have him off TPN to prevent hypernatremia and hyperchloremia. 10. Enterobacter in sputum. On Zosyn IV. 11. History of recent Clostridium difficile requiring by mouth Vancomycin and is now on by mouth Vancomycin. 12. Leukocytosis. Trending down. Will continue to watch for signs and symptoms of infection. 13. Gastrointestinal (GI) prophylaxis. On Protonix. 14. Severe protein malnourishment. Attempting tube feeds today. 15. Deep vein thrombosis (DVT) prophylaxis. Thromboembolic deterrents (TEDS) and [place]. This patient has significant thrombocytopenia and INR has been elevated. 16. Liver injury. INR improving to 2.25. AST and ALT have decreased. Prognosis remains extremely guarded. The patient has a high risk of given his multiple comorbidities and acute presentation. Close monitoring in the intensive care unit with frequent reevaluation is required.
[2017-02-09] MEDS: SOTALOL HCL 80 MG TAB PO SCH ×2 (08:51→21:56)
[2017-02-09] MEDS: PANTOPRAZOLE 40MG INJ (PROTONIX) (C9113) IV SCH (08:51)
[2017-02-09] MEDS: CHLORHEXIDINE ORAL RINSE 0.12%/15ML 120ML BOTTLE MT SCH ×2 (08:52→21:57)
[2017-02-09] MEDS ORDERED: FUROSEMIDE 40 MG/4 ML VIAL (J1940) IV ONE (11:15)
[2017-02-09 11:54] LABS: MEAN CORPUSCULAR HEMOGLOBIN 33.1 pg (27.0-33.0); MEAN CORPUSCULAR HGB CONC 35.2 g/dl (32.0-36.5); MEAN CORPUSCULAR VOLUME 93.9 fl (80.0-96.0); RED CELL DISTRIBUTION WIDTH 21.9 % (11.5-14.5)
[2017-02-09 11:55] LABS: WHITE BLOOD COUNT 34.3 K/mm3 (4.0-10.0)
[2017-02-09 12:19] LABS: INR 2.26
[2017-02-09 12:22] LABS: ALBUMIN 1.3 GM/DL (3.2-5.2); ALBUMIN/GLOBULIN RATIO 0.27 (1.00-1.93); BILIRUBIN,TOTAL 6.8 MG/DL (0.2-1.0); CALCIUM LEVEL 8.1 MG/DL (8.8-10.2); CREATININE FOR GFR 2.17 MG/DL (0.70-1.30); GLOMERULAR FILTRATION RATE 31.9 (>42); POTASSIUM SERUM 3.9 MEQ/L (3.5-5.1); TOTAL PROTEIN 6.1 GM/DL (6.4-8.2)
[2017-02-09 12:44] LABS: BANDS 2 % (< 11); NUCLEATED RED BLOOD CELL 1 % (0-0)
--- NOTE | 2017-02-09 12:44 | REP ---
Clinical: Aortic pseudoaneurysm. Technique: Contrast enhanced CT of the chest abdomen and pelvis using angiographic technique imaged in maximal arterial phase of enhancement with multiplanar re-formations. Examination performed using 100 ml Isovue 370 intravenous contrast material. Comparison: Noncontrast CT of the abdomen dated 01/28/2017. Findings: There is a large complex pseudoaneurysm in the upper abdomen which measures approximately up to 8.6 cm maximal diameter and include areas of thrombosed and patent pseudo-lumen. This large pseudoaneurysm appears to originate from a defect at the junction of the upper abdominal aorta and celiac axis (axial images 65 - 75). The aorta itself is essentially otherwise normal in appearance and size measuring up to 2.5 centimeters maximal diameter. The origin of the SMA as well as bilateral solitary renal arteries and ANAHY demonstrate partially calcified atheromatous changes but are otherwise normal in enhancement and caliber. The bifurcation to common iliac arteries appears normal with the left iliac artery measuring approximately 12 mm maximal diameter and the right iliac artery measuring approximately 11 mm diameter. In the upper abdomen surrounding the area of pseudoaneurysm is a moderate amount of soft tissue and retroperitoneal as well as mild mesenteric stranding including areas anterior to the left kidney measuring roughly 2.5 cm and demonstrating mild enhancement as compared to the aorta and pseudoaneurysm. As such and because of the limitations due to the phase of enhancement, leakage of the pseudoaneurysm cannot be excluded. These findings may also represent areas of adenopathy or small mass lesions (axial images 54 - 100). Liver demonstrates a lobulated contour with a rim calcified chronic-appearing lesions cannot be further evaluated due to lack of appropriate enhancement. Mild splenomegaly is suggested. The pancreas is unremarkable. The gallbladder is not visualized. The bilateral kidneys appear grossly normal. The enteric system is without obvious obstruction or inflammatory process. A Jiang catheter is identified in collapsed bladder. No significant ascites. No free air. Musculoskeletal structures demonstrate degenerative changes. Lung bases demonstrate large bilateral consolidations/collapse to the lower lobes with small pleural effusions. Impression: 1. Large complex pseudoaneurysm measuring approximately 8.6 cm diameter appears to originate at the origin of the celiac access. Moderate amount of surrounding mesenteric and retroperitoneal stranding cannot exclude aneurysmal leak. Signed by Denilson Perkins MD 02/09/2017 12:36 P
[2017-02-09 12:53] LABS: ANISOCYTOSIS 2+; HYPOCHROMASIA 1+
--- NOTE | 2017-02-09 14:23 | IPNPDOC ---
Subjective Date Seen The patient was seen on 02/09/17. Subjective Chief Complaint/HPI The patient is a 71-year-old male admitted with a reason for visit of Gastric Neoplasm. Eyes: Denies: Pain Skin: Denies: Rash Pulmonary: Denies: Cough Gastrointestinal: Denies: Vomiting Objective Physical Examination General Exam: Positive: No Acute Distress, Negative: Alert (Intubated, no response to sternal rub) Eye Exam: Positive: Other Eye Symptoms (minimal pupillary reponse) ENT Exam: Positive: Other ENT (NGT with bloody residue. Clots suction from Oropharynx this am by nursing staff. ) Neck Exam: Positive: Supple, Negative: JVD Chest Exam: Positive: Clear to auscultation Heart Exam: Positive: Rate Normal, Regular Rhythm Telemetry: Positive: No significant arrhythmia, Sinus Abdomen Exam: Positive: Soft Extremity Exam: Positive: Edema (BLE) Skin Exam: Positive: Nl turgor and temperature Neuro Exam: Positive: Other (intubated w/o sedation. not responding to sternal rub) Psych Exam: Positive: Other (see neuro exam. ) Assessment /Plan Problems (1) Encephalopathy Status: Acute Problem Text: remains unresponsive despite no sedation h/o recurrent hepatic encephalopathy-jerry high risk given large volume blood reabsorption Zosyn and remains on lactulose prn c daily 2-3 soft BMs 02/08 34 02/04 NH3 41 (2) Sepsis Status: Acute Problem Text: D6 Zosyn-RD (02/08 vanco stopped p 5D) favor 2 mesenteric ischemia 2 pseudoaneurysm compression and B PN 02/09 34.3, Tm 100 02/08 WBC 56K, Tm 101.5 02/07 MN 02/05 SCX few E. cloacae 02/04 BCX x NG 02/04 UCX x 1 01/28 BCX x 2 NG . (3) Anemia Status: Acute Problem Text: 02/09 8.9, 8K; therefore, 2 u PRBCs, 1 plt/PT/PTT 02/08 7.3, 10K, 27/49; therefore, tx 2u PRBCs 02/07 hgb down to 6.6 c plt 9 c active bleeding; therefore, tx 2 pheresis plt, 1 FFP and then 2 units PRBCs 02/06 tx 2u PRBCs (4) Paroxysmal atrial fibrillation Status: Acute Problem Text: Continues SR off chronotropic meds 02/07/17: Cardizem drip yesterday for AFib with RVR. Converted to sinus rhythm 02/06/17: NSR rate 90s. 02/05 1830 SR to AF c RVR 130-150-no improvement c dig 0.25 IV x 2; then converted for ~1 min c metoprolol 5 IV x 2, will repeat on sotalol 80 BID (5) Pseudoaneurysm of aorta Problem Text: 02/06/17: monitor. Dr. Hill, vascular following. 02/05 s/p intravascular aneurysm coiling by Dr. Hill-unable to visualize celiac trunk-? compromised 02/04 case d/w Dr. Hill-consult placed 02/04/17 aortic US: Pseudoaneurysm at the diaphragmatic hiatus anterior to the aorta measuring 8.0 x 6.7 x 7.4 cm. Mycotic aneurysm is a possibility. (6) Coagulopathy Status: Chronic Problem Text: as per anemia 2 ESLD 02/07 PT 46/PTT 63 02/04 vitamin K 10 SC x 1 given (7) Respiratory failure Status: Acute Problem Text: remains on PRVC per Pulmonary 02/08 CT head NAD 02/04 DNR/DNI secured from , currently on CPAP per Dr. Muñoz (8) Pancytopenia Permanent Comment: Longstanding problem with Neupogen support of neutropenia. Abnormal BM biopsy from [facility] done November 2014 (see eCW chart) Chronic thrombocytopenia and anemia also Last Edited By: Amaury Jack M.D. on Feb 10, 2016 11:28 Status: Chronic Problem Specific Plan: Monitor Clinically, Repeat Labs Problem Text: 2 ESLD (9) Multifocal pneumonia Problem Text: c respiratory failure on MV per CC 02/05/17: CT angio of chest confirms significant pneumonia rx as per sepsis (10) Clostridium difficile colitis Status: Chronic Problem Specific Plan: Monitor Clinically Problem Text: 02/08 + vanco px 125 QID H/O multiple episodes Cdiff. Has been on PO Vanco q3 days with last dose 01/29. (11) PREET (acute kidney injury) Status: Acute Response to Treatment: Stable Problem Text: 02/08/17: stable at 2.2-stable lytes-IVF DCd due to + fluid balance- stable lytes baseline cr 1.2 (12) Malnutrition Status: Chronic Response to Treatment: Stable Problem Text: 02/07 TPN started (13) Hypoalbuminemia Status: Chronic Problem Text: c significant 3rd spacing 02/09 fur 40 c albumin trial Plan/VTE VTE Prophylaxis Ordered?: No (TEDs, SCDs) VTE Exclusion Pharmacological: Bleeding Risk (INR 2.56. Teds and SCDs ordered. ) Plan/Urinary Catheter Reason for insertion/continuin: Critical Pt monitoring VS, I&O, 24H, Fishbone Vital Signs/I&O Vital Signs Date Time Temp Pulse Resp B/P (MAP) Pulse Ox O2 Delivery O2 Flow Rate FiO2 02/09/17 13:15 100.0 87 24 151/70 (97) 94 Ventilator 45 163/82 (109) 02/04/17 11:00 2.0 I&O- Last 24 Hours up to 6 AM 02/09/17 06:00 Intake Total 2740 ml Output Total 3140 ml Balance -400 ml Laboratory Data 24H LABS Laboratory Tests 2 02/08/17 14:53: Ammonia 39H 02/08/17 18:12: Bedside Glucose (Misc Panel) 112H 02/08/17 20:11: Prothrombin Time 26.3H, Prothromb Time International Ratio 2.31 02/08/17 23:46: Bedside Glucose (Misc Panel) 126H 02/09/17 05:19: Neutrophils 55, Band Neutrophils 8, Lymphocytes (Manual) 14L, Monocytes (Manual ) 6, Metamyelocytes 7H, Myelocytes 10H, Platelet Estimate MARKED DECREASE, Poikilocytosis 1+, Anisocytosis 1+ 02/09/17 05:20: Prothrombin Time 25.7H, Prothromb Time International Ratio 2.25, Activated Partial Thromboplast Time 45.3H, Anion Gap 11, Glomerular Filtration Rate 31.1L , Blood Urea Nitrogen 76H, Creatinine 2.22H, Sodium Level 157H, Potassium Level 3.8, Chloride Level 121H, Carbon Dioxide Level 25, Calcium Level 8.5L, Phosphorus Level 3.8, Aspartate Amino Transf (AST/SGOT) 228H, Alanine Aminotransferase (ALT/SGPT) 144H, Alkaline Phosphatase 447H, Total Bilirubin 6.1H, Total Protein 5.8L, Albumin 1.2L, Magnesium Level 1.7L, Albumin/Globulin Ratio 0.26L 02/09/17 06:14: Blood Gas Bicarbonate Standard 24.9, Arterial Blood pH 7.467H, Arterial Blood Partial Pressure CO2 33.8L, Arterial Blood Partial Pressure O2 122.4H, Arterial Blood Total CO2 24.9, Arterial Blood HCO3 23.9, Arterial Blood Base Excess 0.4, Arterial Blood Oxygen Saturation 98.4 02/09/17 11:27: Bedside Glucose (Misc Panel) 117H 02/09/17 11:36: Neutrophils 54, Band Neutrophils 2, Lymphocytes (Manual) 9L, Monocytes (Manual) 8, Metamyelocytes 11H, Myelocytes 13H, Promyelocytes 3H, Nucleated Red Blood Cells 1H, Platelet Estimate MARKED DECREASE, Hypochromasia 1+, Anisocytosis 2+, Anion Gap 11, Glomerular Filtration Rate 31.9L, Blood Urea Nitrogen 76H, Creatinine 2.17H, Sodium Level 155H, Potassium Level 3.9, Chloride Level 119H, Carbon Dioxide Level 25, Calcium Level 8.1L, Aspartate Amino Transf (AST/SGOT) 223H, Alanine Aminotransferase (ALT/SGPT) 134H, Alkaline Phosphatase 405H, Total Bilirubin 6.8H, Total Protein 6.1L, Albumin 1.3L, Albumin/Globulin Ratio 0.27L 02/09/17 11:51: Prothrombin Time 25.8H, Prothromb Time International Ratio 2.26 CBC/BMP Laboratory Tests 02/08/17 20:11 Red Blood Count 2.12 L, Mean Corpuscular Volume 95.7, Mean Corpuscular Hemoglobin 33.2 H, Mean Corpuscular Hemoglobin Concent 34.7, Red Cell Distribution Width 24.5 H 02/09/17 05:19 Red Blood Count 2.82 L, Mean Corpuscular Volume 96.0, Mean Corpuscular Hemoglobin 32.5, Mean Corpuscular Hemoglobin Concent 33.9, Red Cell Distribution Width 22.8 H 02/09/17 05:20 Calcium Level 8.5 L, Phosphorus Level 3.8, Aspartate Amino Transf (AST/SGOT) 228 H, Alanine Aminotransferase (ALT/SGPT) 144 H, Alkaline Phosphatase 447 H, Total Bilirubin 6.1 H, Total Protein 5.8 L, Albumin 1.2 L 02/09/17 11:36 Calcium Level 8.1 L, Aspartate Amino Transf (AST/SGOT) 223 H, Alanine Aminotransferase (ALT/SGPT) 134 H, Alkaline Phosphatase 405 H, Total Bilirubin 6.8 H, Total Protein 6.1 L, Albumin 1.3 L Microbiology Microbiology 02/04/17 Blood Culture - Final, Complete NO GROWTH AFTER 5 DAYS 02/05/17 Gram Stain - Final, Complete 02/05/17 Sputum Culture - Final, Complete Enterobacter Cloacae Complex Yeast Like Organism 02/04/17 Urine Culture - Final, Complete Maged Negron M.D. Feb 09, 2017 14:23
[2017-02-09 14:59] LABS: MEAN CORPUSCULAR HEMOGLOBIN 31.5 pg (27.0-33.0); MEAN CORPUSCULAR HGB CONC 33.3 g/dl (32.0-36.5); MEAN CORPUSCULAR VOLUME 94.6 fl (80.0-96.0); RED CELL DISTRIBUTION WIDTH 22.3 % (11.5-14.5)
[2017-02-09 15:05] LABS: WHITE BLOOD COUNT 38.8 K/mm3 (4.0-10.0)
[2017-02-09 15:29] LABS: BANDS 7 % (< 11)
[2017-02-09 15:30] LABS: ANISOCYTOSIS 2+
[2017-02-09] MEDS ORDERED: [UNRECOGNIZED DRUG - OTHER] IV SCH ×7 (18:00)
[2017-02-09] MEDS ORDERED: SODIUM CHLORIDE IV SCH ×7 (18:00)
[2017-02-09] MEDS ORDERED: SODIUM ACETATE IV SCH ×7 (18:00)
[2017-02-09] MEDS ORDERED: FAT EMULSION IV 20% 500 ML IV SCH (18:00)
[2017-02-09] MEDS: PROPOFOL 1,000 MG in APPROPRIATE DILUENT 1 EA IV SCH (21:30)
[2017-02-09 22:25] LABS: MEAN CORPUSCULAR HEMOGLOBIN 33.8 pg (27.0-33.0); MEAN CORPUSCULAR HGB CONC 36.1 g/dl (32.0-36.5); MEAN CORPUSCULAR VOLUME 93.8 fl (80.0-96.0); RED CELL DISTRIBUTION WIDTH 21.7 % (11.5-14.5)
[2017-02-09 22:27] LABS: WHITE BLOOD COUNT 33.3 K/mm3 (4.0-10.0)
[2017-02-09 22:30] LABS: INR 2.1
--- NOTE | 2017-02-09 23:53 | IPNPDOC ---
Date Seen The patient was seen on 02/09/17. Progress Note SUBJECTIVE: Patient is intubated without sedation OBJECTIVE PHYSICAL EXAMINATION: VITAL SIGNS: Please see below. GENERAL: Lying in bed intubated HEENT: Normal CARDIOVASCULAR: Regular rate and rhythm. RESPIRATORY: Decreased breath sounds at the bases. ABDOMINAL: Soft nontender nondistended EXTREMITIES: Well-perfused NEUROLOGICAL: Not awake not alert unable to determine if oriented withdraws to pain PSYCHOLOGICAL: Unable to determine LABORATORY DATA: Please see below. MICROBIOLOGY: Please see below. ASSESSMENT AND PLAN: This is a 71-year-old male who underwent coil embolization and thrombin injection into a pseudoaneurysm that originated from the aorta with disruption of the celiac artery. PROBLEMS: 1. 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 VS, I&O, 24H, Fishbone Vital Signs/I&O Vital Signs Date Time Temp Pulse Resp B/P (MAP) Pulse Ox O2 Delivery O2 Flow Rate FiO2 02/09/17 21:56 92 154/77 02/09/17 20:00 94 45 02/09/17 20:00 99.1 30 Ventilator 02/04/17 11:00 2.0 I&O- Last 24 Hours up to 6 AM 02/09/17 06:00 Intake Total 2740 ml Output Total 3140 ml Balance -400 ml Laboratory Data 24H LABS Laboratory Tests 2 02/09/17 05:19: Neutrophils 55, Band Neutrophils 8, Lymphocytes (Manual) 14L, Monocytes (Manual ) 6, Metamyelocytes 7H, Myelocytes 10H, Platelet Estimate MARKED DECREASE, Poikilocytosis 1+, Anisocytosis 1+ 02/09/17 05:20: Prothrombin Time 25.7H, Prothromb Time International Ratio 2.25, Activated Partial Thromboplast Time 45.3H, Anion Gap 11, Glomerular Filtration Rate 31.1L , Blood Urea Nitrogen 76H, Creatinine 2.22H, Sodium Level 157H, Potassium Level 3.8, Chloride Level 121H, Carbon Dioxide Level 25, Calcium Level 8.5L, Phosphorus Level 3.8, Aspartate Amino Transf (AST/SGOT) 228H, Alanine Aminotransferase (ALT/SGPT) 144H, Alkaline Phosphatase 447H, Total Bilirubin 6.1H, Total Protein 5.8L, Albumin 1.2L, Magnesium Level 1.7L, Albumin/Globulin Ratio 0.26L 02/09/17 06:14: Blood Gas Bicarbonate Standard 24.9, Arterial Blood pH 7.467H, Arterial Blood Partial Pressure CO2 33.8L, Arterial Blood Partial Pressure O2 122.4H, Arterial Blood Total CO2 24.9, Arterial Blood HCO3 23.9, Arterial Blood Base Excess 0.4, Arterial Blood Oxygen Saturation 98.4 02/09/17 11:27: Bedside Glucose (Misc Panel) 117H 02/09/17 11:36: Neutrophils 54, Band Neutrophils 2, Lymphocytes (Manual) 9L, Monocytes (Manual) 8, Metamyelocytes 11H, Myelocytes 13H, Promyelocytes 3H, Nucleated Red Blood Cells 1H, Platelet Estimate MARKED DECREASE, Hypochromasia 1+, Anisocytosis 2+, Anion Gap 11, Glomerular Filtration Rate 31.9L, Blood Urea Nitrogen 76H, Creatinine 2.17H, Sodium Level 155H, Potassium Level 3.9, Chloride Level 119H, Carbon Dioxide Level 25, Calcium Level 8.1L, Aspartate Amino Transf (AST/SGOT) 223H, Alanine Aminotransferase (ALT/SGPT) 134H, Alkaline Phosphatase 405H, Total Bilirubin 6.8H, Total Protein 6.1L, Albumin 1.3L, Albumin/Globulin Ratio 0.27L 02/09/17 11:51: Prothrombin Time 25.8H, Prothromb Time International Ratio 2.26 02/09/17 14:43: Neutrophils 29L, Band Neutrophils 7, Lymphocytes (Manual) 17, Monocytes (Manual ) 19H, Metamyelocytes 13H, Myelocytes 15H, Platelet Estimate MARKED DECREASE, Anisocytosis 2+, Macrocytosis 1+ 02/09/17 17:59: Bedside Glucose (Misc Panel) 118H 02/09/17 22:11: Prothrombin Time 24.3H, Prothromb Time International Ratio 2.10 CBC/BMP Laboratory Tests 02/09/17 05:19 Red Blood Count 2.82 L, Mean Corpuscular Volume 96.0, Mean Corpuscular Hemoglobin 32.5, Mean Corpuscular Hemoglobin Concent 33.9, Red Cell Distribution Width 22.8 H 02/09/17 05:20 Calcium Level 8.5 L, Phosphorus Level 3.8, Aspartate Amino Transf (AST/SGOT) 228 H, Alanine Aminotransferase (ALT/SGPT) 144 H, Alkaline Phosphatase 447 H, Total Bilirubin 6.1 H, Total Protein 5.8 L, Albumin 1.2 L 02/09/17 11:36 Calcium Level 8.1 L, Aspartate Amino Transf (AST/SGOT) 223 H, Alanine Aminotransferase (ALT/SGPT) 134 H, Alkaline Phosphatase 405 H, Total Bilirubin 6.8 H, Total Protein 6.1 L, Albumin 1.3 L 02/09/17 14:43 02/09/17 22:11 Red Blood Count 2.61 L, Mean Corpuscular Volume 93.8, Mean Corpuscular Hemoglobin 33.8 H, Mean Corpuscular Hemoglobin Concent 36.1, Red Cell Distribution Width 21.7 H Microbiology Microbiology 02/04/17 Blood Culture - Final, Complete NO GROWTH AFTER 5 DAYS 02/05/17 Gram Stain - Final, Complete 02/05/17 Sputum Culture - Final, Complete Enterobacter Cloacae Complex Yeast Like Organism 02/04/17 Urine Culture - Final, Complete Ovidio iHll MD Feb 09, 2017 23:53
[2017-02-10] VITALS (22 sets, daily range): BP systolic 98–173; BP diastolic 52–99; O2SAT 94–96
[2017-02-10] MEDS: HumaLOG INSULIN (NovoLOG) PER UNIT SC SCH ×5 (01:09→23:32)
[2017-02-10] MEDS: VANCOMYCIN ORAL SOL 250MG/5ML ORAL SYRINGE PO SCH ×5 (01:10→23:31)
[2017-02-10] MEDS: IPRATROPIUM 0.5MG/ALBUTEROL 2.5MG INH SOL UD 3ML (DUONEB)(J7620) NEB SCH ×6 (03:26→23:31)
[2017-02-10] MEDS: NS 0.45% 1,000 ML IV SCH (03:52)
[2017-02-10] MEDS: PIPERACILLIN/TAZOBACTAM SOD 3.375 GM in D5W MINI-BAG PLUS 50 ML IV SCH ×4 (03:52→20:36)
[2017-02-10] MEDS: SODIUM CHLORIDE 0.9% INJ 10 ML SYR IV SCH ×3 (05:55→20:36)
[2017-02-10 06:01] LABS: ABG BASE EXCESS 0.9 (-2.0-2.0); ABG HCO3 25.3 MEQ/L (22.0-26.0); ABG PARTIAL PRESSURE CO2 39.4 mmHg (35.0-45.0); ABG STANDARD HCO3 25.3 MEQ/L (22.0-26.0); ABG TOTAL CO2 26.5 MEQ/L (23.0-31.0); ABG pH (ARTERIAL) 7.426 UNITS (7.350-7.450)
[2017-02-10 06:29] LABS: ADD MANUAL DIFFER YES; DIFF SLIDE NUMBER 6; MEAN CORPUSCULAR HEMOGLOBIN 33.1 pg (27.0-33.0); MEAN CORPUSCULAR HGB CONC 34.9 g/dl (32.0-36.5); RED CELL DISTRIBUTION WIDTH 21.7 % (11.5-14.5); WHITE BLOOD COUNT 29.5 K/mm3 (4.0-10.0)
[2017-02-10 06:32] LABS: PLATELET COUNT, AUTOMATED 14 k/mm3 (150-450)
[2017-02-10 06:36] LABS: INR 2.09
[2017-02-10 06:50] LABS: ALBUMIN 1.3 GM/DL (3.2-5.2); ALBUMIN/GLOBULIN RATIO 0.27 (1.00-1.93); BILIRUBIN,TOTAL 7.4 MG/DL (0.2-1.0); CALCIUM LEVEL 8.7 MG/DL (8.8-10.2); CREATININE FOR GFR 2.15 MG/DL (0.70-1.30); GLOMERULAR FILTRATION RATE 32.2 (>42); POTASSIUM SERUM 3.7 MEQ/L (3.5-5.1); TOTAL PROTEIN 6.1 GM/DL (6.4-8.2)
[2017-02-10 07:13] LABS: BANDS 3 % (< 11)
[2017-02-10 07:15] LABS: POIKILOCYTOSIS 2+; SCHISTOCYTES 1+
[2017-02-10 07:16] LABS: ANISOCYTOSIS 2+
--- NOTE | 2017-02-10 09:06 | REP ---
Clinical: Respiratory failure. Comparison: 02/09/2017, 02/08/2017. Findings: Endotracheal tube approximately 2 cm above the mk. Nasogastric tube courses below left hemidiaphragm. Right subclavian catheter with tip in the SVC. Mediastinum and cardiac silhouette are stable with cardiomegaly again appreciated. Bilateral lower lobe infiltrates and consolidations as well as small pleural effusions appear essentially unchanged. Impression: Lines and tubes as described above. Bilateral lower lobe consolidations, scattered atelectasis and suspected pleural effusions unchanged. Signed by Denilson Perkins MD 02/10/2017 08:26 A
[2017-02-10] MEDS: CHLORHEXIDINE ORAL RINSE 0.12%/15ML 120ML BOTTLE MT SCH (09:14)
[2017-02-10] MEDS: SOTALOL HCL 80 MG TAB PO SCH ×2 (09:15→20:26)
[2017-02-10] MEDS: PANTOPRAZOLE 40MG INJ (PROTONIX) (C9113) IV SCH (09:15)
[2017-02-10 11:16] LABS: ABG BASE EXCESS 0.4 (-2.0-2.0); ABG HCO3 24.9 MEQ/L (22.0-26.0); ABG PARTIAL PRESSURE CO2 39.6 mmHg (35.0-45.0); ABG STANDARD HCO3 24.9 MEQ/L (22.0-26.0); ABG TOTAL CO2 26.2 MEQ/L (23.0-31.0); ABG pH (ARTERIAL) 7.417 UNITS (7.350-7.450)
[2017-02-10] MEDS ORDERED: FUROSEMIDE 40 MG/4 ML VIAL (J1940) IV ONE (11:30)
[2017-02-10 11:48] LABS: MEAN CORPUSCULAR HEMOGLOBIN 33.5 pg (27.0-33.0); MEAN CORPUSCULAR HGB CONC 35.3 g/dl (32.0-36.5); MEAN CORPUSCULAR VOLUME 94.9 fl (80.0-96.0); RED CELL DISTRIBUTION WIDTH 21.9 % (11.5-14.5); WHITE BLOOD COUNT 29.1 K/mm3 (4.0-10.0)
[2017-02-10 11:50] LABS: INR 2.05
--- NOTE | 2017-02-10 12:31 | CCN ---
DATE OF SERVICE: 02/10/2017 Critical care time was 1 hour. This excludes all procedures. I was urgently called to the patient's bedside this morning prior to intensive care unit (ICU) rounds as he became bradycardic. On my arrival, he was not moving any air, had low minute ventilation on mechanical ventilation. My suspicion was that of endotracheal tube obstruction. I extubated him, and with oxygen, patient was able to maintain his oxygen saturation, however, is not completely awake, despite the fact that he has not received any significant sedation over the past 4 days. He has metabolic encephalopathy from liver disease. His ammonia level still pending for this morning. I discussed reintubation with the family. At this point in time, they state that they wish to respect his wishes and not perform endotracheal intubation and to see "how things go." I did discuss the fact that I am unable to provide any enteral feeding with his mental status at its current level due to the risk of aspiration. He remains hypoalbuminemic and severely protein malnourished. Patient is unable to communicate or provide any insight into symptoms. He is sedated. He remains lethargic and only occasionally opens his eyes. VITAL SIGNS: Temperature is 98.7, pulse is 90, respiratory rate is 31, blood pressure is 162/97, oxygen saturation 94% on 100% FiO2. GENERAL: Patient lethargic, occasionally moves arms, unable to communicate, had no tracking, remains cephalopathic. HEENT: Pupils are approximately 3 mm, symmetric, except for a mild pupillary defect on the left likely from prior cataract surgery. Sclerae are icteric. Mucous membranes are moist. Tongue is midline. NECK: Is supple. No tracheal deviation or mass. His JVP does appear to be elevated. Central line is in place in the subclavian area without surrounding erythema or exudate. PULMONARY: Breath sounds much better after extubation, decreased at bases. No rhonchi or wheeze. CARDIAC: Regular S1, S2 without audible murmur, rub, or gallop. JVP is elevated. He has significant edema more so on the left than on the right. SKIN: Significant bruising underneath the left arm, some jaundice, no other significant abnormalities other than an unstageable sacral decubitus. MUSCULOSKELETAL: Significant muscle wasting. Laboratory evaluation shows a sodium of 156, potassium 3.7, chloride 119, bicarb 26, BUN of 76, creatinine of 2.15, calcium 8.7, anion gap of 11, without correction for hypoalbuminemia. Albumin is 1.3. AST, ALT are trending downwards. Total bilirubin is increased, and INR is decreased at 2.09. Hemoglobin and hematocrit (H and H) 8.8 and 25.1, respectively with a platelet count of 14. White count is down to 29.5. Fingerstick blood glucoses have an 111 to 120. This morning, chest x-ray showed bilateral pleural effusions with good endotracheal tube placement. There remains right lower lobe infiltrate. IMPRESSION: 1. Bradycardia secondary to endotracheal tube obstruction. Once the obstruction was removed, heart rate was normal. I do not think sotalol needs to be held because of this event. This was clearly a respiratory event a precipitating bradycardia. 2. Respiratory failure, acute hypoxic in nature requiring oxygen. He has a high risk of respiratory failure, technically not an ideal candidate for extubation. However, he had endotracheal tube blockage, and family has decided to make him DO NOT RESUSCITATE/DO NOT INTUBATE (DNR/DNI) and not pursue any endotracheal intubation. I think this is reasonable given the patient's comorbidities although he has had some minor improvements. 3. Metabolic encephalopathy. Will recheck ammonia this morning and provide lactulose. 4. Pulmonary edema. Will discontinue (DC) intravenous (IV) fluids. Continue with Lasix administration for a goal output of 1 liter today. 5. Protein malnourishment. Unfortunately, he will not be able to have enteral feeding. Will continue total parenteral nutrition (TPN). 6. Thrombocytopenia. At this point in time, no indication of acute bleed. Will continue to monitor. 7. Anemia. Hemoglobin is at 8.8. At this point in time. No indication for transfusion. 8. 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 Appreciate Dr. Hill's input and management. 9. Hemoptysis. Resolved, however, had endotracheal tube blockage from dried blood. 10. Renal failure. Creatinine trending down. BUN elevated likely from consumption of blood products. 11. Liver injury. AST, ALT trending down. Total bilirubin trending up, likely from metabolism of blood. 12. Leukocytosis. Also trending down, now down to 29. Patient remains on Zosyn for Enterobacter in the sputum. Culture shows sensitivity to this antibiotic. IV vancomycin was discontinued; However, I initiated by mouth vancomycin on Saturday due to his recent history of Clostridium difficile (C diff) requiring by mouth vancomycin. After this initiation, his white blood cell count significantly decreased. As long as he is on antibiotics. would continue to treat for potential of C diff. 13. Deep venous thrombosis (DVT) prophylaxis. Thromboembolism deterrents (TEDs) and [place] due to thrombocytopenia. He is unable to have heparin. 14. Gastrointestinal (GI) prophylaxis with Protonix. 15. Hypernatremic/hyperchloremic. I have discontinued IV fluids. Will adjust TPN accordingly. 16. Hypocalcemic. Mild in nature. Again, will adjust in TPN. PROGNOSIS: Patient's prognosis is extremely guarded with a high risk of . Patient's family does not want resuscitation. We will follow the family's wishes.
--- NOTE | 2017-02-10 13:55 | IPNPDOC ---
Subjective Date Seen The patient was seen on 02/10/17. Subjective Chief Complaint/HPI The patient is a 71-year-old male admitted with a reason for visit of Gastric Neoplasm. Events since last encounter lethargic but opening eyes spontaneously; extubated 2 ETT obstruction Constitutional: Denies: Chills, Fever Gastrointestinal: Denies: Vomiting Objective Physical Examination General Exam: Positive: No Acute Distress, Negative: Alert (awakens and answers questions, but is groggy currently (Had EGD this am)) Eye Exam: Positive: Other Eye Symptoms (minimal pupillary reponse) ENT Exam: Positive: Other ENT (NGT with bloody residue. Clots suction from Oropharynx this am by nursing staff. ) Neck Exam: Positive: Supple, Negative: JVD Chest Exam: Positive: Clear to auscultation Heart Exam: Positive: Rate Normal, Regular Rhythm Telemetry: Positive: No significant arrhythmia, Sinus Abdomen Exam: Positive: Normal bowel sounds, Soft, Tenderness (mild epigastric tenderness without guard or rebound) Extremity Exam: Negative: Edema Skin Exam: Positive: Nl turgor and temperature Neuro Exam: Positive: Other (intubated w/o sedation. not responding to sternal rub) Psych Exam: Positive: Other (see neuro exam. ) Assessment /Plan Problems (1) Respiratory failure Status: Acute Problem Text: 02/10 bradycardia to 30s 2 ETT obstruction; therefore, extubated. Family ( including ) refuse to reintubate 02/08 CT head NAD 02/04 DNR/DNI secured from , currently on CPAP per Dr. Muñoz (2) Encephalopathy Status: Acute Problem Text: improving, slowly h/o recurrent hepatic encephalopathy-jerry high risk given large volume blood reabsorption Zosyn and remains on lactulose prn c daily 2-3 soft BMs 02/08 34 02/04 NH3 41 (3) Sepsis Status: Acute Problem Text: D7 Zosyn-RD (02/08 vanco stopped p 5D) favor 2 mesenteric ischemia 2 pseudoaneurysm compression and B PN 02/10 29.1, afebrile 02/09 34.3, afebrile 02/08 WBC 56K, Tm 101.5 02/07 MN 02/05 SCX few E. cloacae 02/04 BCX x NG 02/04 UCX x 1 01/28 BCX x 2 NG . (4) Anemia Status: Acute Problem Text: 02/10 8.8, 13K-stable 02/09 8.9, 8K; therefore, 2 u PRBCs, 1 plt/PT/PTT 02/08 7.3, 10K, 27/49; therefore, tx 2u PRBCs 02/07 hgb down to 6.6 c plt 9 c active bleeding; therefore, tx 2 pheresis plt, 1 FFP and then 2 units PRBCs 02/06 tx 2u PRBCs (5) Paroxysmal atrial fibrillation Status: Acute Problem Text: Continues SR off chronotropic meds 02/07/17: Cardizem drip yesterday for AFib with RVR. Converted to sinus rhythm 02/06/17: NSR rate 90s. 02/05 1830 SR to AF c RVR 130-150-no improvement c dig 0.25 IV x 2; then converted for ~1 min c metoprolol 5 IV x 2, will repeat on sotalol 80 BID (6) Pseudoaneurysm of aorta Problem Text: LFTs continue to decline/no signs of active bleeding 02/05 s/p intravascular aneurysm coiling by Dr. Hill-unable to visualize celiac trunk-? compromised 02/04 case d/w Dr. Hill-consult placed 02/04 aortic US: Pseudoaneurysm at the diaphragmatic hiatus anterior to the aorta measuring 8.0 x 6.7 x 7.4 cm. Mycotic aneurysm is a possibility. (7) Coagulopathy Status: Chronic Problem Text: as per anemia 2 ESLD 02/07 PT 46/PTT 63 02/04 vitamin K 10 SC x 1 given (8) Pancytopenia Permanent Comment: Longstanding problem with Neupogen support of neutropenia. Abnormal BM biopsy from [facility] [place] done November 2014 (see eCW chart) Chronic thrombocytopenia and anemia also Last Edited By: Amaury Jack M.D. on Feb 10, 2016 11:28 Status: Chronic Problem Specific Plan: Monitor Clinically, Repeat Labs Problem Text: 2 ESLD (9) Multifocal pneumonia Problem Text: c respiratory failure on MV per CC 02/05/17: CT angio of chest confirms significant pneumonia rx as per sepsis (10) Clostridium difficile colitis Status: Chronic Problem Specific Plan: Monitor Clinically Problem Text: 02/08 + vanco px 125 QID H/O multiple episodes Cdiff. Has been on PO Vanco q3 days with last dose 01/29. (11) PREET (acute kidney injury) Status: Acute Response to Treatment: Stable Problem Text: 02/10/17: stable at 2.2-stable lytes-IVF DCd due to + fluid balance- stable lytes baseline cr 1.2 (12) Malnutrition Status: Chronic Response to Treatment: Stable Problem Text: TPN as per CC 02/07 TPN started (13) Hypoalbuminemia Status: Chronic Problem Text: c significant 3rd spacing 02/09 fur 40 c albumin trial Plan/VTE VTE Prophylaxis Ordered?: No (TEDs, SCDs) VTE Exclusion Pharmacological: Bleeding Risk (INR 2.56. Teds and SCDs ordered. ) Plan/Urinary Catheter Reason for insertion/continuin: Critical Pt monitoring VS, I&O, 24H, Fishbone Vital Signs/I&O Vital Signs Date Time Temp Pulse Resp B/P (MAP) Pulse Ox O2 Delivery O2 Flow Rate FiO2 02/10/17 13:00 84 29 136/74 (94) Aerosol Mask 60 136/74 (94) 02/10/17 12:00 98.9 97 02/10/17 11:23 15.0 I&O- Last 24 Hours up to 6 AM 02/10/17 06:00 Intake Total 3500 ml Output Total 3655 ml Balance -155 ml Laboratory Data 24H LABS Laboratory Tests 2 02/09/17 14:43: Neutrophils 29L, Band Neutrophils 7, Lymphocytes (Manual) 17, Monocytes (Manual ) 19H, Metamyelocytes 13H, Myelocytes 15H, Platelet Estimate MARKED DECREASE, Anisocytosis 2+, Macrocytosis 1+ 02/09/17 17:59: Bedside Glucose (Misc Panel) 118H 02/09/17 22:11: Prothrombin Time 24.3H, Prothromb Time International Ratio 2.10 02/10/17 00:57: Bedside Glucose (Misc Panel) 128H 02/10/17 05:37: Blood Gas Bicarbonate Standard 25.3, Arterial Blood pH 7.426, Arterial Blood Partial Pressure CO2 39.4, Arterial Blood Partial Pressure O2 94.0, Arterial Blood Total CO2 26.5, Arterial Blood HCO3 25.3, Arterial Blood Base Excess 0.9, Arterial Blood Oxygen Saturation 97.0 02/10/17 05:43: Bedside Glucose (Misc Panel) 120H 02/10/17 05:52: Neutrophils 43, Band Neutrophils 3, Lymphocytes (Manual) 9L, Monocytes (Manual) 19H, Metamyelocytes 6H, Myelocytes 20H, Platelet Estimate MARKED DECREASE, Poikilocytosis 2+, Anisocytosis 2+, Macrocytosis 1+, Schistocytes 1+, Prothrombin Time 24.2H, Prothromb Time International Ratio 2.09, Activated Partial Thromboplast Time 44.9H, Anion Gap 11, Glomerular Filtration Rate 32.2L , Blood Urea Nitrogen 76H, Creatinine 2.15H, Sodium Level 156H, Potassium Level 3.7, Chloride Level 119H, Carbon Dioxide Level 26, Calcium Level 8.7L, Aspartate Amino Transf (AST/SGOT) 196H, Alanine Aminotransferase (ALT/SGPT) 124H , Alkaline Phosphatase 423H, Total Bilirubin 7.4H, Total Protein 6.1L, Albumin 1.3L, Albumin/Globulin Ratio 0.27L 02/10/17 11:04: Blood Gas Bicarbonate Standard 24.9, Arterial Blood pH 7.417, Arterial Blood Partial Pressure CO2 39.6, Arterial Blood Partial Pressure O2 111.0H, Arterial Blood Total CO2 26.2, Arterial Blood HCO3 24.9, Arterial Blood Base Excess 0.4, Arterial Blood Oxygen Saturation 98.3 02/10/17 11:35: Prothrombin Time 23.8H, Prothromb Time International Ratio 2.05, Ammonia 36H 02/10/17 12:25: Bedside Glucose (Misc Panel) 127H CBC/BMP Laboratory Tests 02/09/17 14:43 02/09/17 22:11 Red Blood Count 2.61 L, Mean Corpuscular Volume 93.8, Mean Corpuscular Hemoglobin 33.8 H, Mean Corpuscular Hemoglobin Concent 36.1, Red Cell Distribution Width 21.7 H 02/10/17 05:52 Red Blood Count 2.64 L, Mean Corpuscular Volume 95.0, Mean Corpuscular Hemoglobin 33.1 H, Mean Corpuscular Hemoglobin Concent 34.9, Red Cell Distribution Width 21.7 H, Calcium Level 8.7 L, Aspartate Amino Transf (AST/SGOT ) 196 H, Alanine Aminotransferase (ALT/SGPT) 124 H, Alkaline Phosphatase 423 H, Total Bilirubin 7.4 H, Total Protein 6.1 L, Albumin 1.3 L 02/10/17 11:35 Red Blood Count 2.63 L, Mean Corpuscular Volume 94.9, Mean Corpuscular Hemoglobin 33.5 H, Mean Corpuscular Hemoglobin Concent 35.3, Red Cell Distribution Width 21.9 H Microbiology Microbiology 02/04/17 Blood Culture - Final, Complete NO GROWTH AFTER 5 DAYS 02/05/17 Gram Stain - Final, Complete 02/05/17 Sputum Culture - Final, Complete Enterobacter Cloacae Complex Yeast Like Organism 02/04/17 Urine Culture - Final, Complete Maged Negron M.D. Feb 10, 2017 13:55
[2017-02-10] MEDS ORDERED: SODIUM CHLORIDE IV SCH ×7 (18:00)
[2017-02-10] MEDS ORDERED: [UNRECOGNIZED DRUG - OTHER] IV SCH ×7 (18:00)
[2017-02-10] MEDS ORDERED: SODIUM ACETATE IV SCH ×7 (18:00)
[2017-02-10] MEDS ORDERED: FAT EMULSION IV 20% 500 ML IV SCH (18:00)
[2017-02-10 20:06] LABS: INR 2.07
[2017-02-10 20:25] LABS: MEAN CORPUSCULAR HEMOGLOBIN 33.5 pg (27.0-33.0); MEAN CORPUSCULAR HGB CONC 35.1 g/dl (32.0-36.5); MEAN CORPUSCULAR VOLUME 95.5 fl (80.0-96.0); RED CELL DISTRIBUTION WIDTH 21.8 % (11.5-14.5)
[2017-02-10 20:29] LABS: WHITE BLOOD COUNT 30.8 K/mm3 (4.0-10.0)
--- NOTE | 2017-02-10 23:05 | IPNPDOC ---
Date Seen The patient was seen on 02/10/17. Progress Note SUBJECTIVE: Patient is extubated and lying in bed comfortably OBJECTIVE PHYSICAL EXAMINATION: VITAL SIGNS: Please see below. GENERAL: Lying in bed comfortably HEENT: Normal CARDIOVASCULAR: Regular rate and rhythm. RESPIRATORY: Clear to auscultation bilaterally. ABDOMINAL: Soft nontender nondistended EXTREMITIES: Well-perfused left brachial artery exposure incision clean NEUROLOGICAL: Patient does not alert or oriented to person place or time PSYCHOLOGICAL: Unable to assess LABORATORY DATA: Please see below. MICROBIOLOGY: Please see below. 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 PROBLEMS: 1. pseudoaneurysm: Patient is stable and requires no intervention at this time. VS, I&O, 24H, Fishbone Vital Signs/I&O Vital Signs Date Time Temp Pulse Resp B/P (MAP) Pulse Ox O2 Delivery O2 Flow Rate FiO2 02/10/17 22:00 70 28 98/60 (73) 90 Aerosol Mask 10.0 35 124/52 (76) 02/10/17 20:00 99.4 I&O- Last 24 Hours up to 6 AM 02/10/17 05:59 Intake Total 3310 ml Output Total 3880 ml Balance -570 ml Laboratory Data 24H LABS Laboratory Tests 2 02/10/17 00:57: Bedside Glucose (Misc Panel) 128H 02/10/17 05:37: Blood Gas Bicarbonate Standard 25.3, Arterial Blood pH 7.426, Arterial Blood Partial Pressure CO2 39.4, Arterial Blood Partial Pressure O2 94.0, Arterial Blood Total CO2 26.5, Arterial Blood HCO3 25.3, Arterial Blood Base Excess 0.9, Arterial Blood Oxygen Saturation 97.0 02/10/17 05:43: Bedside Glucose (Misc Panel) 120H 02/10/17 05:52: Neutrophils 43, Band Neutrophils 3, Lymphocytes (Manual) 9L, Monocytes (Manual) 19H, Metamyelocytes 6H, Myelocytes 20H, Platelet Estimate MARKED DECREASE, Poikilocytosis 2+, Anisocytosis 2+, Macrocytosis 1+, Schistocytes 1+, Prothrombin Time 24.2H, Prothromb Time International Ratio 2.09, Activated Partial Thromboplast Time 44.9H, Anion Gap 11, Glomerular Filtration Rate 32.2L , Blood Urea Nitrogen 76H, Creatinine 2.15H, Sodium Level 156H, Potassium Level 3.7, Chloride Level 119H, Carbon Dioxide Level 26, Calcium Level 8.7L, Aspartate Amino Transf (AST/SGOT) 196H, Alanine Aminotransferase (ALT/SGPT) 124H , Alkaline Phosphatase 423H, Total Bilirubin 7.4H, Total Protein 6.1L, Albumin 1.3L, Albumin/Globulin Ratio 0.27L 02/10/17 11:04: Blood Gas Bicarbonate Standard 24.9, Arterial Blood pH 7.417, Arterial Blood Partial Pressure CO2 39.6, Arterial Blood Partial Pressure O2 111.0H, Arterial Blood Total CO2 26.2, Arterial Blood HCO3 24.9, Arterial Blood Base Excess 0.4, Arterial Blood Oxygen Saturation 98.3 02/10/17 11:35: Prothrombin Time 23.8H, Prothromb Time International Ratio 2.05, Ammonia 36H 02/10/17 12:25: Bedside Glucose (Misc Panel) 127H 02/10/17 18:06: Bedside Glucose (Misc Panel) 124H 02/10/17 19:31: Prothrombin Time 24.0H, Prothromb Time International Ratio 2.07 CBC/BMP Laboratory Tests 02/10/17 05:52 Red Blood Count 2.64 L, Mean Corpuscular Volume 95.0, Mean Corpuscular Hemoglobin 33.1 H, Mean Corpuscular Hemoglobin Concent 34.9, Red Cell Distribution Width 21.7 H, Calcium Level 8.7 L, Aspartate Amino Transf (AST/SGOT ) 196 H, Alanine Aminotransferase (ALT/SGPT) 124 H, Alkaline Phosphatase 423 H, Total Bilirubin 7.4 H, Total Protein 6.1 L, Albumin 1.3 L 02/10/17 11:35 Red Blood Count 2.63 L, Mean Corpuscular Volume 94.9, Mean Corpuscular Hemoglobin 33.5 H, Mean Corpuscular Hemoglobin Concent 35.3, Red Cell Distribution Width 21.9 H 02/10/17 19:31 Red Blood Count 2.51 L, Mean Corpuscular Volume 95.5, Mean Corpuscular Hemoglobin 33.5 H, Mean Corpuscular Hemoglobin Concent 35.1, Red Cell Distribution Width 21.8 H Microbiology Microbiology 02/04/17 Blood Culture - Final, Complete NO GROWTH AFTER 5 DAYS 02/05/17 Gram Stain - Final, Complete 02/05/17 Sputum Culture - Final, Complete Enterobacter Cloacae Complex Yeast Like Organism 02/04/17 Urine Culture - Final, Complete Ovidio Hill MD Feb 10, 2017 23:05
[2017-02-11] VITALS (9 sets, daily range): BP systolic 109–167; BP diastolic 51–83; O2SAT 93–94
[2017-02-11] MEDS: IPRATROPIUM 0.5MG/ALBUTEROL 2.5MG INH SOL UD 3ML (DUONEB)(J7620) NEB SCH ×5 (03:24→19:47)
[2017-02-11] MEDS: PIPERACILLIN/TAZOBACTAM SOD 3.375 GM in D5W MINI-BAG PLUS 50 ML IV SCH ×3 (03:26→15:00)
[2017-02-11] MEDS: VANCOMYCIN ORAL SOL 250MG/5ML ORAL SYRINGE PO SCH ×3 (05:31→18:00)
[2017-02-11] MEDS: SODIUM CHLORIDE 0.9% INJ 10 ML SYR IV SCH ×2 (05:32→14:00)
[2017-02-11 05:51] LABS: ADD MANUAL DIFFER YES; DIFF SLIDE NUMBER 4; MEAN CORPUSCULAR HEMOGLOBIN 33.3 pg (27.0-33.0); MEAN CORPUSCULAR HGB CONC 34.5 g/dl (32.0-36.5); MEAN CORPUSCULAR VOLUME 96.6 fl (80.0-96.0); RED CELL DISTRIBUTION WIDTH 21.9 % (11.5-14.5); WHITE BLOOD COUNT 25.8 K/mm3 (4.0-10.0)
[2017-02-11 05:55] LABS: INR 2.12
[2017-02-11] MEDS: HumaLOG INSULIN (NovoLOG) PER UNIT SC SCH ×3 (06:00→18:00)
[2017-02-11 06:11] LABS: ALBUMIN 1.2 GM/DL (3.2-5.2); ALBUMIN/GLOBULIN RATIO 0.26 (1.00-1.93); BILIRUBIN,TOTAL 6.5 MG/DL (0.2-1.0); CALCIUM LEVEL 8.3 MG/DL (8.8-10.2); CREATININE FOR GFR 2.08 MG/DL (0.70-1.30); GLOMERULAR FILTRATION RATE 33.5 (>42); POTASSIUM SERUM 3.3 MEQ/L (3.5-5.1); TOTAL PROTEIN 5.8 GM/DL (6.4-8.2)
[2017-02-11 06:12] LABS: PLATELET COUNT, AUTOMATED 13 k/mm3 (150-450)
[2017-02-11 06:55] LABS: BANDS 12 % (< 11)
[2017-02-11 06:56] LABS: ANISOCYTOSIS 2+; POIKILOCYTOSIS 1+
[2017-02-11] MEDS: PANTOPRAZOLE 40MG INJ (PROTONIX) (C9113) IV SCH (08:27)
[2017-02-11] MEDS: SOTALOL HCL 80 MG TAB PO SCH (08:27)
[2017-02-11] MEDS ORDERED: D5W 1,000 ML IV SCH (10:15)
--- NOTE | 2017-02-11 10:30 | IPNPDOC ---
Subjective Date Seen The patient was seen on 02/11/17. Subjective Chief Complaint/HPI The patient is a 71-year-old male admitted with a reason for visit of Gastric Neoplasm. General: Reports: ROS Unobtainable Objective Physical Examination General Exam: Positive: No Acute Distress, Negative: Alert (awakens and answers questions, but is groggy currently (Had EGD this am)) Eye Exam: Positive: Other Eye Symptoms (tracks examiner in room with his eyes.) ENT Exam: Positive: Other ENT (NGT with bloody residue. Clots suction from Oropharynx this am by nursing staff. ) Neck Exam: Positive: Supple, Negative: JVD Chest Exam: Positive: Clear to auscultation Heart Exam: Positive: Rate Normal, Regular Rhythm, Other (episodes of bradycardia noted on monitor.) Telemetry: Positive: No significant arrhythmia, Sinus Abdomen Exam: Positive: BS Hypoactive, Soft, Tenderness (mild epigastric tenderness without guard or rebound) Extremity Exam: Positive: Edema (puffy digits, feet and toes and fingers.) Neuro Exam: Positive: Other (extubated yesterday due to ET obstruction. Not able to follow commands, no speech. Does not appear to be sufficiently awake to attempt po intake) Psych Exam: Positive: Other (see neuro exam. ) Assessment /Plan Problems (1) Respiratory failure Status: Acute Problem Text: 02/11: still has episodes of bradycardia. he is DNR/DNI and does not want tube feeding per family. 02/10 bradycardia to 30s 2 ETT obstruction; therefore, extubated. Family ( including ) refuse to reintubate 02/08 CT head NAD 02/04 DNR/DNI secured from , currently on CPAP per Dr. Muñoz (2) Encephalopathy Status: Acute Discussed With: Other Discussed With: Problem Text: 02/11:following people in room with his eyes. doesn't spontaneously adjust his O2 mask as it slips into his mouth, seems unable to follow commands. no responsive or spontaneous speech. Zosyn and remains on lactulose prn c daily 2-3 soft BMs 02/08 34 02/04 NH3 41 (3) Sepsis Status: Acute Problem Text: 02/11: still on IV antibiotic. remains at risk for re-emergence of C diff especially now that he is unable to receive po meds. D7 Zosyn-RD (02/08 vanco stopped p 5D) favor 2 mesenteric ischemia 2 pseudoaneurysm compression and B PN 02/10 29.1, afebrile 02/09 34.3, afebrile 02/08 WBC 56K, Tm 101.5 02/07 MN 02/05 SCX few E. cloacae 02/04 BCX x NG 02/04 UCX x 1 01/28 BCX x 2 NG . (4) Anemia Status: Acute Problem Text: 02/11: Hgb 7.5, platelets 13K, WBC25.8; 02/10 8.8, 13K-stable 02/09 8.9, 8K; therefore, 2 u PRBCs, 1 plt/PT/PTT 26/45 02/08 7.3, 10K, 27/49; therefore, tx 2u PRBCs 02/07 hgb down to 6.6 c plt 9 c active bleeding; therefore, tx 2 pheresis plt, 1 FFP and then 2 units PRBCs 02/06 tx 2u PRBCs (5) Paroxysmal atrial fibrillation Status: Acute Problem Text: Continues SR off chronotropic meds 02/07/17: Cardizem drip yesterday for AFib with RVR. Converted to sinus rhythm 02/06/17: NSR rate 90s. 02/05 1830 SR to AF c RVR 130-150-no improvement c dig 0.25 IV x 2; then converted for ~1 min c metoprolol 5 IV x 2, will repeat on sotalol 80 BID (6) Pseudoaneurysm of aorta Problem Text: LFTs continue to decline/no signs of active bleeding 02/05 s/p intravascular aneurysm coiling by Dr. Hill-unable to visualize celiac trunk-? compromised 02/04 case d/w Dr. Hill-consult placed 02/04 aortic US: Pseudoaneurysm at the diaphragmatic hiatus anterior to the aorta measuring 8.0 x 6.7 x 7.4 cm. Mycotic aneurysm is a possibility. (7) Coagulopathy Status: Chronic Problem Text: as per anemia 2 ESLD 02/07 PT 46/PTT 63 02/04 vitamin K 10 SC x 1 given (8) Pancytopenia Permanent Comment: Longstanding problem with Neupogen support of neutropenia. Abnormal BM biopsy from [facility] done November 2014 (see eCW chart) Chronic thrombocytopenia and anemia also Last Edited By: Amaury Jack M.D. on Feb 10, 2016 11:28 Status: Chronic Problem Specific Plan: Monitor Clinically, Repeat Labs Problem Text: 2 ESLD (9) Multifocal pneumonia Problem Text: c respiratory failure on MV per CC 02/05/17: CT angio of chest confirms significant pneumonia rx as per sepsis (10) Clostridium difficile colitis Status: Chronic Problem Specific Plan: Monitor Clinically Problem Text: 02/08 + vanco px 125 QID H/O multiple episodes Cdiff. Has been on PO Vanco q3 days with last dose 01/29. (11) PREET (acute kidney injury) Status: Acute Response to Treatment: Stable Problem Text: 02/10/17: stable at 2.2-stable lytes-IVF DCd due to + fluid balance- stable lytes baseline cr 1.2 (12) Malnutrition Status: Chronic Response to Treatment: Stable Problem Text: TPN as per CC 02/07 TPN started (13) Hypoalbuminemia Status: Chronic Problem Text: c significant 3rd spacing 02/09 fur 40 c albumin trial (14) Hypernatremia Status: Acute Response to Treatment: Worse Discussed With: Other Discussed With: ( Critical Care Unit Manager, Dr. Melton) Problem Specific Plan: Consult Specialist, Monitor Clinically, Repeat Tests Problem Text: Will add D5W 50/hr. Howeveer, it is anticipated that low albumin will lead to significant leakage of free water into interstitium. Without being able to address his po intake adequately, given his multiple chronic issues, I think DRIVER LICENSE AGENT status is the most reasonable choice for his ongoing care. Discussed with Proxy () and brother. She is trying to decide at this time. Plan/VTE VTE Prophylaxis Ordered?: No (TEDs, SCDs) VTE Exclusion Pharmacological: Bleeding Risk (INR 2.56. Teds and SCDs ordered. ) Plan/Urinary Catheter Reason for insertion/continuin: Critical Pt monitoring Plan Advance Directives: DNR, Other Advance Directive (DNI, no feeding tube) Disposition Discussed DRIVER LICENSE AGENT with who is his proxy. He seems to be unable to understand the nature of the discussion. VS, I&O, 24H, Fishbone Vital Signs/I&O Vital Signs Date Time Temp Pulse Resp B/P (MAP) Pulse Ox O2 Delivery O2 Flow Rate FiO2 02/11/17 08:27 35 163/83 02/11/17 08:00 Aerosol Mask 35 02/11/17 08:00 97.4 20 02/11/17 06:00 92 02/11/17 03:33 8.0 I&O- Last 24 Hours up to 6 AM 02/11/17 06:00 Intake Total 3700 ml Output Total 3570 ml Balance 130 ml Laboratory Data 24H LABS Laboratory Tests 2 02/10/17 11:04: Blood Gas Bicarbonate Standard 24.9, Arterial Blood pH 7.417, Arterial Blood Partial Pressure CO2 39.6, Arterial Blood Partial Pressure O2 111.0H, Arterial Blood Total CO2 26.2, Arterial Blood HCO3 24.9, Arterial Blood Base Excess 0.4, Arterial Blood Oxygen Saturation 98.3 02/10/17 11:35: Prothrombin Time 23.8H, Prothromb Time International Ratio 2.05, Ammonia 36H 02/10/17 12:25: Bedside Glucose (Misc Panel) 127H 02/10/17 18:06: Bedside Glucose (Misc Panel) 124H 02/10/17 19:31: Prothrombin Time 24.0H, Prothromb Time International Ratio 2.07 02/10/17 23:25: Bedside Glucose (Misc Panel) 132H 02/11/17 05:34: Prothrombin Time 24.5H, Prothromb Time International Ratio 2.12, Neutrophils 58 , Band Neutrophils 12H, Lymphocytes (Manual) 14L, Metamyelocytes 6H, Myelocytes 10H, Platelet Estimate MARKED DECREASE, Poikilocytosis 1+, Anisocytosis 2+, Activated Partial Thromboplast Time 44.9H, Anion Gap 10, Glomerular Filtration Rate 33.5L, Blood Urea Nitrogen 76H, Creatinine 2.08H, Sodium Level 158H, Potassium Level 3.3L, Chloride Level 122H, Carbon Dioxide Level 26, Calcium Level 8.3L, Aspartate Amino Transf (AST/SGOT) 132H, Alanine Aminotransferase ( ALT/SGPT) 97H, Alkaline Phosphatase 306H, Total Bilirubin 6.5H, Total Protein 5.8L, Albumin 1.2L, Albumin/Globulin Ratio 0.26L CBC/BMP Laboratory Tests 02/10/17 11:35 Red Blood Count 2.63 L, Mean Corpuscular Volume 94.9, Mean Corpuscular Hemoglobin 33.5 H, Mean Corpuscular Hemoglobin Concent 35.3, Red Cell Distribution Width 21.9 H 9/17/17 19:31 Red Blood Count 2.51 L, Mean Corpuscular Volume 95.5, Mean Corpuscular Hemoglobin 33.5 H, Mean Corpuscular Hemoglobin Concent 35.1, Red Cell Distribution Width 21.8 H 02/11/17 05:34 Red Blood Count 2.24 L, Mean Corpuscular Volume 96.6 H, Mean Corpuscular Hemoglobin 33.3 H, Mean Corpuscular Hemoglobin Concent 34.5, Red Cell Distribution Width 21.9 H, Calcium Level 8.3 L, Aspartate Amino Transf (AST/SGOT ) 132 H, Alanine Aminotransferase (ALT/SGPT) 97 H, Alkaline Phosphatase 306 H, Total Bilirubin 6.5 H, Total Protein 5.8 L, Albumin 1.2 L Microbiology Microbiology 02/04/17 Blood Culture - Final, Complete NO GROWTH AFTER 5 DAYS 02/05/17 Gram Stain - Final, Complete 02/05/17 Sputum Culture - Final, Complete Enterobacter Cloacae Complex Yeast Like Organism 02/04/17 Urine Culture - Final, Complete Amaury Jack MD Feb 11, 2017 10:17
[2017-02-11] MEDS: MORPHINE 2 MG/ML 1ML SYRINGE IV PRN ×2 (13:42→22:07)
[2017-02-12] MEDS: SODIUM CHLORIDE 0.9% INJ 10 ML SYR IV SCH ×4 (00:43→21:23)
[2017-02-12] MEDS: MORPHINE 2 MG/ML 1ML SYRINGE IV PRN ×4 (00:43→17:33)
[2017-02-12] MEDS: IPRATROPIUM 0.5MG/ALBUTEROL 2.5MG INH SOL UD 3ML (DUONEB)(J7620) NEB SCH ×6 (04:00→20:00)
[2017-02-12] MEDS ORDERED: LORazepam 2 MG/ML VIAL (J2060) IV PRN (08:30)
--- NOTE | 2017-02-12 08:59 | IPNPDOC ---
Subjective Date Seen The patient was seen on 02/12/17. Subjective Chief Complaint/HPI The patient is a 71-year-old male admitted with a reason for visit of Gastric Neoplasm. Events since last encounter Pts at bedside. She is without concerns. She feels as though the pt is comfortable. She plans to talk with family about taking the pt home. General: Reports: ROS Unobtainable Objective Physical Examination General Exam: Positive: No Acute Distress, Negative: Alert (awakens and answers questions, but is groggy currently (Had EGD this am)) Chest Exam: Positive: Clear to auscultation, Diminished Heart Exam: Positive: Rate Normal, Regular Rhythm Telemetry: Positive: No significant arrhythmia, Sinus Abdomen Exam: Positive: Soft Extremity Exam: Positive: Edema (puffy digits, feet and toes and fingers.) Assessment /Plan Problems (1) Comfort measures only status Status: Acute Response to Treatment: Stable Discussed With: Nurse, Family with Pt Consent Problem Specific Plan: Monitor Clinically Problem Text: Pt with IV and SL morphine orders available. IV Ativan, has Scopalamine patch. Pts considering bringing him home, but anxious about the care he will need, plans to address with family today. (2) Respiratory failure Status: Acute Problem Text: 02/11: still has episodes of bradycardia. he is DNR/DNI and does not want tube feeding per family. 02/10 bradycardia to 30s 2 ETT obstruction; therefore, extubated. Family ( including ) refuse to reintubate 02/08 CT head NAD 02/04 DNR/DNI secured from , currently on CPAP per Dr. Muñoz (3) Encephalopathy Status: Acute Discussed With: Other Discussed With: Problem Text: 02/11:following people in room with his eyes. doesn't spontaneously adjust his O2 mask as it slips into his mouth, seems unable to follow commands. no responsive or spontaneous speech. Zosyn and remains on lactulose prn c daily 2-3 soft BMs 02/08 34 02/04 NH3 41 (4) Sepsis Status: Acute Problem Text: 02/11: still on IV antibiotic. remains at risk for re-emergence of C diff especially now that he is unable to receive po meds. D7 Zosyn-RD (02/08 vanco stopped p 5D) favor 2 mesenteric ischemia 2 pseudoaneurysm compression and B PN 02/10 29.1, afebrile 02/09 34.3, afebrile 02/08 WBC 56K, Tm 101.5 02/07 MN 02/05 SCX few E. cloacae 02/04 BCX x NG 02/04 UCX x 1 01/28 BCX x 2 NG . (5) Anemia Status: Acute Problem Text: 02/11: Hgb 7.5, platelets 13K, WBC25.8; 02/10 8.8, 13K-stable 02/09 8.9, 8K; therefore, 2 u PRBCs, 1 plt/PT/PTT /45 02/08 7.3, 10K, 27/49; therefore, tx 2u PRBCs 02/07 hgb down to 6.6 c plt 9 c active bleeding; therefore, tx 2 pheresis plt, 1 FFP and then 2 units PRBCs 02/06 tx 2u PRBCs (6) Paroxysmal atrial fibrillation Status: Acute Problem Text: Continues SR off chronotropic meds 02/07/17: Cardizem drip yesterday for AFib with RVR. Converted to sinus rhythm 02/06/17: NSR rate 90s. 02/05 1830 SR to AF c RVR 130-150-no improvement c dig 0.25 IV x 2; then converted for ~1 min c metoprolol 5 IV x 2, will repeat on sotalol 80 BID (7) Pseudoaneurysm of aorta Problem Text: LFTs continue to decline/no signs of active bleeding 02/05 s/p intravascular aneurysm coiling by Dr. Hill-unable to visualize celiac trunk-? compromised 02/04 case d/w Dr. Hill-consult placed 02/04 aortic US: Pseudoaneurysm at the diaphragmatic hiatus anterior to the aorta measuring 8.0 x 6.7 x 7.4 cm. Mycotic aneurysm is a possibility. (8) Coagulopathy Status: Chronic Problem Text: as per anemia 2 ESLD 02/07 PT 46/PTT 63 02/04 vitamin K 10 SC x 1 given (9) Pancytopenia Permanent Comment: Longstanding problem with Neupogen support of neutropenia. Abnormal BM biopsy from [facility] done November 2014 (see eCW chart) Chronic thrombocytopenia and anemia also Last Edited By: Amaury Jack M.D. on Feb 10, 2016 11:28 Status: Chronic Problem Specific Plan: Monitor Clinically, Repeat Labs Problem Text: 2 ESLD (10) Multifocal pneumonia Problem Text: c respiratory failure on MV per CC 02/05/17: CT angio of chest confirms significant pneumonia rx as per sepsis (11) Clostridium difficile colitis Status: Chronic Problem Specific Plan: Monitor Clinically Problem Text: 02/08 + vanco px 125 QID H/O multiple episodes Cdiff. Has been on PO Vanco q3 days with last dose 01/29. (12) PREET (acute kidney injury) Status: Acute Response to Treatment: Stable Problem Text: 02/10/17: stable at 2.2-stable lytes-IVF DCd due to + fluid balance- stable lytes baseline cr 1.2 (13) Malnutrition Status: Chronic Response to Treatment: Stable Problem Text: TPN as per CC 02/07 TPN started (14) Hypoalbuminemia Status: Chronic Problem Text: c significant 3rd spacing 02/09 fur 40 c albumin trial (15) Hypernatremia Status: Acute Response to Treatment: Worse Discussed With: Other Discussed With: ( Cross Tie Cutter, Dr. Melton) Problem Specific Plan: Consult Specialist, Monitor Clinically, Repeat Tests Problem Text: Will add D5W 50/hr. Howeveer, it is anticipated that low albumin will lead to significant leakage of free water into interstitium. Without being able to address his po intake adequately, given his multiple chronic issues, I think [facility]S[facility] status is the most reasonable choice for his ongoing care. Discussed with Proxy () and brother. She is trying to decide at this time. Plan/VTE VTE Prophylaxis Ordered?: No (TEDs, SCDs) VTE Exclusion Pharmacological: Bleeding Risk (INR 2.56. Teds and SCDs ordered. ) Plan/Urinary Catheter Reason for insertion/continuin: Critical Pt monitoring Plan Advance Directives: DNR, Other Advance Directive (DNI, no feeding tube) VS, I&O, 24H, Fishbone Vital Signs/I&O Vital Signs Date Time Temp Pulse Resp B/P (MAP) Pulse Ox O2 Delivery O2 Flow Rate FiO2 02/12/17 00:43 Nasal Cannula 4.0 02/11/17 22:19 24 02/11/17 12:00 97.5 59 109/61 (77) 94 02/11/17 11:25 35 I&O- Last 24 Hours up to 6 AM 02/12/17 06:00 Output Total 250 ml Balance -250 ml Laboratory Data Microbiology Microbiology 02/04/17 Blood Culture - Final, Complete NO GROWTH AFTER 5 DAYS 02/05/17 Gram Stain - Final, Complete 02/05/17 Sputum Culture - Final, Complete Enterobacter Cloacae Complex Yeast Like Organism 02/04/17 Urine Culture - Final, Complete MARSHA NICKERSON PA-C Feb 12, 2017 08:59
[2017-02-12] MEDS ORDERED: SCOPOLAMINE 1.5 MG TRANSDERMAL TOP SCH (09:00)
[2017-02-12] MEDS ORDERED: MORPHINE 10MG/0.5ML ORAL CONCENTRATE SOLUTION U/D SL PRN (09:00)
[2017-02-13] MEDS: IPRATROPIUM 0.5MG/ALBUTEROL 2.5MG INH SOL UD 3ML (DUONEB)(J7620) NEB SCH ×4 (02:52→11:36)
[2017-02-13] MEDS: SODIUM CHLORIDE 0.9% INJ 10 ML SYR IV SCH (05:27)
--- NOTE | 2017-02-13 16:35 | DSES ---
DATE OF ADMISSION: 01/28/2017 DATE OF DISCHARGE: 02/13/2017 REASON FOR ADMISSION: Mr. Ott was admitted from the ED with epigastric pain and persistent hiccups. 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 Hemoglobin at admission was 9.1. The patient had been experiencing worsening abdominal pain and failure to thrive, possibly secondary to gastric mass, presenting with worsening pain and admitted for treatment. Subsequent investigations revealed thickening of the stomach wall with a mass-like appearance at the level of the fundus, this turned out to be a pseudoaneurysm of the aorta case located at the level of the diaphragmatic hiatus. This lesion was subsequently treated by wire embolization. Procedure carried out by Dr. Hill. The patient also was shown to have a multifocal pneumonia. Over the course of his hospital stay, he required multiple units of blood products to support his falling hemoglobin and platelets as well. He received eight units of leukocyte reduced red cells, one unit fresh frozen plasma, four phoresis platelet packs, one irradiated phoresis pack, and one albumin unit from the blood bank. Endoscopy carried out on 02/01/2017, upper endoscopy by Dr. Monsivais, showed extrinsic compression of the stomach by external mass which turned out to be an aneurysm mentioned above. A discussion had been made with the attending, Dr. Callejas at the time, regarding transfer to [facility] and eventually this was not carried out. He had a central catheter placed on 02/04/2017, by Dr. Andersen. Dr. Muñoz saw the patient in consultation because of hypoxemic respiratory failure, sepsis, ongoing coagulopathy and the patient had been transferred to ICU on that date for those problems. He was subsequently intubated initially with mechanical support. The patient developed plugging of his ET tube and required unscheduled extubation. at that time indicated that the patient was requested DO NOT INTUBATE/DO NOT RESUSCITATE and no tube feeding. He was hypernatremic at this point. He was opening his eyes but not able to converse, was having some degree of metabolic encephalopathy perhaps related to previous hypoxic respiratory failure, perhaps related to his ongoing liver disease. In any event, mental status was quite depressed. Renal function seemed to be stable. BUN was going up but creatinine had improved. He had received some albumin to help with diuresis. On the morning of 02/11/2017, it appeared clear that the patient was not tracking toward improvement and was giving evidence of multisystem failure with his ongoing cephalopathy, chronic hematologic disturbance, coagulopathy, multifocal pneumonia. Discussion with health support specialist and family on that date led to decision to make the patient comfort measures only and he was transferred to the floor on 02/11/2017. On 02/12/2017, the patient was opening his eyes, he looked comfortable, the medications had been adjusted to provide adequate analgesia and on 02/13/2017, the patient in the early afternoon became unresponsive and pulseless. 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 The patient's family did not request autopsy.
--- NOTE | 2017-02-15 08:33 | DSES ---
addendum added in [employer]itech.... ADDITIONAL DISCHARGE DIAGNOSIS: Severe protein calorie malnutrition based on low albumin.
--- NOTE | 2017-03-06 11:10 | RO ---
DATE OF PROCEDURE: 02/05/2017 PREPROCEDURE DIAGNOSIS: Celiac artery pseudoaneurysm. 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 PROCEDURE: Left brachial artery open exposure, aortogram selective celiac artery catheter placement with angiogram selective pseudoaneurysm catheter placement with angiogram and coil embolization with 8 x 20 interlock coils times two and 10 x 20 interlock coil by one. Right radial arterial line placement. Embolization of celiac artery pseudoaneurysm with Thrombin and Gelfoam. SURGEON: Dr. Ovidio Hill. OVERHEAD IRRIGATOR: Maria Teresa Handy. ANESTHESIA: General endotracheal. ESTIMATED BLOOD LOSS: 50 mL. THROMBIN: 20 units with Gelfoam. IV FLUID: 1300 mL. CONTRAST: 54 mL. INDICATION: Patient is a 71-year-old male with multiple medical comorbidities who underwent a CT scan which demonstrated a large pseudoaneurysm originating off of the celiac artery origin. The patient will undergo an angiogram with possible angioplasty, stent and/or coil embolization. Risks, benefits and alternative treatment options were discussed with the patient and his family. PROCEDURE: The patient was prepped and draped in a standard surgical fashion. The left brachial artery was exposed through a vertical incision and then a catheter was advanced through the brachial artery after a sheath had been placed and placed in the aorta and aortogram was performed. This showed the pseudoaneurysm originating off of the celiac artery origin which also showed what appeared to be disruption of the celiac artery from the aorta with the pseudoaneurysm between the aortic origin and the remaining celiac artery with slow flow in the celiac artery. The pseudoaneurysm was entered and an angiogram performed confirming multilobulated pseudoaneurysm which was then embolized using thrombin and Gelfoam in the distal most portion of the pseudoaneurysm and then coil embolization with two 8 x 20 interlock and one 10 x 20 interlock within the proximal most lobulation of the pseudoaneurysm. A completion angiogram showed no further filling of the pseudoaneurysm and sluggish slow continued in the celiac artery. The catheters and wires were removed after which the brachial artery was closed using #6-0 Prolene suture in interrupted fashion. The incision was then closed using #2-0 Vicryl and #3-0 Monocryl. Dressings were applied. Patient tolerated the procedure well. All instrument, sponge and needle counts were correct at the end of the case. There were no complications. Dr. iHll was present for and directed the entire case. Patient was transferred to the intensive care unit (ICU) in stable condition. RADIOLOGIC SUPERVISION INTERPRETATION: The initial aortogram showed the superior mesenteric artery to be patent. The celiac artery was disrupted from the aorta with a pseudoaneurysm in between the remaining portion of the celiac artery and the origin of the celiac artery. The pseudoaneurysm was multilobulated. This underwent embolization with Gelfoam and Thrombin in the distal most lobulations and the proximal lobulation was embolized using two 8 x 20 interlocks and one 10 x 20 interlock.
== END 2017-02-13 12:49 | disposition expired | DRG 270 ==
LOC: M ED 22:32 → M ED INP 01-28 03:56 → M PCU 01-28 05:25 → M MSPAV 02-03 15:27 → M ICU 02-04 09:04 → M MSPAV 02-12 00:03
PROVIDERS: ADMIT Internal Medicine; ATTEND Family Medicine
PROC: 30233N1 Transfusion of Nonautologous Red Blood Cells into Peripheral Vein, Percutaneous Approach (ICD-10-PCS; 2017-01-28)
PROC: 0DJ08ZZ Inspection of Upper Intestinal Tract, Via Natural or Artificial Opening Endoscopic (ICD-10-PCS; 2017-02-01)
PROC: 30233R1 Transfusion of Nonautologous Platelets into Peripheral Vein, Percutaneous Approach (ICD-10-PCS; 2017-02-04)
PROC: 04V Lower Arteries, Restriction (ICD-10-PCS; principal; 2017-02-05)
PROC: B41JYZZ Fluoroscopy of Other Lower Arteries using Other Contrast (ICD-10-PCS; 2017-02-05)
PROC: B414YZZ Fluoroscopy of Superior Mesenteric Artery using Other Contrast (ICD-10-PCS; 2017-02-05)
PROC: 30233K1 Transfusion of Nonautologous Frozen Plasma into Peripheral Vein, Percutaneous Approach (ICD-10-PCS; 2017-02-08)
DX: I71.3 Abdominal aortic aneurysm, ruptured (principal); J96.01 Acute respiratory failure with hypoxia; E43 Unspecified severe protein-calorie malnutrition; G93.41 Metabolic encephalopathy; A41.9 Sepsis, unspecified organism; J15.6 Pneumonia due to other Gram-negative bacteria; N17.9 Acute kidney failure, unspecified; C16.0 Malignant neoplasm of cardia; E87.0 Hyperosmolality and hypernatremia; D68.4 Acquired coagulation factor deficiency; D61.818 Other pancytopenia; E87.2 Acidosis; C85.90 Non-Hodgkin lymphoma, unspecified, unspecified site; I48.92 Unspecified atrial flutter; R04.2 Hemoptysis; I74.09 Other arterial embolism and thrombosis of abdominal aorta; D69.6 Thrombocytopenia, unspecified; K74.60 Unspecified cirrhosis of liver; E55.9 Vitamin D deficiency, unspecified; E83.42 Hypomagnesemia; R16.1 Splenomegaly, not elsewhere classified; E83.51 Hypocalcemia; I48.0 Paroxysmal atrial fibrillation; K72.10 Chronic hepatic failure without coma; N18.3 Chronic kidney disease, stage 3 (moderate); Z85.038 Personal history of other malignant neoplasm of large intestine; Z66 Do not resuscitate; Z51.5 Encounter for palliative care; R06.6 Hiccough; Z79.899 Other long term (current) drug therapy; K21.9 Gastro-esophageal reflux disease without esophagitis; Z87.891 Personal history of nicotine dependence; E87.6 Hypokalemia; K59.00 Constipation, unspecified; F43.10 Post-traumatic stress disorder, unspecified; K31.89 Other diseases of stomach and duodenum; E16.2 Hypoglycemia, unspecified; I72.8 Aneurysm of other specified arteries